=== PATIENT | female | born 1965 | race Caucasian/White ===

== ENCOUNTER 2020-08-13 11:12 | Outpatient (REF) | payer MEDICARE, MEDICAID, SELFPAY ==
--- NOTE | 2020-08-13 11:36 | XR_ITS ---
EXAMINATION: AP PELVIS AND LEFT KNEE. CLINICAL INFORMATION: Pain left knee. COMPARISON: None TECHNIQUE: AP knee pelvis stranding. Left knee 2 views. FINDINGS: AP knee: There is a loss of medial compartment joint space both knees without bony erosive changes or loose bodies. Left knee: 2 views left knee reveal screw track along the left proximal tibia suspicious from previous ACL repair and removal of screws.. There is mild loss of patellofemoral compartment joint space with mild suprapatellar joint effusion. No acute fracture or loose body seen. XR/XR knee LT 2V IMPRESSION: Mild degenerative changes medial and patellofemoral compartment left knee with suprapatellar joint effusion. Suspect post ACL repair changes along the left proximal tibia. Correlate with clinical history.
--- NOTE | 2020-08-13 11:36 | XR_ITS ---
EXAMINATION: AP PELVIS AND LEFT KNEE. CLINICAL INFORMATION: Pain left knee. COMPARISON: None TECHNIQUE: AP knee pelvis stranding. Left knee 2 views. FINDINGS: AP knee: There is a loss of medial compartment joint space both knees without bony erosive changes or loose bodies. Left knee: 2 views left knee reveal screw track along the left proximal tibia suspicious from previous ACL repair and removal of screws.. There is mild loss of patellofemoral compartment joint space with mild suprapatellar joint effusion. No acute fracture or loose body seen. XR/XR knee standing BI IMPRESSION: Mild degenerative changes medial and patellofemoral compartment left knee with suprapatellar joint effusion. Suspect post ACL repair changes along the left proximal tibia. Correlate with clinical history.
== END 2020-08-13 11:13 | disposition home or self-care (01) ==
LOC: HO.HOSX 11:12
PROVIDERS: PCP Nurse Practitioner Family; Referring Provider Nurse Practitioner Family; Visit Provider Orthopaedic Surgery
DX: M25.562 Pain in left knee (principal); M25.462 Effusion, left knee; Z98.890 Other specified postprocedural states
CPT/HCPCS: 20610; 73560; 73565; 99212; J1100

== ENCOUNTER 2020-09-24 16:10 | Outpatient (REF) | payer MEDICARE, SELFPAY ==
[2020-09-25 12:11] LABS: Influenza A PCR NEGATIVE (Negative); Influenza B PCR NEGATIVE (Negative); Resp Syncy Virus RNA Qual PCR NEGATIVE (Negative); SARS COV2 PCR INHOUSE NEGATIVE (Negative)
== END 2020-09-24 16:11 | disposition home or self-care (01) ==
LOC: HO.LAB 16:10
PROVIDERS: Visit Provider Nurse Practitioner Family
DX: Z20.828 Contact with and (suspected) exposure to other viral communicable diseases (principal)
CPT/HCPCS: 0241U

== ENCOUNTER 2020-09-25 13:09 | Outpatient (REF) | payer MEDICARE, SELFPAY ==
--- NOTE | 2020-09-25 13:16 | XR_ITS ---
EXAMINATION: XR CHEST CLINICAL INFORMATION: Short of breath. COMPARISON: Chest 01/22/2020 TECHNIQUE: 2 views of the chest were obtained. FINDINGS: No significant abnormality is noted involving the heart, lungs, mediastinum, bony thorax or soft tissues. XR/XR chest 2V IMPRESSION: Unremarkable chest examination.
== END 2020-09-25 13:10 | disposition home or self-care (01) ==
LOC: HO.HMGCX 13:09
PROVIDERS: PCP Nurse Practitioner Family; Visit Provider Nurse Practitioner Family
DX: R06.89 Other abnormalities of breathing (principal)
CPT/HCPCS: 71046

== ENCOUNTER 2021-05-09 17:00 | Emergency (ER) | payer MEDICARE, MEDICAID, SELFPAY ==
--- NOTE | ~2021-05-09 | CT_ITS ---
EXAMINATION: CT ABDOMEN AND PELVIS WITHOUT CONTRAST CLINICAL INFORMATION: Left-sided abdominal pain with question of colitis COMPARISON: CT abdomen pelvis 05/28/2016 TECHNIQUE: Multidetector volumetric imaging was performed from the superior aspect of the liver through the pubic symphysis. Sagittal and coronal reformatted images were obtained on the technologist's workstation. This CT examination was performed using dose optimization techniques as appropriate, variously including the following: *Automated exposure control *Adjustment of mA and/or kV according to patient size (this includes techniques or standardized protocols for targeted exams where dose is matched to indication/reason for exam; i.e. extremities or head) *Use of iterative reconstruction technique DLP: 603 mGy-cm FINDINGS: LUNG BASES: The visualized lung bases are unremarkable. LIVER, GALLBLADDER, AND BILIARY TREE: The liver is normal in size, shape, and attenuation. No focal hepatic lesion or biliary ductal dilatation is present. Status post cholecystectomy PANCREAS: Unremarkable. SPLEEN: Unremarkable. ADRENAL GLANDS: Unremarkable. KIDNEYS AND URETERS: The kidneys are normal in size, shape, and attenuation. No hydronephrosis, hydroureter, or calculi seen. No perinephric stranding. BLADDER: Unremarkable. GASTROINTESTINAL TRACT: Status post right hemicolectomy. Colonic diverticula present without diverticulitis. The small and large bowel are otherwise unremarkable. The appendix is noncompressible. ABDOMINAL WALL: No significant hernia is appreciated. There has been prior anterior abdominal wall surgery. There is a small left inguinal hernia seen containing only fat. LYMPH NODES: No retroperitoneal lymphadenopathy. VASCULAR: Unremarkable. PELVIC VISCERA: Surgically absent. OSSEOUS STRUCTURES: Mild degenerative changes. Prior lumbar spine fixation with pedicular screws from L4 through S1. CT/CT abdomen pelvis wo con IMPRESSION: 1. An etiology for the patient's acute left-sided abdominal pain has not been found. 2. Incidental note made of cholecystectomy, hysterectomy, right hemicolectomy, colonic diverticula without diverticulitis and prior lumbosacral spine surgery.
[2021-05-09 18:09] VITALS: BP 111/77; PULSE 71; RESP 18; TEMP 36.6; O2SAT 100; BMI 26.5
[2021-05-09 19:00] LABS: Basophils Absolute Auto 0.1 X10*3/uL (0.0-0.2); Basophils Percent Auto 0.6 % (0-2); Eosinophils Absolute Auto 0.4 X10*3/uL (0.0-0.4); Eosinophils Percent Auto 3.8 % (0-4); Hematocrit 39.1 % (37-47); Imm Gran Abs Auto 0.03 X10*3/uL (0.00-0.03); Imm Gran Pct Auto 0.3 % (0.0-0.4); Lymphocytes Absolute Auto 3.8 X10*3/uL (1.2-4.9); Lymphocytes Percent Auto 40.8 % (20-40); MANUAL DIFF FLAG NO; Mean Corpuscular HGB Conc 33.2 g/dl (31.0-35.0); Mean Corpuscular Hemoglobin 28.5 pg (27.0-33.0); Mean Corpuscular Volume 85.7 fL (80-98); Mean Platelet Volume 9.1 fL (9.4-12.3); Monocytes Absolute Auto 0.6 X10*3/uL (0.1-1.2); Monocytes Percent Auto 6.1 % (2-11); Neutrophils Absolute Auto 4.5 X10*3/uL (2.0-8.3); Neutrophils Percent Auto 48.4 % (45-73); Platelet Count 381 X10*3/uL (160-400); Red Blood Count 4.56 X10*6/uL (4.20-5.50); Red Cell Distribution Width 14.1 % (11.0-16.0); White Blood Count 9.4 X10*3/uL (4.8-10.8)
[2021-05-09 19:29] LABS: Alanine Aminotransferase 6 U/L (0-31); Albumin Level 4.2 g/dL (3.5-5.0); Alkaline Phosphatase 55 U/L (39-117); Anion Gap 11 (12-20); Aspartate Amino Transferase 14 U/L (5-31); Blood Urea Nitrogen 9 mg/dL (9-16); Calcium 9.4 mg/dL (8.4-10.2); Carbon Dioxide 26 mmol/L (22-29); Chloride 107 mmol/L (96-108); Creatinine Clr Calc Pharmacy 78.5; Estimated Glomerular Filt Rate > 60; Glucose Random 93 mg/dL (60-115); Lipase 18 U/L (8-78); Potassium 3.5 mmol/L (3.3-5.1); Sodium 140 mmol/L (135-145); Total Protein 6.7 g/dL (6.5-8.0)
[2021-05-09 19:35] VITALS: BP 133/63; PULSE 66; RESP 14; TEMP 36.8
[2021-05-09 19:44] LABS: Bilirubin Direct < 0.2 mg/dL (0.0-0.5); Bilirubin Total < 0.2 mg/dL (0.0-1.0)
[2021-05-09] MEDS: 0.9 % Sodium Chloride 1,000 ML 999 ML IV (20:05)
--- NOTE | 2021-05-09 20:05 | PC.NURSE ---
IV established, pt medicated with Zofran and IVF. VSS. Pt awaiting primary MD gabriel.
--- NOTE | 2021-05-09 20:44 | ED.ABDPAIN ---
HPI - Abdominal Pain General Chief Complaint: Abdominal Pain Stated Complaint: back and abd pain Time Seen by Provider: 05/09/21 20:41 Source: patient Mode of arrival: ambulatory Limitations: no limitations History of Present Illness HPI narrative: 56-year-old female came in for evaluation of abdominal pain. Three days of left-sided abdominal pain that radiated to the back, pain is constant but waxes and weans, patient described pain as severe 10/10, no aggravating factor no relieving factor, pain radiate to the back, associated with nausea but no vomiting, no fever or chills. No diarrhea. Patient live with chronic back pain due to muscle spasm patient tried muscle relaxant with no relief. Patient had history of colectomy after perforated colon after colonoscopy, cholecystectomy. Related Data Home Medications Medication Instructions Recorded Confirmed hydrochlorothiazide 12.5 mg tablet 12.5 mg PO DAILY 08/13/20 03/22/21 lurasidone 80 mg tablet 80 mg PO DAILY 08/13/20 03/22/21 sertraline 100 mg tablet 100 mg PO DAILY 08/13/20 03/22/21 topiramate 100 mg tablet 100 mg PO BID 08/13/20 03/22/21 trazodone 100 mg tablet 100 mg PO DAILY 08/13/20 03/22/21 Previous Rx's Medication Instructions Recorded fluticasone propionate 50 1 spray INTRANASAL DAILY #16 ml 08/20/20 mcg/actuation nasal spray,suspension diclofenac sodium 75 mg 75 mg PO BID PRN 30 Days #60 tab 08/22/20 tablet,delayed release tramadol 50 mg tablet 50 mg PO BID PRN 7 Days #14 tab 08/30/20 metoprolol tartrate 25 mg tablet 12.5 mg PO BID #90 tab 09/29/20 fenofibrate 54 mg tablet 54 mg PO DAILY 90 Days #90 tab 10/02/20 pregabalin 75 mg capsule 75 mg PO BID 30 Days #60 cap 11/24/20 omeprazole 20 mg capsule,delayed 20 mg PO BID #180 cap 04/06/21 release tizanidine 2 mg tablet 2 mg PO BID PRN #60 tab 04/20/21 diazepam [Valium] 2 mg PO BEDTIME PRN #4 tab 05/09/21 oxycodone 5 mg PO BID PRN #5 tab 05/09/21 Allergies Allergy/AdvReac Type Severity Reaction Status Date / Time milnacipran [From SAVELLA] Allergy Intermediate ITCHING Verified 03/22/21 12:25 aspirin [Aspirin] Allergy Mild DYSPNEA Verified 03/22/21 12:25 levofloxacin [From Levaquin] Allergy Mild RASH Verified 03/22/21 12:25 lithium [Weed] Allergy Mild TREMORS Verified 03/22/21 12:25 morphine [MORPHINE] Allergy Mild NAUSEA/VOMI Verified 03/22/21 12:25 TING fluoxetine [Prozac] Allergy Unknown Unknown Verified 03/22/21 12:25 ibuprofen [From MOTRIN] Allergy Unknown SHORTNESS Verified 03/22/21 12:25 OF BREATH lamotrigine [From LAMICTAL] Allergy Unknown RASH Verified 03/22/21 12:25 Motrin Allergy Unknown Unknown Verified 03/22/21 12:25 pregabalin [From LYRICA] Allergy Unknown ITCHINESS Unverified 03/22/21 12:25 zolpidem [From AMBIEN] AdvReac Intermediate ITCHY Unverified 03/22/21 12:25 carbamazepine [From TEGRETOL] AdvReac Unknown FATIGUE Unverified 03/22/21 12:25 ketorolac [From TORADOL] AdvReac Unknown CHEST Unverified 03/22/21 12:25 TIGHTNESS SEAFOOD Allergy Mild UNKNOWN Uncoded 03/22/21 12:25 Sevelamer HCl Allergy Unknown Unknown Uncoded 03/22/21 12:25 Review of Systems Review of Systems All other systems are reviewed and are negative Constitutional: Reports as per HPI and Reports no additional constitutional complaints Eyes: Reports as per HPI and Reports no additional eye complaints Reports system reviewed and no additional complaints, except as documented Cardiovascular: Reports as per HPI and Reports no additional cardiovascular complaints Respiratory: Reports as per HPI and Reports no additional respiratory complaints Gastrointestinal: Reports as per HPI and Reports no additional gastrointestinal complaints Genitourinary: Reports no additional female genitourinary complaints Musculoskeletal: Reports no additional musculoskeletal complaints Skin/Breast: Reports system reviewed and no additional complaints, except as docu Psychiatric: Reports no additional psychiatric complaints Endocrine: Reports no additional endocrine complaints Hematologic/Lymphatic: Reports no additional hematologic/lymphatic complaints Allergic/Immunologic: Reports no additional allergic/immunologic complaints Reports system reviewed and no additional complaints, except as documented and Reports Abnormal speech present Physical Exam Vital Signs: Vital Signs: Last Vital Signs Temp 98.2 F 05/09/21 19:35 Pulse 63 05/09/21 21:52 Resp 16 05/09/21 21:52 BP 126/70 05/09/21 21:52 Pulse Ox 100 05/09/21 18:09 Body Mass Index 26.5 Vital signs have been reviewed as appeared to be correct. Blood pressure normal. Heart rate normal. Respiration rate normal. Temperature normal. Oxygen saturation normal. Appearance: Alert. Oriented X3. No acute distress. Head: Normal external exam. Normocephalic. Atraumatic. No Paez signs noted. No raccoon eyes noted Eyes: PERRLA. EOMI. Conjunctiva and sclera normal. Eyelids normal. ENT: TM's Normal. Pharynx normal. Uvula midline. Moist mucous membranes. No trismus noted. No drooling noted. No muffled voice noted. Neck: Normal inspection. Neck supple. FROM. No adenopathy. Thyroid Normal. No meningeal signs. No neck mass noted. CVS: Normal heart rate and rhythm. Heart sound normal. No murmurs noted. Pulses normal throughout. Respiratory: No respiratory distress. Painless inspiration. Breath sounds normal. No wheezes/rales/rhonchi noted. Chest nontender. No accessory muscle usage noted or decreased air movement noted. Abdomen: Soft, mild left upper abdominal tenderness, no rebound, no guarding.. Bowel sounds normal in all 4 quadrants. No distention noted. No organomegaly noted. No visible injury noted. Back: No CVA tenderness. Full range of motion noted. Skin: Skin warm and dry. Normal skin color. Normal skin turgor. No rashes/lesions/lacerations noted. Extremities: No lower extremity edema. Extremities exhibit normal range of motion. Extremities nontender. Neuro: Oriented X 3. No motor deficit. No sensory deficit. Reflexes normal. Course Course Course Narrative: Assessment and plan. 56-year-old female came in with abdominal pain radiating to the back pain, patient is known to have chronic back pain problem, in light of normal CT of the abdomen and pelvis and labs probably the back pain is the main problem, as discussed with the patient will prescribe a few pills of oxycodone/Valium to help the patient to sleep tonight. And follow-up with her PCP. MDM - Abdominal Pain Medical Records Attestation: I reviewed the patient's medical records. Lab Data Attestation: I reviewed the patient's lab results. Result diagrams: 05/09/21 18:54 05/09/21 18:53 Labs: Lab Results 05/09/21 05/09/21 05/09/21 Range/Units 18:53 18:54 20:55 WBC 9.4 (4.8-10.8) X10*3/uL RBC 4.56 (4.20-5.50) X10*6/uL Hgb 13.0 (12.0-16.0) g/dl Hct 39.1 (37-47) % MCV 85.7 (80-98) fL MCH 28.5 (27.0-33.0) pg MCHC 33.2 (31.0-35.0) g/dl RDW 14.1 (11.0-16.0) % Plt Count 381 (160-400) X10*3/uL MPV 9.1 L (9.4-12.3) fL Immature Gran % (Auto) 0.3 (0.0-0.4) % Neut % (Auto) 48.4 (45-73) % Lymph % (Auto) 40.8 H (20-40) % Sunflower % (Auto) 6.1 (2-11) % Eos % (Auto) 3.8 (0-4) % Baso % (Auto) 0.6 (0-2) % Lymph # (Auto) 3.8 (1.2-4.9) X10*3/uL Sunflower # (Auto) 0.6 (0.1-1.2) X10*3/uL Eos # (Auto) 0.4 (0.0-0.4) X10*3/uL Baso # (Auto) 0.1 (0.0-0.2) X10*3/uL Abs Immat Gran (auto) 0.03 (0.00-0.03) X10*3/uL Absolute Neuts (auto) 4.5 (2.0-8.3) X10*3/uL Absolute Nucleated RBC 0.000 (0.0-0.012) X10*3/uL Nucleated RBC % (auto) 0.0 (0.0-0.2) /100WBC Sodium 140 (135-145) mmol/L Potassium 3.5 (3.3-5.1) mmol/L Chloride 107 (96-108) mmol/L Carbon Dioxide 26 (22-29) mmol/L Anion Gap 11 L (12-20) BUN 9 (9-16) mg/dL Creatinine 0.72 (0.5-1.4) mg/dL Estim Creat Clear Calc 78.5 Estimated GFR > 60 Random Glucose 93 (60-115) mg/dL Calcium 9.4 (8.4-10.2) mg/dL Total Bilirubin < 0.2 (0.0-1.0) mg/dL Direct Bilirubin < 0.2 (0.0-0.5) mg/dL AST 14 (5-31) U/L ALT 6 (0-31) U/L Alkaline Phosphatase 55 (39-117) U/L Total Protein 6.7 (6.5-8.0) g/dL Albumin 4.2 (3.5-5.0) g/dL Lipase 18 (8-78) U/L Urine Color YELLOW Urine Appearance CLEAR Urine pH 7.0 (5.0-8.0) Ur Specific [place] 1.010 (1.005-1.025) Urine Protein NEG (NEG-TRACE) MG/DL Urine Glucose (UA) NEG (NEG) MG/DL Urine Ketones NEG (NEG) MG/DL Urine Blood NEG (NEG) Urine Nitrite NEG (NEG) Ur Leukocyte Esterase NEG (NEG) Urine RBC 1-4 (0) /HPF Urine WBC 1-4 (0-4) /HPF Ur Squamous Epith Cells 1+ /LPF Urine Bacteria 1+ /LPF Imaging Data CT scan - abdomen: Radiologist's impression: 1. An etiology for the patient's acute left-sided abdominal pain has not been found. 2. Incidental note made of cholecystectomy, hysterectomy, right hemicolectomy, colonic diverticula without diverticulitis and prior lumbosacral spine surgery. Discharge Plan Discharge Clinical Impression: Acute myofascial pain Patient Disposition: Home, Self-Care Instructions: Musculoskeletal Pain (ED) Prescriptions: New oxycodone 5 mg tablet 5 mg PO BID PRN (Reason: pain) Qty: 5 RF: 0 diazepam [Valium] 2 mg tablet 2 mg PO BEDTIME PRN (Reason: muscle spasm) Qty: 4 RF: 0 No Action fluticasone propionate 50 mcg/actuation spray,suspension 1 spray intranasal DAILY Qty: 16 RF: 1 diclofenac sodium 75 mg tablet,delayed release (DR/EC) 75 mg PO BID PRN (Reason: pain) 30 Days Qty: 60 RF: 1 tramadol 50 mg tablet 50 mg PO BID PRN (Reason: pain) 7 Days Qty: 14 RF: 0 metoprolol tartrate 25 mg tablet 12.5 mg PO BID Qty: 90 RF: 1 fenofibrate 54 mg tablet 54 mg PO DAILY 90 Days Qty: 90 RF: 0 pregabalin 75 mg capsule 75 mg PO BID 30 Days Qty: 60 RF: 2 omeprazole 20 mg capsule,delayed release(DR/EC) 20 mg PO BID Qty: 180 RF: 1 tizanidine 2 mg tablet 2 mg PO BID PRN (Reason: for muscle spasm) Qty: 60 RF: 0 Latuda 80 mg tablet 80 mg PO DAILY RF: 0 topiramate [Topamax] 100 mg tablet 100 mg PO BID RF: 0 hydrochlorothiazide 12.5 mg tablet 12.5 mg PO DAILY RF: 0 sertraline 100 mg tablet 100 mg PO DAILY RF: 0 trazodone 100 mg tablet 100 mg PO DAILY RF: 0 Referrals: [facility], [facility]- [Primary Care Provider] - 2 days PMF Past Medical History Medical History Depression Effusion, left knee GERD (gastroesophageal reflux disease) Hyperlipidemia Hypertension Left knee pain Surgical History History of colectomy (~06/01/11) History of hysterectomy (~1999) History of spinal surgery (~12/2013) S/P ACL repair Family History Family History Father No problems noted. Mother No problems noted. Social History Social History Advance Directives: No Advance Directives Information Provided: Yes Current occupation: [employer]
[2021-05-09] MEDS: Morphine Sulfate 2 MG/ML CARTRIDGE 1 MG IVPUSH ×2 (20:56→21:51)
--- NOTE | 2021-05-09 20:57 | PC.NURSE ---
UA obtained and sent. Pt medicated with Morphine for 10/10 abdominal pain. Pt aware of plan for CT. Continue to monitor.
[2021-05-09 21:29] LABS: Appearance Urine CLEAR; Color Urine YELLOW; Glucose Urine UA NEG (NEG); Leukocyte Esterase Urine NEG (NEG); Nitrite Urine NEG (NEG); Urine Blood NEG (NEG); Urine Ketones NEG (NEG); Urine Protein NEG (NEG-TRACE)
[2021-05-09 21:33] LABS: Bacteria Urine 1+ /LPF; Squamous Epithelial Cell Urine 1+ /LPF
[2021-05-09 21:52] VITALS: BP 126/70; PULSE 63; RESP 16
== END 2021-05-09 23:11 | disposition home or self-care (01) ==
PROVIDERS: Emergency Provider Emergency Medicine; PCP Nurse Practitioner Family
DX: M79.10 Myalgia, unspecified site (principal); R10.12 Left upper quadrant pain; I10 Essential (primary) hypertension; E78.5 Hyperlipidemia, unspecified; Z90.49 Acquired absence of other specified parts of digestive tract; Z90.710 Acquired absence of both cervix and uterus
CPT/HCPCS: 36415; 74176; 80048; 80076; 81001; 83690; 85025; 96361; 96374; 96375; 96376; 99284; J2270; J2405

== ENCOUNTER 2021-07-06 15:24 | Outpatient (REF) | payer MEDICARE, MEDICAID, SELFPAY ==
--- NOTE | ~2021-07-06 | XR_ITS ---
EXAMINATION: XR CHEST CLINICAL INFORMATION: Cough COMPARISON: Previous chest x-rays most recent September 2020 TECHNIQUE: 2 views of the chest were obtained. FINDINGS: The cardiac and mediastinal contours are normal. The lungs are clear. There is no pleural effusion or pneumothorax. There are mild degenerative changes of the thoracic spine. There are postsurgical changes to the lower cervical spine. XR/XR chest 2V IMPRESSION: No evidence for acute disease in the chest.
== END 2021-07-06 15:25 | disposition home or self-care (01) ==
LOC: HO.HMGCX 15:24
PROVIDERS: PCP Nurse Practitioner Family; Visit Provider Nurse Practitioner Family
DX: Z13.89 Encounter for screening for other disorder (principal)
CPT/HCPCS: 71046

== ENCOUNTER 2021-07-08 15:31 | Emergency (ER) | payer OTHER, MEDICARE, MEDICAID, SELFPAY ==
--- NOTE | ~2021-07-08 | XR_ITS ---
EXAMINATION: XR CHEST CLINICAL INFORMATION: Chest pain COMPARISON: 07/06/2021 TECHNIQUE: 2 views of the chest were obtained. FINDINGS: Cervical fusion hardware. The lungs are well expanded. There is no focal consolidation, edema, or effusion. No pneumothorax. The cardiomediastinal silhouette is within normal limits. No acute osseous abnormality. XR/XR chest 2V IMPRESSION: Unremarkable examination.
[2021-07-08 17:00] VITALS: BP 119/69; PULSE 70; RESP 18; TEMP 36.7; O2SAT 99; BMI 29.2
[2021-07-08 17:40] LABS: MANUAL DIFF FLAG NO
[2021-07-08 17:46] LABS: Basophils Absolute Auto 0.1 X10*3/uL (0.0-0.2); Basophils Percent Auto 0.4 % (0-2); Eosinophils Absolute Auto 0.2 X10*3/uL (0.0-0.4); Eosinophils Percent Auto 1.7 % (0-4); Hematocrit 40.8 % (37-47); Hemoglobin 13.4 g/dl (12.0-16.0); Imm Gran Abs Auto 0.03 X10*3/uL (0.00-0.03); Imm Gran Pct Auto 0.3 % (0.0-0.4); Lymphocytes Absolute Auto 3.1 X10*3/uL (1.2-4.9); Lymphocytes Percent Auto 26.1 % (20-40); Mean Corpuscular HGB Conc 32.8 g/dl (31.0-35.0); Mean Corpuscular Hemoglobin 28.5 pg (27.0-33.0); Mean Corpuscular Volume 86.6 fL (80-98); Mean Platelet Volume 9.4 fL (9.4-12.3); Monocytes Absolute Auto 0.6 X10*3/uL (0.1-1.2); Monocytes Percent Auto 5.3 % (2-11); Neutrophils Absolute Auto 7.8 X10*3/uL (2.0-8.3); Neutrophils Percent Auto 66.2 % (45-73); Platelet Count 346 X10*3/uL (160-400); Red Blood Count 4.71 X10*6/uL (4.20-5.50); Red Cell Distribution Width 13.1 % (11.0-16.0); White Blood Count 11.8 X10*3/uL (4.8-10.8)
[2021-07-08 18:03] LABS: Alanine Aminotransferase 8 U/L (0-31); Albumin Level 4.5 g/dL (3.5-5.0); Alkaline Phosphatase 49 U/L (39-117); Anion Gap 13 (12-20); Aspartate Amino Transferase 11 U/L (5-31); Bilirubin Total 0.3 mg/dL (0.0-1.0); Blood Urea Nitrogen 7 mg/dL (9-16); Calcium 9.9 mg/dL (8.4-10.2); Carbon Dioxide 24 mmol/L (22-29); Chloride 107 mmol/L (96-108); Creatinine Clr Calc Pharmacy 75.1; Estimated Glomerular Filt Rate > 60; Glucose Random 87 mg/dL (60-115); Potassium 3.5 mmol/L (3.3-5.1); Sodium 140 mmol/L (135-145); Total Protein 7.2 g/dL (6.5-8.0)
[2021-07-08 18:37] LABS: Influenza A PCR NEGATIVE (Negative); Influenza B PCR NEGATIVE (Negative); Resp Syncy Virus RNA Qual PCR NEGATIVE (Negative); SARS COV2 PCR INHOUSE NEGATIVE (Negative)
--- NOTE | 2021-07-08 19:39 | ECG_ITS ---
Test Reason : CHEST PAIN Blood Pressure : / mmHG Vent. Rate : 056 BPM Atrial Rate : 056 BPM P-R Int : 164 ms QRS Dur : 096 ms QT Int : 470 ms P-R-T Axes : 052 049 043 degrees QTc Int : 453 ms Sinus bradycardia RSR' or QR pattern in V1 suggests right ventricular conduction delay Borderline ECG When compared with ECG of 02-SEP-2019 16:54, Vent. rate has decreased BY 33 BPM Referred By: Josie Cannon Electronically Signed By:JAMSHID NORIEGA
--- NOTE | 2021-07-08 20:14 | ED.BACK ---
HPI - Back Pain/Injury General Chief Complaint: Upper Respiratory Symptoms Stated Complaint: Lung pain Time Seen by Provider: 07/08/21 19:33 Source: patient Mode of arrival: ambulatory Limitations: no limitations History of Present Illness HPI Narrative: 56-year-old female with a past medical history of hypertension, hyperlipidemia, GERD and depression denies being on any blood thinners presenting to the ED with complaints of atraumatic upper mid back pain that started approximately 2 days ago in his sharp in sensation and now radiating to her left side of her chest down her left arm. Reports that she has had increased fatigue/appetite and the pain is worse with deep inspiration or movement. She reports that she is vaccinated for COVID. She denies any dizziness, headaches, change in vision, nausea/vomiting, shortness of breath, dyspnea on exertion, orthopnea, palpitations, extremity edema, nausea/vomiting/diarrhea, abdominal pain, any focal weakness, recent travel or sick contacts, any estrogen usage, history of hypercoagulation disorder, history of cancer, recent immobilization or any other symptoms complaints or concerns at this time. She reports her mother had coronary artery disease and had an [place] and from the [place] at age 79. MD elicited complaint: back pain Onset (ago): day(s) (Two days worse today) Timing: constant and progressively worsening Severity: moderate Similar Symptoms Previously: No Quality: sharp Location: right upper back and left upper back Radiation: chest and other (And left arm) Exacerbating factors: movement and deep breaths Relieving factors: none Context: unknown Associated symptoms: fatigue and myalgias Work related injury: No Related Data Home Medications Medication Instructions Recorded Confirmed lurasidone 80 mg tablet (Latuda) 80 mg PO DAILY 08/13/20 07/06/21 sertraline 100 mg tablet 100 mg PO DAILY 08/13/20 07/06/21 topiramate 100 mg tablet (Topamax) 100 mg PO BID 08/13/20 07/06/21 trazodone 100 mg tablet 100 mg PO DAILY 08/13/20 07/06/21 Previous Rx's Medication Instructions Recorded fluticasone propionate 50 1 spray INTRANASAL DAILY #16 ml 08/20/20 mcg/actuation nasal spray,suspension diclofenac sodium 75 mg 75 mg PO BID PRN 30 Days #60 tab 08/22/20 tablet,delayed release metoprolol tartrate 25 mg tablet 12.5 mg PO BID #90 tab 09/29/20 fenofibrate 54 mg tablet 54 mg PO DAILY 90 Days #90 tab 10/02/20 omeprazole 20 mg capsule,delayed 20 mg PO BID #180 cap 04/06/21 release hydrochlorothiazide 12.5 mg tablet 12.5 mg PO DAILY 90 Days #90 tab 06/08/21 pregabalin 75 mg capsule 75 mg PO BID 30 Days #60 cap 06/23/21 tizanidine 2 mg tablet 2 mg PO BID PRN #60 tab 07/06/21 cyclobenzaprine 10 mg tablet 10 mg PO Q8H #10 tab 07/08/21 lidocaine HCl 4 % topical cream 1 appl TOPICAL BID PRN #120 g 07/08/21 (Aspercreme (lidocaine HCl)) oxycodone 5 mg tablet 5 mg PO Q6H PRN #10 tab 07/08/21 Allergies Allergy/AdvReac Type Severity Reaction Status Date / Time milnacipran [From SAVELLA] Allergy Intermediate ITCHING Verified 07/08/21 17:00 aspirin [Aspirin] Allergy Mild DYSPNEA Verified 07/08/21 17:00 levofloxacin [From Levaquin] Allergy Mild RASH Verified 07/08/21 17:00 lithium [Handley] Allergy Mild TREMORS Verified 07/08/21 17:00 morphine [MORPHINE] Allergy Mild NAUSEA/VOMI Verified 07/08/21 17:00 TING fluoxetine [Prozac] Allergy Unknown Unknown Verified 07/08/21 17:00 ibuprofen [From MOTRIN] Allergy Unknown SHORTNESS Verified 07/08/21 17:00 OF BREATH lamotrigine [From LAMICTAL] Allergy Unknown RASH Verified 07/08/21 17:00 Motrin Allergy Unknown Unknown Verified 07/08/21 17:00 pregabalin [From LYRICA] Allergy Unknown ITCHINESS Verified 07/08/21 17:00 zolpidem [From AMBIEN] AdvReac Intermediate ITCHY Verified 07/08/21 17:00 carbamazepine [From TEGRETOL] AdvReac Unknown FATIGUE Verified 07/08/21 17:00 ketorolac [From TORADOL] AdvReac Unknown CHEST Verified 07/08/21 17:00 TIGHTNESS SEAFOOD Allergy Mild UNKNOWN Uncoded 07/06/21 15:37 Sevelamer HCl Allergy Unknown Unknown Uncoded 07/06/21 15:37 Review of Systems Review of Systems: Constitutional : positive Fatigue, positive Malaise, No Weight loss, No Fever, No Chills, No Night Sweats, No TRauma ENT/Mouth : No Hearing loss, No Ear Pain, No Nasal Congestion, No Sinus Pain, No Hoarseness, No sore throat, No Rhinorrhea, No Swallowing Difficulty Eyes: No Eye Pain, No Swelling, No Redness, No Foreign Body, No Discharge, No Vision Changes Cardiovascular : + Chest Pain, No SOB, No Dyspnea on Exertion, No Orthopnea, No Edema, No Palpitations Respiratory : No Cough, No Sputum, No Wheezing, No Smoke Exposure, No Dyspnea Gastrointestinal : No Nausea, No Vomiting, No Diarrhea, No Constipation, No abdominal Pain, No Hematochezia, No Melena Genitourinary : no irregular bleeding, No Dysuria, No Urinary Frequency, No Hematuria, No Urinary Incontinence, No Urgency, No Flank Pain, No Urinary Flow Changes, No Hesitancy, No Urinary or Bowel Incontinence/retention Musculoskeletal : Positive Back pain, No joint pain, No Myalgias, No Joint Swelling Skin : No Skin Lesions, No rash Neuro : No Weakness, No radiation, No Numbness, No Paresthesias, No headache, no loss of bowel or bladder incontinence, no saddle anesthesia, Focal weakness, No radiation Denies history of IV drug usage. Psych : No Anxiety/Panic, No Depression, No SI/HI/AH/VH, No Social Issues, Heme/Lymph: No Bruising, No Bleeding,No Lymphadenopathy Endocrine : No Polyuria, No Polydipsia, No Temperature Intolerance Yes all other systems are reviewed and are negative [facility] Past Medical History Attestation statement: The following information was validated with the patient. Medical History Depression Effusion, left knee GERD (gastroesophageal reflux disease) Hyperlipidemia Hypertension Left knee pain Surgical History History of colectomy (~06/01/11) History of hysterectomy (~1999) History of spinal surgery (~12/2013) S/P ACL repair Family History Family History Father No problems noted. Mother No problems noted. Social History Social History Patient Tobacco Use Status: Current everyday Tobacco user Cigarettes Per Day: 12 Years Smoked: since 10 years old but quit few times in between e-Cigarette/Vaping Use: Never Used Advance Directives: No Advance Directives Information Provided: No Current occupational status: employed Current occupation: [employer] Physical Exam Vital Signs: Vital Signs: Last Vital Signs Temp 98.3 F 07/08/21 20:17 Pulse 59 07/08/21 20:17 Resp 18 07/08/21 20:17 BP 126/63 07/08/21 20:17 Pulse Ox 97 07/08/21 20:17 Body Mass Index 29.2 vital signs have been reviewed as normal and appeared to be correct. Blood pressure normal. Heart rate normal. Respiration rate normal. Temperature normal. Oxygen saturation normal. Appearance: Alert. Oriented X3. No acute distress. Head: Normal external exam. Normocephalic. Atraumatic. Eyes: PERRLA. EOMI. Conjunctiva and sclera normal. Eyelids normal. ENT: Pharynx normal. Uvula midline. Moist mucous membranes. Neck: Normal inspection. Neck supple. FROM. No adenopathy. Thyroid Normal. No meningeal signs. No neck mass noted. CVS: Normal heart rate and rhythm. Heart sound normal. No murmurs noted. Pulses normal throughout. Respiratory: No respiratory distress. Painless inspiration. Breath sounds normal. No wheezes/rales/rhonchi noted. Chest mild reproducible left upper anterior chest wall tenderness. Not consistent with flail chest. No rashes are noted. No crepitus is noted. No accessory muscle usage noted or decreased air movement noted. Abdomen: Soft and nontender. Bowel sounds normal in all 4 quadrants. No distention noted. No organomegaly noted. No visible injury noted. Back: No CVA tenderness. Full range of motion noted. No obvious deformities, or edema. Mild para-spinal muscular tenderness from midthoracic/bilateral thoracic region. Full ROM in back and lower extremities. 5/5 strength hip extension/flexion, abduction, adduction. Mild Lumbar pain with hip flexion against resistance. Straight leg raise test negative on right; Straight leg raise test negative on left; Reflexes normal ankle and knee bilaterally; EHL motor strength normal bilaterally. No rashes/lesion/induration/fluctuance or signs infection noted. Skin: Skin warm and dry. Normal skin color. Normal skin turgor. No rashes/lesions/lacerations noted. Extremities: No lower extremity edema. No calf tenderness is noted. Extremities exhibit normal range of motion. Extremities nontender. Neuro: Oriented X 3. No motor deficit. No sensory deficit. Reflexes normal. Patient has a normal steady gait. Course Course Course Narrative: 19:40pm - 56-year-old female with a past medical history of hypertension, hyperlipidemia, GERD and depression denies being on any blood thinners presenting to the ED with complaints of atraumatic upper mid back pain that started approximately 2 days ago in his sharp in sensation and now radiating to her left side of her chest down her left arm. Reports that she has had increased fatigue/appetite and the pain is worse with deep inspiration or movement. Plan: Labs were obtained in triage in all within normal limits. Will obtain a troponin. Patient's story not consistent with a PE therefore no indication for D-dimer or CT of chest for PE and patient does not have any shortness of breath or lower extremity edema. Will also obtain an EKG. Provide symptomatic relief with 10 mg of Flexeril, 5 mg of oxycodone and 1 Lidoderm patch in re-evaluate. Reevaluation(s) Reevaluation #1: - EKG within normal limits. Troponin negative. Patient most likely musculoskeletal pain. Will DC home with symptomatic treatment instructions return if any new or worsening symptoms and follow with primary care provider. Patient understands agrees with this plan. Time: 21:00 MDM - Back Pain/Injury Medical Records Attestation: I reviewed the patient's medical records. Lab Data Attestation: I reviewed the patient's lab results. Result diagrams: 07/08/21 17:23 07/08/21 17:22 Labs: Lab Results 07/08/21 07/08/21 07/08/21 Range/Units 17:22 17: 17:23 WBC 11.8 H (4.8-10.8) X10*3/uL RBC 4.71 (4.20-5.50) X10*6/uL Hgb 13.4 (12.0-16.0) g/dl Hct 40.8 (37-47) % MCV 86.6 (80-98) fL MCH 28.5 (27.0-33.0) pg MCHC 32.8 (31.0-35.0) g/dl RDW 13.1 (11.0-16.0) % Plt Count 346 (160-400) X10*3/uL MPV 9.4 (9.4-12.3) fL Immature Gran % (Auto) 0.3 (0.0-0.4) % Neut % (Auto) 66.2 (45-73) % Lymph % (Auto) 26.1 (20-40) % [place] % (Auto) 5.3 (2-11) % Eos % (Auto) 1.7 (0-4) % Baso % (Auto) 0.4 (0-2) % Lymph # (Auto) 3.1 (1.2-4.9) X10*3/uL [place] # (Auto) 0.6 (0.1-1.2) X10*3/uL Eos # (Auto) 0.2 (0.0-0.4) X10*3/uL Baso # (Auto) 0.1 (0.0-0.2) X10*3/uL Abs Immat Gran (auto) 0.03 (0.00-0.03) X10*3/uL Absolute Neuts (auto) 7.8 (2.0-8.3) X10*3/uL Absolute Nucleated RBC 0.000 (0.0-0.012) X10*3/uL Nucleated RBC % (auto) 0.0 (0.0-0.2) /100WBC Sodium 140 (135-145) mmol/L Potassium 3.5 (3.3-5.1) mmol/L Chloride 107 (96-108) mmol/L Carbon Dioxide 24 (22-29) mmol/L Anion Gap 13 (12-20) BUN 7 L (9-16) mg/dL Creatinine 0.79 (0.5-1.4) mg/dL Estim Creat Clear Calc 75.1 Estimated GFR > 60 Random Glucose 87 (60-115) mg/dL Calcium 9.9 (8.4-10.2) mg/dL Total Bilirubin 0.3 (0.0-1.0) mg/dL AST 11 (5-31) U/L ALT 8 (0-31) U/L Alkaline Phosphatase 49 (39-117) U/L Troponin I High Sens (<3.5-17.0) ng/L Total Protein 7.2 (6.5-8.0) g/dL Albumin 4.5 (3.5-5.0) g/dL Coronavirus (PCR) NEGATIVE (Negative) Influenza Type A (PCR) NEGATIVE (Negative) Influenza Type B (PCR) NEGATIVE (Negative) RSV RNA Qual (PCR) NEGATIVE (Negative) 07/08/21 Range/Units 20:15 WBC (4.8-10.8) X10*3/uL RBC (4.20-5.50) X10*6/uL Hgb (12.0-16.0) g/dl Hct (37-47) % MCV (80-98) fL MCH (27.0-33.0) pg MCHC (31.0-35.0) g/dl RDW (11.0-16.0) % Plt Count (160-400) X10*3/uL MPV (9.4-12.3) fL Immature Gran % (Auto) (0.0-0.4) % Neut % (Auto) (45-73) % Lymph % (Auto) (20-40) % [place] % (Auto) (2-11) % Eos % (Auto) (0-4) % Baso % (Auto) (0-2) % Lymph # (Auto) (1.2-4.9) X10*3/uL [place] # (Auto) (0.1-1.2) X10*3/uL Eos # (Auto) (0.0-0.4) X10*3/uL Baso # (Auto) (0.0-0.2) X10*3/uL Abs Immat Gran (auto) (0.00-0.03) X10*3/uL Absolute Neuts (auto) (2.0-8.3) X10*3/uL Absolute Nucleated RBC (0.0-0.012) X10*3/uL Nucleated RBC % (auto) (0.0-0.2) /100WBC Sodium (135-145) mmol/L Potassium (3.3-5.1) mmol/L Chloride (96-108) mmol/L Carbon Dioxide (22-29) mmol/L Anion Gap (12-20) BUN (9-16) mg/dL Creatinine (0.5-1.4) mg/dL Estim Creat Clear Calc Estimated GFR Random Glucose (60-115) mg/dL Calcium (8.4-10.2) mg/dL Total Bilirubin (0.0-1.0) mg/dL AST (5-31) U/L ALT (0-31) U/L Alkaline Phosphatase (39-117) U/L Troponin I High Sens < 3.5 (<3.5-17.0) ng/L Total Protein (6.5-8.0) g/dL Albumin (3.5-5.0) g/dL Coronavirus (PCR) (Negative) Influenza Type A (PCR) (Negative) Influenza Type B (PCR) (Negative) RSV RNA Qual (PCR) (Negative) Imaging Data Chest x-ray: Attestation: I personally reviewed and interpreted this imaging study as follows: Radiologist's impression: FINDINGS: Cervical fusion hardware. The lungs are well expanded. There is no focal consolidation, edema, or effusion. No pneumothorax. The cardiomediastinal silhouette is within normal limits. No acute osseous abnormality. XR/XR chest 2V IMPRESSION: Unremarkable examination. ECG Data Attestation: I personally reviewed and interpreted this ECG as follows: ECG interpretation date: 07/08/21 ECG interpretation time: 20:10 Interpretation: Sinus bradycardia with ventricular rate of 56 with RSR or QR pattern in V1 suggests right ventricular conduction delay no acute ischemic changes are noted and similar when compared to prior EKG on 09/02/2019. Critical Care Time Critical Care Time Critical Care Time: Yes Total Critical Care Time: 60 Attestation: I personally attest to this time spent taking care of the patient Discharge Plan Discharge Clinical Impression: Musculoskeletal pain Patient Disposition: Home, Self-Care Instructions: Musculoskeletal Pain (ED) Prescriptions: New lidocaine HCl [Aspercreme (lidocaine HCl)] 4 % cream 1 appl topical BID PRN (Reason: pain) Qty: 120 RF: 0 cyclobenzaprine 10 mg tablet 10 mg PO Q8H Qty: 10 RF: 0 oxycodone 5 mg tablet 5 mg PO Q6H PRN (Reason: pain) Qty: 10 RF: 0 No Action fluticasone propionate 50 mcg/actuation spray,suspension 1 spray intranasal DAILY Qty: 16 RF: 1 diclofenac sodium 75 mg tablet,delayed release (DR/EC) 75 mg PO BID PRN (Reason: pain) 30 Days Qty: 60 RF: 1 metoprolol tartrate 25 mg tablet 12.5 mg PO BID Qty: 90 RF: 1 fenofibrate 54 mg tablet 54 mg PO DAILY 90 Days Qty: 90 RF: 0 omeprazole 20 mg capsule,delayed release(DR/EC) 20 mg PO BID Qty: 180 RF: 1 hydrochlorothiazide 12.5 mg tablet 12.5 mg PO DAILY 90 Days Qty: 90 RF: 0 pregabalin 75 mg capsule 75 mg PO BID 30 Days Qty: 60 RF: 2 tizanidine 2 mg tablet 2 mg PO BID PRN (Reason: for muscle spasm) Qty: 60 RF: 0 Latuda 80 mg tablet 80 mg PO DAILY RF: 0 topiramate [Topamax] 100 mg tablet 100 mg PO BID RF: 0 sertraline 100 mg tablet 100 mg PO DAILY RF: 0 trazodone 100 mg tablet 100 mg PO DAILY RF: 0 Referrals: Dylon St, [employer] [Primary Care Provider] - 2 days Print Language: [place] Citizen
[2021-07-08 20:17] VITALS: BP 126/63; PULSE 59; RESP 18; TEMP 36.8; O2SAT 97
[2021-07-08] MEDS: oxyCODONE HCl Immed Release 5 MG TABLET PO (20:22)
[2021-07-08] MEDS: Cyclobenzaprine HCl 10 MG TABLET PO (20:23)
[2021-07-08] MEDS: Lidocaine 4 % Patch ADH..PATCH 1 PATCH TRANSDERMA (20:23)
[2021-07-08 20:55] LABS: Troponin-I High Sensitivity < 3.5 ng/L (<3.5-17.0)
--- NOTE | 2021-07-08 21:24 | PC.NURSE ---
1ST ENCOUNTER WITH PATIENT FOR DC PURPOSES. PT AWAKE, ALERT AND ORIENTED X 3. SKIN WARM AND DRY. RESP UNLABORED. DENIES N/V. NEUROS INTACT. TOLERATING PO. PT EVALUATED BY PROVIDER. AWARE AND AGREEABLE TO PLAN OF CARE/DISPOSITION
[2021-07-08 21:26] VITALS: BP 126/63; PULSE 64; RESP 18
== END 2021-07-08 21:28 | disposition home or self-care (01) ==
PROVIDERS: Physician Assistant Medical; Emergency Provider Emergency Medicine; PCP Nurse Practitioner Family
DX: R07.1 Chest pain on breathing (principal); M79.10 Myalgia, unspecified site; I10 Essential (primary) hypertension; E78.5 Hyperlipidemia, unspecified; F33.1 Major depressive disorder, recurrent, moderate; Z20.822 Contact with and (suspected) exposure to COVID-19; Z79.899 Other long term (current) drug therapy; F17.210 Nicotine dependence, cigarettes, uncomplicated; Z71.6 Tobacco abuse counseling
CPT/HCPCS: 0241U; 36415; 71046; 80053; 84484; 85025; 93005; 99283

== ENCOUNTER 2021-08-06 21:27 | Emergency (ER) | payer MEDICARE, MEDICAID, SELFPAY | END 2021-08-06 22:51 | disposition left against medical advice (07) | PROVIDERS: Emergency Provider Emergency Medicine; PCP Nurse Practitioner Family | DX: R09.81 Nasal congestion (principal); R11.2 Nausea with vomiting, unspecified ==

== ENCOUNTER 2021-08-30 13:51 | Emergency (ER) | payer MEDICARE, MEDICAID, SELFPAY ==
[2021-08-30 14:48] VITALS: BP 106/82; PULSE 91; RESP 18; TEMP 36.8; O2SAT 96; BMI 30.2
--- NOTE | 2021-08-30 14:49 | PC.NURSE ---
pt refusing to answer medical history questions as well as allergy questions and stated its in your computer just look
== END 2021-08-30 16:50 | disposition left against medical advice (07) ==
PROVIDERS: Emergency Provider Emergency Medicine; PCP Nurse Practitioner Family
DX: R05.9 Cough, unspecified (principal)
CPT/HCPCS: 99281; 99282

== ENCOUNTER 2021-10-21 13:21 | Emergency (ER) | payer MEDICARE, MEDICAID, SELFPAY ==
--- NOTE | ~2021-10-21 | XR_ITS ---
EXAMINATION: XR chest 1V CLINICAL INFORMATION: Reason for Exam Pain cough COMPARISON: 07/08/2021 TECHNIQUE: XR chest 1V Tubes and lines: None Lungs and pleura: Mild crowding of interstitial lung markings at the bases probably chronic unchanged, no dense focal consolidation pneumonia. Heart and mediastinum: The mediastinum is within normal limits.. Bones/soft tissue: Skeletal structures included are normal for patient's age. XR/XR chest 1V IMPRESSION: No radiographic evidence of dense consolidation pneumonia. Mild interstitial lung markings at the bases probably chronic.
[2021-10-21 13:38] VITALS: BP 110/72; PULSE 82; RESP 19; TEMP 36.6; O2SAT 100; BMI 27.4
--- NOTE | 2021-10-21 14:33 | ED_ITS ---
HPI - General Adult General Chief complaint: Upper Respiratory Symptoms Stated complaint: fever chills vomiting exposed to COVID Time Seen by Provider: 10/21/21 14:25 Source: patient Limitations: no limitations History of Present Illness HPI narrative: The patient presents to the ER with worsening fever chills and diffuse body aches. Patient states she has had nausea vomiting post coughing x2. Patient was supposed COVID-19 on Monday. Patient had COVID early on in the pandemic. Patient also has been vaccinated since. 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 Patient's states symptoms are moderate pain is 8/10. Patient has experience fever and chills. No recent travel history. Patient has a history of tobacco use but has decreased since the onset of these symptoms. Related Data Home Medications Medication Instructions Recorded Confirmed lurasidone 80 mg tablet (Latuda) 80 mg PO DAILY 08/13/20 07/06/21 sertraline 100 mg tablet 100 mg PO DAILY 08/13/20 07/06/21 topiramate 100 mg tablet (Topamax) 100 mg PO BID 08/13/20 07/06/21 trazodone 100 mg tablet 100 mg PO DAILY 08/13/20 07/06/21 Previous Rx's Medication Instructions Recorded fluticasone propionate 50 1 spray INTRANASAL DAILY #16 ml 08/20/20 mcg/actuation nasal spray,suspension diclofenac sodium 75 mg 75 mg PO BID PRN 30 Days #60 tab 08/22/20 tablet,delayed release hydrochlorothiazide 12.5 mg tablet 12.5 mg PO DAILY 90 Days #90 tab 06/08/21 pregabalin 75 mg capsule 75 mg PO BID 30 Days #60 cap 06/23/21 cyclobenzaprine 10 mg tablet 10 mg PO Q8H #10 tab 07/08/21 lidocaine HCl 4 % topical cream 1 appl TOPICAL BID PRN #120 g 07/08/21 (Aspercreme (lidocaine HCl)) oxycodone 5 mg tablet 5 mg PO Q6H PRN #10 tab 07/08/21 metoprolol tartrate 25 mg tablet 12.5 mg PO BID #90 tab 08/10/21 fenofibrate 54 mg tablet 54 mg PO DAILY 90 Days #90 tab 08/22/21 omeprazole 20 mg capsule,delayed 20 mg PO BID #180 cap 08/22/21 release tizanidine 2 mg tablet 2 mg PO BID PRN #60 tab 09/22/21 albuterol sulfate 90 mcg/actuation 2 puff INHALATION Q6H PRN #6.7 g 10/21/21 aerosol inhaler oxycodone 5 mg tablet 5 mg PO BID PRN #7 tab 10/21/21 prednisone 20 mg tablet 40 mg PO DAILY 5 Days #10 tab 10/21/21 Allergies Allergy/AdvReac Type Severity Reaction Status Date / Time milnacipran [From SAVELLA] Allergy Intermediate ITCHING Verified 07/08/21 17:00 aspirin [Aspirin] Allergy Mild DYSPNEA Verified 07/08/21 17:00 levofloxacin [From Levaquin] Allergy Mild RASH Verified 07/08/21 17:00 lithium [[place]] Allergy Mild TREMORS Verified 07/08/21 17:00 morphine [MORPHINE] Allergy Mild NAUSEA/VOMI Verified 07/08/21 17:00 TING fluoxetine [Prozac] Allergy Unknown Unknown Verified 07/08/21 17:00 ibuprofen [From MOTRIN] Allergy Unknown SHORTNESS Verified 07/08/21 17:00 OF BREATH lamotrigine [From LAMICTAL] Allergy Unknown RASH Verified 07/08/21 17:00 Motrin Allergy Unknown Unknown Verified 07/08/21 17:00 pregabalin [From LYRICA] Allergy Unknown ITCHINESS Verified 07/08/21 17:00 zolpidem [From AMBIEN] AdvReac Intermediate ITCHY Verified 07/08/21 17:00 carbamazepine [From TEGRETOL] AdvReac Unknown FATIGUE Verified 07/08/21 17:00 ketorolac [From TORADOL] AdvReac Unknown CHEST Verified 07/08/21 17:00 TIGHTNESS SEAFOOD Allergy Mild UNKNOWN Uncoded 07/06/21 15:37 Sevelamer HCl Allergy Unknown Unknown Uncoded 07/06/21 15:37 Review of Systems Constitutional: Constitutional: Reports body ache(s), Reports chills, Reports fever(s) and Reports headache(s) ENT: Reports headache(s), Reports nasal congestion, Denies nasal discharge and Reports sore throat Cardiovascular: Cardiovascular: Reports chest pain and Reports dyspnea Respiratory: Respiratory: Reports chest congestion, Reports cough, Reports pain with cough and Reports dyspnea Gastrointestinal: Gastrointestinal: Reports nausea and Reports vomiting Musculoskeletal: Musculoskeletal: Reports back pain Neurologic: Reports headache(s) PMFSH Past Medical History Medical History Depression Effusion, left knee GERD (gastroesophageal reflux disease) Hyperlipidemia Hypertension Left knee pain Surgical History History of colectomy (~06/01/11) History of hysterectomy (~1999) History of spinal surgery (~12/2013) S/P ACL repair Family History Family History Father No problems noted. Mother No problems noted. Social History Social History Patient Tobacco Use Status: Current everyday Tobacco user Cigarettes Per Day: 12 Years Smoked: since 10 years old but quit few times in between e-Cigarette/Vaping Use: Never Used Advance Directives: No Advance Directives Information Provided: No Patient : Yes Current occupational status: employed Current occupation: [employer] Physical Exam Vital Signs: Vital Signs: Last Vital Signs Temp 98 F 10/21/21 13:38 Pulse 82 10/21/21 14:52 Resp 18 10/21/21 14:52 BP 110/72 10/21/21 13:38 Pulse Ox 100 10/21/21 13:38 BMI result Body Mass Index 27.4 vital signs have been reviewed as normal and appeared to be correct. Blood pressure normal. Heart rate normal. Respiration rate normal. Temperature normal. Oxygen saturation normal. Appearance: Alert. Oriented X3. No acute distress. Head: Normal external exam. Normocephalic. Atraumatic. Eyes: PERRLA. EOMI. Conjunctiva and sclera normal. Eyelids normal. ENT: Pharynx normal. Uvula midline. Moist mucous membranes. Neck: Soft full range of motion, no JVD CVS: Heart regular rate and rhythm no murmurs and rubs Respiratory: Breath sounds diminished slightly coarse Abdomen: Soft nontender no rebound or guarding positive bowel sounds Back: Full range of motion noted. Skin: Skin warm and dry. Normal skin color. Normal skin turgor. No rashes/lesions/lacerations noted. Extremities: Patient moving upper and lower extremities purposely no calf tenderness bilaterally. Neuro: Oriented X 3. No motor deficit. No sensory deficit. Reflexes normal. Course Course Course Narrative: COVID-19 Pneumonia Viral URI Influenza Chest x-ray COVID-19 swab pending 2 puffs of albuterol MDI given O2 sat is 100% on room air at this time. No obvious tachypnea or accessory muscle use noted 2:53 p.m. 5 mg oxycodone p.o. Mass pat reviewed patient is on Lyrica current benzos and has had prescriptions for opiates in the past Chest x-ray is negative Medical Decision Making Lab Data Labs: Lab Results 10/21/21 Range/Units 14:25 COVID-19 (SHAUN) Negative (Negative) COVID-19 Clin Com See Note Imaging Data Chest x-ray: Radiologist's impression: [id number] [place] [address] XRay Report Signed Patient: Lori Mendieta MR#: [id number] : 1965 Acct:[id number] Age/Sex: 56 / F ADM Date: 10/21/21 Loc: HO.ED Attending Dr: Ordering Physician: Marek Atwood Date of Service: 10/21/21 Procedure(s): XR chest 1V Accession Number(s): [id number] cc: Marek Atwood ~ EXAMINATION: XR chest 1V CLINICAL INFORMATION: Reason for Exam Pain cough COMPARISON: 07/08/2021? TECHNIQUE: XR chest 1V Tubes and lines: None Lungs and pleura: Mild crowding of interstitial lung markings at the bases probably chronic unchanged, no dense focal consolidation pneumonia. Heart and mediastinum: The mediastinum is within normal limits.. Bones/soft tissue: Skeletal structures included are normal for patient's age. XR/XR chest 1V IMPRESSION: No radiographic evidence of dense consolidation pneumonia. ? Mild interstitial lung markings at the bases probably chronic. Dictated By: RANDAL ROJAS MD Signed By: <Electronically signed by RANDAL ROJAS MD in OV> 10/21/21 1457 DD/ 1438 TD/TT:? Devops Consultant: Discharge Plan Discharge Clinical Impression: Bronchitis Patient Disposition: Still a Patient Instructions: Acute Bronchitis (ED) Additional Instructions: Medication as directed COVID-19 test is negative at this time Return if symptoms worsen Prescriptions: New albuterol sulfate 90 mcg/actuation HFA aerosol inhaler 2 puff inhalation Q6H PRN (Reason: shortness of breath or wheezing) Qty: 6.7 RF: 0 prednisone 20 mg tablet 40 mg PO DAILY 5 Days Qty: 10 RF: 0 oxycodone 5 mg tablet 5 mg PO BID PRN (Reason: pain) Qty: 7 RF: 0 No Action fluticasone propionate 50 mcg/actuation spray,suspension 1 spray intranasal DAILY Qty: 16 RF: 1 diclofenac sodium 75 mg tablet,delayed release (DR/EC) 75 mg PO BID PRN (Reason: pain) 30 Days Qty: 60 RF: 1 hydrochlorothiazide 12.5 mg tablet 12.5 mg PO DAILY 90 Days Qty: 90 RF: 0 pregabalin 75 mg capsule 75 mg PO BID 30 Days Qty: 60 RF: 2 metoprolol tartrate 25 mg tablet 12.5 mg PO BID Qty: 90 RF: 1 omeprazole 20 mg capsule,delayed release(DR/EC) 20 mg PO BID Qty: 180 RF: 1 fenofibrate 54 mg tablet 54 mg PO DAILY 90 Days Qty: 90 RF: 0 tizanidine 2 mg tablet 2 mg PO BID PRN (Reason: for muscle spasm) Qty: 60 RF: 0 lidocaine HCl [Aspercreme (lidocaine HCl)] 4 % cream 1 appl topical BID PRN (Reason: pain) Qty: 120 RF: 0 cyclobenzaprine 10 mg tablet 10 mg PO Q8H Qty: 10 RF: 0 oxycodone 5 mg tablet 5 mg PO Q6H PRN (Reason: pain) Qty: 10 RF: 0 Latuda 80 mg tablet 80 mg PO DAILY RF: 0 topiramate [Topamax] 100 mg tablet 100 mg PO BID RF: 0 sertraline 100 mg tablet 100 mg PO DAILY RF: 0 trazodone 100 mg tablet 100 mg PO DAILY RF: 0 Stand Alone Forms: Work/School Release
[2021-10-21 14:46] LABS: COVID-19 Test Negative (Negative)
[2021-10-21] MEDS: Albuterol Sulfate 90 MCG 8 GM INHALER 2 PUFF INHALE (14:51)
[2021-10-21 14:52] VITALS: PULSE 82; RESP 18; O2SAT 99
[2021-10-21] MEDS: oxyCODONE HCl Immed Release 5 MG TABLET PO (14:59)
== END 2021-10-21 15:33 | disposition home or self-care (01) ==
PROVIDERS: Emergency Provider Emergency Medicine; PCP Nurse Practitioner Family
DX: J40 Bronchitis, not specified as acute or chronic (principal); Z20.822 Contact with and (suspected) exposure to COVID-19; I10 Essential (primary) hypertension; E78.5 Hyperlipidemia, unspecified
CPT/HCPCS: 71045; 87635; 94640; 99284

== ENCOUNTER 2021-11-03 13:28 | Emergency (ER) | payer MEDICARE, MEDICAID, SELFPAY ==
--- NOTE | ~2021-11-03 | XR_ITS ---
EXAMINATION: XR CHEST CLINICAL INFORMATION: Cough. COMPARISON: None TECHNIQUE: 2 views of the chest were obtained. FINDINGS: No significant abnormality is noted involving the heart, lungs, mediastinum, bony thorax or soft tissues. XR/XR chest 2V IMPRESSION: Unremarkable chest examination.
[2021-11-03 14:50] VITALS: BP 116/81; PULSE 80; RESP 18; TEMP 37; O2SAT 98; BMI 28.3
[2021-11-03 15:09] LABS: MANUAL DIFF FLAG NO
[2021-11-03 15:10] LABS: Basophils Absolute Auto 0.1 X10*3/uL (0.0-0.2); Basophils Percent Auto 0.7 % (0-2); Eosinophils Absolute Auto 0.2 X10*3/uL (0.0-0.4); Hematocrit 42.7 % (37.0-47.0); Imm Gran Abs Auto 0.03 X10*3/uL (0.00-0.03); Imm Gran Pct Auto 0.3 % (0.0-0.4); Lymphocytes Absolute Auto 2.7 X10*3/uL (1.2-4.9); Lymphocytes Percent Auto 25.4 % (20-40); Mean Corpuscular HGB Conc 32.8 g/dl (31.0-35.0); Mean Corpuscular Hemoglobin 28.5 pg (27.0-33.0); Mean Corpuscular Volume 86.8 fL (80.0-98.0); Mean Platelet Volume 8.7 fL (9.4-12.3); Monocytes Absolute Auto 0.5 X10*3/uL (0.1-1.2); Neutrophils Absolute Auto 7.1 x10*3/uL (2.0-8.3); Neutrophils Percent Auto 66.6 % (45-73); Platelet Count 375 X10*3/uL (160-400); Red Blood Count 4.92 X10*6/uL (4.20-5.50); Red Cell Distribution Width 13.2 % (11.0-16.0); White Blood Count 10.7 X10*3/uL (4.8-10.8)
[2021-11-03 15:25] LABS: COVID-19 Test Negative (Negative)
[2021-11-03 15:30] LABS: Alanine Aminotransferase 7 U/L (0-31); Albumin Level 4.4 g/dL (3.5-5.0); Alkaline Phosphatase 51 U/L (39-117); Anion Gap 11 (12-20); Aspartate Amino Transferase 12 U/L (5-31); Bilirubin Direct < 0.2 mg/dL (0.0-0.5); Bilirubin Total 0.4 mg/dL (0.0-1.0); Blood Urea Nitrogen 8 mg/dL (9-16); Calcium 9.9 mg/dL (8.4-10.2); Carbon Dioxide 27 mmol/L (22-29); Chloride 104 mmol/L (96-108); Creatinine Clr Calc Pharmacy 77.8; Estimated Glomerular Filt Rate > 60; Glucose Random 113 mg/dL (60-115); Lipase 13 U/L (8-78); Potassium 3.1 mmol/L (3.3-5.1); Sodium 139 mmol/L (135-145); Total Protein 7.4 g/dL (6.5-8.0)
== END 2021-11-03 20:29 | disposition left against medical advice (07) ==
PROVIDERS: Emergency Provider Emergency Medicine; PCP Nurse Practitioner Family
DX: R42 Dizziness and giddiness (principal); R10.9 Unspecified abdominal pain; R05.9 Cough, unspecified; Z20.822 Contact with and (suspected) exposure to COVID-19
CPT/HCPCS: 36415; 71046; 80048; 80076; 83690; 85025; 87635; 99282; 99283

== ENCOUNTER 2021-12-23 11:58 | Outpatient (REF) | payer MEDICARE, MEDICAID, SELFPAY ==
--- NOTE | ~2021-12-23 | XR_ITS ---
EXAMINATION: X-RAY BILATERAL KNEES X-RAY RIGHT KNEE CLINICAL INFORMATION: Pain COMPARISON: X-ray 08/13/2020 TECHNIQUE: Bilateral knees AP one view. Right knee 2 views. FINDINGS: Left knee: Stable lucent tract in the proximal tibia suggestive of sequela prior ACL surgery. Minimal spurring and mild medial compartment joint space narrowing. Small spurring in the lateral compartment and patellofemoral compartments . No acute fracture or dislocation. Small effusion. Right knee: Mild medial compartment joint space narrowing. No acute findings. XR/XR knee standing BI IMPRESSION: Left knee: Chronic postsurgical changes of proximal tibia. Mild tricompartment arthritis. Small effusion. Right knee: Mild medial compartment arthritis.
--- NOTE | ~2021-12-23 | XR_ITS ---
EXAMINATION: X-RAY BILATERAL KNEES X-RAY RIGHT KNEE CLINICAL INFORMATION: Pain COMPARISON: X-ray 08/13/2020 TECHNIQUE: Bilateral knees AP one view. Right knee 2 views. FINDINGS: Left knee: Stable lucent tract in the proximal tibia suggestive of sequela prior ACL surgery. Minimal spurring and mild medial compartment joint space narrowing. Small spurring in the lateral compartment and patellofemoral compartments . No acute fracture or dislocation. Small effusion. Right knee: Mild medial compartment joint space narrowing. No acute findings. XR/XR knee LT 2V IMPRESSION: Left knee: Chronic postsurgical changes of proximal tibia. Mild tricompartment arthritis. Small effusion. Right knee: Mild medial compartment arthritis.
== END 2021-12-23 11:59 | disposition home or self-care (01) ==
LOC: HO.HOSX 11:58
PROVIDERS: Visit Provider Orthopaedic Surgery
DX: M25.562 Pain in left knee (principal); M25.462 Effusion, left knee; F17.210 Nicotine dependence, cigarettes, uncomplicated; Z79.899 Other long term (current) drug therapy; Z79.891 Long term (current) use of opiate analgesic; Z98.890 Other specified postprocedural states
CPT/HCPCS: 73560; 73565; 99212

== ENCOUNTER 2022-01-13 12:36 | Outpatient (REF) | payer MEDICARE, MEDICAID, SELFPAY ==
--- NOTE | ~2022-01-13 | MR_ITS ---
EXAMINATION: MR KNEE WITHOUT CONTRAST, LEFT CLINICAL INFORMATION: Left knee pain. Buckling x6 months. History of ACL reconstruction 6-7 years ago. COMPARISON: Radiograph dated 12/23/2021 and MRI dated 02/10/2017. TECHNIQUE: MRI of the knee without contrast was performed using routine sequences on a high-field scanner. FINDINGS: MENISCI: Medial Meniscus: Intact Lateral Meniscus: Intact LIGAMENTS: Cruciate: As compared to the prior study, the ACL graft demonstrates slightly increased irregularity along its lateral margin, potentially due to mass effect from roof of the intercondylar notch. No tears or laxity are identified. There has been resorption of the previously seen interference screw in the femur and partial resorption of the interference screw in the tibia. Minimal fluid signal is evident in the tibial and femoral tunnels without significant expansion. PCL is intact. Collateral: Intact. EXTENSOR MECHANISM: Enthesopathic spurring is present at the quadriceps tendon insertion and patellar tendon origin . No tears or tendinosis. Micrometallic susceptibility artifact from prior surgery is present in the anteromedial soft tissues extending through the medial aspect of the Hoffa's fat pad. ARTICULAR CARTILAGE/BONE: Patellofemoral Compartment: Full-thickness chondral delamination and partial thickness cartilage loss at the median ridge of the patella superiorly over an area measuring 0.9 x 0.6 cm with more moderate partial thickness cartilage loss and full-thickness chondral fissuring at the remainder of the patella. Moderate size marginal osteophytes. Moderate nonuniform articular cartilage loss is also present in the central trochlea with foci of full-thickness chondral fissuring. There is mild associated subchondral edema signal in the central trochlea. These findings have progressed as compared to 2017. Medial Compartment: Mild chondral surface irregularity and fissuring are again seen at the lateral third of the medial femoral condyle weightbearing surface, slightly more pronounced as compared to prior. Additional chondral fissuring at the adjacent medial tibial plateau posterolaterally is slightly more pronounced. Tiny marginal osteophytes. Lateral Compartment: Partial-thickness cartilage loss is present at the medial quarter of the lateral tibial plateau over an area measuring 1.1 x 1.5 cm with full-thickness fissuring. Small marginal osteophytes. JOINT FLUID AND BURSAE: Small joint effusion. Trace Yuan's cyst. MR/MR knee LT wo con IMPRESSION: 1. Intact ACL graft. Subtle mass effect on the lateral margin of the ACL graft is increased as compared to prior, produced by the roof of the intercondylar notch. 2. Intact menisci. 3. 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 4. Minimal medial and patellofemoral compartment osteoarthritis has also progressed as compared to prior. 5. Small joint effusion and trace Yuan's cyst.
== END 2022-01-13 12:37 | disposition home or self-care (01) ==
LOC: HO.MRI 12:36
PROVIDERS: Visit Provider Orthopaedic Surgery
DX: Z98.890 Other specified postprocedural states (principal)
CPT/HCPCS: 73721

== ENCOUNTER → 2022-01-21 11:10 | Outpatient (BNVA) | payer MEDICARE, MEDICAID, SELFPAY | PROVIDERS: PCP Nurse Practitioner Family; Visit Provider Orthopaedic Surgery | DX: M17.12 Unilateral primary osteoarthritis, left knee (principal) | CPT/HCPCS: 99212 ==

== ENCOUNTER → 2022-02-18 10:19 | Outpatient (BNVA) | payer MEDICARE, MEDICAID, SELFPAY | PROVIDERS: PCP Nurse Practitioner Family; Visit Provider Internal Medicine | DX: M25.562 Pain in left knee (principal) | CPT/HCPCS: 99202 ==

== ENCOUNTER 2022-03-16 07:29 | Outpatient (REF) | payer MEDICARE, MEDICAID, SELFPAY ==
--- NOTE | ~2022-03-16 | FL_ITS ---
EXAMINATION: XR FLUOROSCOPY WITH IMAGES CLINICAL INFORMATION: M17.12 - Unilateral primary osteoarthritis, left knee COMPARISON: Radiographs knee 12/23/2021. TECHNIQUE: Fluoroscopy performed by Dr. Kenny Dwyer. Fluoroscopy time: 0.1 minutes DAP: 0.261 Gycm2 Images: 2 FINDINGS: There are spinal needles adjacent to the distal femoral shaft, medial and lateral sides, mid depth. There is a spinal needle adjacent to the proximal tibia on medial side mid depth. There is minor post operative change proximal tibia similar to prior exam. FL/FL guidance in treatment room IMPRESSION: Fluoroscopy for pain management procedures.
== END 2022-03-16 07:30 | disposition home or self-care (01) ==
LOC: HO.RADIR 07:29
PROVIDERS: Visit Provider Internal Medicine
DX: M17.12 Unilateral primary osteoarthritis, left knee (principal); M25.562 Pain in left knee
CPT/HCPCS: 64450; 64454; J2795; Q9967

== ENCOUNTER → 2022-03-18 13:51 | Outpatient (BNVA) | payer MEDICARE, MEDICAID, SELFPAY | PROVIDERS: PCP Nurse Practitioner Family; Visit Provider Nurse Practitioner Family | DX: M17.12 Unilateral primary osteoarthritis, left knee (principal); M25.562 Pain in left knee | CPT/HCPCS: 99212 ==

== ENCOUNTER 2022-04-20 11:18 | Day surgery (SDC) | payer MEDICARE, MEDICAID, SELFPAY ==
[2022-04-13 14:16] VITALS: BMI 29.6
--- NOTE | ~2022-04-20 | FL_ITS ---
EXAMINATION: XR FLUOROSCOPY WITH IMAGES CLINICAL INFORMATION: Cooled RFA COMPARISON: None. TECHNIQUE: Fluoroscopy performed by Dr. Kenny Dwyer. Fluoroscopy time: 0.6 minutes. DAP: 2.57 Gycm2. Images: 4. FINDINGS: There are needles/electrodes adjacent to the distal femoral shaft, medial and lateral sides, mid depth. There is a needle/electrode adjacent to the proximal tibia on medial side mid depth. FL/FL guidance in OR IMPRESSION: Fluoroscopy for pain management procedures.
--- NOTE | 2022-04-20 11:57 | HO.ANESPROP2 ---
HPI - Anesthesia Eval Consult details Narrative: Left knee pain PMFSH Active Problems Active Problems: All Active Problems (Updated 01/21/22 @ 11:59 by Shaun Miller) Osteoarthritis of left knee (Acute) Hypertension (Acute) Hyperlipidemia (Acute) GERD (gastroesophageal reflux disease) (Acute) Depression (Acute) Cough (Acute) Thoracic back pain (Acute) Return to work evaluation (Acute) Left knee pain (Acute) Difficulty breathing (Acute) Effusion, left knee (Acute) S/P ACL repair (Acute) Left knee pain (Acute) Past Medical History Medical History Depression Effusion, left knee GERD (gastroesophageal reflux disease) Hyperlipidemia Hypertension Left knee pain Family History Family History Father No problems noted. Mother No problems noted. Family history of problems with anesthesia: No Surgical History Surgical History History of colectomy (~06/01/11) History of hysterectomy (~1999) History of spinal surgery (~12/2013) S/P ACL repair History of Problems with Anesthesia: No Social History Social History Patient Tobacco Use Status: Current everyday Tobacco user Tobacco use type: Cigarette Cigarettes Per Day: 10 Years Smoked: since 10 years old but quit few times in between e-Cigarette/Vaping Use: Never Used Use of substances other than those prescribed or required for medical reasons: No Are you DNR?: No Advance Directives: No Advance Directives Information Provided: Yes Current occupational status: employed Current occupation: [employer] Meds Allergies Allergy/AdvReac Type Severity Reaction Status Date / Time ibuprofen [From MOTRIN] Allergy Intermediate SHORTNESS Verified 04/13/22 13:41 OF BREATH lamotrigine [From LAMICTAL] Allergy Intermediate RASH Verified 04/13/22 13:41 milnacipran [From SAVELLA] Allergy Intermediate ITCHING Verified 03/16/22 09:18 pregabalin [From LYRICA] Allergy Intermediate ITCHINESS Verified 04/13/22 13:41 aspirin [Aspirin] Allergy Mild DYSPNEA Verified 03/16/22 09:18 levofloxacin [From Levaquin] Allergy Mild RASH Verified 03/16/22 09:18 lithium [[place]] Allergy Mild TREMORS Verified 03/16/22 09:18 morphine [MORPHINE] Allergy Mild NAUSEA/VOMI Verified 03/16/22 09:18 TING fluoxetine [Prozac] Allergy Unknown Unknown Verified 03/16/22 09:18 seafood Allergy Unknown Unknown Verified 04/13/22 13:40 carbamazepine [From TEGRETOL] AdvReac Intermediate FATIGUE Verified 04/13/22 13:41 ketorolac [From TORADOL] AdvReac Intermediate CHEST Verified 04/13/22 13:41 TIGHTNESS zolpidem [From AMBIEN] AdvReac Intermediate ITCHY Verified 03/16/22 09:18 Active Medications: Current Medications Cefazolin Sodium/Dextrose (Ancef) 2 gm in 50 mls @ 100 mls/hr IV PREOP ONE Stop: 04/20/22 12:14 Lactated Ringer's (Lr) 1,000 mls @ 50 mls/hr IVCONT .Q20H ILDA Home Medications Medication Instructions Recorded Confirmed Last Taken Type lurasidone 80 mg tablet (Latuda) 80 mg PO DAILY 08/13/20 12/23/21 Unknown History sertraline 100 mg tablet 100 mg PO DAILY 08/13/20 12/23/21 04/20/22 History topiramate 100 mg tablet (Topamax) 100 mg PO BID 08/13/20 12/23/21 04/20/22 History trazodone 100 mg tablet 100 mg PO DAILY 08/13/20 12/23/21 Unknown History Exam Exam Date and Time: April 20, 2022 1157 Height,Weight and Vital Signs: Height 5 ft 2 in Weight 73.482 kg Airway Mallampati Class: II TM Dist: >3cm Neck ROM: Full Loose/Missing/Broken Teeth: No (poor dentition, no loose) Heart: rrr+[id number] Lungs: cta b/l Assessment and Plan Assessment Anesthesia Assessment: Anesthesia Plan Discussed and Chart Reviewed Final Anesthetic Review Family History of Problems with Anesthesia: No History of Problems with Anesthesia: No NPO: Yes ASA Class: III Final Preanesthetic Review: No Changes in Pt Med Stat, Meds/Allgs Chart Reviewed, Consent Obtained/Reviewed and Anes Risks/Benef Reviewed Patient Risk: Intermediate Procedure Risk: Low Assessment/Block/Sedation in SS: Assess/Block/Sedation-SS Anesthetic Plan Anesthetic Plan: MAC: and Agree w/ Assess. and Plan Disposition: Standard PACU
[2022-04-20 12:08] VITALS: BP 124/66; PULSE 69; RESP 20; TEMP 36.2; O2SAT 98
[2022-04-20] MEDS: Lactated Ringers 1,000 ML 50 ML IVCONT (12:16)
--- NOTE | 2022-04-20 12:42 | MHC.SHP ---
Pre-Procedural Eval Section A Date of Service: 04/20/22 The patient is an INPATIENT: No Changes since office visit: Yes Patient answered all questions The History & Physical has been completed within 30 days and I have reviewed it.: Yes Section B Chief Complaint: left knee pain Details of Present Illness: knee osteoarthritis Relevant Family History (Specify if Yes): No Relevant Social History: None Present Medications: see Short Stay Collaborative assessment Medical History: Significant History Allergies: Allergies Allergy/AdvReac Type Severity Reaction Status Date / Time ibuprofen [From MOTRIN] Allergy Intermediate SHORTNESS Verified 04/13/22 13:41 OF BREATH lamotrigine [From LAMICTAL] Allergy Intermediate RASH Verified 04/13/22 13:41 milnacipran [From SAVELLA] Allergy Intermediate ITCHING Verified 03/16/22 09:18 aspirin [Aspirin] Allergy Mild DYSPNEA Verified 03/16/22 09:18 levofloxacin [From Levaquin] Allergy Mild RASH Verified 03/16/22 09:18 lithium [[place]] Allergy Mild TREMORS Verified 03/16/22 09:18 morphine [MORPHINE] Allergy Mild NAUSEA/VOMI Verified 03/16/22 09:18 TING fluoxetine [Prozac] Allergy Unknown Unknown Verified 03/16/22 09:18 seafood Allergy Unknown Unknown Verified 04/13/22 13:40 carbamazepine [From TEGRETOL] AdvReac Intermediate FATIGUE Verified 04/13/22 13:41 ketorolac [From TORADOL] AdvReac Intermediate CHEST Verified 04/13/22 13:41 TIGHTNESS zolpidem [From AMBIEN] AdvReac Intermediate ITCHY Verified 03/16/22 09:18 Review of Systems Sugical H&P ROS: Negative: Constitution, Cardiovascular, Respiratory and Neurological Exam Surgical H&P Exam: Normal: HEENT, Normal: Heart, Normal: Lungs and Normal: Extremities Plan Diagnosis/Plan: Unchanged I have reviewed the history and physical and performed a pertinent physical examination on my patient. No changes have occurred unless specified.
--- NOTE | 2022-04-20 12:44 | P.BOP_ITS ---
Brief Operative Note Date of Service: 04/20/22 Pre-op diagnosis: Left knee pain Post-op diagnosis: same Procedure: Left knee genicular nerves cooled radiofrequency ablation Implants: None Surgeon: Kenny Dwyer MD Anesthesia: MAC Was an Boiler Or Engine Operator used for this Procedure?: No Estimated blood loss (mL): 3 Pathology: none sent Condition: stable Disposition: PACU
--- NOTE | 2022-04-20 12:44 | W.PM.OPN ---
Operative Note Operative Note Date of Service: 04/20/22 Narrative: Genicular Nerve RFL - fluoroscopic guided - Superior medial, superior lateral, and inferior medial genicular nerve cooled radiofrequency lesioning After obtaining written consent, pre-procedure blood pressure and heart rate were stable and recorded in the nursing record. Standard monitors were applied. The patient was placed supine on the fluoroscopy table and sedated by the hot dip plating supervisor. The area overlying the peripheral nerves was widely prepped with chloraprep, allowed to dry and sterilely draped. Using fluoroscopy, the appropriate landmarks were identified. The skin overlying the target was anesthetized with 0.5% lidocaine. A 18 gauge 50mm radiofrequency needle was advanced under fluoroscopic guidance to the appropriate landmark of each peripheral nerve. Verification using lateral and AP views. Aspiration was negative for heme and synovial fluid. Impedences were verified under 600 ohms. Sensory testing (50 Hz) and then motor testing (2 Hz) confirmed needle placement at each site within the appropriate voltage thresholds. Each site was injected with 0.5 ml 2% preservative-free lidocaine. Radiofrequency lesioning was performed for 165 seconds at 90 deg Celcius tissue temperature. Each site was then injected with 1 ml 0.5% preservative-free ropivacaine. The needles were removed, skin cleansed and a sterile bandage was applied. The patient tolerated the procedure well and no complications were encountered. Following the procedure the patient was brought to the PACU where the patient's vital signs were stable. The patient was discharged home in good condition with post-procedural instructions. Time Out: Immediately prior to the procedure, the following was verbally confirmed that there is a signed consent form and that the correct patient, planned procedure, site and side are consistent with documentation and that necessary equipment and/or blood products are available prior to the start of the case. Complications: none EBL: <5 cc
[2022-04-20 13:42] VITALS: BP 123/60; PULSE 67; RESP 20; TEMP 36.2; O2SAT 96
[2022-04-20 13:57] VITALS: BP 131/67; PULSE 61; RESP 20; O2SAT 100
[2022-04-20] MEDS: oxyCODONE HCl Immed Release 5 MG TABLET 10 MG PO (14:09)
[2022-04-20] MEDS: Acetaminophen 325 MG TABLET 650 MG PO (14:09)
[2022-04-20 14:12] VITALS: BP 139/54; PULSE 68; RESP 20; TEMP 36.2; O2SAT 98
== END 2022-04-20 15:13 | disposition home or self-care (01) ==
PROVIDERS: PCP Nurse Practitioner Family; Visit Provider Internal Medicine
PROC: (CPT 64624; principal; 2022-04-20 12:30)
DX: M25.562 Pain in left knee (principal); M17.12 Unilateral primary osteoarthritis, left knee; M25.462 Effusion, left knee; I10 Essential (primary) hypertension; E78.5 Hyperlipidemia, unspecified; K21.9 Gastro-esophageal reflux disease without esophagitis; F32.A Depression, unspecified; Z79.899 Other long term (current) drug therapy; Z88.8 Allergy status to other drugs, medicaments and biological substances; Z98.890 Other specified postprocedural states; Z90.49 Acquired absence of other specified parts of digestive tract; F17.210 Nicotine dependence, cigarettes, uncomplicated
CPT/HCPCS: 64624; J0690; J2250; J3010

== ENCOUNTER 2022-08-28 13:05 | Emergency (ER) | payer OTHER, MEDICAID, SELFPAY ==
[2022-08-28 13:52] VITALS: BP 115/75; PULSE 73; RESP 18; TEMP 36.9; O2SAT 97; BMI 29.2
[2022-08-28] MEDS: Acetaminophen 325 MG TABLET 975 MG PO (13:58)
== END 2022-08-28 16:17 | disposition left against medical advice (07) ==
PROVIDERS: Emergency Provider Emergency Medicine; PCP Nurse Practitioner Family
DX: M54.50 Low back pain, unspecified (principal)
CPT/HCPCS: 99282

== ENCOUNTER 2023-06-16 20:59 | Emergency (ER) | payer MEDICARE, MEDICAID, SELFPAY ==
--- NOTE | ~2023-06-16 | XR_ITS ---
EXAMINATION: XR LUMBOSACRAL SPINE CLINICAL INFORMATION: Pain status post fall. COMPARISON: CT dated 05/09/2021 TECHNIQUE: Three views of lumbosacral spine. FINDINGS: Vertebral body heights are normal. No fracture or malalignment. The right L4 pedicle screw projects through the superior endplate into the interbody space, unchanged from prior. Pedicle screws appear intact. Vertical rods are also intact. Solid osseous bridging is present in the region of the posterolateral gutters from L4 through S1. There is facet arthropathy at L3-L4. Mild osteoarthritis in both hips. Cholecystectomy clips are present in the right upper quadrant. Hernia mesh coils overlie the abdomen. Calcific atherosclerosis in the abdominal aorta. No acute soft tissue findings. XR/XR lumbar spine 2-3V IMPRESSION: 1. No acute fracture or malalignment. 2. The right L4 pedicle screw projects through the superior endplate of L4 into the interbody space, unchanged from prior.
[2023-06-16 21:08] VITALS: BP 140/82; PULSE 74; O2SAT 97
[2023-06-16 21:09] VITALS: BP 138/65; PULSE 67; RESP 16; TEMP 35.9; O2SAT 97; BMI 28.7
[2023-06-16 21:34] LABS: MANUAL DIFF FLAG NO
[2023-06-16 21:35] LABS: Basophils Absolute Auto 0.1 X10*3/uL (0.0-0.2); Basophils Percent Auto 0.5 % (0-2); Eosinophils Absolute Auto 0.3 X10*3/uL (0.0-0.4); Eosinophils Percent Auto 2.6 % (0-4); Imm Gran Abs Auto 0.04 X10*3/uL (0.00-0.03); Imm Gran Pct Auto 0.4 % (0.0-0.4); Lymphocytes Absolute Auto 4.6 X10*3/uL (1.2-4.9); Lymphocytes Percent Auto 41.3 % (20-40); Mean Corpuscular HGB Conc 33.3 g/dl (31.0-35.0); Mean Corpuscular Hemoglobin 28.4 pg (27.0-33.0); Mean Corpuscular Volume 85.2 fL (80.0-98.0); Mean Platelet Volume 9.4 fL (9.4-12.3); Monocytes Absolute Auto 0.8 X10*3/uL (0.1-1.2); Neutrophils Absolute Auto 5.4 x10*3/uL (2.0-8.3); Neutrophils Percent Auto 48.2 % (45-73); Platelet Count 366 X10*3/uL (160-400); Red Blood Count 4.58 X10*6/uL (4.20-5.50); Red Cell Distribution Width 13.2 % (11.0-16.0); White Blood Count 11.2 X10*3/uL (4.8-10.8)
--- NOTE | 2023-06-16 22:09 | ED.PSYCH ---
HPI - Psych General Chief Complaint: Psychiatric Symptoms Stated Complaint: SEVERE ANXIETY DEPRESSION Time Seen by Provider: 06/16/23 22:03 Source: patient Mode of arrival: EMS Limitations: no limitations History of Present Illness HPI Narrative: Patient comes to the emergency room from [place], complaining of being homeless and worsening her depression. Patient denies SI or HI. Patient requesting to be seen by the care team in looking for respite in [facility] in [place] Related Data Home Medications Medication Instructions Recorded Confirmed fenofibrate 54 mg tablet 54 mg PO DAILY 06/16/23 06/16/23 hydrochlorothiazide 12.5 mg tablet 12.5 mg PO DAILY 06/16/23 06/16/23 lurasidone 80 mg tablet 80 mg PO DAILY 06/16/23 06/16/23 metoprolol tartrate 25 mg tablet 12.5 mg PO BID 06/16/23 06/16/23 omeprazole 20 mg capsule,delayed 20 mg PO BID 06/16/23 06/16/23 release pregabalin 75 mg capsule 75 mg PO BID 06/16/23 06/16/23 sertraline 100 mg tablet 100 mg PO DAILY 06/16/23 06/16/23 tizanidine 2 mg tablet 2 mg PO BID PRN muscle spasm 06/16/23 06/16/23 topiramate 100 mg tablet 100 mg PO BID 06/16/23 06/16/23 trazodone 100 mg tablet 100 mg PO BEDTIME 06/16/23 06/16/23 Previous Rx's Medication Instructions Recorded albuterol sulfate 90 mcg/actuation 2 puff inhalation Q6H PRN 10/21/21 aerosol inhaler shortness of breath or wheezing #6.7 grams Allergies Allergy/AdvReac Type Severity Reaction Status Date / Time ibuprofen [From Motrin] Allergy Intermediate Shortness Verified 06/16/23 21:18 of Breath lamotrigine [From Lamictal] Allergy Intermediate Rash Verified 06/16/23 21:18 milnacipran [From [place]] Allergy Intermediate Itching Verified 06/16/23 21:18 aspirin [Aspirin] Allergy Mild DYSPNEA Verified 06/16/23 21:18 levofloxacin [From Levaquin] Allergy Mild Rash Verified 06/16/23 21:18 lithium [[place]] Allergy Mild TREMORS Verified 06/16/23 21:18 morphine [MORPHINE] Allergy Mild NAUSEA/VOMI Verified 06/16/23 21:18 TING fluoxetine [From Prozac] Allergy Unknown Unknown Verified 06/16/23 21:18 seafood Allergy Unknown Unknown Verified 06/16/23 21:18 carbamazepine [From Tegretol] AdvReac Intermediate Fatigued Verified 06/16/23 21:18 ketorolac [From Toradol] AdvReac Intermediate Chest Verified 06/16/23 21:18 Tightness zolpidem [From Ambien] AdvReac Intermediate Itching Verified 06/16/23 21:18 Review of Systems Review of Systems: Constitutional : No Weight loss, No Fever, No Chills, No Night Sweats, No Fatigue, No Malaise ENT/Mouth : No Hearing loss, No Ear Pain, No Nasal Congestion, No Sinus Pain, No Hoarseness, No sore throat, No Rhinorrhea, No Swallowing Difficulty Eyes: No Eye Pain, No Swelling, No Redness, No Foreign Body, No Discharge, No Vision Changes Cardiovascular : No Chest Pain, No SOB, No Dyspnea on Exertion, No Orthopnea, No Edema, No Palpitations Respiratory : No Cough, No Sputum, No Wheezing, No Smoke Exposure, No Dyspnea Gastrointestinal : No Nausea, No Vomiting, No Diarrhea, No Constipation, No abdominal Pain, No Hematochezia, No Melena Genitourinary : no irregular bleeding, No Dysuria, No Urinary Frequency, No Hematuria, No Urinary Incontinence, No Urgency, No Flank Pain, No Urinary Flow Changes, No Hesitancy Musculoskeletal : No joint pain, No Myalgias, No Joint Swelling Skin : No Skin Lesions, No rash Neuro : No Weakness, No Numbness, No Paresthesias, No Loss of Consciousness, No Dizziness, No Headache Psych : Denies SI or HI, complaining of worsening depression due to being homeless Heme/Lymph: No Bruising, No Bleeding,No Lymphadenopathy Endocrine : No Polyuria, No Polydipsia, No Temperature Intolerance [facility] Past Medical History Medical History Depression Effusion, left knee GERD (gastroesophageal reflux disease) Hyperlipidemia Hypertension Left knee pain Surgical History History of colectomy (~06/01/11) History of hysterectomy (~1999) History of spinal surgery (~12/2013) S/P ACL repair Family History Family History Father No problems noted. Mother No problems noted. Social History Social History Patient Tobacco Use Status: Current everyday Tobacco user Tobacco use type: Cigarette Cigarettes Per Day: 10 Years Smoked: since 10 years old but quit few times in between e-Cigarette/Vaping Use: Never Used Advance Directives: No Advance Directives Information Provided: Yes Current occupational status: employed Current occupation: [employer] Physical Exam Vital Signs: Vital Signs: Last Vital Signs Temp 96.7 F L 06/16/23 21:09 Pulse 67 06/16/23 21:09 Resp 16 06/16/23 21:09 BP 138/65 06/16/23 21:09 Pulse Ox 97 06/16/23 21:09 O2 Del Method Room Air 06/16/23 21:09 BMI result Body Mass Index 28.7 Const: Other: Appearance: Alert. Oriented X3. No acute distress. Eyes: Pupils equal, round and reactive to light. ENT: Pharynx normal. Neck: Normal inspection. Neck supple. No lymph nodes noted. No crepitus CVS: Normal heart rate and rhythm. Pulses normal. Normal S1 and S2 Respiratory: No respiratory distress. Breath sounds normal. No Wheezing. No rales Abdomen: Soft and nontender. No rigidity. No distention. Skin: Skin warm and dry. Normal skin color. Normal skin turgor. Extremities: No lower extremity edema. No Lacerations. No Rash Neuro: Oriented X 3. No motor deficit. No sensory deficit. Moving all extremities. No slurred speech. CN 2 through 12 grossly intact Psych: calm, cooperative, normal affect, coherent Course Course Course Narrative: -care team consult pending -Physician observation started at 22:10 Medical Decision Making Medical Decision Making MDM Narrative: My interpretation of labs: Hematology within normal limits, white blood cell count slightly elevated 11.2, no source of infection. Urinalysis negative for UTI Differential Diagnosis Differential Diagnoses: The differential diagnosis associated with the presentation includes (Anxiety, depression, homelessness) Admission/Observation Consideration of admission/observation: Escalation of care including admission/observation considered (Patient will be under observation in the emergency room until evaluated by the care team) Lab Data 06/16/23 21:29 06/16/23 21:29 Labs: Lab Results 06/16/23 Range/Units 21:29 WBC 11.2 H (4.8-10.8) X10*3/uL RBC 4.58 (4.20-5.50) X10*6/uL Hgb 13.0 (12.0-16.0) g/dl Hct 39.0 (37.0-47.0) % MCV 85.2 (80.0-98.0) fL MCH 28.4 (27.0-33.0) pg MCHC 33.3 (31.0-35.0) g/dl RDW 13.2 (11.0-16.0) % Plt Count 366 (160-400) X10*3/uL MPV 9.4 (9.4-12.3) fL Immature Gran % (Auto) 0.4 (0.0-0.4) % Neut % (Auto) 48.2 (45-73) % Lymph % (Auto) 41.3 H (20-40) % [place] % (Auto) 7.0 (2-11) % Eos % (Auto) 2.6 (0-4) % Baso % (Auto) 0.5 (0-2) % Lymph # (Auto) 4.6 (1.2-4.9) X10*3/uL [place] # (Auto) 0.8 (0.1-1.2) X10*3/uL Eos # (Auto) 0.3 (0.0-0.4) X10*3/uL Baso # (Auto) 0.1 (0.0-0.2) X10*3/uL Abs Immat Gran (auto) 0.04 H (0.00-0.03) X10*3/uL Absolute Neuts (auto) 5.4 (2.0-8.3) x10*3/uL Absolute Nucleated RBC 0.000 (0.0-0.012) X10*3/uL Nucleated RBC % (auto) 0.0 (0.0-0.2) /100WBC Critical Care Time Critical Care Time Critical Care Time: Yes Total Critical Care Time: 45 Attestation: I have personally provided critical care time. Time includes review of lab data, radiology results, discussion with consultants, and monitoring for potential decompensation. Intervention performed as documented. Discharge Plan Discharge Clinical Impression: Depression, Homeless Patient Disposition: Still a Patient Prescriptions: No Action albuterol sulfate 90 mcg/actuation HFA aerosol inhaler 2 puff inhalation Q6H PRN (Reason: shortness of breath or wheezing) Qty: 6.7 0RF tizanidine 2 mg tablet 2 mg PO BID PRN (Reason: muscle spasm) sertraline 100 mg tablet 100 mg PO DAILY trazodone 100 mg tablet 100 mg PO BEDTIME omeprazole 20 mg capsule,delayed release(DR/EC) 20 mg PO BID topiramate 100 mg tablet 100 mg PO BID metoprolol tartrate 25 mg tablet 12.5 mg PO BID pregabalin 75 mg capsule 75 mg PO BID hydrochlorothiazide 12.5 mg tablet 12.5 mg PO DAILY fenofibrate 54 mg tablet 54 mg PO DAILY lurasidone 80 mg tablet 80 mg PO DAILY Interventions: [place]-Suicide Risk Severity Scale Last Done: 06/16/23 22:09
[2023-06-16 22:10] LABS: Appearance Urine Clear; Color Urine Yellow; Glucose Urine UA Negative (Negative); Leukocyte Esterase Urine Negative (Negative); Nitrite Urine Negative (Negative); Specific Gravity - Urine <= 1.005 (1.005-1.025); Urine Blood Negative (Negative); Urine Ketones Negative (Negative); Urine Protein Negative (Neg-Trace)
[2023-06-16 22:29] LABS: Amphetamine Screen Urine Not Detected (Not Detect); Barbiturates, Urine Not Detected (Not Detect); Benzodiazepines Screen Urine Not Detected (Not Detect); Cannabinoid Screen Urine Not Detected (Not Detect); Cocaine Screen Urine Not Detected (Not Detect); Opiate Screen Urine Not Detected (Not Detect); Phencyclidine Screen Urine Not Detected (Not Detect)
[2023-06-16 22:35] LABS: Fentanyl, urine Not Detected (Not Detect)
[2023-06-16 23:32] LABS: Alanine Aminotransferase 7 U/L (0-31); Albumin Level 4.3 g/dL (3.5-5.0); Alkaline Phosphatase 61 U/L (39-117); Anion Gap 16 (12-20); Aspartate Amino Transferase 14 U/L (5-31); Bilirubin Total 0.3 mg/dL (0.0-1.0); Blood Urea Nitrogen 7 mg/dL (9-16); Calcium 9.7 mg/dL (8.4-10.2); Carbon Dioxide 24 mmol/L (22-29); Chloride 102 mmol/L (96-108); Estimated Glomerular Filt Rate > 60; Ethanol < 10 mg/dL; Glucose Random 87 mg/dL (60-115); Sodium 139 mmol/L (135-145); Total Protein 7.2 g/dL (6.5-8.0)
[2023-06-17] MEDS: traZODone HCL 100 MG TABLET PO (01:40)
--- NOTE | 2023-06-17 06:11 | PC.NURSE ---
Patient slept through the night, no distress observed/reported, Trazodone 100 mg administered at 0140 per patient's request with + effect, med rec completed/pending provider's approval, care consulted/pending evaluation, labs completed/resulted, VSS, will continue to monitor
== END 2023-06-17 08:23 | disposition home or self-care (01) ==
PROVIDERS: Emergency Provider Emergency Medicine
DX: F33.1 Major depressive disorder, recurrent, moderate (principal); F41.1 Generalized anxiety disorder; F43.0 Acute stress reaction; M54.50 Low back pain, unspecified; F17.210 Nicotine dependence, cigarettes, uncomplicated; Z71.6 Tobacco abuse counseling; Z59.00 Homelessness unspecified; Z79.899 Other long term (current) drug therapy
CPT/HCPCS: 36415; 72100; 80053; 80307; 81003; 85025; 99284

== ENCOUNTER 2023-06-20 21:23 | Emergency (ER) | payer MEDICARE, MEDICAID, SELFPAY ==
--- NOTE | ~2023-06-20 | CT_ITS ---
EXAMINATION: CT ABDOMEN AND PELVIS WITH CONTRAST CLINICAL INFORMATION: Left lower quadrant abdominal pain history of resection COMPARISON: CT abdomen from 05/09/2021 TECHNIQUE: Multidetector volumetric images were obtained from the superior aspect of the liver through the pubic symphysis following administration 85 mL of Omnipaque 350 intravenous contrast. Sagittal and coronal reformatted images were obtained on the technologist's workstation. Oral contrast: No This CT examination was performed using dose optimization techniques as appropriate, variously including the following: *Automated exposure control *Adjustment of mA and/or kV according to patient size (this includes techniques or standardized protocols for targeted exams where dose is matched to indication/reason for exam; i.e. extremities or head) *Use of iterative reconstruction technique DLP: 559 mGy-cm FINDINGS: LUNG BASES: Bibasilar atelectasis. No pneumothorax. No large pleural effusion. Elevation the right hemidiaphragm. LIVER, GALLBLADDER, AND BILIARY TREE: The liver is normal in size, shape, and attenuation. No focal hepatic lesion or biliary ductal dilatation is present. The gallbladder is surgically absent with resultant dilatation of the common bile duct. PANCREAS: Unremarkable. SPLEEN: Unremarkable. ADRENAL GLANDS: Unremarkable. KIDNEYS AND URETERS: Subcentimeter hypodense focus along the right renal upper pole too small to characterize though statistically representing a cyst. The kidneys are normal in size, shape, and attenuation. No hydronephrosis, hydroureter, or calculi seen. No perinephric stranding. BLADDER: Unremarkable. GASTROINTESTINAL TRACT: Status post right hemicolectomy. Short segment of small bowel wall thickening noted in the left mid abdomen nonspecific without secondary inflammatory changes and may reflect a resolving enteritis. Colonic diverticulosis without acute diverticulitis The small and large bowel are otherwise unremarkable. ABDOMINAL WALL: Anterior abdominal wall hernia mesh. LYMPH NODES: No enlarged lymph nodes per size criteria. VASCULAR: Unremarkable. PELVIC VISCERA: Uterus appears surgically absent. OSSEOUS STRUCTURES: Status post posterior spinal fusion L4-S1 with bilateral transpedicular screws. Spinal hardware is grossly intact. Multilevel degenerative changes of the thoracolumbar lumbosacral spine. Sclerotic focus in the left femoral head statistically representing a bone island CT/CT abdomen pelvis w IV con IMPRESSION: 1. Short segment of small bowel wall thickening noted in the left mid abdomen nonspecific without secondary inflammatory changes and may reflect a resolving enteritis. Correlation with symptomatology. 2. Status post right hemicolectomy. 3. Colonic diverticulosis without acute diverticulitis. 4. Status post cholecystectomy.
[2023-06-20 21:44] VITALS: BP 91/53; PULSE 60; RESP 16; TEMP 37.1; O2SAT 98; BMI 29.2
[2023-06-21] VITALS: BP 93/51; PULSE 54; RESP 16; TEMP 36.4
[2023-06-21 00:08] LABS: Hematocrit 35.5 % (37.0-47.0); Hemoglobin 11.7 g/dl (12.0-16.0); Mean Corpuscular Hemoglobin 29.1 pg (27.0-33.0); Mean Corpuscular Volume 88.3 fL (80.0-98.0); Mean Platelet Volume 9.7 fL (9.4-12.3); Platelet Count 305 X10*3/uL (160-400); Red Blood Count 4.02 X10*6/uL (4.20-5.50); Red Cell Distribution Width 13.6 % (11.0-16.0); White Blood Count 10.4 X10*3/uL (4.8-10.8)
[2023-06-21 00:31] LABS: Alanine Aminotransferase 8 U/L (0-31); Albumin Level 3.9 g/dL (3.5-5.0); Alkaline Phosphatase 53 U/L (39-117); Anion Gap 9 (12-20); Aspartate Amino Transferase 13 U/L (5-31); Bilirubin Total 0.2 mg/dL (0.0-1.0); Blood Urea Nitrogen 12 mg/dL (9-16); Calcium 8.9 mg/dL (8.4-10.2); Carbon Dioxide 27 mmol/L (22-29); Chloride 106 mmol/L (96-108); Creatinine Clr Calc Pharmacy 68.8; Estimated Glomerular Filt Rate > 60; Glucose Random 88 mg/dL (60-115); Lipase 32 U/L (8-78); Potassium 3.2 mmol/L (3.3-5.1); Sodium 139 mmol/L (135-145); Total Protein 6.5 g/dL (6.5-8.0)
[2023-06-21 03:06] VITALS: BP 132/61; PULSE 59; RESP 18; TEMP 36.4; O2SAT 99
--- NOTE | 2023-06-21 03:51 | PC.NURSE ---
pt agitated by wait time. this rn and extension service specialist in charge have made multiple attempts to explain wait times to pt. this rn made dr metcalf aware. no new orders at this time
[2023-06-21 06:02] LABS: Appearance Urine Clear; Color Urine Yellow; Glucose Urine UA Negative (Negative); Leukocyte Esterase Urine Negative (Negative); Nitrite Urine Negative (Negative); PH 7.5 (5.0-9.0); Specific Gravity - Urine <= 1.005 (1.005-1.025); Urine Blood Negative (Negative); Urine Ketones Negative (Negative); Urine Protein Negative (Neg-Trace)
--- NOTE | 2023-06-21 06:02 | PC.NURSE ---
pt stated to critical care unit manager and supercharge repair supervisor took home medications. this rn discussed with pt, pt states took home zofran and Tylenol. pt denies SI/HI. per supercharge repair supervisor pt belongings to remain with pt. pt remains waiting to be seen
[2023-06-21 06:11] LABS: Amphetamine Screen Urine Not Detected (Not Detect); Barbiturates, Urine Not Detected (Not Detect); Benzodiazepines Screen Urine Not Detected (Not Detect); Cannabinoid Screen Urine Not Detected (Not Detect); Cocaine Screen Urine Not Detected (Not Detect); Fentanyl, urine Not Detected (Not Detect); Opiate Screen Urine Not Detected (Not Detect); Phencyclidine Screen Urine Not Detected (Not Detect)
--- NOTE | 2023-06-21 06:36 | ED_ITS ---
HPI - General Adult General Chief complaint: Abdominal Pain Stated complaint: ANXIETY DEPRESSION Time Seen by Provider: 06/21/23 06:34 Source: patient, EMS, RN notes reviewed and old records reviewed Mode of arrival: EMS History of Present Illness HPI narrative: 58-year-old female with a past medical history of osteoarthritis, HTN, HLD, G ERD, depression, colon resection, s/p hernia repair, presenting to the ED complaining of left lower quadrant abdominal pain, nausea, vomiting, nonbloody diarrhea since last night. Admits presented to [facility] ED however LWT'd secondary to wait time. Denies known fever, chills, dysuria/hematuria, s uspicious food intake, sick contacts Onset (ago): hour(s) Related Data Home Medications Medication Instructions Recorded Confirmed fenofibrate 54 mg tablet 54 mg PO DAILY 06/16/23 06/16/23 hydrochlorothiazide 12.5 mg tablet 12.5 mg PO DAILY 06/16/23 06/16/23 lurasidone 80 mg tablet 80 mg PO DAILY 06/16/23 06/16/23 metoprolol tartrate 25 mg tablet 12.5 mg PO BID 06/16/23 06/16/23 omeprazole 20 mg capsule,delayed 20 mg PO BID 06/16/23 06/16/23 release pregabalin 75 mg capsule 75 mg PO BID 06/16/23 06/16/23 sertraline 100 mg tablet 100 mg PO DAILY 06/16/23 06/16/23 tizanidine 2 mg tablet 2 mg PO BID PRN muscle spasm 06/16/23 06/16/23 topiramate 100 mg tablet 100 mg PO BID 06/16/23 06/16/23 trazodone 100 mg tablet 100 mg PO BEDTIME 06/16/23 06/16/23 Previous Rx's Medication Instructions Recorded albuterol sulfate 90 mcg/actuation 2 puff inhalation Q6H PRN 10/21/21 aerosol inhaler shortness of breath or wheezing #6.7 grams ondansetron 4 mg disintegrating 4 mg PO Q8H PRN nausea and 06/21/23 tablet vomiting #10 tabs Allergies Allergy/AdvReac Type Severity Reaction Status Date / Time ibuprofen [From Motrin] Allergy Intermediate Shortness Verified 06/16/23 21:18 of Breath lamotrigine [From Lamictal] Allergy Intermediate Rash Verified 06/16/23 21:18 milnacipran [From Savella] Allergy Intermediate Itching Verified 06/16/23 21:18 aspirin [Aspirin] Allergy Mild DYSPNEA Verified 06/16/23 21:18 levofloxacin [From Levaquin] Allergy Mild Rash Verified 06/16/23 21:18 lithium [[place]] Allergy Mild TREMORS Verified 06/16/23 21:18 morphine [MORPHINE] Allergy Mild NAUSEA/VOMI Verified 06/16/23 21:18 TING fluoxetine [From Prozac] Allergy Unknown Unknown Verified 06/16/23 21:18 seafood Allergy Unknown Unknown Verified 06/16/23 21:18 carbamazepine [From Tegretol] AdvReac Intermediate Fatigued Verified 06/16/23 21:18 ketorolac [From Toradol] AdvReac Intermediate Chest Verified 06/16/23 21:18 Tightness zolpidem [From Ambien] AdvReac Intermediate Itching Verified 06/16/23 21:18 Review of Systems Review of Systems: Constitutional: No Fever, No Chills,No Fatigue, No Malaise ENT/Mouth: No Ear Pain, No Nasal Congestion, No sore throat, No Rhinorrhea, No Swallowing Difficulty Eyes: No Eye Pain, No Swelling, No Redness, No Vision Changes Cardiovascular: No Chest Pain, No SOB, No Edema, No Palpitations Respiratory: No Cough, No Sputum, No Dyspnea Gastrointestinal: + Nausea, + Vomiting, + Diarrhea, No Constipation, + Abdominal pain, No Hematochezia, No Melena Genitourinary: No irregular bleeding, No Dysuria, No Urinary Frequency, No Hematuria, No Flank Pain Musculoskeletal: No joint pain, No Myalgias, No Joint Swelling Skin: No Skin Lesions, No rash Neuro: No Weakness, No Numbness,No Dizziness, No Headache Yes all other systems are reviewed and are negative Constitutional: Constitutional: Reports as per [facility] Past Medical History Attestation statement: The following information was validated with the patient. Source: old records reviewed Medical History Depression Effusion, left knee GERD (gastroesophageal reflux disease) Hyperlipidemia Hypertension Left knee pain Surgical History History of colectomy (~06/01/11) History of hysterectomy (~1999) History of spinal surgery (~12/2013) S/P ACL repair Family History Family History Father No problems noted. Mother No problems noted. Social History Social History Patient Tobacco Use Status: Current everyday Tobacco user Tobacco use type: Cigarette Cigarettes Per Day: 10 Years Smoked: since 10 years old but quit few times in between Smoked in Last 30 Days: Yes e-Cigarette/Vaping Use: Never Used Use of substances other than those prescribed or required for medical reasons: No Advance Directives: No Advance Directives Information Provided: No Patient : No Current occupational status: employed Current occupation: [employer] Physical Exam ED Vital Signs: Vital Signs - 24 hr 06/20/23 21:44 06/21/23 00:00 06/21/23 03:06 Temperature 98.7 F 97.5 F 97.5 F Pulse Rate 60 54 59 Respiratory Rate 16 16 18 Blood Pressure 91/53 L 93/51 L 132/61 Pulse Oximetry 98 99 Oxygen Delivery Method Room Air BMI result Body Mass Index 29.2 Const General: cooperative, healthy appearing and no acute distress Orientation/consciousness: patient oriented x3 Limitations: no limitations HENMT Head: Yes normal to inspection and Yes atraumatic Ears: hearing grossly normal bilaterally General nose exam: Normal external nose present Face and sinus: Yes normal facial exam Eyes General: appearance normal, both eyes and all related structures EOM: EOMs intact bilaterally Neck Neck: Yes normal visual inspection and Yes no meningeal signs Resp Effort & Inspection: normal respiratory effort and no respiratory distress Auscultation: clear to auscultation bilaterally Cardio Rate: regular rate Heart sounds: S1 normal heart sound present and S2 normal heart sound present GI Inspection: Yes normal to inspection Palpation (GI): Soft to palpation, Tenderness to palpation present (GI) in the LLQ and suprapubicly; with no rebound tenderness, no guarding and not rigid General: Yes no CVA tenderness Back/Spine/Pelvis Back: no CVA tenderness Skin Rashes: no rashes Wounds: no wounds Neuro General: patient oriented x3, tone normal and no meningeal signs Cranial nerves: Yes CN's II-XII intact bilaterally Gait exam (Neuro): Normal gait present Extrem General: Yes normal to inspection Course Course Course Narrative: -[id number]--no leukocytosis. H&H stable. Potassium low at 3.2 > 60 mEq p.o. repletion ordered -UA negative CT abdomen pelvis w IV con IMPRESSION: 1.? Short segment of small bowel wall thickening noted in the left mid abdomen nonspecific without secondary inflammatory changes and may reflect a resolving enteritis. Correlation with symptomatology. 2.? Status post right hemicolectomy. 3.? Colonic diverticulosis without acute diverticulitis. 4.? Status post cholecystectomy. > patient tolerating p.o. in the ED. Results discussed with patient including worrisome signs and symptoms and strict return precautions, discussed no need for antibiotics at this time. -patient has been sleeping comfortably on my re-evaluations, no appreciable episodes of diarrhea/frequent laboratory visit Discussed when to return to the emergency department. They verbalized understanding and feel safe for discharge at this time. Medications Administered Discontinued Medications Generic Name Dose Route Start Last Admin Trade Name Bobbyq PRN Reason Stop Dose Admin Acetaminophen 975 mg 06/21/23 06:51 06/21/23 08:40 Acetaminophen 325 Mg Tablet PO 06/21/23 06:52 Not Given ONCE ONE Fentanyl 25 mcg 06/21/23 08:20 06/21/23 08:25 Fentanyl Citrate/Pf 100 Mcg/2 Ml Vial IVPUSH 06/21/23 08:21 25 mcg ONCE ONE Administration Protocol Sodium Chloride 1,000 mls @ 999 mls/hr 06/21/23 07:00 06/21/23 08:40 Ns IV 06/21/23 08:00 Infused .Q1H1M ILDA Infusion Iohexol 85 ml 06/21/23 07:53 06/21/23 07:54 Iohexol 350 Mg/Ml 100 Ml Infus..Btl IV 06/21/23 07:54 85 ml ONCE ONE Administration Ondansetron HCl 4 mg 06/21/23 06:51 06/21/23 07:36 Ondansetron Hcl 4 Mg/2 Ml Vial IVPUSH 06/21/23 06:52 4 mg ONCE ONE Administration Potassium Chloride 60 meq 06/21/23 06:52 06/21/23 07:36 Potassium Chloride Er 20 Meq Tab.Er.Prt PO 06/21/23 06:53 60 meq ONCE ONE Administration Medical Decision Making Medical Decision Making [facility] Narrative: 58-year-old female with a past medical history of osteoarthritis, HTN, HLD, GERD, depression, colon resection, s/p hernia repair, presenting to the ED complaining of left lower quadrant abdominal pain, nausea, vomiting, nonbloody diarrhea since last night. On exam initially hypotensive sleeping in no apparent distress, abdomen soft with LLQ tenderness, no rebound or guarding no CVAT. Concern for gastroenteritis vs diverticulitis/colitis vs UTI vs metabolic abnormalities including dehydration. Lower suspicion for appendicitis, cholecystitis/lithiasis or pancreatitis at this time. Unlikely SBO Plan: Labs, UA, tox screen, CT AP, IVF, pain management Please refer to course for remaining clinical decision making, interpretation of labs/imaging results, and discussions with consultants and/or family members. Differential Diagnosis Differential Diagnoses: The differential diagnosis associated with the presentation includes As above Admission/Observation Consideration of admission/observation: Escalation of care including admission/observation considered Lab Data [facility] Lab Attestation statement: I reviewed the patient's lab results. 06/20/23 23:59 06/20/23 23:59 Labs: Lab Results 06/20/23 06/20/23 06/21/23 Range/Units 23:59 23:59 05:54 WBC 10.4 (4.8-10.8) X10*3/uL RBC 4.02 L (4.20-5.50) X10*6/uL Hgb 11.7 L (12.0-16.0) g/dl Hct 35.5 L (37.0-47.0) % MCV 88.3 (80.0-98.0) fL MCH 29.1 (27.0-33.0) pg MCHC 33.0 (31.0-35.0) g/dl RDW 13.6 (11.0-16.0) % Plt Count 305 (160-400) X10*3/uL MPV 9.7 (9.4-12.3) fL Absolute Nucleated RBC 0.000 (0.0-0.012) X10*3/uL Nucleated RBC % (auto) 0.0 (0.0-0.2) /100WBC Neutrophils % (Manual) 40 L (45-73) % Band Neutrophils % 0 L (3-5) % Lymphocytes % (Manual) 43 H (20-40) % Monocytes % (Manual) 11 (2-11) % Eosinophils % (Manual) 6 H (0-4) % Abs Neuts (Manual) 4.2 (2.0-8.3) X10*3/uL Lymphocytes # (Manual) 4.5 (1.2-4.9) X10*3/uL Monocytes # (Manual) 1.1 (0.1-1.2) X10*3/uL Eosinophils # (Manual) 0.6 H (0.0-0.4) X10*3/uL Platelet Estimate NORMAL (NORMAL) Plt Morphology Comment NORMAL RBC Morphology NOTED [place] Cells 2+ (3-5) /OIF Sodium 139 (135-145) mmol/L Potassium 3.2 L (3.3-5.1) mmol/L Chloride 106 (96-108) mmol/L Carbon Dioxide 27 (22-29) mmol/L Anion Gap 9 L (12-20) BUN 12 (9-16) mg/dL Creatinine 0.84 (0.5-1.4) mg/dL Estim Creat Clear Calc 68.8 Estimated GFR > 60 Random Glucose 88 (60-115) mg/dL Calcium 8.9 D (8.4-10.2) mg/dL Magnesium 1.8 (1.6-2.6) mg/dL Total Bilirubin 0.2 (0.0-1.0) mg/dL AST 13 (5-31) U/L ALT 8 (0-31) U/L Alkaline Phosphatase 53 (39-117) U/L Total Protein 6.5 (6.5-8.0) g/dL Albumin 3.9 (3.5-5.0) g/dL Lipase 32 (8-78) U/L Urine Color Yellow Urine Appearance Clear Urine pH 7.5 (5.0-9.0) Ur Specific [place] <= 1.005 (1.005-1.025) Urine Protein Negative (Neg-Trace) mg/dL Urine Glucose (UA) Negative (Negative) mg/dL Urine Ketones Negative (Negative) mg/dL Urine Blood Negative (Negative) Urine Nitrite Negative (Negative) Ur Leukocyte Esterase Negative (Negative) Urine Opiates Screen (Not Detect) Urine Fentanyl Screen (Not Detect) Ur Barbiturates Screen (Not Detect) Ur Phencyclidine Scrn (Not Detect) Ur Amphetamines Screen (Not Detect) U Benzodiazepines Scrn (Not Detect) Urine Cocaine Screen (Not Detect) U Marijuana (THC) Screen (Not Detect) 06/21/23 Range/Units 05:54 WBC (4.8-10.8) X10*3/uL RBC (4.20-5.50) X10*6/uL Hgb (12.0-16.0) g/dl Hct (37.0-47.0) % MCV (80.0-98.0) fL MCH (27.0-33.0) pg MCHC (31.0-35.0) g/dl RDW (11.0-16.0) % Plt Count (160-400) X10*3/uL MPV (9.4-12.3) fL Absolute Nucleated RBC (0.0-0.012) X10*3/uL Nucleated RBC % (auto) (0.0-0.2) /100WBC Neutrophils % (Manual) (45-73) % Band Neutrophils % (3-5) % Lymphocytes % (Manual) (20-40) % Monocytes % (Manual) (2-11) % Eosinophils % (Manual) (0-4) % Abs Neuts (Manual) (2.0-8.3) X10*3/uL Lymphocytes # (Manual) (1.2-4.9) X10*3/uL Monocytes # (Manual) (0.1-1.2) X10*3/uL Eosinophils # (Manual) (0.0-0.4) X10*3/uL Platelet Estimate (NORMAL) Plt Morphology Comment RBC Morphology [place] Cells /OIF Sodium (135-145) mmol/L Potassium (3.3-5.1) mmol/L Chloride (96-108) mmol/L Carbon Dioxide (22-29) mmol/L Anion Gap (12-20) BUN (9-16) mg/dL Creatinine (0.5-1.4) mg/dL Estim Creat Clear Calc Estimated GFR Random Glucose (60-115) mg/dL Calcium (8.4-10.2) mg/dL Magnesium (1.6-2.6) mg/dL Total Bilirubin (0.0-1.0) mg/dL AST (5-31) U/L ALT (0-31) U/L Alkaline Phosphatase (39-117) U/L Total Protein (6.5-8.0) g/dL Albumin (3.5-5.0) g/dL Lipase (8-78) U/L Urine Color Urine Appearance Urine pH (5.0-9.0) Ur Specific [place] (1.005-1.025) Urine Protein (Neg-Trace) mg/dL Urine Glucose (UA) (Negative) mg/dL Urine Ketones (Negative) mg/dL Urine Blood (Negative) Urine Nitrite (Negative) Ur Leukocyte Esterase (Negative) Urine Opiates Screen Not Detected (Not Detect) Urine Fentanyl Screen Not Detected (Not Detect) Ur Barbiturates Screen Not Detected (Not Detect) Ur Phencyclidine Scrn Not Detected (Not Detect) Ur Amphetamines Screen Not Detected (Not Detect) U Benzodiazepines Scrn Not Detected (Not Detect) Urine Cocaine Screen Not Detected (Not Detect) U Marijuana (THC) Screen Not Detected (Not Detect) Radiology Impression Discussion of test interpretation with radiology: I have reviewed the radiologist's reading. External Record Review External record reviewed: Inpatient record, Office record, Outpatient record, Prior outpatient labs, Prior outpatient radiology, Primary care record and Outside ED record Tests considered The following testing was considered but not selected: As above Prescription Management I considered prescription management with: Pain Medication Social Determinants Patient?s care significantly limited by Social Determinants of Health including: Low income Discharge Plan Discharge Clinical Impression: Enteritis Patient Disposition: Home, Self-Care Instructions: Enteritis (ED) Additional Instructions: Your blood work is reassuring, your CT scan shows resolving enteritis which is inflammation of her colon usually a viral etiology This needs to run its course Make sure you are staying hydrated and replenishing her losses Zofran as an antinausea medication take as needed for nausea/vomiting Your unable to eat or drink, persistent worsening diarrhea, bloody or black stool return to the ED Prescriptions: New ondansetron 4 mg tablet,disintegrating 4 mg PO Q8H PRN (Reason: nausea and vomiting) Qty: 10 0RF No Action albuterol sulfate 90 mcg/actuation HFA aerosol inhaler 2 puff inhalation Q6H PRN (Reason: shortness of breath or wheezing) Qty: 6.7 0RF tizanidine 2 mg tablet 2 mg PO BID PRN (Reason: muscle spasm) sertraline 100 mg tablet 100 mg PO DAILY trazodone 100 mg tablet 100 mg PO BEDTIME omeprazole 20 mg capsule,delayed release(DR/EC) 20 mg PO BID topiramate 100 mg tablet 100 mg PO BID metoprolol tartrate 25 mg tablet 12.5 mg PO BID pregabalin 75 mg capsule 75 mg PO BID hydrochlorothiazide 12.5 mg tablet 12.5 mg PO DAILY fenofibrate 54 mg tablet 54 mg PO DAILY lurasidone 80 mg tablet 80 mg PO DAILY Referrals: Physician,Unknown J [Primary Care Provider] -
[2023-06-21 07:27] LABS: Magnesium 1.8 mg/dL (1.6-2.6)
[2023-06-21] MEDS: ondansetron HCL 4 MG/2 ML VIAL IVPUSH (07:36)
[2023-06-21] MEDS: 0.9 % Sodium Chloride 1,000 ML 999 ML IV (07:36)
[2023-06-21] MEDS: Potassium Chloride ER 20 MEQ TAB.ER.PRT 60 MEQ PO (07:36)
[2023-06-21] MEDS: iohexoL 350 MG/ML 100 ML INFUS..BTL 85 ML IV (07:54)
[2023-06-21] MEDS: fentaNYL citrate/PF 100 MCG/2 ML VIAL 25 MCG IVPUSH (08:25)
[2023-06-21 08:27] LABS: Band Neutrophils Percent 0 % (3-5); Eosinophils Absolute Manual 0.6 X10*3/uL (0.0-0.4); Eosinophils Percent Manual 6 % (0-4); Lymphocytes Absolute Manual 4.5 X10*3/uL (1.2-4.9); Lymphocytes Percent Manual 43 % (20-40); Monocytes Absolute Manual 1.1 X10*3/uL (0.1-1.2); Monocytes Percent Manual 11 % (2-11); Neutrophils Absolute Manual 4.2 X10*3/uL (2.0-8.3); Neutrophils Percent Manual 40 % (45-73)
[2023-06-21 08:29] LABS: Burr Cells 2+ (3-5) /OIF; Platelet Estimate NORMAL (NORMAL); Platelet Morphology Comment NORMAL; RBC Morphology NOTED
== END 2023-06-21 09:21 | disposition home or self-care (01) ==
PROVIDERS: Physician Assistant; Emergency Provider Emergency Medicine
DX: K52.9 Noninfective gastroenteritis and colitis, unspecified (principal); R11.2 Nausea with vomiting, unspecified; I10 Essential (primary) hypertension; E78.5 Hyperlipidemia, unspecified; F17.210 Nicotine dependence, cigarettes, uncomplicated; Z79.899 Other long term (current) drug therapy
CPT/HCPCS: 36415; 74177; 80053; 80307; 81003; 83690; 83735; 85007; 85027; 96361; 96374; 96375; 99284; J2405; J3010; Q9967

== ENCOUNTER 2023-07-11 13:11 | Outpatient (AMB) | payer MEDICARE, MEDICAID, SELFPAY ==
--- NOTE | 2023-07-11 13:38 | MHC.OFFWIV ---
Intake Vital Signs 07/11/23 13:39 Height 5 ft 2 in Weight 160 lb BMI 29.3 BP 110/50 L Blood Pressure Location Rt brachial Position Sitting Pulse 60 Pulse Source Pulse Oximeter Temp 97.7 F Temp Source Temporal Artery Scan Pulse Oximetry (%) 99 Intake Visit Reasons: EP Back/sciatica Intake Note: pt is here for c/o back pain, states she pulled something Patient Tobacco Use Status: Current everyday Tobacco user Allergies ibuprofen [From Motrin] Allergy (Intermediate, Verified 07/11/23 14:16) Shortness of Breath lamotrigine [From Lamictal] Allergy (Intermediate, Verified 07/11/23 14:16) Rash milnacipran [From Savella] Allergy (Intermediate, Verified 07/11/23 14:16) Itching aspirin [Aspirin] Allergy (Mild, Verified 07/11/23 14:16) DYSPNEA levofloxacin [From Levaquin] Allergy (Mild, Verified 07/11/23 14:16) Rash lithium [[place]] Allergy (Mild, Verified 07/11/23 14:16) TREMORS morphine [MORPHINE] Allergy (Mild, Verified 07/11/23 14:16) NAUSEA/VOMITING fluoxetine [From Prozac] Allergy (Unknown, Verified 07/11/23 14:16) Unknown seafood Allergy (Unknown, Verified 07/11/23 14:16) Unknown carbamazepine [From Tegretol] Adverse Reaction (Intermediate, Verified 07/11/23 14:16) Fatigued zolpidem [From Ambien] Adverse Reaction (Intermediate, Verified 07/11/23 14:16) Itching Do you need a note to return to daycare/school/sports/work: Yes HPI EP Back/sciatica HPI Details Patient presents to the office for a sick visit. Complaining of lower back pain for the past week. No history of fall or trauma prior to the onset of symptoms. No urinary incontinence. No fevers or chills. Pain is worse on bending forwards or sideways. Relieve done sitting down. Pain is radiating into the gluteal area. [facility] Medical History Depression Effusion, left knee GERD (gastroesophageal reflux disease) Hyperlipidemia Hypertension Left knee pain Surgical History History of colectomy (~06/01/11) History of hysterectomy (~1999) History of spinal surgery (~12/2013) S/P ACL repair Family History Father No problems noted. Mother No problems noted. Social History Patient Tobacco Use Status: Current everyday Tobacco user Tobacco use type: Cigarette Cigarettes Per Day: 10 Years Smoked: since 10 years old but quit few times in between e-Cigarette/Vaping Use: Never Used Current occupational status: employed Current occupation: [employer] Physical Exam Vital Signs: Last Vital Signs Temp 97.7 F 07/11/23 13:39 Pulse 60 07/11/23 13:39 BP 110/50 L 07/11/23 13:39 Pulse Ox 99 07/11/23 13:39 BMI result Body Mass Index 29.3 Const General: cooperative and healthy appearing Nutritional Appearance: well nourished Orientation/consciousness: patient oriented x3 Limitations: no limitations HEENT Head: Yes normal to inspection Eyes General: appearance normal, both eyes and all related structures Neck Neck: Yes normal visual inspection Chest Chest palpation & inspection: normal palpation of entire chest wall Resp Effort & Inspection: normal respiratory effort Neuro General: patient oriented x3 Assessment & Plan Assessment & Plan (1) Low back pain: Code(s): M54.50 - Low back pain, unspecified Plan: Meloxicam and cyclobenzaprine called in. Toradol injection provided. Patient was advised rest. Note for work if necessary provided. Once pain symptoms subside, patient should start physical therapy. If symptoms worsen to follow-up here. Orders: Orders AMB Ketorolac Injection Today M54.50 - Low back pain, unspecified Medications: New ketorolac 60 mg (2 mL) IM ONCE 2 mL 0RF M54.50 - Low back pain, unspecified Coding Level of Care Code Est Pt Level 4 (55511) Diagnoses Low back pain M54.50
[2023-07-11 13:39] VITALS: BP 110/50; PULSE 60; TEMP 36.5; O2SAT 99; BMI 29.3
== END 2023-07-11 14:38 | disposition home or self-care (01) ==
PROVIDERS: Visit Provider Internal Medicine
DX: M54.50 Low back pain, unspecified (principal)
CPT/HCPCS: 96372; 99214; J1885

== ENCOUNTER 2023-08-18 10:07 | Outpatient (AMB) | payer OTHER, SELFPAY ==
--- NOTE | 2023-08-18 10:12 | A.OFFVIS_ITS ---
Intake Intake Visit Reasons: Ov- Left knee OA Intake Note: Lori is a 58 year old female who presents today for a follow up of her left knee, hx of Lt Knee ACL repair. At her last visit she was referred to pain mgmt for geniuclate trial, this was done on 04/20/2023. Patient reports that this was not helpful, she explains that the solitario has gotten worse anf the knee has given out on her multiple times resulting in falls. Allergies ibuprofen [From Motrin] Allergy (Intermediate, Verified 07/11/23 14:16) Shortness of Breath lamotrigine [From Lamictal] Allergy (Intermediate, Verified 07/11/23 14:16) Rash milnacipran [From Savella] Allergy (Intermediate, Verified 07/11/23 14:16) Itching aspirin [Aspirin] Allergy (Mild, Verified 07/11/23 14:16) DYSPNEA levofloxacin [From Levaquin] Allergy (Mild, Verified 07/11/23 14:16) Rash lithium [[place]] Allergy (Mild, Verified 07/11/23 14:16) TREMORS morphine [MORPHINE] Allergy (Mild, Verified 07/11/23 14:16) NAUSEA/VOMITING fluoxetine [From Prozac] Allergy (Unknown, Verified 07/11/23 14:16) Unknown seafood Allergy (Unknown, Verified 07/11/23 14:16) Unknown carbamazepine [From Tegretol] Adverse Reaction (Intermediate, Verified 07/11/23 14:16) Fatigued zolpidem [From Ambien] Adverse Reaction (Intermediate, Verified 07/11/23 14:16) Itching HPI Ov- Left knee OA HPI Details Lori is a 58 year old woman with left knee OA. She complains of pain with daily activity, worse with using stairs. She says her knee has given out multiple times on her, the last time was when she was walking up stairs. She feels her knee is weaker now. She says she is constantly on her feet and is unsure why her leg may be weak. She says she does not have a good knee brace that she can wear. She is limited in playing with her grandchildren, and says she is in more pain and more limited in her activities in the cold. At her last appointment she was referred to Pain Management for a genicular trial. She says the nerve ablation on 04/20/22 gave her only a few weeks of relief. She has a hx of a left ACL reconstruction in ~2014. [facility] Medical History Depression Effusion, left knee GERD (gastroesophageal reflux disease) Hyperlipidemia Hypertension Left knee pain Surgical History History of colectomy (~06/01/11) History of hysterectomy (~1999) History of spinal surgery (~12/2013) S/P ACL repair Family History Father No problems noted. Mother No problems noted. Social History Patient Tobacco Use Status: Current everyday Tobacco user Tobacco use type: Cigarette Cigarettes Per Day: 10 Years Smoked: since 10 years old but quit few times in between e-Cigarette/Vaping Use: Never Used Current occupational status: employed Current occupation: [employer] Review of Systems Const All systems reviewed & are unremarkable except as noted in HPI and below Physical Exam Const General: no acute distress, alert and awake Orientation/consciousness: patient oriented x3 HEENT Head: Yes normocephalic and Yes atraumatic Eyes EOM: EOMs intact bilaterally Resp Effort & Inspection: normal respiratory effort and able to speak in complete sentences Cardio Jugular venous distension: no JVD Skin General skin exam: turgor normal Rashes: no rashes Neuro General: patient oriented x3 Extrem Other: Atrophic left quad lateral retropatellar TTP medial joint line pain no effusion full rom Psych Appearance: grossly normal Affect: normal affect Attitude: cooperative Results Reviewed Results Reviewed: I personally reviewed relevant radiographs Moderate left knee osteoarthritis Assessment & Plan Assessment & Plan (1) Osteoarthritis of left knee: Code(s): M17.12 - Unilateral primary osteoarthritis, left knee Plan: This is a 58 year old woman with moderate left knee OA. She has pain with daily activity, worse with using stairs and in cold weather, along with a hx of falling. She found only several weeks of relief from a GNB, and limited relief from steroid injections or PT in the past. She feels limited in her ADLs and feels her QOL is diminished. I discussed her diagnosis and treatment options. I recommend viscosupplementation at this time to delay surgery as long as possible, given her age. She will follow up when approved for a gel injection. She was given a knee brace to wear with daily activity. (2) Depression: Code(s): F32.9 - Major depressive disorder, single episode, unspecified Plan Scribed for Mono Gaspar MD by Shaun Miller, medical coding manager, on 08/18/23 at 10:25 AM, EST. Coding Level of Care Code Est Pt Level 4 (30738) Diagnoses Osteoarthritis of left knee M17.12 Depression F32.9
== END 2023-08-18 10:55 | disposition home or self-care (01) ==
PROVIDERS: Visit Provider Orthopaedic Surgery
DX: M17.12 Unilateral primary osteoarthritis, left knee (principal)
CPT/HCPCS: 99213

== ENCOUNTER → 2023-08-18 10:07 | Outpatient (BNVA) | payer OTHER, MEDICAID, SELFPAY | PROVIDERS: Visit Provider Orthopaedic Surgery ==

== ENCOUNTER 2023-08-30 16:17 | Emergency (ER) | payer OTHER, SELFPAY ==
[2023-08-30 16:27] VITALS: BP 154/91; PULSE 74; RESP 16; TEMP 35.9; O2SAT 98; BMI 22.3
--- NOTE | 2023-08-30 16:44 | ED.FEMALEGU ---
HPI - Female Genitourinary General Chief complaint: Abdominal Pain Stated complaint: stomach pain, weak bladder ? Time Seen by Provider: 08/30/23 16:25 Source: patient Mode of arrival: ambulatory Limitations: no limitations History of Present Illness HPI Narrative: Patient comes here with urgency urinary incontinence for last few weeks got worse in last 1 week and unable to make to the bathroom, urinates while going to the bathroom has to wear depends, no new medications no dysuria no back pain does have history of constipation patient has been here multiple times for abdominal pain , had a CT scan on 07/08 Related Data Home Medications Medication Instructions Recorded Confirmed fenofibrate 54 mg tablet 54 mg PO DAILY 06/16/23 06/16/23 hydrochlorothiazide 12.5 mg tablet 12.5 mg PO DAILY 06/16/23 06/16/23 lurasidone 80 mg tablet 80 mg PO DAILY 06/16/23 06/16/23 omeprazole 20 mg capsule,delayed 20 mg PO BID 06/16/23 06/16/23 release sertraline 100 mg tablet 100 mg PO DAILY 06/16/23 06/16/23 topiramate 100 mg tablet 100 mg PO BID 06/16/23 06/16/23 trazodone 100 mg tablet 100 mg PO BEDTIME 06/16/23 06/16/23 hydroxyzine HCl 25 mg tablet 25 mg PO QID 07/11/23 Previous Rx's Medication Instructions Recorded albuterol sulfate 90 mcg/actuation 2 puff inhalation Q6H PRN 10/21/21 aerosol inhaler shortness of breath or wheezing #6.7 grams ondansetron 4 mg disintegrating 4 mg PO Q8H PRN nausea and 06/21/23 tablet vomiting #10 tabs metoprolol tartrate 25 mg tablet 12.5 mg (1/2 x 25 mg) PO BID 90 06/27/23 days #90 tabs cyclobenzaprine 10 mg tablet 10 mg PO BEDTIME #14 tabs 07/11/23 meloxicam 15 mg tablet 15 mg PO DAILY #14 tabs 07/11/23 pregabalin 75 mg capsule 75 mg PO BID 30 days #60 caps 07/11/23 oxybutynin chloride 10 mg 10 mg PO DAILY #30 tabs 08/30/23 tablet,extended release 24 hr Allergies Allergy/AdvReac Type Severity Reaction Status Date / Time ibuprofen [From Motrin] Allergy Intermediate Shortness Verified 07/11/23 14:16 of Breath lamotrigine [From Lamictal] Allergy Intermediate Rash Verified 07/11/23 14:16 milnacipran [From Savella] Allergy Intermediate Itching Verified 07/11/23 14:16 aspirin [Aspirin] Allergy Mild DYSPNEA Verified 07/11/23 14:16 levofloxacin [From Levaquin] Allergy Mild Rash Verified 07/11/23 14:16 lithium [[place]] Allergy Mild TREMORS Verified 07/11/23 14:16 morphine [MORPHINE] Allergy Mild NAUSEA/VOMI Verified 07/11/23 14:16 TING fluoxetine [From Prozac] Allergy Unknown Unknown Verified 07/11/23 14:16 seafood Allergy Unknown Unknown Verified 07/11/23 14:16 dicyclomine [From Bentyl] Allergy Unknown Verified 08/30/23 17:40 carbamazepine [From Tegretol] AdvReac Intermediate Fatigued Verified 07/11/23 14:16 zolpidem [From Ambien] AdvReac Intermediate Itching Verified 07/11/23 14:16 Review of Systems Review of Systems: Yes all other systems are reviewed and are negative PMFSH Past Medical History Medical History Effusion, left knee Left knee pain GERD (gastroesophageal reflux disease) Hypertension Hyperlipidemia Depression Surgical History S/P ACL repair History of hysterectomy (~1999) History of spinal surgery (~12/2013) History of colectomy (~06/01/11) Family History Family History Father No problems noted. Mother No problems noted. Social History Social History Patient Tobacco Use Status: Current everyday Tobacco user Tobacco use type: Cigarette Cigarettes Per Day: 10 Years Smoked: since 10 years old but quit few times in between Smoked in Last 30 Days: Yes e-Cigarette/Vaping Use: Never Used Use of substances other than those prescribed or required for medical reasons: No Advance Directives: No Advance Directives Information Provided: No Patient : No Current occupational status: employed Current occupation: [email or web address] Physical Exam Vital Signs: Vital Signs: Last Vital Signs Temp 98.7 F 08/30/23 17:57 Pulse 72 08/30/23 17:57 Resp 16 08/30/23 17:57 BP 128/70 08/30/23 17:57 Pulse Ox 97 08/30/23 17:57 O2 Del Method Room Air 08/30/23 17:57 BMI result Body Mass Index 22.3 Appearance: Alert. Oriented X3. No acute distress. ENT: Pharynx normal. Oral Mucosa moist Neck: Normal inspection. Neck supple. CVS: Normal heart rate and rhythm. Pulses normal. Respiratory: No respiratory distress. Equal air entry bilateral, Abdomen: Soft and nontender. Bowel sounds are present, no mass palpable, no CVA tenderness Skin: Skin warm and dry. Normal skin color. Normal skin turgor. Extremities: No lower extremity edema. No calf tenderness Neuro: Oriented X 3. No motor deficit. Medications Administered Discontinued Medications Generic Name Dose Route Start Last Admin Trade Name Freq PRN Reason Stop Dose Admin Dicyclomine HCl 20 mg 08/30/23 16:45 08/30/23 18:07 Dicyclomine Hcl 10 Mg Capsule PO 08/30/23 16:46 Not Given ONCE ONE Oxybutynin Chloride 10 mg 08/30/23 17:38 08/30/23 18:10 Oxybutynin Chloride Er 5 Mg Tab.Er.24 PO 08/30/23 17:39 10 mg ONCE ONE Administration Medical Decision Making Medical Decision Making [facility] Narrative: Patient with urgent urinary incontinence asking for pain educated about her urgency advised to follow with urology will give her oxybutynin. Will check the UA, postvoid bladder scan showed only 75 cc of urine UA is negative will discharge patient home advised to follow with urologist Differential Diagnosis Differential Diagnoses: The differential diagnosis associated with the presentation includes Urgency urinary incontinence/stress incontinence/UTI Lab Data [facility] Lab Attestation statement: I reviewed the patient's lab results. Labs: Lab Results 08/30/23 Range/Units 17:00 Urine Color Yellow Urine Appearance Cloudy Urine pH 7.5 (5.0-9.0) Ur Specific [place] 1.010 (1.005-1.025) Urine Protein Negative (Neg-Trace) mg/dL Urine Glucose (UA) Negative (Negative) mg/dL Urine Ketones Negative (Negative) mg/dL Urine Blood Negative (Negative) Urine Nitrite Negative (Negative) Ur Leukocyte Esterase Negative (Negative) Discharge Plan Discharge Clinical Impression: Urinary incontinence Patient Disposition: Home, Self-Care Instructions: Urinary Incontinence (ED), Kegel Exercises for Women (DC) Additional Instructions: Kegel exercises as advised for urinary incontinence Go to bathroom frequently Ditropan XL 10 mg daily Follow-up with urologist for further management Prescriptions: New oxybutynin chloride 10 mg tablet extended release 24hr 10 mg PO DAILY Qty: 30 0RF No Action metoprolol tartrate 25 mg tablet 12.5 mg PO BID 90 Days Qty: 90 0RF pregabalin 75 mg capsule 75 mg PO BID 30 Days Qty: 60 0RF albuterol sulfate 90 mcg/actuation HFA aerosol inhaler 2 puff inhalation Q6H PRN (Reason: shortness of breath or wheezing) Qty: 6.7 0RF sertraline 100 mg tablet 100 mg PO DAILY trazodone 100 mg tablet 100 mg PO BEDTIME omeprazole 20 mg capsule,delayed release(DR/EC) 20 mg PO BID topiramate 100 mg tablet 100 mg PO BID hydrochlorothiazide 12.5 mg tablet 12.5 mg PO DAILY fenofibrate 54 mg tablet 54 mg PO DAILY lurasidone 80 mg tablet 80 mg PO DAILY ondansetron 4 mg tablet,disintegrating 4 mg PO Q8H PRN (Reason: nausea and vomiting) Qty: 10 0RF hydroxyzine HCl 25 mg tablet 25 mg PO QID cyclobenzaprine 10 mg tablet 10 mg PO BEDTIME Qty: 14 0RF meloxicam 15 mg tablet 15 mg PO DAILY Qty: 14 0RF Referrals: Yuniel Johnson MD [Physician] - 1 week Interventions: ED Discharge Assessment Last Done: 08/30/23 18:06 Discharge Date/Time: 08/30/23 18:16
--- NOTE | 2023-08-30 16:57 | PC.NURSE ---
tech obtaining urine/performing bladder scan.
[2023-08-30 17:12] LABS: Appearance Urine Cloudy; Color Urine Yellow; Glucose Urine UA Negative (Negative); Leukocyte Esterase Urine Negative (Negative); Nitrite Urine Negative (Negative); PH 7.5 (5.0-9.0); Urine Blood Negative (Negative); Urine Ketones Negative (Negative); Urine Protein Negative (Neg-Trace)
[2023-08-30 17:57] VITALS: BP 128/70; PULSE 72; RESP 16; TEMP 37.1; O2SAT 97
[2023-08-30] MEDS: oxyBUTYnin chloride ER 5 MG TAB.ER.24 10 MG PO (18:10)
--- NOTE | 2023-08-30 18:13 | PC.NURSE ---
medication administered per provider order. pt provided w/ dc paperwork.
== END 2023-08-30 18:16 | disposition home or self-care (01) ==
PROVIDERS: Emergency Provider Internal Medicine
DX: R32 Unspecified urinary incontinence (principal); R30.0 Dysuria; F17.210 Nicotine dependence, cigarettes, uncomplicated; Z71.6 Tobacco abuse counseling; Z79.899 Other long term (current) drug therapy
CPT/HCPCS: 51798; 81003; 99283; 99285

== ENCOUNTER 2023-09-21 12:22 | Outpatient (AMB) | payer OTHER, SELFPAY ==
--- NOTE | 2023-09-21 12:43 | A.OFFVIS_ITS ---
Intake Intake Visit Reasons: Left Knee Durolane Injection Intake Note: Lori is a 58 year old female who presents today for her Left knee Durolane Injection Allergies ibuprofen [From Motrin] Allergy (Intermediate, Verified 07/11/23 14:16) Shortness of Breath lamotrigine [From Lamictal] Allergy (Intermediate, Verified 07/11/23 14:16) Rash milnacipran [From Savella] Allergy (Intermediate, Verified 07/11/23 14:16) Itching aspirin [Aspirin] Allergy (Mild, Verified 07/11/23 14:16) DYSPNEA levofloxacin [From Levaquin] Allergy (Mild, Verified 07/11/23 14:16) Rash lithium [[place]] Allergy (Mild, Verified 07/11/23 14:16) TREMORS morphine [MORPHINE] Allergy (Mild, Verified 07/11/23 14:16) NAUSEA/VOMITING fluoxetine [From Prozac] Allergy (Unknown, Verified 07/11/23 14:16) Unknown seafood Allergy (Unknown, Verified 07/11/23 14:16) Unknown dicyclomine [From Bentyl] Allergy (Verified 08/30/23 17:40) Unknown carbamazepine [From Tegretol] Adverse Reaction (Intermediate, Verified 07/11/23 14:16) Fatigued zolpidem [From Ambien] Adverse Reaction (Intermediate, Verified 07/11/23 14:16) Itching HPI Left Knee Durolane Injection HPI Details Lori is a 58 year old woman with left knee OA who presents for a Durolane injection. She denies any changes in her symptoms or medical history. She says she has been trying to lose weight with dietary modification. She is doing her best to eliminate sweets and other junk food. [facility] Medical History Effusion, left knee Left knee pain GERD (gastroesophageal reflux disease) Hypertension Hyperlipidemia Depression Surgical History S/P ACL repair History of hysterectomy (~1999) History of spinal surgery (~12/2013) History of colectomy (~06/01/11) Family History Father No problems noted. Mother No problems noted. Social History Patient Tobacco Use Status: Current everyday Tobacco user Tobacco use type: Cigarette Cigarettes Per Day: 10 Years Smoked: since 10 years old but quit few times in between e-Cigarette/Vaping Use: Never Used Current occupational status: employed Current occupation: [employer] Physical Exam Extrem Other: skin c/d/i no effusion Office Procedures Joint Injection/Drain Joint Injection/Drain Details: Injected Durolane. Site was prepped using aseptic technique. Patient tolerated the procedure well. Primary Site: left knee Approach Used: anterolateral Coding - Large joint Procedure code (CPT) selection complete Assessment & Plan Assessment & Plan (1) Osteoarthritis of left knee: Code(s): M17.12 - Unilateral primary osteoarthritis, left knee Plan: Durolane left knee injection F/u ~ 3 mo Coding Level of Care Code Est Pt Level 2 (14684) Diagnoses Osteoarthritis of left knee M17.12 CPT Codes Coding - Large joint: 22863 - Large joint ([id number])
== END 2023-09-21 13:16 | disposition home or self-care (01) ==
PROVIDERS: Visit Provider Orthopaedic Surgery
DX: M17.12 Unilateral primary osteoarthritis, left knee (principal)
CPT/HCPCS: 20610

== ENCOUNTER → 2023-09-21 12:22 | Outpatient (BNVA) | payer OTHER, SELFPAY | PROVIDERS: Visit Provider Orthopaedic Surgery | DX: M17.12 Unilateral primary osteoarthritis, left knee (principal) | CPT/HCPCS: 20610; J7318 ==

== ENCOUNTER 2023-10-20 11:47 | Outpatient (AMB) | payer OTHER, SELFPAY ==
--- NOTE | 2023-10-20 12:21 | MHC.OFFVIS ---
Intake Vital Signs 10/20/23 12:26 Height 5 ft 4 in Weight 160 lb BMI 27.5 Intake Visit Reasons: OV-Left knee pain-discuss other options Intake Note: Lori is a 58 year old female who presents today for a follow up of her left knee. Left Knee Durolane injection done 09/21/2023, this injection was not helpful. Patient reports that she is having pain all the time, with no alleviating factors. Allergies ibuprofen [From Motrin] Allergy (Intermediate, Verified 07/11/23 14:16) Shortness of Breath lamotrigine [From Lamictal] Allergy (Intermediate, Verified 07/11/23 14:16) Rash milnacipran [From Savella] Allergy (Intermediate, Verified 07/11/23 14:16) Itching aspirin [Aspirin] Allergy (Mild, Verified 07/11/23 14:16) DYSPNEA levofloxacin [From Levaquin] Allergy (Mild, Verified 07/11/23 14:16) Rash lithium [[employer]] Allergy (Mild, Verified 07/11/23 14:16) TREMORS morphine [MORPHINE] Allergy (Mild, Verified 07/11/23 14:16) NAUSEA/VOMITING fluoxetine [From Prozac] Allergy (Unknown, Verified 07/11/23 14:16) Unknown seafood Allergy (Unknown, Verified 07/11/23 14:16) Unknown dicyclomine [From Bentyl] Allergy (Verified 08/30/23 17:40) Unknown carbamazepine [From Tegretol] Adverse Reaction (Intermediate, Verified 07/11/23 14:16) Fatigued zolpidem [From Ambien] Adverse Reaction (Intermediate, Verified 07/11/23 14:16) Itching HPI OV-Left knee pain-discuss other options HPI Details Lori has left knee pain. She had steroid and BARILLAS injections but is complaining of pain and giving way. Her MRI and radiographs show mild-moderate disease. She is frustrated buy her inability to engage in recreation al activities and playing with her grandchildren [facility] Medical History Effusion, left knee Left knee pain GERD (gastroesophageal reflux disease) Hypertension Hyperlipidemia Depression Surgical History S/P ACL repair History of hysterectomy (~1999) History of spinal surgery (~12/2013) History of colectomy (~06/01/11) Family History Father No problems noted. Mother No problems noted. Social History Patient Tobacco Use Status: Current everyday Tobacco user Tobacco use type: Cigarette Cigarettes Per Day: 10 Years Smoked: since 10 years old but quit few times in between e-Cigarette/Vaping Use: Never Used Current occupational status: employed Current occupation: [employer] Physical Exam Vital Signs: BMI result Body Mass Index 27.5 Extrem Other: mostly retropatellar ttp but some medial pain as well. 1+ lachmans. Neg Steinmen's Assessment & Plan Assessment & Plan (1) Osteoarthritis of left knee: Code(s): M17.12 - Unilateral primary osteoarthritis, left knee Plan: Mild OA with moderate to severe symptoms. Still smoking Not a surgical candidate at this time given lack of severity of radiographic findings PRP would be helpful but cost prohibitive I recommend a Genicular n. trial Will coordinate with Pain Coding Level of Care Code Est Pt Level 4 (78422) Diagnoses Osteoarthritis of left knee M17.12
[2023-10-20 12:26] VITALS: BMI 27.5
== END 2023-10-20 13:21 | disposition home or self-care (01) ==
PROVIDERS: Visit Provider Orthopaedic Surgery
DX: M17.12 Unilateral primary osteoarthritis, left knee (principal)
CPT/HCPCS: 99214

== ENCOUNTER → 2023-10-20 11:47 | Outpatient (BNVA) | payer OTHER, SELFPAY | PROVIDERS: Visit Provider Orthopaedic Surgery ==

== ENCOUNTER 2023-12-20 12:21 | Emergency (ER) | payer OTHER, MEDICAID, SELFPAY ==
--- NOTE | 2023-12-20 | ECG_ITS ---
Test Reason : chest pain Blood Pressure : / mmHG Vent. Rate : 061 BPM Atrial Rate : 061 BPM P-R Int : 158 ms QRS Dur : 092 ms QT Int : 434 ms P-R-T Axes : 051 065 051 degrees QTc Int : 436 ms Normal sinus rhythm Possible Left atrial enlargement Borderline ECG When compared with ECG of 08-JUL-2021 20:10, No significant change was found Referred By: Generic ED Physician Electronically Signed By:Miguel Olmedo
--- NOTE | ~2023-12-20 | XR_ITS ---
EXAMINATION: XR CHEST CLINICAL INFORMATION: Pain. COMPARISON: Chest radiograph 11/03/2021. TECHNIQUE: 2 views of the chest were obtained. FINDINGS: Normal appearance of the cardiomediastinal silhouette. No focal consolidation, pleural effusion or pneumothorax. No evidence of pulmonary edema. No acute osseous findings. Again noted cervical fusion hardware and right upper quadrant surgical clips. XR/XR chest 2V IMPRESSION: No acute cardiopulmonary findings.
[2023-12-20 12:24] VITALS: BP 95/66; PULSE 66; RESP 20; TEMP 37.1; O2SAT 98; BMI 29.3
--- NOTE | 2023-12-20 12:24 | ED.CHESTPAIN ---
HPI - Chest Pain General Chief Complaint: Chest Pain Stated Complaint: Chest pain Time Seen by Provider: 12/20/23 16:22 Source: patient, RN notes reviewed and old records reviewed Mode of arrival: ambulatory Limitations: no limitations History of Present Illness HPI narrative: 58-year-old female with past medical history significant for depression, chronic pain syndrome, GERD, mild coronary artery disease, fibromyalgia, cervicalgia presents for evaluation of chest pain and left arm tingling. Patient reports that she is admitted to [facility] last week for similar symptoms. She states that her pain returned yesterday. She reports that she was told ?I have 40% stenosis of my carotid artery and coronary artery disease. I was able to review a discharge summary from [facility] dated 12/14/2023 She had a full cardiac workup that included CTA coronary on 12/13/2023 showing right coronary artery junction there is a short segment of about 40% stenosis, no other significant stenosis. She had a mildly abnormal stress test which was felt to be related to breast attenuation. It is reported that she had severe hypokalemia that was treated but I am unable to find the exact number that her potassium was. However due to the hypokalemia her hydrochlorothiazide was discontinued. It also recommended the patient have an outpatient cervical MRI due to radiculopathy and follow-up for tonsillar fullness. Related Data Home Medications Medication Instructions Recorded Confirmed lurasidone 80 mg tablet 80 mg PO DAILY 06/16/23 06/16/23 sertraline 100 mg tablet 100 mg PO DAILY 06/16/23 06/16/23 topiramate 100 mg tablet 100 mg PO BID 06/16/23 06/16/23 trazodone 100 mg tablet 100 mg PO BEDTIME 06/16/23 06/16/23 hydroxyzine HCl 25 mg tablet 25 mg PO QID 07/11/23 Previous Rx's Medication Instructions Recorded albuterol sulfate 90 mcg/actuation 2 puff inhalation Q6H PRN 10/21/21 aerosol inhaler shortness of breath or wheezing #6.7 grams ondansetron 4 mg disintegrating 4 mg PO Q8H PRN nausea and 06/21/23 tablet vomiting #10 tabs meloxicam 15 mg tablet 15 mg PO DAILY #14 tabs 07/11/23 oxybutynin chloride 10 mg 10 mg PO DAILY #30 tabs 08/30/23 tablet,extended release 24 hr fenofibrate 54 mg tablet 54 mg PO DAILY #90 tabs 10/20/23 hydrochlorothiazide 12.5 mg tablet 12.5 mg PO DAILY #90 tabs 10/20/23 metoprolol tartrate 25 mg tablet 12.5 mg (1/2 x 25 mg) PO BID 90 10/20/23 days #90 tabs methocarbamol 500 mg tablet 500 mg PO BEDTIME 30 days #30 tabs 11/14/23 omeprazole 20 mg capsule,delayed 20 mg PO BID 90 days #180 caps 11/14/23 release pregabalin 75 mg capsule 75 mg PO BID 30 days #60 caps 11/14/23 Allergies Allergy/AdvReac Type Severity Reaction Status Date / Time ibuprofen [From Motrin] Allergy Intermediate Shortness Verified 12/20/23 12:27 of Breath lamotrigine [From Lamictal] Allergy Intermediate Rash Verified 12/20/23 12:27 milnacipran [From Savella] Allergy Intermediate Itching Verified 12/20/23 12:27 aspirin [Aspirin] Allergy Mild DYSPNEA Verified 12/20/23 12:27 levofloxacin [From Levaquin] Allergy Mild Rash Verified 12/20/23 12:27 lithium [[place]] Allergy Mild TREMORS Verified 12/20/23 12:27 morphine [MORPHINE] Allergy Mild NAUSEA/VOMI Verified 12/20/23 12:27 TING fluoxetine [From Prozac] Allergy Unknown Unknown Verified 12/20/23 12:27 seafood Allergy Unknown Unknown Verified 12/20/23 12:27 dicyclomine [From Bentyl] Allergy Unknown Verified 12/20/23 12:27 carbamazepine [From Tegretol] AdvReac Intermediate Fatigued Verified 12/20/23 12:27 zolpidem [From Ambien] AdvReac Intermediate Itching Verified 12/20/23 12:27 Review of Systems Constitutional: Constitutional: Denies chills, Denies fever(s) and Denies frequent falls Cardiovascular: Cardiovascular: Reports chest pain and Denies dyspnea Respiratory: Respiratory: Denies cough and Denies dyspnea Gastrointestinal: Gastrointestinal: Denies abdominal pain, Reports nausea and Denies vomiting Musculoskeletal: Musculoskeletal: Denies back pain Integumentary/Breasts: Skin/Breast: Denies rash Neurologic: Denies frequent falls [facility] Past Medical History Medical History Effusion, left knee Left knee pain GERD (gastroesophageal reflux disease) Hypertension Hyperlipidemia Depression Surgical History S/P ACL repair History of hysterectomy (~1999) History of spinal surgery (~12/2013) History of colectomy (~06/01/11) Family History Family History Father No problems noted. Mother No problems noted. Social History Social History Patient Tobacco Use Status: Current everyday Tobacco user Tobacco use type: Cigarette Cigarettes Per Day: 10 Years Smoked: since 10 years old but quit few times in between e-Cigarette/Vaping Use: Never Used Current occupational status: employed Current occupation: [employer] Physical Exam Vital Signs: Vital Signs: Last Vital Signs Temp 98.8 F 12/20/23 12:24 Pulse 66 12/20/23 12:24 Resp 20 12/20/23 12:24 BP 95/66 12/20/23 12:24 Pulse Ox 98 12/20/23 12:24 O2 Del Method Room Air 12/20/23 12:24 BMI result Body Mass Index 29.3 Const: General: healthy appearing, comfortable, no acute distress, alert and awake Nutritional Appearance: well nourished Orientation/consciousness: patient oriented x3 HEENT: Head: Yes normocephalic and Yes atraumatic Eyes: Eyelids: Yes eyelids normal Conjunctivae: conjunctivae normal Sclerae: sclerae normal Corneas: corneas normal Pupils: Equal, round and reactive pupils present EOM: EOMs intact bilaterally Neck: Neck: Yes full ROM Resp: Effort & Inspection: normal respiratory effort, able to speak in complete sentences and not labored Auscultation: clear to auscultation bilaterally Cardio: Rate: regular rate Rhythm: regular rhythm GI: Inspection: No distended Palpation (GI): Soft to palpation, not firm, nontender, no guarding and not rigid Skin: General skin exam: elasticity normal Neuro: General: patient oriented x3 Cranial nerves: Yes Equal, round and reactive pupils present and Yes Bilaterally intact EOM present Cognition (Neuro): normal cognition Course Course Course Narrative: This is a rapid medical exam: Additional HPI, ROS, PE not included below will be deferred to primary provider. C/o chest pain radiating into left arm. Recently seen at [facility] and told that she had coronary artery blockage. Contacted her doctor who recommended that she go to the closest hospital. Had to take a bus here. DC from [facility]: Treated for chest pain, workup showed coronary artery disease, with no cardiac catheterization needed at this point. Stress test was mildly abnormal, however could be secondary to breast attenuation shadow. CTA coronary artery showed mild calcification of 40% narrowing and whenever vessels. Medical management recommended at this time with aggressive risk factor modification with goal-directed LDL therapy with an LDL less than 70, daily exercise regime. Patient started on atorvastatin 40 mg daily at bedtime. Hydrochlorothiazide discontinued due to low normal blood pressures. On metoprolol 12.5 BID. Took dose today Medical Decision Making Medical Decision Making [facility] Narrative: [age] old female presents for evaluation of chest pain and numbness in her left fingers. On exam she has no concerning findings. Her EKG shows normal sinus rhythm with a rate of 61, no ST segment changes. I reviewed her recent extensive workup at [facility]. The patient's initial labs here show no evidence of hypokalemia, her troponin was undetectable. Plan to repeat troponin to rule out for ACS and the patient can likely be discharged. [facility] records also indicate that she had a negative D-dimer. The patient is not tachycardic, tachypneic or hypoxic to suggest PE at this time either. Her pain may be related to cervicalgia Differential Diagnosis Differential Diagnoses: The differential diagnosis associated with the presentation includes ACS less likely Chest pain Chronic pain Fibromyalgia Cervicalgia Lab Data [facility] Lab Attestation statement: I reviewed the patient's lab results. No leukocytosis or anemia. Normal platelet count. Patient's chloride is slightly above normal at 109. No other significant electrolyte abnormalities. Normal renal function. Troponin undetectable 12/20/23 12:45 12/20/23 12:45 Labs: Lab Results 12/20/23 12/20/23 Range/Units 12:44 12:45 WBC 7.5 (4.8-10.8) X10*3/uL RBC 4.53 (4.20-5.50) X10*6/uL Hgb 12.9 (12.0-16.0) g/dl Hct 39.0 (37.0-47.0) % MCV 86.1 (80.0-98.0) fL MCH 28.5 (27.0-33.0) pg MCHC 33.1 (31.0-35.0) g/dl RDW 13.6 (11.0-16.0) % Plt Count 346 (160-400) X10*3/uL MPV 9.0 L (9.4-12.3) fL Immature Gran % (Auto) 0.1 (0.0-0.4) % Neut % (Auto) 54.8 (45-73) % Lymph % (Auto) 33.3 (20-40) % Burnett % (Auto) 6.9 (2-11) % Eos % (Auto) 4.0 (0-4) % Baso % (Auto) 0.9 (0-2) % Lymph # (Auto) 2.5 (1.2-4.9) X10*3/uL Burnett # (Auto) 0.5 (0.1-1.2) X10*3/uL Eos # (Auto) 0.3 (0.0-0.4) X10*3/uL Baso # (Auto) 0.1 (0.0-0.2) X10*3/uL Abs Immat Gran (auto) 0.01 (0.00-0.03) X10*3/uL Absolute Neuts (auto) 4.1 (2.0-8.3) x10*3/uL Absolute Nucleated RBC 0.000 (0.0-0.012) X10*3/uL Nucleated RBC % (auto) 0.0 (0.0-0.2) /100WBC Sodium 140 (135-145) mmol/L Potassium 3.5 (3.3-5.1) mmol/L Chloride 109 H (96-108) mmol/L Carbon Dioxide 25 (22-29) mmol/L Anion Gap 10 L (12-20) BUN 8 L (9-16) mg/dL Creatinine 0.74 (0.5-1.4) mg/dL Estim Creat Clear Calc 78.2 Estimated GFR > 60 Random Glucose 97 (60-115) mg/dL Calcium 9.9 D (8.4-10.2) mg/dL Magnesium 1.8 (1.6-2.6) mg/dL Total Bilirubin 0.3 (0.0-1.0) mg/dL AST 10 (5-31) U/L ALT 10 (0-31) U/L Alkaline Phosphatase 43 (39-117) U/L Troponin I High Sens < 2.7 (<3.5-17.0) ng/L Total Protein 7.2 (6.5-8.0) g/dL Albumin 4.4 (3.5-5.0) g/dL Independent Interpretation I performed an independent interpretation of an: EKG (As above, normal sinus rhythm with a rate of [address] segment changes) and Plain X-Ray (No focal consolidation) Radiology Impression Discussion of test interpretation with radiology: I have reviewed the radiologist's reading. (No acute cardiopulmonary process) Discharge Plan Discharge Clinical Impression: Chest pain Patient Disposition: Home, Self-Care Instructions: Chest Pain (ED) Additional Instructions: I was able to review your recent workup at [facility] as well as our workup in the ER today. Your chest pain is not related to your heart. [facility] recommended that he get an outpatient cervical spine MRI to evaluate for radiculopathy/pinched nerves Follow-up with your medical assistant float and take all of your medications as prescribed Prescriptions: No Action metoprolol tartrate 25 mg tablet 12.5 mg PO BID 90 Days Qty: 90 1RF fenofibrate 54 mg tablet 54 mg PO DAILY Qty: 90 1RF hydrochlorothiazide 12.5 mg tablet 12.5 mg PO DAILY Qty: 90 1RF methocarbamol 500 mg tablet 500 mg PO BEDTIME 30 Days Qty: 30 0RF omeprazole 20 mg capsule,delayed release(DR/EC) 20 mg PO BID 90 Days Qty: 180 0RF pregabalin 75 mg capsule 75 mg PO BID 30 Days Qty: 60 0RF albuterol sulfate 90 mcg/actuation HFA aerosol inhaler 2 puff inhalation Q6H PRN (Reason: shortness of breath or wheezing) Qty: 6.7 0RF sertraline 100 mg tablet 100 mg PO DAILY trazodone 100 mg tablet 100 mg PO BEDTIME topiramate 100 mg tablet 100 mg PO BID lurasidone 80 mg tablet 80 mg PO DAILY oxybutynin chloride 10 mg tablet extended release 24hr 10 mg PO DAILY Qty: 30 0RF ondansetron 4 mg tablet,disintegrating 4 mg PO Q8H PRN (Reason: nausea and vomiting) Qty: 10 0RF hydroxyzine HCl 25 mg tablet 25 mg PO QID meloxicam 15 mg tablet 15 mg PO DAILY Qty: 14 0RF
[2023-12-20 12:49] LABS: MANUAL DIFF FLAG NO
[2023-12-20 12:50] LABS: Basophils Absolute Auto 0.1 X10*3/uL (0.0-0.2); Basophils Percent Auto 0.9 % (0-2); Eosinophils Absolute Auto 0.3 X10*3/uL (0.0-0.4); Hemoglobin 12.9 g/dl (12.0-16.0); Imm Gran Abs Auto 0.01 X10*3/uL (0.00-0.03); Imm Gran Pct Auto 0.1 % (0.0-0.4); Lymphocytes Absolute Auto 2.5 X10*3/uL (1.2-4.9); Lymphocytes Percent Auto 33.3 % (20-40); Mean Corpuscular HGB Conc 33.1 g/dl (31.0-35.0); Mean Corpuscular Hemoglobin 28.5 pg (27.0-33.0); Mean Corpuscular Volume 86.1 fL (80.0-98.0); Monocytes Absolute Auto 0.5 X10*3/uL (0.1-1.2); Monocytes Percent Auto 6.9 % (2-11); Neutrophils Absolute Auto 4.1 x10*3/uL (2.0-8.3); Neutrophils Percent Auto 54.8 % (45-73); Platelet Count 346 X10*3/uL (160-400); Red Blood Count 4.53 X10*6/uL (4.20-5.50); Red Cell Distribution Width 13.6 % (11.0-16.0); White Blood Count 7.5 X10*3/uL (4.8-10.8)
[2023-12-20 13:06] LABS: Alanine Aminotransferase 10 U/L (0-31); Albumin Level 4.4 g/dL (3.5-5.0); Alkaline Phosphatase 43 U/L (39-117); Anion Gap 10 (12-20); Aspartate Amino Transferase 10 U/L (5-31); Bilirubin Total 0.3 mg/dL (0.0-1.0); Blood Urea Nitrogen 8 mg/dL (9-16); Calcium 9.9 mg/dL (8.4-10.2); Carbon Dioxide 25 mmol/L (22-29); Chloride 109 mmol/L (96-108); Creatinine Clr Calc Pharmacy 78.2; Estimated Glomerular Filt Rate > 60; Glucose Random 97 mg/dL (60-115); Magnesium 1.8 mg/dL (1.6-2.6); Potassium 3.5 mmol/L (3.3-5.1); Sodium 140 mmol/L (135-145); Total Protein 7.2 g/dL (6.5-8.0)
[2023-12-20 13:13] LABS: Troponin-I High Sensitivity < 2.7 ng/L (<3.5-17.0)
[2023-12-20] MEDS: ondansetron HCL 4 MG/2 ML VIAL IVPUSH (17:07)
[2023-12-20] MEDS: HYDROmorphone HCl 0.5 MG/0.5 ML SYRINGE IVPUSH (17:07)
[2023-12-20] MEDS: 0.9 % Sodium Chloride 1,000 ML 999 ML IV (17:08)
[2023-12-20 17:13] VITALS: BP 129/71; PULSE 59; RESP 16; TEMP 36.7; O2SAT 95
--- NOTE | 2023-12-20 17:19 | PC.NURSE ---
Patient continues to c/o L chest pain down arm, intermittent. IV line placed, patient medicated for pain and nausea per order, IV fluids running, resting comfortably on the stretcher at this time.
[2023-12-20 17:42] LABS: Troponin-I High Sensitivity < 2.7 ng/L (<3.5-17.0)
[2023-12-20 18:15] VITALS: BP 114/60; PULSE 51; RESP 12; O2SAT 98
--- NOTE | 2023-12-20 18:34 | PC.NURSE ---
ANAYA paperwork reviewed with patient, all questions answered, patient verbalized undertanding, IV from R arm removed, patient given privacy to change out of hali, escorted out to waiting room
== END 2023-12-20 18:34 | disposition home or self-care (01) ==
PROVIDERS: Nurse Practitioner Family; Physician Assistant; Emergency Provider Internal Medicine; PCP Nurse Practitioner Family
DX: R07.9 Chest pain, unspecified (principal); I65.21 Occlusion and stenosis of right carotid artery; I10 Essential (primary) hypertension; Z79.899 Other long term (current) drug therapy
CPT/HCPCS: 36415; 71046; 80053; 83735; 84484; 85025; 93005; 96361; 96374; 96375; 99284; 99285; J1170; J2405

== ENCOUNTER → 2023-12-20 12:39 | Outpatient (BNV) | payer OTHER, SELFPAY | PROVIDERS: Emergency Provider Internal Medicine; PCP Nurse Practitioner Family; Visit Provider Internal Medicine Cardiovascular Disease | DX: R07.9 Chest pain, unspecified (principal) | CPT/HCPCS: 93010 ==

== ENCOUNTER 2023-12-25 19:08 | Emergency (ER) | payer OTHER, SELFPAY ==
--- NOTE | 2023-12-25 | ECG_ITS ---
Test Reason : CHEST PAIN Blood Pressure : / mmHG Vent. Rate : 071 BPM Atrial Rate : 071 BPM P-R Int : 150 ms QRS Dur : 094 ms QT Int : 426 ms P-R-T Axes : 060 047 037 degrees QTc Int : 462 ms Normal sinus rhythm Possible Left atrial enlargement RSR' or QR pattern in V1 suggests right ventricular conduction delay Borderline ECG When compared with ECG of 20-DEC-2023 12:39, No significant change was found Referred By: Generic ED Physician Electronically Signed By:PARUL MOSS MD
--- NOTE | ~2023-12-25 | XR_ITS ---
EXAMINATION: XR CHEST CLINICAL INFORMATION: Chest pain. COMPARISON: Chest radiograph dated 12/20/2023. TECHNIQUE: 2 views of the chest were obtained. FINDINGS: The trachea is in normal anatomic position. Heart size is normal. There is no consolidation within either lung. Pleural spaces are clear. No pneumothorax. No acute osseous abnormality. There are surgical changes status post ACDF. XR/XR chest 2V IMPRESSION: Stable appearance of the heart and lungs. No acute disease.
[2023-12-25 19:29] VITALS: BP 136/90; BP 147/86; PULSE 78; PULSE 86; RESP 14; TEMP 36.7; O2SAT 99; BMI 29.8
[2023-12-25 19:31] VITALS: BP 147/86; PULSE 77; RESP 13; TEMP 36.7; O2SAT 98
--- NOTE | 2023-12-25 19:42 | ED_ITS ---
HPI - Chest Pain General Chief Complaint: Chest Pain Stated Complaint: CHEST PAIN RADIAITING TO L SHOULDER Time Seen by Provider: 12/25/23 19:25 Source: patient Mode of arrival: EMS Limitations: no limitations History of Present Illness HPI narrative: Patient is a 58-year-old female who presents emergency department via EMS for evaluation of chest pain radiating to the left shoulder, associated nausea, lightheadedness and headache. Symptom onset was 1 hour prior to arrival. She reports that she was recently admitted at [facility] and was advised that she has ?40% stenosis of my carotid artery and coronary artery disease . She reports that she has an outpatient appointment with cardiology here at [facility] scheduled for tomorrow. However, the pain today was much more severe than experienced in the past, she describes it as ?like my grandchild is sitting on my chest?. Related Data Home Medications Medication Instructions Recorded Confirmed lurasidone 80 mg tablet 80 mg PO DAILY 06/16/23 06/16/23 sertraline 100 mg tablet 100 mg PO DAILY 06/16/23 06/16/23 topiramate 100 mg tablet 100 mg PO BID 06/16/23 06/16/23 trazodone 100 mg tablet 100 mg PO BEDTIME 06/16/23 06/16/23 hydroxyzine HCl 25 mg tablet 25 mg PO QID 07/11/23 Previous Rx's Medication Instructions Recorded albuterol sulfate 90 mcg/actuation 2 puff inhalation Q6H PRN 10/21/21 aerosol inhaler shortness of breath or wheezing #6.7 grams ondansetron 4 mg disintegrating 4 mg PO Q8H PRN nausea and 06/21/23 tablet vomiting #10 tabs meloxicam 15 mg tablet 15 mg PO DAILY #14 tabs 07/11/23 oxybutynin chloride 10 mg 10 mg PO DAILY #30 tabs 08/30/23 tablet,extended release 24 hr fenofibrate 54 mg tablet 54 mg PO DAILY #90 tabs 10/20/23 hydrochlorothiazide 12.5 mg tablet 12.5 mg PO DAILY #90 tabs 10/20/23 metoprolol tartrate 25 mg tablet 12.5 mg (1/2 x 25 mg) PO BID 90 10/20/23 days #90 tabs methocarbamol 500 mg tablet 500 mg PO BEDTIME 30 days #30 tabs 11/14/23 omeprazole 20 mg capsule,delayed 20 mg PO BID 90 days #180 caps 11/14/23 release pregabalin 75 mg capsule 75 mg PO BID 30 days #60 caps 11/14/23 Allergies Allergy/AdvReac Type Severity Reaction Status Date / Time ibuprofen [From Motrin] Allergy Intermediate Shortness Verified 12/25/23 19:32 of Breath lamotrigine [From Lamictal] Allergy Intermediate Rash Verified 12/25/23 19:32 milnacipran [From Savella] Allergy Intermediate Itching Verified 12/25/23 19:32 aspirin [Aspirin] Allergy Mild DYSPNEA Verified 12/25/23 19:32 levofloxacin [From Levaquin] Allergy Mild Rash Verified 12/25/23 19:32 lithium [[place]] Allergy Mild TREMORS Verified 12/25/23 19:32 morphine [MORPHINE] Allergy Mild NAUSEA/VOMI Verified 12/25/23 19:32 TING fluoxetine [From Prozac] Allergy Unknown Unknown Verified 12/25/23 19:32 seafood Allergy Unknown Unknown Verified 12/25/23 19:32 dicyclomine [From Bentyl] Allergy Unknown Verified 12/25/23 19:32 carbamazepine [From Tegretol] AdvReac Intermediate Fatigued Verified 12/25/23 19:32 zolpidem [From Ambien] AdvReac Intermediate Itching Verified 12/25/23 19:32 Review of Systems 2 Review of Systems: Yes all other systems are reviewed and are negative PMFSH Past Medical History Attestation statement: The following information was validated with the patient. Source: old records reviewed Medical History Effusion, left knee Left knee pain GERD (gastroesophageal reflux disease) Hypertension Hyperlipidemia Depression Surgical History S/P ACL repair History of hysterectomy (~1999) History of spinal surgery (~12/2013) History of colectomy (~06/01/11) Family History Family History Father No problems noted. Mother No problems noted. Social History Social History Patient Tobacco Use Status: Current everyday Tobacco user Tobacco use type: Cigarette Cigarettes Per Day: 10 Years Smoked: since 10 years old but quit few times in between Smoked in Last 30 Days: Yes e-Cigarette/Vaping Use: Never Used Use of substances other than those prescribed or required for medical reasons: No Substance Use Type: Crack/Cocaine Advance Directives: Yes Advance Directives Information Provided: No Advance Directives on File: No Patient : No Current occupational status: employed Current occupation: [employer] Physical Exam 2 Vital Signs: Vital Signs: Last Vital Signs Temp 98.2 F 12/25/23 22:08 Pulse 70 12/26/23 00:46 Resp 11 L 12/26/23 00:46 BP 120/53 L 12/26/23 00:46 Pulse Ox 95 12/26/23 00:46 O2 Del Method Room Air 12/26/23 00:46 BMI result Body Mass Index 29.8 Appearance: Alert.?Oriented to person, place and time. No acute distress.?Normal affect. Eyes: Pupils equal, round and reactive to light.? ENT: Pharynx normal.?? Neck: Normal inspection.? Neck supple.?? CVS: Heart sounds normal. Normal heart rate and rhythm.? Pulses normal.?? Respiratory: No respiratory distress.? Lung sounds clear to auscultation bilaterally?? Abdomen: Soft and non-tender. Normoactive bowel sounds. No pulsatile mass.?? Skin: Skin warm and dry.? Normal skin color.? Extremities: No lower extremity edema.? No calf ttp? Neuro: Moves all extremities spontaneously. Sensation intact bilaterally. CN II- XII intact. No focal neuro deficits. Ambulates with normal steady gait. Course Reevaluation(s) Reevaluation #1: CBC is without leukocytosis or notable anemia. CMP reveals Mild hypokalemia of 3.2, for which potassium 40 mEq p.o. was ordered. no other electrolyte derangement KATHY. LFTs within normal range. High sensitive troponin below detectable levels, not consistent with ACS at this time, EKG revealing normal sinus rhythm ventricular rate of 71, QTC 462, no ST elevation, no ST depression. Viral panel was negative. Chest x-ray is without acute pathology. Resting quietly at the time of re-evaluation. Advised close outpatient follow-up with cardiology as scheduled for tomorrow. Discussed strict return precautions. All questions answered. Stable for discharge. Medications Administered Discontinued Medications Generic Name Dose Route Start Last Admin Trade Name Emily PRN Reason Stop Dose Admin Hydromorphone HCl 1 mg 12/25/23 23:50 12/26/23 00:09 Hydromorphone Hcl 1 Mg/Ml Syringe IVPUSH 12/25/23 23:51 1 mg ONCE ONE Administration Protocol Ondansetron HCl 4 mg 12/25/23 20:24 12/25/23 21:04 Ondansetron Hcl 4 Mg/2 Ml Vial IVPUSH 12/25/23 20:25 4 mg ONCE ONE Administration Oxycodone HCl 5 mg 12/25/23 20:24 12/25/23 21:04 Oxycodone Hcl Immed Release 5 Mg Tablet PO 12/25/23 20:25 5 mg ONCE ONE Administration Potassium Chloride 40 meq 12/26/23 00:44 12/26/23 01:08 Potassium Chloride Packet 20 Meq Packet PO 12/26/23 00:45 40 meq ONCE ONE Administration Medical Decision Making Medical Decision Making MDM Narrative: Patient is a 58-year-old female with past medical history of depression, chronic pain syndrome, GERD, mild coronary artery disease, fibromyalgia, cervicalgia presents emergency department for evaluation of chest pain as per HPI. Of note she was seen in this emergency department recently on 12/20/2023 with similar symptoms, she also recently had an admission to [facility] within the past 2 weeks for the same. Upon review of her ED record from 12/20/[address] a coronary on 11/23/2023 showing right coronary artery junction with a short segment about 40% stenosis and mildly abnormal stress test. Will obtain CBC to evaluate for leukocytosis/ anemia, CMP and lipase to evaluate for abnormal electrolytes /abnormal renal function/ abnormal hepatic/biliary function, EKG and troponin to evaluate for ischemia/ACS. Chest x-ray to evaluate for consolidation/ infiltrate/ mass/ pulmonary congestion and Urinalysis. Differential Diagnosis Differential Diagnoses: The differential diagnosis associated with the presentation includes (ACS, muscular strain, GERD, Well negative unlikely PE) Admission/Observation Consideration of admission/observation: Escalation of care including admission/observation considered (See narrative above in course narrative for further detail) Lab Data MDM Lab Attestation statement: I reviewed the patient's lab results. (See course narrative) 12/25/23 19:45 12/25/23 19:45 Labs: Lab Results 12/25/23 12/25/23 Range/Units 19:45 20:47 WBC 9.2 (4.8-10.8) X10*3/uL RBC 4.18 L (4.20-5.50) X10*6/uL Hgb 12.2 (12.0-16.0) g/dl Hct 35.2 L (37.0-47.0) % MCV 84.2 (80.0-98.0) fL MCH 29.2 (27.0-33.0) pg MCHC 34.7 (31.0-35.0) g/dl RDW 13.5 (11.0-16.0) % Plt Count 341 (160-400) X10*3/uL MPV 9.2 L (9.4-12.3) fL Immature Gran % (Auto) 0.2 (0.0-0.4) % Neut % (Auto) 44.2 L (45-73) % Lymph % (Auto) 46.1 H (20-40) % [place] % (Auto) 5.5 (2-11) % Eos % (Auto) 3.2 (0-4) % Baso % (Auto) 0.8 (0-2) % Lymph # (Auto) 4.2 (1.2-4.9) X10*3/uL [place] # (Auto) 0.5 (0.1-1.2) X10*3/uL Eos # (Auto) 0.3 (0.0-0.4) X10*3/uL Baso # (Auto) 0.1 (0.0-0.2) X10*3/uL Abs Immat Gran (auto) 0.02 (0.00-0.03) X10*3/uL Absolute Neuts (auto) 4.1 (2.0-8.3) x10*3/uL Absolute Nucleated RBC 0.000 (0.0-0.012) X10*3/uL Nucleated RBC % (auto) 0.0 (0.0-0.2) /100WBC Sodium 138 (135-145) mmol/L Potassium 3.2 L (3.3-5.1) mmol/L Chloride 105 (96-108) mmol/L Carbon Dioxide 24 (22-29) mmol/L Anion Gap 12 (12-20) BUN 15 (9-16) mg/dL Creatinine 0.77 (0.5-1.4) mg/dL Estim Creat Clear Calc 75.8 Estimated GFR > 60 Random Glucose 88 (60-115) mg/dL Calcium 9.7 (8.4-10.2) mg/dL Total Bilirubin 0.2 (0.0-1.0) mg/dL AST 11 (5-31) U/L ALT 9 (0-31) U/L Alkaline Phosphatase 44 (39-117) U/L Troponin I High Sens < 2.7 (<3.5-17.0) ng/L Total Protein 7.2 (6.5-8.0) g/dL Albumin 4.4 (3.5-5.0) g/dL Influenza Type A (PCR) NEGATIVE (Negative) Influenza Type B (PCR) NEGATIVE (Negative) RSV RNA Qual (PCR) NEGATIVE (Negative) SARS-CoV-2 RNA (RT-PCR) NEGATIVE (Negative) Independent Interpretation I performed an independent interpretation of an: EKG (See course narrative) and Plain X-Ray (No pneumonia) Radiology Impression Discussion of test interpretation with radiology: I have reviewed the radiologist's reading. Radiologist Impression: XR/XR chest 2V IMPRESSION: Stable appearance of the heart and lungs. No acute disease. Independent Historian Clinical information obtained from an independent historian. History obtained from or confirmed by: EMS External Record Review External record reviewed: Outpatient record Prescription Management I considered prescription management with: Pain Medication (Acetaminophen) Critical Care Time Critical Care Time Critical Care Time: Yes Total Critical Care Time: 40 Attestation: I personally attest to this critical care time spent taking care of the patient exclusive of all other billable procedures was approximately 40 minutes including initial evaluation of patient, ordering tests, x-ray interpretation, EKG interpretation, medical consultation, documentation, re-evaluation. Discharge Plan Discharge Clinical Impression: Chest pain Patient Disposition: Home, Self-Care Instructions: Chest Pain (ED) Prescriptions: No Action metoprolol tartrate 25 mg tablet 12.5 mg PO BID 90 Days Qty: 90 1RF fenofibrate 54 mg tablet 54 mg PO DAILY Qty: 90 1RF hydrochlorothiazide 12.5 mg tablet 12.5 mg PO DAILY Qty: 90 1RF methocarbamol 500 mg tablet 500 mg PO BEDTIME 30 Days Qty: 30 0RF omeprazole 20 mg capsule,delayed release(DR/EC) 20 mg PO BID 90 Days Qty: 180 0RF pregabalin 75 mg capsule 75 mg PO BID 30 Days Qty: 60 0RF albuterol sulfate 90 mcg/actuation HFA aerosol inhaler 2 puff inhalation Q6H PRN (Reason: shortness of breath or wheezing) Qty: 6.7 0RF sertraline 100 mg tablet 100 mg PO DAILY trazodone 100 mg tablet 100 mg PO BEDTIME topiramate 100 mg tablet 100 mg PO BID lurasidone 80 mg tablet 80 mg PO DAILY oxybutynin chloride 10 mg tablet extended release 24hr 10 mg PO DAILY Qty: 30 0RF ondansetron 4 mg tablet,disintegrating 4 mg PO Q8H PRN (Reason: nausea and vomiting) Qty: 10 0RF hydroxyzine HCl 25 mg tablet 25 mg PO QID meloxicam 15 mg tablet 15 mg PO DAILY Qty: 14 0RF Referrals: [facility], [facility] [Primary Care Provider] - Interventions: ED Discharge Assessment Last Done: 12/26/23 01:19 Discharge Date/Time: 12/26/23 01:19
--- NOTE | 2023-12-25 19:47 | PC.NURSE ---
pt biba from home a&ox4, respirations even and unlabored. pt reporting onset of chest pain 2 hours ago that is radiating into the left shoulder, pt reports nausea and lightheadedness. pt denies vomiting and shortness of breath at this time. pt normal sinus on tele 70-73bpm. 22G placed in left wrist, labs obtained and sent. ekg preformed.
[2023-12-25 19:48] LABS: MANUAL DIFF FLAG NO
[2023-12-25 19:49] LABS: Basophils Absolute Auto 0.1 X10*3/uL (0.0-0.2); Basophils Percent Auto 0.8 % (0-2); Eosinophils Absolute Auto 0.3 X10*3/uL (0.0-0.4); Eosinophils Percent Auto 3.2 % (0-4); Hematocrit 35.2 % (37.0-47.0); Hemoglobin 12.2 g/dl (12.0-16.0); Imm Gran Abs Auto 0.02 X10*3/uL (0.00-0.03); Imm Gran Pct Auto 0.2 % (0.0-0.4); Lymphocytes Absolute Auto 4.2 X10*3/uL (1.2-4.9); Lymphocytes Percent Auto 46.1 % (20-40); Mean Corpuscular HGB Conc 34.7 g/dl (31.0-35.0); Mean Corpuscular Hemoglobin 29.2 pg (27.0-33.0); Mean Corpuscular Volume 84.2 fL (80.0-98.0); Mean Platelet Volume 9.2 fL (9.4-12.3); Monocytes Absolute Auto 0.5 X10*3/uL (0.1-1.2); Monocytes Percent Auto 5.5 % (2-11); Neutrophils Absolute Auto 4.1 x10*3/uL (2.0-8.3); Neutrophils Percent Auto 44.2 % (45-73); Platelet Count 341 X10*3/uL (160-400); Red Blood Count 4.18 X10*6/uL (4.20-5.50); Red Cell Distribution Width 13.5 % (11.0-16.0); White Blood Count 9.2 X10*3/uL (4.8-10.8)
[2023-12-25 20:03] LABS: Alanine Aminotransferase 9 U/L (0-31); Albumin Level 4.4 g/dL (3.5-5.0); Alkaline Phosphatase 44 U/L (39-117); Anion Gap 12 (12-20); Aspartate Amino Transferase 11 U/L (5-31); Bilirubin Total 0.2 mg/dL (0.0-1.0); Blood Urea Nitrogen 15 mg/dL (9-16); Calcium 9.7 mg/dL (8.4-10.2); Carbon Dioxide 24 mmol/L (22-29); Chloride 105 mmol/L (96-108); Creatinine Clr Calc Pharmacy 75.8; Estimated Glomerular Filt Rate > 60; Glucose Random 88 mg/dL (60-115); Potassium 3.2 mmol/L (3.3-5.1); Sodium 138 mmol/L (135-145); Total Protein 7.2 g/dL (6.5-8.0)
[2023-12-25 20:12] LABS: Troponin-I High Sensitivity < 2.7 ng/L (<3.5-17.0)
[2023-12-25] MEDS: ondansetron HCL 4 MG/2 ML VIAL IVPUSH (21:04)
[2023-12-25] MEDS: oxyCODONE HCl Immed Release 5 MG TABLET PO (21:04)
--- NOTE | 2023-12-25 21:06 | PC.NURSE ---
pt medicated per mar, tolerated well with water.
[2023-12-25 21:34] LABS: Influenza A PCR NEGATIVE (Negative); Influenza B PCR NEGATIVE (Negative); Resp Syncy Virus RNA Qual PCR NEGATIVE (Negative); SARS COV2 PCR INHOUSE NEGATIVE (Negative)
[2023-12-25 22:08] VITALS: BP 124/74; PULSE 68; RESP 12; TEMP 36.8; O2SAT 95
[2023-12-26 00:08] VITALS: PULSE 66; RESP 14; O2SAT 97
[2023-12-26] MEDS: HYDROmorphone HCl 1 MG/ML SYRINGE IVPUSH (00:09)
[2023-12-26 00:46] VITALS: BP 120/53; PULSE 70; RESP 11; O2SAT 95
[2023-12-26] MEDS: Potassium Chloride Packet 20 MEQ PACKET 40 MEQ PO (01:08)
== END 2023-12-26 01:19 | disposition home or self-care (01) ==
PROVIDERS: Nurse Practitioner Family; Emergency Provider Internal Medicine; PCP Nurse Practitioner Family
DX: R07.9 Chest pain, unspecified (principal); E87.6 Hypokalemia; I25.10 Atherosclerotic heart disease of native coronary artery without angina pectoris; I10 Essential (primary) hypertension; Z11.52 Encounter for screening for COVID-19; Z20.828 Contact with and (suspected) exposure to other viral communicable diseases
CPT/HCPCS: 0241U; 36415; 71046; 80053; 84484; 85025; 93005; 96374; 96375; 99284; 99285; J1170; J2405

== ENCOUNTER → 2023-12-25 19:33 | Outpatient (BNV) | payer OTHER, SELFPAY | PROVIDERS: Emergency Provider Internal Medicine; PCP Nurse Practitioner Family; Visit Provider Internal Medicine Cardiovascular Disease | DX: R07.9 Chest pain, unspecified (principal) | CPT/HCPCS: 93010 ==

== ENCOUNTER 2023-12-26 13:43 | Outpatient (REF) | payer OTHER, SELFPAY ==
[2023-12-26 15:21] LABS: MANUAL DIFF FLAG NO
[2023-12-26 16:41] LABS: Basophils Absolute Auto 0.1 X10*3/uL (0.0-0.2); Basophils Percent Auto 0.6 % (0-2); Eosinophils Absolute Auto 0.3 X10*3/uL (0.0-0.4); Eosinophils Percent Auto 3.1 % (0-4); Hematocrit 39.6 % (37.0-47.0); Hemoglobin 13.2 g/dl (12.0-16.0); Imm Gran Abs Auto 0.07 X10*3/uL (0.00-0.03); Imm Gran Pct Auto 0.8 % (0.0-0.4); Lymphocytes Absolute Auto 2.9 X10*3/uL (1.2-4.9); Lymphocytes Percent Auto 34.1 % (20-40); Mean Corpuscular HGB Conc 33.3 g/dl (31.0-35.0); Mean Corpuscular Hemoglobin 28.9 pg (27.0-33.0); Mean Corpuscular Volume 86.8 fL (80.0-98.0); Mean Platelet Volume 9.7 fL (9.4-12.3); Monocytes Absolute Auto 0.6 X10*3/uL (0.1-1.2); Neutrophils Absolute Auto 4.6 x10*3/uL (2.0-8.3); Neutrophils Percent Auto 54.4 % (45-73); Platelet Count 439 X10*3/uL (160-400); Red Blood Count 4.56 X10*6/uL (4.20-5.50); Red Cell Distribution Width 13.7 % (11.0-16.0); White Blood Count 8.4 X10*3/uL (4.8-10.8)
[2023-12-26 17:13] LABS: INTERNATIONAL NORM RATIO 0.9 (0.9-1.1); Prothrombin Time 11.3 SEC (11.1-13.3)
[2023-12-26 17:33] LABS: Anion Gap 12 (12-20); Blood Urea Nitrogen 10 mg/dL (9-16); Calcium 10.2 mg/dL (8.4-10.2); Carbon Dioxide 27 mmol/L (22-29); Chloride 105 mmol/L (96-108); Estimated Glomerular Filt Rate > 60; Glucose Random 83 mg/dL (60-115); Potassium 3.6 mmol/L (3.3-5.1); Sodium 140 mmol/L (135-145)
== END 2023-12-26 13:44 | disposition home or self-care (01) ==
LOC: HO.LAB 13:43
PROVIDERS: PCP Nurse Practitioner Family; Visit Provider Nurse Practitioner
DX: Z01.812 Encounter for preprocedural laboratory examination (principal); R07.9 Chest pain, unspecified; R06.02 Shortness of breath
CPT/HCPCS: 36415; 80048; 85025; 85610; 93005

== ENCOUNTER 2023-12-26 13:43 | Outpatient (AMB) | payer OTHER, SELFPAY ==
--- NOTE | 2023-12-26 13:46 | MHC.OFFVIS ---
Intake Vital Signs 12/26/23 13:48 Height 5 ft 2 in Weight 154 lb 5.177 oz BMI 28.2 BP 115/68 Blood Pressure Location Lt brachial Position Sitting Pulse 94 Pulse Source Monitor Intake Visit Reasons: [employer] [facility]/ [facility]/ Chest pain/ Fam hx of Coronary artery Intake Note: PT is here for chest pain with EKG Allergies ibuprofen [From Motrin] Allergy (Intermediate, Verified 12/25/23 19:32) Shortness of Breath lamotrigine [From Lamictal] Allergy (Intermediate, Verified 12/25/23 19:32) Rash milnacipran [From Savella] Allergy (Intermediate, Verified 12/25/23 19:32) Itching aspirin [Aspirin] Allergy (Mild, Verified 12/25/23 19:32) DYSPNEA levofloxacin [From Levaquin] Allergy (Mild, Verified 12/25/23 19:32) Rash lithium [[place]] Allergy (Mild, Verified 12/25/23 19:32) TREMORS morphine [MORPHINE] Allergy (Mild, Verified 12/25/23 19:32) NAUSEA/VOMITING fluoxetine [From Prozac] Allergy (Unknown, Verified 12/25/23 19:32) Unknown seafood Allergy (Unknown, Verified 12/25/23 19:32) Unknown dicyclomine [From Bentyl] Allergy (Verified 12/25/23 19:32) Unknown carbamazepine [From Tegretol] Adverse Reaction (Intermediate, Verified 12/25/23 19:32) Fatigued zolpidem [From Ambien] Adverse Reaction (Intermediate, Verified 12/25/23 19:32) Itching Medication List - Last Reconciled 12/26/23 by Heidy Domingo NP albuterol sulfate 90 mcg/actuation 2 puffs inhalation Q6H PRN atorvastatin 40 mg PO BEDTIME fenofibrate 54 mg PO DAILY hydrochlorothiazide 12.5 mg PO DAILY hydroxyzine HCl 25 mg PO QID lurasidone 80 mg PO DAILY methocarbamol 500 mg PO BEDTIME 30 days metoprolol tartrate 12.5 mg (1/2 x 25 mg) PO BID 90 days omeprazole 20 mg PO BID 90 days ondansetron 4 mg PO Q8H PRN pregabalin 75 mg PO BID 30 days sertraline 100 mg PO DAILY topiramate 100 mg PO BID trazodone 200 mg PO BEDTIME HPI HPI Comments History of Present Illness Details 58-year-old female presents today for a new patient visit after emergency room visits related to chest pains. She has been to the emergency room multiple times related to this. For the last month she has been getting chest pains at rest, shortness of breath with exertion, nausea, and extreme fatigue. She has reduced smoking greatly. She has fears related to this due to her mom passing early from CAD. She did a stress test at [facility] got to 4 min and 54 sec and 58% MPHR.. Test was terminated due to chest pain. [facility] then ordered a CTA which sowed proximal mid RCA short segment with 40% stenosis. She denies recent illnesses or changes in life. [facility] Medical History Shortness of breath on exertion Effusion, left knee Left knee pain GERD (gastroesophageal reflux disease) Hypertension Hyperlipidemia Depression Surgical History S/P ACL repair History of hysterectomy (~1999) History of spinal surgery (~12/2013) History of colectomy (~06/01/11) Family History Father No problems noted. Mother No problems noted. Social History Patient Tobacco Use Status: Current everyday Tobacco user Tobacco use type: Cigarette Cigarettes Per Day: 10 Years Smoked: since 10 years old but quit few times in between e-Cigarette/Vaping Use: Never Used Substance Use Type: Crack/Cocaine Current occupational status: employed Current occupation: [employer] Review of Systems Const Denies weakness ENT Denies dizziness Card Denies chest pain, Denies chest pain with activity, Denies syncope, Denies rapid heart rate, Denies pedal edema, Denies edema, Denies leg edema, Denies lightheadedness, Denies palpitations, Denies dyspnea, Denies dyspnea on exertion and Denies orthopnea Resp Denies cough, Denies dyspnea and Denies dyspnea on exertion GI Denies hematochezia and Denies change in stool character Musc Denies abnormal gait, Denies muscle cramps, Denies muscle weakness, Denies numbness, Denies radiating pain into limb and Denies tingling Neuro Denies abnormal gait, Denies dizziness, Denies syncope, Denies numbness, Denies tingling and Denies weakness Endo Denies palpitations Physical Exam Vital Signs: Last Vital Signs Pulse 94 12/26/23 13:48 BP 115/68 12/26/23 13:48 BMI result Body Mass Index 28.2 Const General: healthy appearing and no acute distress Orientation/consciousness: patient oriented x3 HEENT Head: Yes normal to inspection Eyes General: appearance normal, both eyes and all related structures Neck Neck: Yes normal visual inspection Chest Chest palpation & inspection: normal inspection of the chest Resp Effort & Inspection: normal respiratory effort Auscultation: clear to auscultation bilaterally Cardio Jugular venous distension: no JVD Palpation: normal PMI Rate: regular rate Rhythm: regular rhythm Heart sounds: S1 normal heart sound present, S2 normal heart sound present, no click, no gallops, no murmurs and no rubs GI Inspection: Yes normal to inspection Palpation (GI): Soft to palpation Skin General skin exam: no rashes or lesions noted Neuro General: patient oriented x3 Extrem General: Yes normal to inspection Psych Appearance: grossly normal Office Procedures EKG Details: EKG today. Normal Sinus Rhythm Rate 94 bpm. Rightward axis. PSP' QR pattern in V1 suggest right ventricular conduction. No changes from prior. [id number], Complete Assessment & Plan Assessment & Plan (1) Shortness of breath on exertion: Code(s): R06.02 - Shortness of breath (2) Chest pain: Code(s): R07.9 - Chest pain, unspecified Plan Patient with family history of early cardiac and significant dyspnea on exertion, fatigue and chest pain. Occuring at rest and with activities. Prior workups have shown no significant CAD. Due to ongoing symptoms, family history of early cardiac in age 50s, and increasing in episodes will get diagnostic cath to assess anatomy. Will follow-up after. ED care for symptoms if needed. Orders: Orders Basic Metabolic Panel 12/26/23 R06.02 - Shortness of breath, R07.9 - Chest pain, unspecified Prothrombin Time INR 12/26/23 R06.02 - Shortness of breath, Z01.812 - Encounter for preprocedural laboratory examination Complete Blood Count Auto Diff 12/26/23 R06.02 - Shortness of breath, R07.9 - Chest pain, unspecified, Z01.812 - Encounter for preprocedural laboratory examination Cardiac Cath LT w PCI 12/26/23 R06.02 - Shortness of breath, R07.9 - Chest pain, unspecified Coding Level of Care Code Est Pt Level 4 (10090) Diagnoses Shortness of breath on exertion R06.02 Chest pain R07.9 CPT Codes EKG - CPT: 82187-[id number], Complete ([id number])
[2023-12-26 13:48] VITALS: BP 115/68; PULSE 94; BMI 28.2
== END 2023-12-26 15:15 | disposition home or self-care (01) ==
PROVIDERS: PCP Nurse Practitioner Family; Visit Provider Nurse Practitioner
DX: R06.02 Shortness of breath (principal); R07.9 Chest pain, unspecified
CPT/HCPCS: 93010; 99214

== ENCOUNTER → 2024-01-04 23:59 | Outpatient (BNV) | payer OTHER, SELFPAY | PROVIDERS: PCP Nurse Practitioner Family; Visit Provider Internal Medicine Cardiovascular Disease | DX: R07.9 Chest pain, unspecified (principal) | CPT/HCPCS: 93458; 99152 ==

== ENCOUNTER 2024-01-18 13:46 | Outpatient (AMB) | payer OTHER, SELFPAY ==
[2024-01-18 13:58] VITALS: BP 94/55; PULSE 63; O2SAT 96; BMI 28.2
--- NOTE | 2024-01-18 13:58 | A.OFFVIS_ITS ---
Intake Vital Signs 01/18/24 13:58 01/18/24 14:08 01/18/24 14:10 Height 5 ft 2 in Weight 154 lb 5.177 oz BMI 28.2 BP 94/55 L 91/51 L 96/55 L Blood Pressure Location Lt brachial Lt brachial Lt brachial Position Supine Sitting Standing Pulse 63 66 72 Pulse Source Pulse Oximeter Pulse Oximeter Pulse Oximeter Pulse Oximetry (%) 96 Oxygen Delivery Method Room Air Intake Visit Reasons: 2 wk s/p cath Intake Note: PT still has SOB and states been having low BP Allergies ibuprofen [From Motrin] Allergy (Intermediate, Verified 01/18/24 14:27) Shortness of Breath lamotrigine [From Lamictal] Allergy (Intermediate, Verified 01/18/24 14:27) Rash milnacipran [From Savella] Allergy (Intermediate, Verified 01/18/24 14:27) Itching aspirin [Aspirin] Allergy (Mild, Verified 01/18/24 14:27) DYSPNEA levofloxacin [From Levaquin] Allergy (Mild, Verified 01/18/24 14:27) Rash lithium [[place]] Allergy (Mild, Verified 01/18/24 14:27) TREMORS morphine [MORPHINE] Allergy (Mild, Verified 01/18/24 14:27) NAUSEA/VOMITING fluoxetine [From Prozac] Allergy (Unknown, Verified 01/18/24 14:27) Unknown seafood Allergy (Unknown, Verified 01/18/24 14:27) Unknown dicyclomine [From Bentyl] Allergy (Verified 01/18/24 14:27) Unknown carbamazepine [From Tegretol] Adverse Reaction (Intermediate, Verified 01/18/24 14:27) Fatigued zolpidem [From Ambien] Adverse Reaction (Intermediate, Verified 01/18/24 14:27) Itching Medication List - Last Reconciled 01/18/24 by Heidy Domingo NP albuterol sulfate 90 mcg/actuation 2 puffs inhalation Q6H PRN atorvastatin 40 mg PO BEDTIME fenofibrate 54 mg PO DAILY hydroxyzine HCl 25 mg PO QID lurasidone 80 mg PO DAILY methocarbamol 500 mg PO BEDTIME 30 days metoprolol tartrate 12.5 mg (1/2 x 25 mg) PO BID 90 days omeprazole 20 mg PO BID 90 days ondansetron 4 mg PO Q8H PRN pregabalin 75 mg PO BID 30 days sertraline 100 mg PO DAILY topiramate 100 mg PO BID trazodone 200 mg PO BEDTIME HPI HPI Comments History of Present Illness Details 58-year-old female presents today for a post cardiac catheterization follow-up. She reports her symptoms have gotten slightly better. She is still having chest pains on and off with exertion. She is still short of breath and dizzy. She reports her blood pressures are still running low and she has been getting positional dizziness - HCTZ has been stopped. She denies any fever, chills, tenderness or swelling at the right radial site. [facility] Medical History Shortness of breath on exertion Effusion, left knee Left knee pain GERD (gastroesophageal reflux disease) Hypertension Hyperlipidemia Depression Surgical History (Updated 01/22/24 @ 10:22 by Heidy Domingo NP) Status post cardiac catheterization S/P ACL repair History of hysterectomy (~1999) History of spinal surgery (~12/2013) History of colectomy (~06/01/11) Family History Father No problems noted. Mother No problems noted. Social History Patient Tobacco Use Status: Current everyday Tobacco user Tobacco use type: Cigarette Cigarettes Per Day: 10 Years Smoked: since 10 years old but quit few times in between e-Cigarette/Vaping Use: Never Used Substance Use Type: Crack/Cocaine Current occupational status: employed Current occupation: [employer] Review of Systems Const Denies weakness ENT Denies dizziness Card Denies chest pain, Denies chest pain with activity, Denies syncope, Denies rapid heart rate, Denies pedal edema, Denies edema, Denies leg edema, Denies lightheadedness, Denies palpitations, Denies dyspnea, Denies dyspnea on exertion and Denies orthopnea Resp Denies cough, Denies dyspnea and Denies dyspnea on exertion GI Denies hematochezia and Denies change in stool character Musc Denies abnormal gait, Denies muscle cramps, Denies muscle weakness, Denies numbness, Denies radiating pain into limb and Denies tingling Neuro Denies abnormal gait, Denies dizziness, Denies syncope, Denies numbness, Denies tingling and Denies weakness Endo Denies palpitations Physical Exam Vital Signs: Last Vital Signs Pulse 72 01/18/24 14:10 BP 96/55 L 01/18/24 14:10 Pulse Ox 96 01/18/24 13:58 Oxygen Delivery Method Room Air 01/18/24 13:58 BMI result Body Mass Index 28.2 Const General: healthy appearing and no acute distress Orientation/consciousness: patient oriented x3 HEENT Head: Yes normal to inspection Eyes General: appearance normal, both eyes and all related structures Neck Neck: Yes normal visual inspection Chest Chest palpation & inspection: normal inspection of the chest Resp Effort & Inspection: normal respiratory effort Auscultation: clear to auscultation bilaterally Cardio Jugular venous distension: no JVD Palpation: normal PMI Rate: regular rate Rhythm: regular rhythm Heart sounds: S1 normal heart sound present, S2 normal heart sound present, no click, no gallops, no murmurs and no rubs GI Inspection: Yes normal to inspection Palpation (GI): Soft to palpation Skin General skin exam: no rashes or lesions noted Neuro General: patient oriented x3 Extrem Other: Right radial no tenderness, swelling, redness, or drainage noted. General: Yes normal to inspection Psych Appearance: grossly normal Assessment & Plan Assessment & Plan (1) Status post cardiac catheterization: Comment: 01/12/[address] Olmedo LMCA Normal LAD and LCx - minimal irregularities RCA - Mild irregularities (<30%) Code(s): Z98.890 - Other specified postprocedural states Plan: No significant CAD. Patient symptoms have improved but still linger. Smoking cessation advised. Heart healthy diet. She is on statins and is getting followed through PCP. On low dose beta maribell. (2) Hypertension: Code(s): I10 - Essential (primary) hypertension Plan: Blood pressures on the low side with mild dizziness. She has been holding HCTZ. She is getting a blood pressure monitor to monitor at home. Will touch base in a few weeks regarding BPs reading. Advised hydration and eating well rounded diet. Orders: Referrals Pulmonary Medicine Referral R06.02 - Shortness of breath Coding Level of Care Code Est Pt Level 3 (44017) Diagnoses Status post cardiac catheterization Z98.890 Hypertension I10
[2024-01-18 14:08] VITALS: BP 91/51; PULSE 66
[2024-01-18 14:10] VITALS: BP 96/55; PULSE 72
== END 2024-01-18 14:37 | disposition home or self-care (01) ==
PROVIDERS: PCP Nurse Practitioner Family; Visit Provider Nurse Practitioner
DX: Z98.890 Other specified postprocedural states (principal); I10 Essential (primary) hypertension
CPT/HCPCS: 99213

== ENCOUNTER → 2024-01-18 13:46 | Outpatient (BNVA) | payer OTHER, SELFPAY | PROVIDERS: PCP Nurse Practitioner Family; Visit Provider Nurse Practitioner | DX: Z13.89 Encounter for screening for other disorder (principal) ==

== ENCOUNTER 2024-05-05 06:55 | Emergency (ER) | payer OTHER, SELFPAY ==
--- NOTE | ~2024-05-05 | CT_ITS ---
EXAMINATION: CT HEAD W/O IV CONTRAST CT CERVICAL SPINE W/O IV CONTRAST CLINICAL INFORMATION: Trauma, pain. COMPARISON: Head CT from 10/01/2019. Cervical spine radiographs from 01/30/2019. TECHNIQUE: Head - Contiguous axial imaging of the head was performed from the skull base to the vertex without the administration of intravenous contrast, and axial images are reconstructed at 2 mm and 5 mm slice thickness. Cervical spine - A volumetric, helical CT acquisition of the cervical spine was obtained without contrast; in addition to the standard set of axial images, multiplanar reformatted images were provided in the coronal and sagittal imaging planes. This CT examination was performed using dose optimization techniques as appropriate, variously including the following: *Automated exposure control *Adjustment of mA and/or kV according to patient size (this includes techniques or standardized protocols for targeted exams where dose is matched to indication/reason for exam; i.e. extremities or head) *Use of iterative reconstruction technique DLP: 938 mGy-cm (total) FINDINGS: HEAD: No acute intracranial findings. [place] to white matter differentiation is preserved. No evidence of intracranial hemorrhage, major vascular territory infarction, focal mass effect or midline shift. The ventricles have normal size and configuration. No hydrocephalus or extra-axial fluid collections. The calvarium is intact. Moderate mucosal thickening of the left sphenoid sinus. Otherwise, the visualized paranasal sinuses are well aerated and mastoid air cells are clear. The orbits, globes and temporomandibular joints are normal. CERVICAL SPINE: The craniocervical junction is normal. The cervical vertebra have normal height and alignment. No fracture, prevertebral edema or soft tissue hematoma. Postoperative changes from discectomy and anterior spinal fusion at C5-C6 and C6-C7. The anterior fusion plate and fixation screws are well-positioned. Bone graft is incorporated into the vertebral endplates at C5-C6. At the C6-C7 level, there is no bone graft fusion to the C6 inferior endplate. There are old small posterior osteophytes at C5-C6 that produce mild indentation on the ventral surface of the cecal sac. No significant spinal canal stenosis. There is moderate left-sided facet arthropathy at C7-T1 and mild facet arthropathy is noted at a few other levels. Thyroid gland is not optimally evaluated due to streak artifact from the cervical spine fusion hardware. No overt thyroid nodule. Mild centrilobular and paraseptal emphysema at the lung apices. CT/CT cervical spine wo IV con IMPRESSION: * No calvarial fracture, intracranial hemorrhage or other acute intracranial pathology. * No fracture or malalignment in the cervical spine. * No evidence of loosening of anterior fusion hardware at C5-C7.
[2024-05-05 06:59] VITALS: BP 142/76; PULSE 90; RESP 18; TEMP 36; O2SAT 97; BMI 27.4
--- NOTE | 2024-05-05 07:20 | ED_ITS ---
HPI - Fall General Chief Complaint: Fall Stated Complaint: fell and hit head Time Seen by Provider: 05/05/24 07:04 Source: patient Mode of arrival: ambulatory Limitations: no limitations History of Present Illness HPI Narrative: This is a 59 years old female presented to the emergency department stating that she tripped and fell while walking the dog. She is complaining of left-sided headache. She denies any LOC any vomiting. She is not anticoagulated. She has history of bipolar disorder depression anxiety. MD complaint: fall Onset (ago): hour(s) (1) Fall from: standing Place fall occurred: other (Outside her house) Loss of consciousness: none Prolonged down time: no Symptoms prior to fall: none Context: tripped/slipped Related Data Home Medications ?Medication ?Instructions ?Recorded ?Confirmed lurasidone 80 mg tablet 80 mg PO DAILY 06/16/23 12/26/23 sertraline 100 mg tablet 100 mg PO DAILY 06/16/23 12/26/23 topiramate 100 mg tablet 100 mg PO BID 06/16/23 12/26/23 hydroxyzine HCl 25 mg tablet 25 mg PO QID 07/11/23 12/26/23 trazodone 100 mg tablet 200 mg PO BEDTIME 12/26/23 12/26/23 Previous Rx's ?Medication ?Instructions ?Recorded albuterol sulfate 90 mcg/actuation 2 puff inhalation Q6H PRN 10/21/21 aerosol inhaler shortness of breath or wheezing #6.7 grams ondansetron 4 mg disintegrating 4 mg PO Q8H PRN nausea and 06/21/23 tablet vomiting #10 tabs fenofibrate 54 mg tablet 54 mg PO DAILY #90 tabs 10/20/23 metoprolol tartrate 25 mg tablet 12.5 mg (1/2 x 25 mg) PO BID 90 10/20/23 days #90 tabs methocarbamol 500 mg tablet 500 mg PO BEDTIME 30 days #30 tabs 11/14/23 atorvastatin 40 mg tablet 40 mg PO BEDTIME #90 tabs 03/11/24 omeprazole 20 mg capsule,delayed 20 mg PO BID 90 days #180 caps 04/12/24 release pregabalin 75 mg capsule 75 mg PO BID 30 days #60 caps 04/30/24 Allergies Allergy/AdvReac Type Severity Reaction Status Date / Time ibuprofen [From Motrin] Allergy Intermediate Shortness Verified 05/05/24 07:00 of Breath lamotrigine [From Lamictal] Allergy Intermediate Rash Verified 05/05/24 07:00 milnacipran [From Savella] Allergy Intermediate Itching Verified 05/05/24 07:00 aspirin [Aspirin] Allergy Mild DYSPNEA Verified 05/05/24 07:00 levofloxacin [From Levaquin] Allergy Mild Rash Verified 05/05/24 07:00 lithium [[place]] Allergy Mild TREMORS Verified 05/05/24 07:00 morphine [MORPHINE] Allergy Mild NAUSEA/VOMI Verified 05/05/24 07:00 TING fluoxetine [From Prozac] Allergy Unknown Unknown Verified 05/05/24 07:00 seafood Allergy Unknown Unknown Verified 05/05/24 07:00 dicyclomine [From Bentyl] Allergy Unknown Verified 05/05/24 07:00 carbamazepine [From Tegretol] AdvReac Intermediate Fatigued Verified 05/05/24 07:00 zolpidem [From Ambien] AdvReac Intermediate Itching Verified 05/05/24 07:00 Review of Systems ENT: Reports system reviewed and no additional complaints, except as documented Cardiovascular: Cardiovascular: Reports no additional cardiovascular complaints Neurologic: Reports other ([place]) [facility] Past Medical History Medical History Shortness of breath on exertion Effusion, left knee Left knee pain GERD (gastroesophageal reflux disease) Hypertension Hyperlipidemia Depression Surgical History Status post cardiac catheterization S/P ACL repair History of hysterectomy (~1999) History of spinal surgery (~12/2013) History of colectomy (~06/01/11) Family History Family History Father No problems noted. Mother No problems noted. Social History Social History Patient Tobacco Use Status: Current everyday Tobacco user Tobacco use type: Cigarette Cigarettes Per Day: 10 Years Smoked: since 10 years old but quit few times in between e-Cigarette/Vaping Use: Never Used Substance Use Type: Crack/Cocaine Advance Directives: No Advance Directives Information Provided: No Do you have a plan to hurt others: No Plan Current occupational status: employed Current occupation: [employer] Physical Exam Vital Signs: Vital Signs: Last Vital Signs Temp 96.8 F 05/05/24 06:59 Pulse 90 05/05/24 06:59 Resp 18 05/05/24 06:59 BP 142/76 H 05/05/24 06:59 Pulse Ox 97 05/05/24 06:59 O2 Del Method Room Air 05/05/24 06:59 BMI result Body Mass Index 27.4 Const: General: cooperative Nutritional Appearance: average body habitus Orientation/consciousness: patient oriented x3 Limitations: no limitations HEENT: Head: Yes normal to inspection Ears: hearing grossly normal bilaterally General nose exam: Normal external nose present Face and sinus: Yes normal facial exam Mouth: Normal oral and palatal mucosa present Throat: Yes posterior oropharynx normal Neck: Neck: Yes normal visual inspection and Yes full ROM Chest: Chest palpation & inspection: normal inspection of the chest Resp: Effort & Inspection: normal respiratory effort Auscultation: clear to auscultation bilaterally Cardio: Jugular venous distension: no JVD Palpation: normal PMI Rate: regular rate Rhythm: regular rhythm GI: Inspection: Yes normal to inspection Palpation (GI): Soft to palpation, not firm, nontender and no guarding Auscultation: normal bowel sounds Skin: General skin exam: no rashes or lesions noted and elasticity normal Lesions: no lesions Rashes: no rashes Trauma: no lacerations or abrasions Neuro: General: patient oriented x3 Cranial nerves: Yes CN's II-XII intact bilaterally Cognition (Neuro): normal cognition Course Reevaluation(s) Reevaluation #1: CT resulted negative CT negative C-spine for acute fracture or dislocation Time: 08:32 Medications Administered Discontinued Medications Generic Name Dose Route Start Last Admin Trade Name Freq PRN Reason Stop Dose Admin Acetaminophen 975 mg 05/05/24 07:59 05/05/24 08:21 Acetaminophen 325 Mg Tablet PO 05/05/24 08:00 Not Given ONCE ONE Acetaminophen/Butalbital/Caffeine 1 tab 05/05/24 08:06 05/05/24 08:21 Butalb/Acetamin/Caff 50/325/40 Tablet PO 05/05/24 08:07 1 tab ONCE ONE Administration Medical Decision Making Medical Decision Making MDM Narrative: Patient presented with complaint of head injury will obtain imaging. Differential Diagnosis Differential Diagnoses: The differential diagnosis associated with the presentation includes Subdural hematoma/epidural hematoma/cervical spine fracture Admission/Observation Consideration of admission/observation: Escalation of care including admission/observation considered Independent Interpretation I performed an independent interpretation of an: CT Scan Radiology Impression Discussion of test interpretation with radiology: I have reviewed the radiologist's reading. Radiologist Impression: CERVICAL SPINE: The craniocervical junction is normal. The cervical vertebra have normal height and alignment. No fracture, prevertebral edema or soft tissue hematoma. Postoperative changes from discectomy and anterior spinal fusion at C5-C6 and C6-C7. The anterior fusion plate and fixation screws are well-positioned. Bone graft is incorporated into the vertebral endplates at C5-C6. At the C6-C7 level, there is no bone graft fusion to the C6 inferior endplate. There are old small posterior osteophytes at C5-C6 that produce mild indentation on the ventral surface of the cecal sac. No significant spinal canal stenosis. There is moderate left-sided facet arthropathy at C7-T1 and mild facet arthropathy is noted at a few other levels. Thyroid gland is not optimally evaluated due to streak artifact from the cervical spine fusion hardware. No overt thyroid nodule. Mild centrilobular and paraseptal emphysema at the lung apices. CT/CT head/brain wo IV con IMPRESSION: * No calvarial fracture, intracranial hemorrhage or other acute intracranial pathology. * No fracture or malalignment in the cervical spine. * No evidence of loosening of anterior fusion hardware at C5-C7. Dictated By: Zack Frank MD Signed By: <Electronically signed by Zack rFank MD in OV> 05/05/24 0816 DD/ 0735 TD/TT: Certified Medical Records Coder: External Record Review External record reviewed: Inpatient record Chronic Conditions chronic pain Discharge Plan Discharge Clinical Impression: Head injury Patient Disposition: Home, Self-Care Instructions: Head Injury (ED) Additional Instructions: Follow-up with your primary care physician return to the emergency room if you worse vomiting any concern Prescriptions: No Action metoprolol tartrate 25 mg tablet 12.5 mg PO BID 90 Days Qty: 90 1RF fenofibrate 54 mg tablet 54 mg PO DAILY Qty: 90 1RF methocarbamol 500 mg tablet 500 mg PO BEDTIME 30 Days Qty: 30 0RF atorvastatin 40 mg tablet 40 mg PO BEDTIME Qty: 90 1RF omeprazole 20 mg capsule,delayed release(DR/EC) 20 mg PO BID 90 Days Qty: 180 0RF pregabalin 75 mg capsule 75 mg PO BID 30 Days Qty: 60 0RF albuterol sulfate 90 mcg/actuation HFA aerosol inhaler 2 puff inhalation Q6H PRN (Reason: shortness of breath or wheezing) Qty: 6.7 0RF sertraline 100 mg tablet 100 mg PO DAILY topiramate 100 mg tablet 100 mg PO BID lurasidone 80 mg tablet 80 mg PO DAILY trazodone 100 mg tablet 200 mg PO BEDTIME ondansetron 4 mg tablet,disintegrating 4 mg PO Q8H PRN (Reason: nausea and vomiting) Qty: 10 0RF hydroxyzine HCl 25 mg tablet 25 mg PO QID Print Language: Romansh
[2024-05-05] MEDS: Butalb/Acetamin/Caff 50/325/40 TABLET 1 TAB PO (08:21)
[2024-05-05 08:52] VITALS: BP 118/60; PULSE 66; RESP 16; TEMP 36.6; O2SAT 92
== END 2024-05-05 09:08 | disposition home or self-care (01) ==
PROVIDERS: Emergency Provider Emergency Medicine; PCP Nurse Practitioner Family
DX: S09.90XA Unspecified injury of head, initial encounter (principal); R51.9 Headache, unspecified; M54.2 Cervicalgia; X58.XXXA Exposure to other specified factors, initial encounter; W01.0XXA Fall on same level from slipping, tripping and stumbling without subsequent striking against object, initial encounter; Y93.01 Activity, walking, marching and hiking; Y92.89 Other specified places as the place of occurrence of the external cause; Y99.8 Other external cause status
CPT/HCPCS: 70450; 72125; 99283

== ENCOUNTER 2024-05-07 12:04 | Emergency (ER) | payer OTHER, SELFPAY ==
--- NOTE | ~2024-05-07 | CT_ITS ---
EXAMINATION: CT HEAD WITHOUT CONTRAST CLINICAL INFORMATION: Nausea after head trauma COMPARISON: 05/05/2024 TECHNIQUE: Contiguous axial imaging was performed from the skull base to vertex without intravenous administration of contrast. This CT examination was performed using dose optimization techniques as appropriate, variously including the following: *Automated exposure control *Adjustment of mA and/or kV according to patient size (this includes techniques or standardized protocols for targeted exams where dose is matched to indication/reason for exam; i.e. extremities or head) *Use of iterative reconstruction technique DLP: 586 mGy-cm FINDINGS: No change. No intra or extra-axial fluid collection or hemorrhage, mass or mass effect. Sulci and ventricles normal. Calvarium intact. CT/CT head/brain wo IV con IMPRESSION: No acute intracranial pathology.
[2024-05-07 12:18] VITALS: BP 110/60; BP 94/57; PULSE 63; PULSE 72; RESP 14; TEMP 37; O2SAT 97; O2SAT 99; BMI 31.3
--- NOTE | 2024-05-07 12:34 | ED_ITS ---
HPI - General Adult General Chief complaint: Nausea/Vomiting/Diarrhea Stated complaint: fall x2 days ago left side pain seen for same Time Seen by Provider: 05/07/24 12:33 Source: patient Limitations: no limitations History of Present Illness HPI narrative: This is a 59-year-old woman with a past medical history hypertension, hyperlipidemia, GERD, depression, bipolar disorder, colectomy in 2010, hysterectomy 1999, spinal surgery 2013, ACL repair, seen here on May 05, 2024 status post trip and fall with unremarkable trauma workup who presents for evaluation of headache, nausea and lightheadedness. Patient states she tripped and fell while walking her dog a couple days ago causing her to hit her head on the cement. She states she believes she may have lost consciousness. She states being evaluated her and was reassuring with normal CAT scans. She states taking Tylenol without relief and states she has a bad headache with nausea. She states no emesis. She states feeling lightheaded . She states she also noted bruised on the left side of her face, shoulder and hip. She states no interval trauma. She states taking no blood thinning medications. She states no neck or back pain. She states no chest pain, dyspnea or abdominal pain. She states having few episodes of non-bloody loose stools. She states no urinary symptoms. She states no vision changes, hearing changes, paresthesias, speech changes or extremity weakness. Related Data Home Medications ?Medication ?Instructions ?Recorded ?Confirmed lurasidone 80 mg tablet 80 mg PO DAILY 06/16/23 12/26/23 sertraline 100 mg tablet 100 mg PO DAILY 06/16/23 12/26/23 topiramate 100 mg tablet 100 mg PO BID 06/16/23 12/26/23 hydroxyzine HCl 25 mg tablet 25 mg PO QID 07/11/23 12/26/23 trazodone 100 mg tablet 200 mg PO BEDTIME 12/26/23 12/26/23 Previous Rx's ?Medication ?Instructions ?Recorded albuterol sulfate 90 mcg/actuation 2 puff inhalation Q6H PRN 10/21/21 aerosol inhaler shortness of breath or wheezing #6.7 grams ondansetron 4 mg disintegrating 4 mg PO Q8H PRN nausea and 06/21/23 tablet vomiting #10 tabs fenofibrate 54 mg tablet 54 mg PO DAILY #90 tabs 10/20/23 metoprolol tartrate 25 mg tablet 12.5 mg (1/2 x 25 mg) PO BID 90 10/20/23 days #90 tabs methocarbamol 500 mg tablet 500 mg PO BEDTIME 30 days #30 tabs 11/14/23 atorvastatin 40 mg tablet 40 mg PO BEDTIME #90 tabs 03/11/24 omeprazole 20 mg capsule,delayed 20 mg PO BID 90 days #180 caps 04/12/24 release pregabalin 75 mg capsule 75 mg PO BID 30 days #60 caps 04/30/24 Allergies Allergy/AdvReac Type Severity Reaction Status Date / Time ibuprofen [From Motrin] Allergy Intermediate Shortness Verified 05/07/24 12:21 of Breath lamotrigine [From Lamictal] Allergy Intermediate Rash Verified 05/07/24 12:21 milnacipran [From Savella] Allergy Intermediate Itching Verified 05/07/24 12:21 aspirin [Aspirin] Allergy Mild DYSPNEA Verified 05/07/24 12:21 levofloxacin [From Levaquin] Allergy Mild Rash Verified 05/07/24 12:21 lithium [[place]] Allergy Mild TREMORS Verified 05/07/24 12:21 morphine [MORPHINE] Allergy Mild NAUSEA/VOMI Verified 05/07/24 12:21 TING fluoxetine [From Prozac] Allergy Unknown Unknown Verified 05/07/24 12:21 seafood Allergy Unknown Unknown Verified 05/07/24 12:21 dicyclomine [From Bentyl] Allergy Unknown Verified 05/07/24 12:21 carbamazepine [From Tegretol] AdvReac Intermediate Fatigued Verified 05/07/24 12:21 zolpidem [From Ambien] AdvReac Intermediate Itching Verified 05/07/24 12:21 Review of Systems Review of Systems: ROS as per HPI [facility] Past Medical History Medical History Shortness of breath on exertion Effusion, left knee Left knee pain GERD (gastroesophageal reflux disease) Hypertension Hyperlipidemia Depression Surgical History Status post cardiac catheterization S/P ACL repair History of hysterectomy (~1999) History of spinal surgery (~12/2013) History of colectomy (~06/01/11) Family History Family History Father No problems noted. Mother No problems noted. Social History Social History Alcohol intake: current Alcohol intake frequency: holidays/special occasions only Patient Tobacco Use Status: Current everyday Tobacco user Tobacco use type: Cigarette Cigarettes Per Day: 10 Years Smoked: since 10 years old but quit few times in between Smoked in Last 30 Days: Yes e-Cigarette/Vaping Use: Never Used Use of substances other than those prescribed or required for medical reasons: No Substance Use Type: Crack/Cocaine Advance Directives: No Advance Directives Information Provided: Yes Do you have a plan to hurt others: No Plan Current occupational status: employed Current occupation: [employer] Physical Exam ED Vital Signs: Vital Signs - 24 hr 05/07/24 12:18 Temperature 98.6 F Pulse Rate 63 Respiratory Rate 14 Blood Pressure 94/57 L Pulse Oximetry 97 Oxygen Delivery Method Room Air BMI result Body Mass Index 31.3 Const General: cooperative, comfortable, no acute distress, alert and awake Orientation/consciousness: patient oriented x3 HENMT Other: superficial hemostatic abrasion to left forehead, no facial ecchymosis, no periorbital or postauricular ecchymosis Head: Yes normocephalic and Yes atraumatic Eyes Other: EOMI without pain, PERRL Neck Other: No midline vertebral tenderness to palpation or palpable step-offs, full range of motion with neck flexion/extension and lateral 45 degree rotation Chest Other: no chest wall TTP, hemostatic superficial abrasion to left shoulder without focal tenderness or ecchymosis Resp Other: CTAB, no respiratory distress Cardio Other: RRR Neuro General: patient oriented x3 Cranial nerves: Yes CN's II-XII intact bilaterally, Yes Nystagmus not present, Yes Midline tongue present and Yes Ability to bilaterally elevate shoulders present Cognition (Neuro): normal cognition Speech: Other speech findings present (Neuro) (Normal speech) Gait exam (Neuro): Normal gait present Motor exam (neuro): 5/5 motor strength present throughout Sensory Exam: other (Sensation intact to light touch in bilateral upper and lower extremities) Extrem Other: Superficial hemostatic abrasion to the left hip without ecchymosis or focal tenderness, full active range of motion to bilateral shoulders and hips Medications Administered Discontinued Medications Generic Name Dose Route Start Last Admin Trade Name Emily PRN Reason Stop Dose Admin Acetaminophen/Butalbital/Caffeine 1 tab 05/07/24 14:37 05/07/24 15:04 Butalb/Acetamin/Caff 50/325/40 Tablet PO 05/07/24 14:38 1 tab ONCE ONE Administration Diphenhydramine HCl 25 mg 05/07/24 12:44 05/07/24 13:05 Diphenhydramine Hcl 50 Mg/Ml Vial IVPUSH 05/07/24 12:45 25 mg ONCE ONE Administration Sodium Chloride 1,000 mls @ 999 mls/hr 05/07/24 12:45 05/07/24 14:16 Ns IV 05/07/24 13:45 999 mls/hr .Q1H1M ILDA Administration Ondansetron HCl 4 mg 05/07/24 12:44 05/07/24 13:06 Ondansetron Hcl 4 Mg/2 Ml Vial IVPUSH 05/07/24 12:45 4 mg ONCE ONE Administration Medical Decision Making Medical Decision Making MDM Narrative: Differential diagnosis includes, but is not limited to concussion, traumatic brain injury, traumatic intracranial hemorrhage, migraine headache, tension headache. Patient is afebrile and hemodynamically stable on room air. Exam is benign and reassuring. There are no focal neurological deficits. Given recent history of traumatic head injury and reassuring physical exam as above, I do not suspect cerebrovascular accident. The patient is provided supportive measures with 1 L IV NS, 4 mg IV Zofran 25 mg IV Benadryl. On re-examination, patient requests Fioricet for headache. She was provided 1 tab of Fioricet here in the ED. CT imaging as below is unremarkable. On re-examination, patient is well-appearing and in no acute distress. ?Patient states symptoms have resolved. ?There is no indication for further emergent evaluation in this otherwise well-appearing patient as above. ?Patient is provided written and verbal instructions, educational materials, recommendations for outpatient follow-up, strict return precautions and teach back is performed. ?Patient states understanding and agreement with plan of care. ?Patient is discharged home in stable and improved condition. Admission/Observation Consideration of admission/observation: Escalation of care including admission/observation considered Independent Interpretation I performed an independent interpretation of an: CT Scan Interpretation: I independently reviewed and interpreted CT scan which demonstrates no intracranial hemorrhage Radiology Impression Discussion of test interpretation with radiology: I have reviewed the radiologist's reading. Radiologist Impression: IMPRESSION: No acute intracranial pathology. Dictated By: Dmitry Teague MD Signed By: <Electronically signed by Dmitry Teague MD in OV> 05/07/24 1424 Discharge Plan Discharge Clinical Impression: Concussion, Headache Patient Disposition: Home, Self-Care Instructions: Post Concussion Syndrome (ED) Additional Instructions: You were seen and evaluated in the emergency room. You were treated for headache and symptoms of concussion. Your repeat CAT scan was reassuring with no acute abnormalities. Please be sure to stay hydrated at home by drinking a cups of water per day. Please take 1000 mg Tylenol every 8 hours as needed for headache. Please follow-up with your primary care doctor in next 5-7 days if her symptoms are not improving. Please return to the emergency room if you develop any new or concerning symptoms including, but not limited to new head injury, vision changes, speech changes, seizure, numbness/tingling, facial droop or arm/leg weakness. Prescriptions: No Action metoprolol tartrate 25 mg tablet 12.5 mg PO BID 90 Days Qty: 90 1RF fenofibrate 54 mg tablet 54 mg PO DAILY Qty: 90 1RF methocarbamol 500 mg tablet 500 mg PO BEDTIME 30 Days Qty: 30 0RF atorvastatin 40 mg tablet 40 mg PO BEDTIME Qty: 90 1RF omeprazole 20 mg capsule,delayed release(DR/EC) 20 mg PO BID 90 Days Qty: 180 0RF pregabalin 75 mg capsule 75 mg PO BID 30 Days Qty: 60 0RF albuterol sulfate 90 mcg/actuation HFA aerosol inhaler 2 puff inhalation Q6H PRN (Reason: shortness of breath or wheezing) Qty: 6.7 0RF sertraline 100 mg tablet 100 mg PO DAILY topiramate 100 mg tablet 100 mg PO BID lurasidone 80 mg tablet 80 mg PO DAILY trazodone 100 mg tablet 200 mg PO BEDTIME ondansetron 4 mg tablet,disintegrating 4 mg PO Q8H PRN (Reason: nausea and vomiting) Qty: 10 0RF hydroxyzine HCl 25 mg tablet 25 mg PO QID Print Language: [place] Citizen
[2024-05-07] MEDS: diphenhydrAMINE HCL 50 MG/ML VIAL 25 MG IVPUSH (13:05)
[2024-05-07] MEDS: ondansetron HCL 4 MG/2 ML VIAL IVPUSH (13:06)
[2024-05-07] MEDS: 0.9 % Sodium Chloride 1,000 ML 999 ML IV (14:16)
[2024-05-07] MEDS: Butalb/Acetamin/Caff 50/325/40 TABLET 1 TAB PO (15:04)
[2024-05-07 16:34] VITALS: BP 120/56; PULSE 65; RESP 16; TEMP 36.7; O2SAT 100
[2024-05-07 16:38] VITALS: BP 120/56; PULSE 65; RESP 16; TEMP 36.6; O2SAT 100
== END 2024-05-07 16:39 | disposition home or self-care (01) ==
PROVIDERS: Emergency Provider Emergency Medicine; PCP Nurse Practitioner Family
DX: S06.0X0A Concussion without loss of consciousness, initial encounter (principal); W18.30XA Fall on same level, unspecified, initial encounter; R51.9 Headache, unspecified; Y93.K1 Activity, walking an animal; Y92.480 Sidewalk as the place of occurrence of the external cause; Y99.9 Unspecified external cause status
CPT/HCPCS: 70450; 96374; 96375; 99284; J1200; J2405

== ENCOUNTER 2024-05-27 23:19 | Emergency (ER) | payer OTHER, SELFPAY ==
--- NOTE | ~2024-05-27 | XR_ITS ---
EXAMINATION: XR THORACIC SPINE CLINICAL INFORMATION: History of fall and midline tenderness. COMPARISON: CXR from 12/25/2023 TECHNIQUE: AP and lateral views of the thoracic spine. FINDINGS: Prior discectomy and anterior spinal fusion at C5-C6 and C6-C7. No acute radiographic abnormalities in the thoracic spine. The thoracic vertebra have well preserved height and alignment. There are varying degrees of degenerative narrowing of disc spaces and vertebral osteophyte formation of the thoracic spine. The anterior and posterior elements have an intact appearance. There is no overt paraspinal soft tissue swelling. XR/XR thoracic spine 2V IMPRESSION: No acute fracture or malalignment in the degenerated thoracic spine.
--- NOTE | ~2024-05-27 | CT_ITS ---
EXAMINATION: HEAD CT WITHOUT CONTRAST CERVICAL SPINE CT WITHOUT CONTRAST CLINICAL INFORMATION: Head strike, fall. COMPARISON: 05/07/2024 and 05/05/2024 TECHNIQUE: Contiguous axial imaging of the head was performed without the administration of IV contrast. Axial multidetector volumetric images were also performed through the cervical spine without intravenous contrast. Multiplanar reconstructed images in coronal and sagittal orientations were submitted. This CT examination was performed using dose optimization techniques as appropriate, variously including the following: *Automated exposure control *Adjustment of mA and/or kV according to patient size (this includes techniques or standardized protocols for targeted exams where dose is matched to indication/reason for exam; i.e. extremities or head) *Use of iterative reconstruction technique DOSE: 969 mGy-cm FINDINGS: HEAD: There is no evidence of acute intracranial hemorrhage or territorial infarction. No abnormal mass-effect or midline shift. No extra-axial fluid collections. [place] to white matter differentiation is well preserved. The ventricles are normal in size and configuration. There is no abnormal attenuation within the brain parenchyma. The right eyebrow piercing. The soft tissues and osseous structures are normal. The sinuses and mastoid air cells are clear. CERVICAL SPINE: Vertebral body heights are normal. No fractures of the vertebral bodies or posterior elements. Chronic grade 1 anterolisthesis of C7 on T1 by 2 mm. Associated facet arthropathy is noted. Status post C5 C7 ACDF with anterior plate and screw fixation hardware as well as solid osseous bridging across the interbody space at C5-C6. Bridging bone is suspected at the anterior margin of the C6-C7 interbody space. Degenerative osteophytes and sclerosis are present at the atlantodental articulation, though normal alignment is maintained. Craniocervical junction is normal. Mild to moderate degenerative disc disease is noted at C4-C5 and C7-T1, characterized by loss of intervertebral disc height, endplate osteophytes, and uncovertebral osteophytes. Mild facet arthropathy at C7-T1, left side greater than right. No appreciable central canal stenoses. Uncovertebral osteophytes produce mild left neural foraminal encroachment at C6-C7. No significant paravertebral soft tissue swelling. Cervical soft tissues are unremarkable. Imaged portions of the lung apices are clear. CT/CT cervical spine wo IV con IMPRESSION: 1. No acute intracranial pathology. 2. No acute fracture or malalignment in the cervical spine. 3. 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 Mild to moderate degenerative disc disease at C4-C5 and C7-T1.
[2024-05-27 23:26] VITALS: BP 110/62; PULSE 63; O2SAT 97
[2024-05-27 23:28] VITALS: BP 105/64; PULSE 58; RESP 16; TEMP 36.4; O2SAT 95; BMI 27.4
[2024-05-28 02:00] VITALS: BP 111/72; PULSE 82; RESP 16; TEMP 36.4; O2SAT 98
[2024-05-28 03:57] VITALS: BP 107/68; PULSE 78; RESP 16; TEMP 36.6; O2SAT 97
--- NOTE | 2024-05-28 04:18 | PC.NURSE ---
pt is sleeping comfortably on stretcher in no apparent distress, still waiting to be seen by ED provider.
[2024-05-28 06:00] VITALS: RESP 12
--- NOTE | 2024-05-28 06:28 | ECG_ITS ---
Test Reason : dizziness Blood Pressure : / mmHG Vent. Rate : 063 BPM Atrial Rate : 063 BPM P-R Int : 166 ms QRS Dur : 096 ms QT Int : 468 ms P-R-T Axes : 073 072 059 degrees QTc Int : 478 ms Normal sinus rhythm RSR' or QR pattern in V1 suggests right ventricular conduction delay Borderline ECG When compared with ECG of 25-DEC-2023 19:33, No significant change was found Referred By: Coral Vaca Electronically Signed By:CAYDEN SOLIMAN
--- NOTE | 2024-05-28 06:35 | ED.GENADULT ---
HPI - General Adult General Chief complaint: Fall Stated complaint: fall dizziness Time Seen by Provider: 05/28/24 06:24 Source: patient Mode of arrival: ambulatory Limitations: no limitations History of Present Illness ED Provider: linda VASQUEZ narrative: Patient is a 59-year-old female with history of recent fall with headstrike, HTN, HLD, depression presenting to the emergency department with complaint of dizziness and falls at home overnight. Patient states that she got up to go to the bathroom and after taking a few steps began to feel dizzy and everything began to get dark. She rested against the sink in the kitchen and felt a little bit better so attempted to take a few more steps but again felt dizzy and fell to the floor. Her daughter's dog began barking which alerted her daughter who came in and assisted the patient back to standing. Her daughter helped her ambulate back to bed where she again felt dizzy and fell backwards. At that time the daughter advised her to remain sitting on the floor and called 911. Patient complains headache as well as thoracic back pain. Denies chest pain, palpitations or dyspnea. Complains of some nausea but denies vomiting. She is not anticoagulated. She was recently evaluated in this emergency department after a fall. She was subsequently seen for ongoing headache at diagnosed with postconcussive syndrome. She denies blurred vision, double vision or other visual changes. She denies current dizziness or lightheadedness. complaint: Dizziness, fall Onset (ago): hour(s) Location: head and back Treatments prior to arrival: other (Placed in C-collar by EMS prior to arrival) Related Data Home Medications ?Medication ?Instructions ?Recorded ?Confirmed lurasidone 80 mg tablet 80 mg PO DAILY 06/16/23 12/26/23 sertraline 100 mg tablet 100 mg PO DAILY 06/16/23 12/26/23 topiramate 100 mg tablet 100 mg PO BID 06/16/23 12/26/23 hydroxyzine HCl 25 mg tablet 25 mg PO QID 07/11/23 12/26/23 trazodone 100 mg tablet 200 mg PO BEDTIME 12/26/23 12/26/23 Previous Rx's ?Medication ?Instructions ?Recorded albuterol sulfate 90 mcg/actuation 2 puff inhalation Q6H PRN 10/21/21 aerosol inhaler shortness of breath or wheezing #6.7 grams fenofibrate 54 mg tablet 54 mg PO DAILY #90 tabs 10/20/23 metoprolol tartrate 25 mg tablet 12.5 mg (1/2 x 25 mg) PO BID 90 10/20/23 days #90 tabs methocarbamol 500 mg tablet 500 mg PO BEDTIME 30 days #30 tabs 11/14/23 atorvastatin 40 mg tablet 40 mg PO BEDTIME #90 tabs 03/11/24 pregabalin 75 mg capsule 75 mg PO BID 30 days #60 caps 04/30/24 omeprazole 20 mg capsule,delayed 20 mg PO BID 90 days #180 caps 05/21/24 release ondansetron 4 mg disintegrating 4 mg PO Q8H PRN nausea and 05/26/24 tablet vomiting #10 tabs tizanidine 2 mg tablet 2 mg PO BID PRN muscle spasticity 05/26/24 10 days #20 tabs lidocaine 4 % topical cream 1 appl topical BID PRN pain #15 05/28/24 grams Allergies Allergy/AdvReac Type Severity Reaction Status Date / Time ibuprofen [From Motrin] Allergy Intermediate Shortness Verified 05/27/24 23:32 of Breath lamotrigine [From Lamictal] Allergy Intermediate Rash Verified 05/27/24 23:32 milnacipran [From Savella] Allergy Intermediate Itching Verified 05/27/24 23:32 aspirin [Aspirin] Allergy Mild DYSPNEA Verified 05/27/24 23:32 levofloxacin [From Levaquin] Allergy Mild Rash Verified 05/27/24 23:32 lithium [[place]] Allergy Mild TREMORS Verified 05/27/24 23:32 morphine [MORPHINE] Allergy Mild NAUSEA/VOMI Verified 05/27/24 23:32 TING fluoxetine [From Prozac] Allergy Unknown Unknown Verified 05/27/24 23:32 seafood Allergy Unknown Unknown Verified 05/27/24 23:32 dicyclomine [From Bentyl] Allergy Unknown Verified 05/27/24 23:32 carbamazepine [From Tegretol] AdvReac Intermediate Fatigued Verified 05/27/24 23:32 zolpidem [From Ambien] AdvReac Intermediate Itching Verified 05/27/24 23:32 Review of Systems Review of Systems: As per HPI. Yes all other systems are reviewed and are negative Constitutional: Constitutional: Reports as per HPI PMFSH Past Medical History Medical History Shortness of breath on exertion Effusion, left knee Left knee pain GERD (gastroesophageal reflux disease) Hypertension Hyperlipidemia Depression Surgical History Status post cardiac catheterization S/P ACL repair History of hysterectomy (~1999) History of spinal surgery (~12/2013) History of colectomy (~06/01/11) Family History Family History Father No problems noted. Mother No problems noted. Social History Social History Unable to assess alcohol history related to: Unknown Alcohol intake: current Alcohol intake frequency: holidays/special occasions only Patient Tobacco Use Status: Current everyday Tobacco user Tobacco use type: Cigarette Cigarettes Per Day: 10 Years Smoked: since 10 years old but quit few times in between Smoked in Last 30 Days: Yes e-Cigarette/Vaping Use: Never Used Use of substances other than those prescribed or required for medical reasons: No Substance Use Type: Crack/Cocaine Advance Directives: No Advance Directives Information Provided: Yes Do you have a plan to hurt others: No Plan Patient : No Current occupational status: employed Current occupation: [employer] Physical Exam ED Vital Signs: Vital Signs - 24 hr 05/27/24 23:28 05/28/24 02:00 05/28/24 03:57 Temperature 97.6 F 97.6 F 97.9 F Pulse Rate 58 82 78 Respiratory Rate 16 16 16 Blood Pressure 105/64 111/72 107/68 Pulse Oximetry 95 98 97 Oxygen Delivery Method Room Air Room Air Room Air 05/28/24 06:00 05/28/24 10:17 05/28/24 10:17 Temperature Pulse Rate 63 66 Respiratory Rate 12 Blood Pressure 105/56 L 106/65 Pulse Oximetry Oxygen Delivery Method 05/28/24 10:17 05/28/24 10:18 Temperature Pulse Rate 74 74 Respiratory Rate 16 Blood Pressure 106/68 106/68 Pulse Oximetry 97 Oxygen Delivery Method Room Air BMI result Body Mass Index 27.4 Vital signs have been reviewed and appear to be correct. Blood pressure normal. Heart rate normal. Respiratory rate normal. Temperature normal. Oxygen saturation normal. Const General: cooperative, healthy appearing and no acute distress Orientation/consciousness: oriented to person, oriented to place, oriented to time and patient oriented x3 Limitations: no limitations HENNY Head: Yes normocephalic and Yes atraumatic Ears: external ears normal General nose exam: Normal external nose present Face and sinus: Yes face symmetric Mouth: oropharynx normal and moist mucous membranes Throat: Yes uvula midline Eyes Pupils: Equal, round and reactive pupils present Neck Neck: Yes normal visual inspection, Yes no meningeal signs and Yes supple Resp Effort & Inspection: normal respiratory effort and able to speak in complete sentences Auscultation: clear to auscultation bilaterally Cardio Rate: regular rate Rhythm: regular rhythm Heart sounds: S1 normal heart sound present and S2 normal heart sound present GI Palpation (GI): Soft to palpation and nontender Auscultation: normoactive bowel sounds General: Yes no CVA tenderness Back/Spine/Pelvis Back: no CVA tenderness Cervical Spine: normal cervical lordosis, cervical ROM normal, cervical muscular tenderness, No pain with cervical ROM, No Cervical spine tenderness and No step off deformity Thoracic/Lumbar Spine: thoracic and lumbar spine normal to inspection, thoraco-lumbar ROM normal, pain with thoraco-lumbar ROM, thoracic spinal tenderness at T6 and at T7 and No lumbar spinal tenderness Pelvis: no pain with anterior-posterior compression and no pain with lateral compression Skin General skin exam: elasticity normal and turgor normal Neuro General: oriented to person, oriented to place, oriented to time, patient oriented x3, gait normal, tone normal, moves all extremities, Normal light touch and pain sensation, no meningeal signs, no focal motor deficits, CN's II-XI intact bilaterally and deep tendon reflexes 2+ bilaterally Cranial nerves: Yes Equal, round and reactive pupils present Cognition (Neuro): normal cognition Motor exam (neuro): 5/5 motor strength present throughout, Pronator motor function not present, Normal motor muscle tone present throughout and Motor abnormalities not present Extrem General: Yes full ROM, Yes no pedal edema and Yes no calf tenderness Psych Mental Status: mental status grossly normal Affect: normal affect Thought process: Normal thought process present Medications Administered Discontinued Medications Generic Name Dose Route Start Last Admin Trade Name Freq PRN Reason Stop Dose Admin Diphenhydramine HCl 25 mg 05/28/24 06:36 05/28/24 06:56 Diphenhydramine Hcl 50 Mg/Ml Vial IVPUSH 05/28/24 06:37 25 mg ONCE ONE Administration Sodium Chloride 1,000 mls @ 999 mls/hr 05/28/24 06:45 05/28/24 08:04 Ns IV 05/28/24 07:45 Infused .Q1H1M ILDA Infusion Metoclopramide HCl 10 mg 05/28/24 06:35 05/28/24 06:56 Metoclopramide Hcl 10 Mg/2 Ml Vial IVPUSH 05/28/24 06:36 10 mg ONCE ONE Administration Medical Decision Making Medical Decision Making [facility] Narrative: Patient is a 59-year-old female with history of recent fall with headstrike, HTN, HLD, depression presenting to the emergency department with complaint of dizziness and falls at home overnight. On exam patient is awake, A+Ox3, VS WNL, afebrile, normal neurological exam without focal deficits, physical exam findings as above. Given reported symptoms and physical exam findings, initial differential includes ICH, skull or cervical vertebral fracture or subluxation, orthostatic intolerance, cardiac arrhythmia, post-concussion syndrome, migraine. Labs unremarkable, troponin negative. Urinalysis is without evidence of infection. EKG shows normal sinus rhythm, no change from prior. CT head and cervical spine notable for no evidence of ICH, skull or cervical vertebral fracture or subluxation. Thoracic x-ray shows degenerative disease but no acute fracture. My interpretation is in agreement with the radiologist's interpretation. No orthostatic intolerance noted on orthostatic vital signs. Patient noted to be ambulating to the bathroom multiple times throughout ED stay with steady gait and no difficulty with ambulation. Results discussed with patient and all questions answered. Advised patient to change positions slowly at home for safety. Patient specifically requesting a muscle relaxer for neck pain. Discussed with patient that due to her multiple recent falls, feel any medications that would increase her risk for falls would be inappropriate at this time. Patient then specifically requesting prescription for tramadol. Discussed with patient that this would also increase her risk for falls. Will send prescription for lidocaine cream as patient has allergy to ibuprofen, will avoid diclofenac. Patient is agreeable to this. Discussed cognitive rest with patient and will provide precautions with discharge paperwork. Instructed patient to follow-up with PCP. Return precautions discussed at bedside. Patient verbalized understanding of and agreement with plan. Differential Diagnosis Differential Diagnoses: The differential diagnosis associated with the presentation includes As per [facility]. Admission/Observation Consideration of admission/observation: Escalation of care including admission/observation considered Patient would have been admitted to the hospital had their work up had any findings where hospital admission was appropriate and their clinical presentation warranted hospital admission. Lab Data [facility] Lab Attestation statement: I reviewed the patient's lab results. As per [facility] 05/28/24 07:55 05/28/24 07:55 Labs: Lab Results 05/28/24 05/28/24 Range/Units 07:55 10:05 WBC 8.7 (4.8-10.8) X10*3/uL RBC 4.18 L (4.20-5.50) X10*6/uL Hgb 12.2 (12.0-16.0) g/dl Hct 36.4 L (37.0-47.0) % MCV 87.1 (80.0-98.0) fL MCH 29.2 (27.0-33.0) pg MCHC 33.5 (31.0-35.0) g/dl RDW 13.9 (11.0-16.0) % Plt Count 282 D (160-400) X10*3/uL MPV 9.2 L (9.4-12.3) fL Immature Gran % (Auto) 0.2 (0.0-0.4) % Neut % (Auto) 57.4 (45-73) % Lymph % (Auto) 28.8 (20-40) % Moore % (Auto) 8.6 (2-11) % Eos % (Auto) 4.3 H (0-4) % Baso % (Auto) 0.7 (0-2) % Lymph # (Auto) 2.5 (1.2-4.9) X10*3/uL Moore # (Auto) 0.7 (0.1-1.2) X10*3/uL Eos # (Auto) 0.4 (0.0-0.4) X10*3/uL Baso # (Auto) 0.1 (0.0-0.2) X10*3/uL Abs Immat Gran (auto) 0.02 (0.00-0.03) X10*3/uL Absolute Neuts (auto) 5.0 (2.0-8.3) x10*3/uL Absolute Nucleated RBC 0.000 (0.0-0.012) X10*3/uL Nucleated RBC % (auto) 0.0 (0.0-0.2) /100WBC Sodium 140 (135-145) mmol/L Potassium 3.9 (3.3-5.1) mmol/L Chloride 108 (96-108) mmol/L Carbon Dioxide 25 (22-29) mmol/L Anion Gap 11 L (12-20) BUN 9 (9-16) mg/dL Creatinine 0.78 (0.5-1.4) mg/dL Estim Creat Clear Calc 71.1 Estimated GFR > 60 Random Glucose 102 (60-115) mg/dL Calcium 8.8 D (8.4-10.2) mg/dL Total Bilirubin 0.2 (0.0-1.0) mg/dL AST 15 (5-31) U/L ALT 16 (0-31) U/L Alkaline Phosphatase 55 (39-117) U/L Troponin I High Sens < 2.7 (<3.5-17.0) ng/L Total Protein 6.7 (6.5-8.0) g/dL Albumin 4.0 (3.5-5.0) g/dL Urine Color Yellow Urine Appearance Clear Urine pH 7.0 (5.0-9.0) Ur Specific [place] <= 1.005 (1.005-1.025) Urine Protein Negative (Neg-Trace) mg/dL Urine Glucose (UA) Negative (Negative) mg/dL Urine Ketones Negative (Negative) mg/dL Urine Blood Negative (Negative) Urine Nitrite Negative (Negative) Ur Leukocyte Esterase Negative (Negative) Independent Interpretation I performed an independent interpretation of an: EKG (Normal sinus rhythm, 63 beats per minute, normal MD interval and unchanged from prior), Plain X-Ray and CT Scan Interpretation: CT head and cervical spine notable for no evidence of ICH, skull or cervical vertebral fracture or subluxation. Thoracic x-ray shows degenerative disease but no acute fracture. Radiology Impression Discussion of test interpretation with radiology: I have reviewed the radiologist's reading. Radiologist Impression: CT/CT head/brain wo IV con IMPRESSION: 1. No acute intracranial pathology. 2. No acute fracture or malalignment in the cervical spine. 3. 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 Mild to moderate degenerative disc disease at C4-C5 and C7-T1. XR/XR thoracic spine 2V IMPRESSION: No acute fracture or malalignment in the degenerated thoracic spine. External Record Review External record reviewed: Inpatient record, Office record and Outpatient record Prescription Management I considered prescription management with: Pain Medication Discharge Plan Discharge Clinical Impression: Post concussion syndrome, Fall Patient Disposition: Home, Self-Care Instructions: Post Concussion Syndrome (ED), Fall Prevention (ED) Additional Instructions: You have been evaluated in the emergency department today for injuries after a fall. Your CT scans did not show signs of bleed or fractures in your head cervical, or thoracic spine. You are being prescribed a cream which you can apply to your neck for pain twice daily. We recommend you take 600 mg ibuprofen every 6 hours or Tylenol 650 mg every 6 hours as needed for pain. If needed, you can alternate these medications so that you take 1 medication every 3 hours. For instance, at noon take ibuprofen, then at 3:00 p.m. take Tylenol, then at 6:00 p.m. take ibuprofen. As discussed, your symptoms are possibly due to post-concussion syndrome. Follow the attached precautions to lessen symptoms. Please schedule an appointment with for follow-up with your primary care provider as soon as possible. Return to the emergency department if you experience worsening or uncontrolled pain, vision changes, recurrent vomiting, difficulty with normal activities, abnormal behavior, difficulty walking, numbness, weakness, or any other concerning symptoms. Prescriptions: New lidocaine 4 % cream 1 appl topical BID PRN (Reason: pain) Qty: 15 0RF No Action metoprolol tartrate 25 mg tablet 12.5 mg PO BID 90 Days Qty: 90 1RF fenofibrate 54 mg tablet 54 mg PO DAILY Qty: 90 1RF methocarbamol 500 mg tablet 500 mg PO BEDTIME 30 Days Qty: 30 0RF atorvastatin 40 mg tablet 40 mg PO BEDTIME Qty: 90 1RF pregabalin 75 mg capsule 75 mg PO BID 30 Days Qty: 60 0RF omeprazole 20 mg capsule,delayed release(DR/EC) 20 mg PO BID 90 Days Qty: 180 0RF tizanidine 2 mg tablet 2 mg PO BID PRN (Reason: muscle spasticity) 10 Days Qty: 20 0RF Rx Instructions: Not to be taken with methocarbamol ondansetron 4 mg tablet,disintegrating 4 mg PO Q8H PRN (Reason: nausea and vomiting) Qty: 10 0RF albuterol sulfate 90 mcg/actuation HFA aerosol inhaler 2 puff inhalation Q6H PRN (Reason: shortness of breath or wheezing) Qty: 6.7 0RF sertraline 100 mg tablet 100 mg PO DAILY topiramate 100 mg tablet 100 mg PO BID lurasidone 80 mg tablet 80 mg PO DAILY trazodone 100 mg tablet 200 mg PO BEDTIME hydroxyzine HCl 25 mg tablet 25 mg PO QID Print Language: Kenyan
[2024-05-28] MEDS: diphenhydrAMINE HCL 50 MG/ML VIAL 25 MG IVPUSH (06:56)
[2024-05-28] MEDS: 0.9 % Sodium Chloride 1,000 ML 999 ML IV (06:56)
[2024-05-28] MEDS: Metoclopramide HCl 10 MG/2 ML VIAL IVPUSH (06:56)
[2024-05-28 07:59] LABS: MANUAL DIFF FLAG NO
[2024-05-28 08:09] LABS: Basophils Absolute Auto 0.1 X10*3/uL (0.0-0.2); Basophils Percent Auto 0.7 % (0-2); Eosinophils Absolute Auto 0.4 X10*3/uL (0.0-0.4); Eosinophils Percent Auto 4.3 % (0-4); Hematocrit 36.4 % (37.0-47.0); Hemoglobin 12.2 g/dl (12.0-16.0); Imm Gran Abs Auto 0.02 X10*3/uL (0.00-0.03); Imm Gran Pct Auto 0.2 % (0.0-0.4); Lymphocytes Absolute Auto 2.5 X10*3/uL (1.2-4.9); Lymphocytes Percent Auto 28.8 % (20-40); Mean Corpuscular HGB Conc 33.5 g/dl (31.0-35.0); Mean Corpuscular Hemoglobin 29.2 pg (27.0-33.0); Mean Corpuscular Volume 87.1 fL (80.0-98.0); Mean Platelet Volume 9.2 fL (9.4-12.3); Monocytes Absolute Auto 0.7 X10*3/uL (0.1-1.2); Monocytes Percent Auto 8.6 % (2-11); Neutrophils Percent Auto 57.4 % (45-73); Platelet Count 282 X10*3/uL (160-400); Red Blood Count 4.18 X10*6/uL (4.20-5.50); Red Cell Distribution Width 13.9 % (11.0-16.0); White Blood Count 8.7 X10*3/uL (4.8-10.8)
[2024-05-28 08:15] LABS: Alanine Aminotransferase 16 U/L (0-31); Alkaline Phosphatase 55 U/L (39-117); Anion Gap 11 (12-20); Aspartate Amino Transferase 15 U/L (5-31); Bilirubin Total 0.2 mg/dL (0.0-1.0); Blood Urea Nitrogen 9 mg/dL (9-16); Calcium 8.8 mg/dL (8.4-10.2); Carbon Dioxide 25 mmol/L (22-29); Chloride 108 mmol/L (96-108); Creatinine Clr Calc Pharmacy 71.1; Estimated Glomerular Filt Rate > 60; Glucose Random 102 mg/dL (60-115); Potassium 3.9 mmol/L (3.3-5.1); Sodium 140 mmol/L (135-145); Total Protein 6.7 g/dL (6.5-8.0)
[2024-05-28 08:27] LABS: Troponin-I High Sensitivity < 2.7 ng/L (<3.5-17.0)
--- NOTE | 2024-05-28 08:59 | MHC.EDTECH ---
This pct noticed on patients worklist that orthostatic vitals weren't done and was due at 6:40am. RN Aware
--- NOTE | 2024-05-28 09:04 | MHC.EDTECH ---
This pct documented the wrong time about when orthostatic vitals were due i initially stated it was due at 6:40 but was actually due at 6:28. RN Aware
[2024-05-28 10:17] VITALS: BP 105/56; BP 106/65; BP 106/68; PULSE 63; PULSE 66; PULSE 74
[2024-05-28 10:18] VITALS: BP 106/68; PULSE 74; RESP 16; O2SAT 97
[2024-05-28 10:33] LABS: Appearance Urine Clear; Color Urine Yellow; Glucose Urine UA Negative (Negative); Leukocyte Esterase Urine Negative (Negative); Nitrite Urine Negative (Negative); Specific Gravity - Urine <= 1.005 (1.005-1.025); Urine Blood Negative (Negative); Urine Ketones Negative (Negative); Urine Protein Negative (Neg-Trace)
[2024-05-28 12:25] VITALS: BP 106/68; PULSE 74; RESP 16; TEMP 36.6; O2SAT 97
== END 2024-05-28 12:26 | disposition home or self-care (01) ==
PROVIDERS: Registered Nurse Emergency; Emergency Provider Emergency Medicine
DX: S39.92XA Unspecified injury of lower back, initial encounter (principal); F07.81 Postconcussional syndrome; R51.9 Headache, unspecified; R10.10 Upper abdominal pain, unspecified; F17.210 Nicotine dependence, cigarettes, uncomplicated; M54.2 Cervicalgia; M54.6 Pain in thoracic spine; R42 Dizziness and giddiness; R94.31 Abnormal electrocardiogram [ECG] [EKG]; W01.0XXA Fall on same level from slipping, tripping and stumbling without subsequent striking against object, initial encounter; Y93.89 Activity, other specified; Y92.89 Other specified places as the place of occurrence of the external cause; Y99.8 Other external cause status; Z79.899 Other long term (current) drug therapy
CPT/HCPCS: 36415; 70450; 72070; 72125; 80053; 81003; 84484; 85025; 93005; 96361; 96374; 96375; 99284; 99285; J1200; J2765

== ENCOUNTER → 2024-05-28 06:28 | Outpatient (BNV) | payer OTHER, SELFPAY | PROVIDERS: Emergency Provider Emergency Medicine; Visit Provider Internal Medicine | DX: R42 Dizziness and giddiness (principal) | CPT/HCPCS: 93010 ==

== ENCOUNTER 2024-06-02 20:47 | Emergency (ER) | payer OTHER, SELFPAY ==
--- NOTE | ~2024-06-02 | CT_ITS ---
EXAMINATION: CT HEAD WITHOUT CONTRAST CLINICAL INFORMATION: Headache. COMPARISON: 05/28/2024 TECHNIQUE: Contiguous axial imaging was performed from the skull base to vertex without intravenous administration of contrast. This CT examination was performed using dose optimization techniques as appropriate, variously including the following: *Automated exposure control *Adjustment of mA and/or kV according to patient size (this includes techniques or standardized protocols for targeted exams where dose is matched to indication/reason for exam; i.e. extremities or head) *Use of iterative reconstruction technique DLP: 587 mGy-cm FINDINGS: The lateral, third and fourth ventricles are normally outlined. The cortical sulci and basal cisterns are normally outlined as well. There is no acute territorial defect, hemorrhage or midline shift. The extra-axial spaces are unremarkable. Calvarium/scalp: Intact. Maxillofacial sinuses and mastoids: Clear as visualized. CT/CT head/brain wo IV con IMPRESSION: No acute intracranial pathology.
[2024-06-02 21:05] VITALS: BP 101/58; BP 124/84; PULSE 62; RESP 17; TEMP 36.9; O2SAT 98; O2SAT 99; BMI 24.8
[2024-06-03 00:24] VITALS: BP 123/63; PULSE 55; RESP 20; TEMP 36.6; O2SAT 95
--- NOTE | 2024-06-03 00:35 | ED_ITS ---
HPI - Headache General Chief Complaint: Headache Stated Complaint: headache for a week Time Seen by Provider: 06/02/24 21:18 History of Present Illness ED Provider: Ilya VASQUEZ Narrative: The patient is a 59-year-old female who came to the hospital several weeks ago after a fall in which she hit her head. She had a negative workup. She was discharged. She returned a couple of days later after a syncopal episode in her home. She was told this was part of a concussion syndrome. She has been having a worsening headache since then. The headache has been coming on for couple of days. She says she is also had nausea and she has also had loose stools. Related Data Home Medications ?Medication ?Instructions ?Recorded ?Confirmed lurasidone 80 mg tablet 80 mg PO DAILY 06/16/23 12/26/23 sertraline 100 mg tablet 100 mg PO DAILY 06/16/23 12/26/23 topiramate 100 mg tablet 100 mg PO BID 06/16/23 12/26/23 hydroxyzine HCl 25 mg tablet 25 mg PO QID 07/11/23 12/26/23 trazodone 100 mg tablet 200 mg PO BEDTIME 12/26/23 12/26/23 Previous Rx's ?Medication ?Instructions ?Recorded albuterol sulfate 90 mcg/actuation 2 puff inhalation Q6H PRN 10/21/21 aerosol inhaler shortness of breath or wheezing #6.7 grams fenofibrate 54 mg tablet 54 mg PO DAILY #90 tabs 10/20/23 metoprolol tartrate 25 mg tablet 12.5 mg (1/2 x 25 mg) PO BID 90 10/20/23 days #90 tabs methocarbamol 500 mg tablet 500 mg PO BEDTIME 30 days #30 tabs 11/14/23 atorvastatin 40 mg tablet 40 mg PO BEDTIME #90 tabs 03/11/24 pregabalin 75 mg capsule 75 mg PO BID 30 days #60 caps 04/30/24 omeprazole 20 mg capsule,delayed 20 mg PO BID 90 days #180 caps 05/21/24 release ondansetron 4 mg disintegrating 4 mg PO Q8H PRN nausea and 05/26/24 tablet vomiting #10 tabs tizanidine 2 mg tablet 2 mg PO BID PRN muscle spasticity 05/26/24 10 days #20 tabs lidocaine 4 % topical cream 1 appl topical BID PRN pain #15 05/28/24 grams oxycodone 5 mg tablet 5 mg PO Q6H PRN pain #10 tabs 06/03/24 potassium chloride 20 mEq 20 meq PO BID #10 tabs 06/03/24 tablet,extended release Allergies Allergy/AdvReac Type Severity Reaction Status Date / Time ibuprofen [From Motrin] Allergy Intermediate Shortness Verified 06/02/24 21:08 of Breath lamotrigine [From Lamictal] Allergy Intermediate Rash Verified 06/02/24 21:08 milnacipran [From Savella] Allergy Intermediate Itching Verified 06/02/24 21:08 aspirin [Aspirin] Allergy Mild DYSPNEA Verified 06/02/24 21:08 levofloxacin [From Levaquin] Allergy Mild Rash Verified 06/02/24 21:08 lithium [[place]] Allergy Mild TREMORS Verified 06/02/24 21:08 morphine [MORPHINE] Allergy Mild NAUSEA/VOMI Verified 06/02/24 21:08 TING fluoxetine [From Prozac] Allergy Unknown Unknown Verified 06/02/24 21:08 seafood Allergy Unknown Unknown Verified 06/02/24 21:08 dicyclomine [From Bentyl] Allergy Unknown Verified 06/02/24 21:08 carbamazepine [From Tegretol] AdvReac Intermediate Fatigued Verified 06/02/24 21:08 zolpidem [From Ambien] AdvReac Intermediate Itching Verified 06/02/24 21:08 Review of Systems 2 Review of Systems: Yes all other systems are reviewed and are negative PMFSH Past Medical History Medical History Shortness of breath on exertion Effusion, left knee Left knee pain GERD (gastroesophageal reflux disease) Hypertension Hyperlipidemia Depression Surgical History Status post cardiac catheterization S/P ACL repair History of hysterectomy (~1999) History of spinal surgery (~12/2013) History of colectomy (~06/01/11) Family History Family History Father No problems noted. Mother No problems noted. Social History Social History Unable to assess alcohol history related to: Unknown Alcohol intake: current Alcohol intake frequency: holidays/special occasions only Patient Tobacco Use Status: Current everyday Tobacco user Tobacco use type: Cigarette Cigarettes Per Day: 10 Years Smoked: since 10 years old but quit few times in between Smoked in Last 30 Days: Yes e-Cigarette/Vaping Use: Never Used Substance Use Type: Crack/Cocaine Advance Directives: No Advance Directives Information Provided: No Do you have a plan to hurt others: No Plan Current occupational status: employed Current occupation: [employer] Physical Exam 2 Vital Signs: Vital Signs: Last Vital Signs Temp 97.8 F 06/03/24 02:46 Pulse 55 06/03/24 02:46 Resp 20 06/03/24 02:46 BP 123/63 06/03/24 02:46 Pulse Ox 95 06/03/24 02:46 O2 Del Method Room Air 06/03/24 02:46 BMI result Body Mass Index 24.8 Const: Other: The patient is a somewhat chronically ill-appearing 59-year-old. She was sleeping when I first entered the room. She woke to normal mental status with gentle verbal stimuli. She complained of having a very bad headache and neck pain but she did not seem acutely toxic or in distress. HEENT: Head: Yes normal to inspection Face and sinus: Yes normal facial exam and Yes face symmetric Mouth: Normal oral and palatal mucosa present and moist mucous membranes Eyes: Other: Pupils are small and equal, conjunctivae are clear, extraocular movements intact. General: appearance normal, both eyes and all related structures Neck: Other: Patient has a lot of tenderness throughout the musculature of the neck. She has pain with moving the neck. No masses. No fluctuance. No focal swelling. Resp: Effort & Inspection: normal respiratory effort Auscultation: clear to auscultation bilaterally Cardio: Rate: regular rate Rhythm: regular rhythm Heart sounds: S1 normal heart sound present and S2 normal heart sound present GI: Other: Abdomen is soft and nontender Skin: Other: skin is dry and unremarkable General skin exam: no rashes or lesions noted Neuro: Other: the patient is awake, alert, oriented, appropriate. Mental status is normal. Demeanor is nontoxic. Cranial nerves are intact. She moves her extremities symmetrically and has a nonfocal exam. Extrem: Other: No calf swelling or tenderness, no asymmetry Medications Administered Discontinued Medications Generic Name Dose Route Start Last Admin Trade Name Emily PRN Reason Stop Dose Admin Diphenhydramine HCl 25 mg 06/03/24 00:43 06/03/24 01:02 Diphenhydramine Hcl 50 Mg/Ml Vial IVPUSH 06/03/24 00:44 25 mg ONCE ONE Administration Droperidol 1.25 mg 06/03/24 00:43 06/03/24 01:02 Droperidol 5 Mg/2 Ml Vial IVPUSH 06/03/24 00:44 1.25 mg ONCE ONE Administration Hydromorphone HCl 0.5 mg 06/03/24 00:43 06/03/24 01:02 Hydromorphone Hcl 0.5 Mg/0.5 Ml Syringe IVPUSH 06/03/24 00:44 0.5 mg ONCE ONE Administration Protocol Potassium Chloride 10 meq in 100 mls @ 100 mls/hr 06/03/24 01:45 06/03/24 02:23 Potassium Chloride/H20 IV 06/03/24 02:44 Not Given ONCE ONE Oxycodone HCl 5 mg 06/03/24 02:26 06/03/24 02:42 Oxycodone Hcl Immed Release 5 Mg Tablet PO 06/03/24 02:27 5 mg ONCE ONE Administration Potassium Chloride 20 meq 06/03/24 01:54 06/03/24 02:19 Potassium Chloride Er 20 Meq Tab.Er.Prt PO 06/03/24 01:55 20 meq ONCE ONE Administration Medical Decision Making Medical Decision Making [facility] Narrative: patient is a 59-year-old woman who seems to be experiencing headache problems after a fall with a head injury last Month. On her initial presentation she had a negative head CT and cervical spine CT. Repeat head CT today is still negative. Labs today are unremarkable aside from a potassium of 2.9. The patient was treated symptomatically for her headache with 0.5 mg of hydromorphone, 1.25 mg of droperidol, a 25 mg of IV diphenhydramine. She seemed to feel somewhat better. She was given oral potassium replacement. She will be given a small prescription for oxycodone tablets. She was also given a prescription for oral potassium and a list of potassium rich foods.She should follow up with her PCP. I suspect that this is essentially some kind of a posttraumatic headache syndrome. I do not think there is a more ominous process at work. Lab Data 06/03/24 00:57 06/03/24 00:57 Labs: Lab Results 06/03/24 Range/Units 00:57 WBC 8.9 (4.8-10.8) X10*3/uL RBC 4.40 (4.20-5.50) X10*6/uL Hgb 12.7 (12.0-16.0) g/dl Hct 37.8 (37.0-47.0) % MCV 85.9 (80.0-98.0) fL MCH 28.9 (27.0-33.0) pg MCHC 33.6 (31.0-35.0) g/dl RDW 13.4 (11.0-16.0) % Plt Count 328 (160-400) X10*3/uL MPV 9.2 L (9.4-12.3) fL Immature Gran % (Auto) 0.2 (0.0-0.4) % Neut % (Auto) 49.3 (45-73) % Lymph % (Auto) 37.4 (20-40) % [place] % (Auto) 7.5 (2-11) % Eos % (Auto) 4.9 H (0-4) % Baso % (Auto) 0.7 (0-2) % Lymph # (Auto) 3.3 (1.2-4.9) X10*3/uL [place] # (Auto) 0.7 (0.1-1.2) X10*3/uL Eos # (Auto) 0.4 (0.0-0.4) X10*3/uL Baso # (Auto) 0.1 (0.0-0.2) X10*3/uL Abs Immat Gran (auto) 0.02 (0.00-0.03) X10*3/uL Absolute Neuts (auto) 4.4 (2.0-8.3) x10*3/uL Absolute Nucleated RBC 0.000 (0.0-0.012) X10*3/uL Nucleated RBC % (auto) 0.0 (0.0-0.2) /100WBC Sodium 140 (135-145) mmol/L Potassium 2.9 L* D (3.3-5.1) mmol/L Chloride 104 (96-108) mmol/L Carbon Dioxide 25 (22-29) mmol/L Anion Gap 14 (12-20) BUN 7 L (9-16) mg/dL Creatinine 0.82 (0.5-1.4) mg/dL Estim Creat Clear Calc 70.0 Estimated GFR > 60 Random Glucose 94 (60-115) mg/dL Calcium 9.9 D (8.4-10.2) mg/dL Magnesium 1.9 (1.6-2.6) mg/dL Total Bilirubin 0.3 (0.0-1.0) mg/dL Direct Bilirubin 0.1 (0.0-0.5) mg/dL AST 15 (5-31) U/L ALT 15 (0-31) U/L Alkaline Phosphatase 48 (39-117) U/L C-Reactive Protein 0.54 H (< or = 0.50) mg/dL Total Protein 7.3 (6.5-8.0) g/dL Albumin 4.4 (3.5-5.0) g/dL Urine Color Yellow Urine Appearance Clear Urine pH 5.5 (5.0-9.0) Ur Specific [place] <= 1.005 (1.005-1.025) Urine Protein Negative (Neg-Trace) mg/dL Urine Glucose (UA) Negative (Negative) mg/dL Urine Ketones Negative (Negative) mg/dL Urine Blood Negative (Negative) Urine Nitrite Negative (Negative) Ur Leukocyte Esterase Negative (Negative) Discharge Plan Discharge Clinical Impression: Headache, Nausea, Hypokalemia Patient Disposition: Home, Self-Care Instructions: Potassium Content of Foods List (ED), Hypokalemia (ED) Additional Instructions: Your potassium was somewhat low today but your other testing is all very reassuring. I have sent a prescription for potassium to your pharmacy. Please take this 2 times a day. Also try to eat foods rich in potassium. Please see the additional information. I have sent a prescription for oxycodone tablets that you may use for any residual symptoms discomfort. Please contact your regular doctor in the morning to arrange a prompt follow up appointment. Prescriptions: New oxycodone 5 mg tablet 5 mg PO Q6H PRN (Reason: pain) Qty: 10 0RF Rx Instructions: Partial Fill upon patient request. potassium chloride 20 mEq tablet extended release 20 meq PO BID Qty: 10 0RF No Action metoprolol tartrate 25 mg tablet 12.5 mg PO BID 90 Days Qty: 90 1RF fenofibrate 54 mg tablet 54 mg PO DAILY Qty: 90 1RF methocarbamol 500 mg tablet 500 mg PO BEDTIME 30 Days Qty: 30 0RF atorvastatin 40 mg tablet 40 mg PO BEDTIME Qty: 90 1RF pregabalin 75 mg capsule 75 mg PO BID 30 Days Qty: 60 0RF omeprazole 20 mg capsule,delayed release(DR/EC) 20 mg PO BID 90 Days Qty: 180 0RF tizanidine 2 mg tablet 2 mg PO BID PRN (Reason: muscle spasticity) 10 Days Qty: 20 0RF Rx Instructions: Not to be taken with methocarbamol ondansetron 4 mg tablet,disintegrating 4 mg PO Q8H PRN (Reason: nausea and vomiting) Qty: 10 0RF albuterol sulfate 90 mcg/actuation HFA aerosol inhaler 2 puff inhalation Q6H PRN (Reason: shortness of breath or wheezing) Qty: 6.7 0RF sertraline 100 mg tablet 100 mg PO DAILY topiramate 100 mg tablet 100 mg PO BID lurasidone 80 mg tablet 80 mg PO DAILY trazodone 100 mg tablet 200 mg PO BEDTIME lidocaine 4 % cream 1 appl topical BID PRN (Reason: pain) Qty: 15 0RF hydroxyzine HCl 25 mg tablet 25 mg PO QID Interventions: ED Discharge Assessment Last Done: 06/03/24 02:46 Discharge Date/Time: 06/03/24 02:53 Print Language: Turkish
[2024-06-03 01:02] LABS: MANUAL DIFF FLAG NO
[2024-06-03] MEDS: diphenhydrAMINE HCL 50 MG/ML VIAL 25 MG IVPUSH (01:02)
[2024-06-03] MEDS: droPERidol 5 MG/2 ML VIAL 1.25 MG IVPUSH (01:02)
[2024-06-03] MEDS: HYDROmorphone HCl 0.5 MG/0.5 ML SYRINGE IVPUSH (01:02)
[2024-06-03 01:06] LABS: Basophils Absolute Auto 0.1 X10*3/uL (0.0-0.2); Basophils Percent Auto 0.7 % (0-2); Eosinophils Absolute Auto 0.4 X10*3/uL (0.0-0.4); Eosinophils Percent Auto 4.9 % (0-4); Hematocrit 37.8 % (37.0-47.0); Hemoglobin 12.7 g/dl (12.0-16.0); Imm Gran Abs Auto 0.02 X10*3/uL (0.00-0.03); Imm Gran Pct Auto 0.2 % (0.0-0.4); Lymphocytes Absolute Auto 3.3 X10*3/uL (1.2-4.9); Lymphocytes Percent Auto 37.4 % (20-40); Mean Corpuscular HGB Conc 33.6 g/dl (31.0-35.0); Mean Corpuscular Hemoglobin 28.9 pg (27.0-33.0); Mean Corpuscular Volume 85.9 fL (80.0-98.0); Mean Platelet Volume 9.2 fL (9.4-12.3); Monocytes Absolute Auto 0.7 X10*3/uL (0.1-1.2); Monocytes Percent Auto 7.5 % (2-11); Neutrophils Absolute Auto 4.4 x10*3/uL (2.0-8.3); Neutrophils Percent Auto 49.3 % (45-73); Platelet Count 328 X10*3/uL (160-400); Red Cell Distribution Width 13.4 % (11.0-16.0); White Blood Count 8.9 X10*3/uL (4.8-10.8)
[2024-06-03 01:07] LABS: Appearance Urine Clear; Color Urine Yellow; Glucose Urine UA Negative (Negative); Leukocyte Esterase Urine Negative (Negative); Nitrite Urine Negative (Negative); PH 5.5 (5.0-9.0); Specific Gravity - Urine <= 1.005 (1.005-1.025); Urine Blood Negative (Negative); Urine Ketones Negative (Negative); Urine Protein Negative (Neg-Trace)
[2024-06-03 01:39] LABS: Alanine Aminotransferase 15 U/L (0-31); Albumin Level 4.4 g/dL (3.5-5.0); Alkaline Phosphatase 48 U/L (39-117); Anion Gap 14 (12-20); Aspartate Amino Transferase 15 U/L (5-31); Bilirubin Direct 0.1 mg/dL (0.0-0.5); Bilirubin Total 0.3 mg/dL (0.0-1.0); Blood Urea Nitrogen 7 mg/dL (9-16); C Reactive Protein 0.54 mg/dL (< or = 0.50); Calcium 9.9 mg/dL (8.4-10.2); Carbon Dioxide 25 mmol/L (22-29); Chloride 104 mmol/L (96-108); Estimated Glomerular Filt Rate > 60; Glucose Random 94 mg/dL (60-115); Magnesium 1.9 mg/dL (1.6-2.6); Potassium 2.9 mmol/L (3.3-5.1); Sodium 140 mmol/L (135-145); Total Protein 7.3 g/dL (6.5-8.0)
[2024-06-03] MEDS: Potassium Chloride ER 20 MEQ TAB.ER.PRT PO (02:19)
[2024-06-03] MEDS: oxyCODONE HCl Immed Release 5 MG TABLET PO (02:42)
[2024-06-03 02:46] VITALS: BP 123/63; PULSE 55; RESP 20; TEMP 36.6; O2SAT 95
== END 2024-06-03 02:53 | disposition home or self-care (01) ==
PROVIDERS: Emergency Provider Emergency Medicine
DX: R51.9 Headache, unspecified (principal); R11.0 Nausea; E87.6 Hypokalemia; R19.7 Diarrhea, unspecified; Z79.899 Other long term (current) drug therapy
CPT/HCPCS: 36415; 70450; 80048; 80076; 81003; 83735; 85025; 86140; 96374; 96375; 99284; J1170; J1200; J1790

== ENCOUNTER 2024-06-05 14:42 | Outpatient (AMB) | payer OTHER, SELFPAY ==
[2024-06-05 14:44] VITALS: BP 116/60; PULSE 60; BMI 24.9
--- NOTE | 2024-06-05 14:44 | A.OFFVIS_ITS ---
Vital Signs 06/05/24 14:44 Height 5 ft 6 in Weight 154 lb 5.177 oz BMI 24.9 BP 116/60 Blood Pressure Location Lt brachial Position Sitting Pulse 60 Pulse Source Pulse Oximeter Intake Visit Reasons: followup blocking out/falling Allergies ibuprofen [From Motrin] Allergy (Intermediate, Verified 06/02/24 21:08) Shortness of Breath lamotrigine [From Lamictal] Allergy (Intermediate, Verified 06/02/24 21:08) Rash milnacipran [From Savella] Allergy (Intermediate, Verified 06/02/24 21:08) Itching aspirin [Aspirin] Allergy (Mild, Verified 06/02/24 21:08) DYSPNEA levofloxacin [From Levaquin] Allergy (Mild, Verified 06/02/24 21:08) Rash lithium [[place]] Allergy (Mild, Verified 06/02/24 21:08) TREMORS morphine [MORPHINE] Allergy (Mild, Verified 06/02/24 21:08) NAUSEA/VOMITING fluoxetine [From Prozac] Allergy (Unknown, Verified 06/02/24 21:08) Unknown seafood Allergy (Unknown, Verified 06/02/24 21:08) Unknown dicyclomine [From Bentyl] Allergy (Verified 06/02/24 21:08) Unknown carbamazepine [From Tegretol] Adverse Reaction (Intermediate, Verified 06/02/24 21:08) Fatigued zolpidem [From Ambien] Adverse Reaction (Intermediate, Verified 06/02/24 21:08) Itching HPI Comments Details: 51-year-old female presents today for a follow-up visit. Patient reports about a week and a half ago she had a fall at home and has been to the emergency room twice related to that and postconcussion syndrome. She has had 4 ED visits related to the 1st fall. For she was walking with her dog and fell. Most recently she states she was at home getting up to go to the kitchen suddenly felt weak and her vision went dark and she passed out. Her daughter found her and called EMS. Each workup has ended up unremarkable. She states her appetite has been poor due to nausea but has been hydrating well. She sees Neurologist Dr. Borja next week. She reports her chest pains have completely resolved. She continues to smoke. No changes in her breathing. States these episodes started after she had the concussion. [facility] Medical History Syncope Shortness of breath on exertion Effusion, left knee Left knee pain GERD (gastroesophageal reflux disease) Hypertension Hyperlipidemia Depression Surgical History Status post cardiac catheterization S/P ACL repair History of hysterectomy (~1999) History of spinal surgery (~12/2013) History of colectomy (~06/01/11) Family History Father No problems noted. Mother No problems noted. Social History Unable to assess alcohol history related to: Unknown Alcohol intake: current Alcohol intake frequency: holidays/special occasions only Patient Tobacco Use Status: Current everyday Tobacco user Tobacco use type: Cigarette Cigarettes Per Day: 10 Years Smoked: since 10 years old but quit few times in between e-Cigarette/Vaping Use: Never Used Substance Use Type: Crack/Cocaine Current occupational status: employed Current occupation: [employer] Review of Systems Const Denies weakness ENT Denies dizziness Card Denies chest pain, Denies chest pain with activity, Denies syncope, Denies rapid heart rate, Denies pedal edema, Denies edema, Denies leg edema, Denies lightheadedness, Denies palpitations, Denies dyspnea, Denies dyspnea on exertion and Denies orthopnea Resp Denies cough, Denies dyspnea and Denies dyspnea on exertion GI Denies hematochezia and Denies change in stool character Musc Denies abnormal gait, Denies muscle cramps, Denies muscle weakness, Denies numbness, Denies radiating pain into limb and Denies tingling Neuro Denies abnormal gait, Denies dizziness, Denies syncope, Denies numbness, Denies tingling and Denies weakness Endo Denies palpitations Physical Exam Vital Signs: Last Vital Signs Pulse 60 06/05/24 14:44 BP 116/60 06/05/24 14:44 BMI result Body Mass Index 24.9 Assessment & Plan Assessment & Plan (1) Syncope: Code(s): R55 - Syncope and collapse Category: Medical Plan Patient with postconcussion syndrome presenting with concern may be related to her heart. We will do a Holter monitor rule out any arrhythmias. We will do exercise tolerance test to assess for chronotropic competence. Encouraged to keep that appointment with neurology. Encouraged if she is to have any syncope, difficulty walking, slurred speech, vision changes, recurrent vomiting, or changes in behavior to seek emergency care immediately. Patient has a steady gait in the office. Advised to quit smoking. Orders: Orders ECG 3 day holter monitor 06/05/24 R55 - Syncope and collapse CA stress test 06/05/24 R55 - Syncope and collapse Medications: New blood pressure monitor (Blood Pressure Kit) As directed 1 ea 0RF I10 - Essential (primary) hypertension Coding Level of Care Code Est Pt Level 3 (45908) Diagnoses Syncope R55
== END 2024-06-05 15:13 | disposition home or self-care (01) ==
PROVIDERS: Visit Provider Nurse Practitioner
DX: R55 Syncope and collapse (principal)
CPT/HCPCS: 99213

== ENCOUNTER → 2024-06-05 14:42 | Outpatient (BNVA) | payer OTHER, SELFPAY | PROVIDERS: Visit Provider Nurse Practitioner | DX: R55 Syncope and collapse (principal); F07.81 Postconcussional syndrome ==

== ENCOUNTER 2024-08-27 11:26 | Emergency (ER) | payer OTHER, SELFPAY | END 2024-08-27 12:22 | disposition left against medical advice (07) | LOC: HO.ED 12:14 | PROVIDERS: Emergency Provider Emergency Medicine | DX: Z53.21 Procedure and treatment not carried out due to patient leaving prior to being seen by health care provider (principal) ==

== ENCOUNTER 2024-09-02 14:06 | Emergency (ER) | payer MEDICARE, MEDICAID, SELFPAY ==
[2024-09-02 14:16] VITALS: BP 156/80; PULSE 108; O2SAT 94
[2024-09-02 14:31] VITALS: BP 121/84; PULSE 94; RESP 16; TEMP 36.3; O2SAT 98; BMI 26.6
--- NOTE | 2024-09-02 14:36 | ED.GENADULT ---
HPI - General Adult General Chief complaint: Abdominal Pain Stated complaint: Abdominal Pain, Dizziness/ Nausea per ems History of Present Illness HPI narrative: Patient left without completion of treatment by ED provider. Related Data Home Medications ?Medication ?Instructions ?Recorded ?Confirmed lurasidone 80 mg tablet 80 mg PO DAILY 06/16/23 12/26/23 sertraline 100 mg tablet 100 mg PO DAILY 06/16/23 12/26/23 topiramate 100 mg tablet 100 mg PO BID 06/16/23 12/26/23 hydroxyzine HCl 25 mg tablet 25 mg PO QID 07/11/23 12/26/23 trazodone 100 mg tablet 200 mg PO BEDTIME 12/26/23 12/26/23 hydrochlorothiazide 12.5 mg tablet 12.5 mg PO DAILY 06/05/24 Previous Rx's ?Medication ?Instructions ?Recorded albuterol sulfate 90 mcg/actuation 2 puff inhalation Q6H PRN 10/21/21 aerosol inhaler shortness of breath or wheezing #6.7 grams fenofibrate 54 mg tablet 54 mg PO DAILY #90 tabs 10/20/23 metoprolol tartrate 25 mg tablet 12.5 mg (1/2 x 25 mg) PO BID 90 10/20/23 days #90 tabs methocarbamol 500 mg tablet 500 mg PO BEDTIME 30 days #30 tabs 11/14/23 omeprazole 20 mg capsule,delayed 20 mg PO BID 90 days #180 caps 05/21/24 release ondansetron 4 mg disintegrating 4 mg PO Q8H PRN nausea and 05/26/24 tablet vomiting #10 tabs lidocaine 4 % topical cream 1 appl topical BID PRN pain #15 05/28/24 grams oxycodone 5 mg tablet 5 mg PO Q6H PRN pain #10 tabs 06/03/24 potassium chloride 20 mEq 20 meq PO BID #10 tabs 06/03/24 tablet,extended release blood pressure monitor (Blood #1 ea 06/05/24 Pressure Kit) atorvastatin 40 mg tablet 40 mg PO BEDTIME #90 tabs 06/06/24 pregabalin 75 mg capsule 75 mg PO BID 30 days #60 caps 06/06/24 tizanidine 2 mg tablet 2 mg PO BID PRN muscle spasticity 06/07/24 10 days #20 tabs Allergies Allergy/AdvReac Type Severity Reaction Status Date / Time ibuprofen [From Motrin] Allergy Intermediate Shortness Verified 09/02/24 14:32 of Breath lamotrigine [From Lamictal] Allergy Intermediate Rash Verified 09/02/24 14:32 milnacipran [From [place]ella] Allergy Intermediate Itching Verified 09/02/24 14:32 aspirin [Aspirin] Allergy Mild DYSPNEA Verified 09/02/24 14:32 levofloxacin [From Levaquin] Allergy Mild Rash Verified 09/02/24 14:32 lithium [[place]] Allergy Mild TREMORS Verified 09/02/24 14:32 morphine [MORPHINE] Allergy Mild NAUSEA/VOMI Verified 09/02/24 14:32 TING fluoxetine [From Prozac] Allergy Unknown Unknown Verified 09/02/24 14:32 seafood Allergy Unknown Unknown Verified 09/02/24 14:32 dicyclomine [From Bentyl] Allergy Unknown Verified 09/02/24 14:32 carbamazepine [From Tegretol] AdvReac Intermediate Fatigued Verified 09/02/24 14:32 zolpidem [From Ambien] AdvReac Intermediate Itching Verified 09/02/24 14:32 [facility] Past Medical History Medical History Syncope Shortness of breath on exertion Effusion, left knee Left knee pain GERD (gastroesophageal reflux disease) Hypertension Hyperlipidemia Depression Surgical History Status post cardiac catheterization S/P ACL repair History of hysterectomy (~1999) History of spinal surgery (~12/2013) History of colectomy (~06/01/11) Family History Family History Father No problems noted. Mother No problems noted. Social History Social History Unable to assess alcohol history related to: Unknown Alcohol intake: current Alcohol intake frequency: holidays/special occasions only Patient Tobacco Use Status: Current everyday Tobacco user Tobacco use type: Cigarette Cigarettes Per Day: 10 Years Smoked: since 10 years old but quit few times in between e-Cigarette/Vaping Use: Never Used Substance Use Type: Crack/Cocaine Advance Directives: No Advance Directives Information Provided: No Do you have a plan to hurt others: No Plan Current occupational status: employed Current occupation: [employer] Physical Exam ED Vital Signs: Vital Signs - 24 hr 09/02/24 14:31 Temperature 97.4 F Pulse Rate 94 Respiratory Rate 16 Blood Pressure 121/84 Pulse Oximetry 98 Oxygen Delivery Method Room Air BMI result Body Mass Index 26.6 Course Course Course Narrative: RME: 57-year-old woman presents to ED for mid abdominal pain with multiple bouts of diarrhea starting today. Patient denies any dysuria or hematuria. Positive for mid epigastric abdominal tenderness. Labs EKG ordered Medical Decision Making Lab Data 09/02/24 15:20 09/02/24 15:20 Labs: Lab Results 09/02/24 Range/Units 15:20 WBC 10.2 (4.8-10.8) X10*3/uL RBC 4.88 (4.20-5.50) X10*6/uL Hgb 13.9 (12.0-16.0) g/dl Hct 40.8 (37.0-47.0) % MCV 83.6 (80.0-98.0) fL MCH 28.5 (27.0-33.0) pg MCHC 34.1 (31.0-35.0) g/dl RDW 12.8 (11.0-16.0) % Plt Count 445 H D (160-400) X10*3/uL MPV 8.7 L (9.4-12.3) fL Immature Gran % (Auto) 0.3 (0.0-0.4) % Neut % (Auto) 57.9 (45-73) % Lymph % (Auto) 30.2 (20-40) % [place] % (Auto) 7.2 (2-11) % Eos % (Auto) 3.6 (0-4) % Baso % (Auto) 0.8 (0-2) % Lymph # (Auto) 3.1 (1.2-4.9) X10*3/uL [place] # (Auto) 0.7 (0.1-1.2) X10*3/uL Eos # (Auto) 0.4 (0.0-0.4) X10*3/uL Baso # (Auto) 0.1 (0.0-0.2) X10*3/uL Abs Immat Gran (auto) 0.03 (0.00-0.03) X10*3/uL Absolute Neuts (auto) 5.9 (2.0-8.3) x10*3/uL Absolute Nucleated RBC 0.000 (0.0-0.012) X10*3/uL Nucleated RBC % (auto) 0.0 (0.0-0.2) /100WBC Sodium 137 (135-145) mmol/L Potassium 3.3 (3.3-5.1) mmol/L Chloride 106 (96-108) mmol/L Carbon Dioxide 20 L (22-29) mmol/L Anion Gap 14 (12-20) BUN 11 (9-16) mg/dL Creatinine 0.73 (0.5-1.4) mg/dL Estim Creat Clear Calc 77.8 Estimated GFR > 60 Random Glucose 91 (60-115) mg/dL Calcium 10.2 (8.4-10.2) mg/dL Total Bilirubin 0.3 (0.0-1.0) mg/dL AST 19 (5-31) U/L ALT 16 (0-31) U/L Alkaline Phosphatase 49 (39-117) U/L Troponin I High Sens < 2.7 (<3.5-17.0) ng/L Total Protein 7.5 (6.5-8.0) g/dL Albumin 4.5 (3.5-5.0) g/dL Beta HCG, Quant < 2 mIU/mL Influenza Type A (PCR) NEGATIVE (Negative) Influenza Type B (PCR) NEGATIVE (Negative) RSV RNA Qual (PCR) NEGATIVE (Negative) SARS-CoV-2 RNA (RT-PCR) NEGATIVE (Negative) S. pyogenes GrpA LAURITA Positive A (Negative) Discharge Plan Discharge Clinical Impression: Abdominal pain Patient Disposition: Left W/O Completing Treatment Prescriptions: No Action metoprolol tartrate 25 mg tablet 12.5 mg PO BID 90 Days Qty: 90 1RF fenofibrate 54 mg tablet 54 mg PO DAILY Qty: 90 1RF methocarbamol 500 mg tablet 500 mg PO BEDTIME 30 Days Qty: 30 0RF omeprazole 20 mg capsule,delayed release(DR/EC) 20 mg PO BID 90 Days Qty: 180 0RF ondansetron 4 mg tablet,disintegrating 4 mg PO Q8H PRN (Reason: nausea and vomiting) Qty: 10 0RF pregabalin 75 mg capsule 75 mg PO BID 30 Days Qty: 60 0RF atorvastatin 40 mg tablet 40 mg PO BEDTIME Qty: 90 1RF tizanidine 2 mg tablet 2 mg PO BID PRN (Reason: muscle spasticity) 10 Days Qty: 20 0RF Rx Instructions: Not to be taken with methocarbamol albuterol sulfate 90 mcg/actuation HFA aerosol inhaler 2 puff inhalation Q6H PRN (Reason: shortness of breath or wheezing) Qty: 6.7 0RF sertraline 100 mg tablet 100 mg PO DAILY topiramate 100 mg tablet 100 mg PO BID lurasidone 80 mg tablet 80 mg PO DAILY trazodone 100 mg tablet 200 mg PO BEDTIME lidocaine 4 % cream 1 appl topical BID PRN (Reason: pain) Qty: 15 0RF oxycodone 5 mg tablet 5 mg PO Q6H PRN (Reason: pain) Qty: 10 0RF Rx Instructions: Partial Fill upon patient request. potassium chloride 20 mEq tablet extended release 20 meq PO BID Qty: 10 0RF hydroxyzine HCl 25 mg tablet 25 mg PO QID hydrochlorothiazide 12.5 mg tablet 12.5 mg PO DAILY (DME) blood pressure monitor [Blood Pressure Kit] Kit See Rx Instructions .ROUTE .MEDSUPPLY Qty: 1 0RF Rx Instructions: As directed Discharge Date/Time: 09/02/24 20:16
--- NOTE | 2024-09-02 14:39 | ECG_ITS ---
Test Reason : DIZINESS Blood Pressure : / mmHG Vent. Rate : 083 BPM Atrial Rate : 083 BPM P-R Int : 136 ms QRS Dur : 090 ms QT Int : 402 ms P-R-T Axes : 062 063 041 degrees QTc Int : 472 ms Normal sinus rhythm Possible Left atrial enlargement RSR' or QR pattern in V1 suggests right ventricular conduction delay Borderline ECG When compared with ECG of 28-MAY-2024 07:37, No significant change was found Referred By: Papo Steiner Electronically Signed By:PARUL MOSS MD
[2024-09-02 15:25] LABS: MANUAL DIFF FLAG NO
[2024-09-02 15:27] LABS: Basophils Absolute Auto 0.1 X10*3/uL (0.0-0.2); Basophils Percent Auto 0.8 % (0-2); Eosinophils Absolute Auto 0.4 X10*3/uL (0.0-0.4); Eosinophils Percent Auto 3.6 % (0-4); Hematocrit 40.8 % (37.0-47.0); Hemoglobin 13.9 g/dl (12.0-16.0); Imm Gran Abs Auto 0.03 X10*3/uL (0.00-0.03); Imm Gran Pct Auto 0.3 % (0.0-0.4); Lymphocytes Absolute Auto 3.1 X10*3/uL (1.2-4.9); Lymphocytes Percent Auto 30.2 % (20-40); Mean Corpuscular HGB Conc 34.1 g/dl (31.0-35.0); Mean Corpuscular Hemoglobin 28.5 pg (27.0-33.0); Mean Corpuscular Volume 83.6 fL (80.0-98.0); Mean Platelet Volume 8.7 fL (9.4-12.3); Monocytes Absolute Auto 0.7 X10*3/uL (0.1-1.2); Monocytes Percent Auto 7.2 % (2-11); Neutrophils Absolute Auto 5.9 x10*3/uL (2.0-8.3); Neutrophils Percent Auto 57.9 % (45-73); Platelet Count 445 X10*3/uL (160-400); Red Blood Count 4.88 X10*6/uL (4.20-5.50); Red Cell Distribution Width 12.8 % (11.0-16.0); White Blood Count 10.2 X10*3/uL (4.8-10.8)
[2024-09-02 15:32] LABS: IDNOW Serial# 08D9AD1C; Strep A Nucleic Acid Positive (Negative)
[2024-09-02 15:47] LABS: Troponin-I High Sensitivity < 2.7 ng/L (<3.5-17.0)
[2024-09-02 15:48] LABS: Alanine Aminotransferase 16 U/L (0-31); Albumin Level 4.5 g/dL (3.5-5.0); Anion Gap 14 (12-20); Aspartate Amino Transferase 19 U/L (5-31); Bilirubin Total 0.3 mg/dL (0.0-1.0); Blood Urea Nitrogen 11 mg/dL (9-16); Calcium 10.2 mg/dL (8.4-10.2); Carbon Dioxide 20 mmol/L (22-29); Chloride 106 mmol/L (96-108); Creatinine Clr Calc Pharmacy 77.8; Estimated Glomerular Filt Rate > 60; Glucose Random 91 mg/dL (60-115); HCG Quantitative < 2 mIU/mL; Potassium 3.3 mmol/L (3.3-5.1); Sodium 137 mmol/L (135-145); Total Protein 7.5 g/dL (6.5-8.0)
[2024-09-02 16:05] LABS: Influenza A PCR NEGATIVE (Negative); Influenza B PCR NEGATIVE (Negative); Resp Syncy Virus RNA Qual PCR NEGATIVE (Negative); SARS COV2 PCR INHOUSE NEGATIVE (Negative)
[2024-09-02 16:09] LABS: Alkaline Phosphatase 49 U/L (39-117)
== END 2024-09-02 20:16 | disposition left against medical advice (07) ==
PROVIDERS: Physician Assistant; Emergency Provider Emergency Medicine Emergency Medical Services
DX: J02.0 Streptococcal pharyngitis (principal); R10.9 Unspecified abdominal pain; Z03.818 Encounter for observation for suspected exposure to other biological agents ruled out; I10 Essential (primary) hypertension; E78.5 Hyperlipidemia, unspecified; F17.210 Nicotine dependence, cigarettes, uncomplicated; Z79.899 Other long term (current) drug therapy
CPT/HCPCS: 0241U; 80053; 84484; 84702; 85025; 87651; 93005; 99281; 99283

== ENCOUNTER 2024-12-06 01:42 | Emergency (ER) | payer OTHER, SELFPAY ==
[2024-12-06] VITALS (8 sets, daily range): BP systolic 98–142; BP diastolic 49–72; PULSE 65–79; RESP 16–20; TEMP 36.3–37.1; O2SAT 91–99; BMI 26.5
--- NOTE | ~2024-12-06 | CT_ITS ---
EXAMINATION: CT ABDOMEN AND PELVIS WITH CONTRAST CLINICAL INFORMATION: Left lower quadrant abdominal pain. COMPARISON: 06/21/2023, 05/09/2021. TECHNIQUE: Multidetector volumetric images were obtained from the superior aspect of the liver through the pubic symphysis following administration 85 mL of Omnipaque 350 intravenous contrast. Sagittal and coronal reformatted images were obtained on the technologist's workstation. Oral contrast: No This CT examination was performed using dose optimization techniques as appropriate, variously including the following: *Automated exposure control *Adjustment of mA and/or kV according to patient size (this includes techniques or standardized protocols for targeted exams where dose is matched to indication/reason for exam; i.e. extremities or head) *Use of iterative reconstruction technique FINDINGS: LUNG BASES: Mild dependent atelectatic masses. Minimal scarring or atelectasis in the right middle lobe and lingula. No effusions. Normal heart size. Normal GE junction. LIVER, GALLBLADDER, AND BILIARY TREE: The liver is normal in size, shape, and attenuation. No focal hepatic lesion . Minimal intrahepatic and extrahepatic biliary dilatation, likely reservoir effect. Common duct measures 9 mm at the superior pancreatic head. Normal tapering distally. Stable appearance from prior. Gallbladder is surgically absent. PANCREAS: Unremarkable. SPLEEN: Unremarkable. ADRENAL GLANDS: Unremarkable. KIDNEYS AND URETERS: The kidneys are normal in size, shape, and attenuation. No hydronephrosis, hydroureter, or calculi seen. No perinephric stranding. BLADDER: Normal appearance. Minimal wall thickening is likely secondary to underdistention. GASTROINTESTINAL TRACT: Prior right hemicolectomy. Coloenteric anastomosis in the right midabdomen, unremarkable appearance. Mild diverticulosis of the sigmoid colon. No inflammation or wall thickening. Small bowel is normal in caliber and course. No obstruction or wall thickening. Appendix is surgically absent. No rectal abnormality. Stomach is partially decompressed. No duodenal abnormality. ABDOMINAL WALL: Postoperative ventral hernia repair without recurrent hernia. LYMPH NODES: None enlarged by size criteria. VASCULAR: Mild atheromatous calcification. No aortic aneurysm. PELVIC VISCERA: There has been a hysterectomy. No adnexal masses. OSSEOUS STRUCTURES: Prior fusion of L4-S1 with laminectomies, transpedicular screws, posterior connecting rods, and facet bone grafting. No definite hardware loosening or complication evident. Mild degenerative spinal changes. Mild degenerative hip joint changes. Mild degenerative SI joint changes. No suspicious bone lesions. CT/CT abdomen pelvis w IV con IMPRESSION: 1. No acute findings in the abdomen or pelvis. Electronically signed by: Rory Domingo MD 12/06/2024 11:11 AM JO ANN
[2024-12-06 02:04] LABS: MANUAL DIFF FLAG NO
[2024-12-06 02:05] LABS: Basophils Absolute Auto 0.1 X10*3/uL (0.0-0.2); Basophils Percent Auto 0.7 % (0-2); Eosinophils Absolute Auto 0.3 X10*3/uL (0.0-0.4); Eosinophils Percent Auto 4.3 % (0-4); Hematocrit 34.6 % (37.0-47.0); Hemoglobin 11.4 g/dl (12.0-16.0); Imm Gran Abs Auto 0.02 X10*3/uL (0.00-0.03); Imm Gran Pct Auto 0.3 % (0.0-0.4); Lymphocytes Absolute Auto 2.4 X10*3/uL (1.2-4.9); Lymphocytes Percent Auto 33.8 % (20-40); Mean Corpuscular HGB Conc 32.9 g/dl (31.0-35.0); Mean Corpuscular Hemoglobin 28.5 pg (27.0-33.0); Mean Corpuscular Volume 86.5 fL (80.0-98.0); Mean Platelet Volume 9.3 fL (9.4-12.3); Monocytes Absolute Auto 0.8 X10*3/uL (0.1-1.2); Monocytes Percent Auto 10.8 % (2-11); Neutrophils Absolute Auto 3.5 x10*3/uL (2.0-8.3); Neutrophils Percent Auto 50.1 % (45-73); Platelet Count 304 X10*3/uL (160-400); Red Cell Distribution Width 14.2 % (11.0-16.0)
[2024-12-06 02:30] LABS: Alanine Aminotransferase 19 U/L (0-31); Anion Gap 11 (12-20); Aspartate Amino Transferase 25 U/L (5-31); Bilirubin Total 0.2 mg/dL (0.0-1.0); Blood Urea Nitrogen 10 mg/dL (9-16); Calcium 9.1 mg/dL (8.4-10.2); Carbon Dioxide 25 mmol/L (22-29); Chloride 109 mmol/L (96-108); Creatinine Clr Calc Pharmacy 81.4; Estimated Glomerular Filt Rate > 60; Glucose Fasting 85 mg/dL (60-99); Lipase 22 U/L (8-78); Sodium 142 mmol/L (135-145)
[2024-12-06 02:39] LABS: Alkaline Phosphatase 55 U/L (39-117)
[2024-12-06 02:46] LABS: Influenza A PCR NEGATIVE (Negative); Influenza B PCR NEGATIVE (Negative); Resp Syncy Virus RNA Qual PCR NEGATIVE (Negative); SARS COV2 PCR INHOUSE NEGATIVE (Negative)
--- OUTSIDE RECORDS SUMMARY | 2024-12-06 07:38 | XMS_ITS | Patient Health Record ---
Author Organization [facility] Address [address] [place], [place] [id number] Care Team Providers Care Senior Staff Specialized Employment Name Role Phone No, PCP Primary Care Provider Unavailabl e [facility] Unavailable [phone] Reason For Referral No Information Problems Problem Type SNOMED Code ICD Code Onset Dates Problem Status W/U Status Risk Notes Problem Sheltered homelessness (071719587146432 ) Sheltered homelessness (Z59.01) Active confirmed Plan Of Treatment No Information Insurance Providers Payer Name Payer Address Payer Phone Subscriber Number Group Number Insured Name Patient Relationship to Insured Coverage Start Date Coverage End Date [employer] [address] [address] [place] [address] [id number] Lori Mendieta Self - patient is the insured 2 [employer] [address] [address] [place] [address] xxx Lori Mendieta Self - patient is the insured 2 [place] Medicaid PCC [address] [place], [place] [id number] Lori Mendieta Self - patient is the insured 2
--- OUTSIDE RECORDS SUMMARY | 2024-12-06 07:38 | XMS_ITS ---
Author Organization [facility] Address [address] [place] [id number] Care Team Providers Care Language Arts Teacher Name Role Phone No, PCP Primary Care Provider Unavailabl e [facility] Unavailable [phone] [facility] Unavailable [phone] REASON FOR VISIT Phone; Est. Care Encounters Encounter Location Date Provider Diagnosis [address] [phone] 07/28/2023 Nursing [facility] Plan Of Treatment No Information Progress Notes * Teri MENDIETAOB:1965 (59 yo F)Acc No.[id number]:07/28/2023 Progress Notes Patient:?Monico MENDIETAymie Provider:?Provider [facility] :1965???Age:58 Y???Sex:Female D ate:07/28/2023 Address:[address] [place] [id number] Pcp:PCP No Subjective: * Chief Complaints: * ???1. Phone; Est. Care. * Medical History:? Objective: * Vitals:? Assessment: Plan: * Treatment: * Images: Billing Information: * Visit Code:? * Procedure Codes:? * Electronic signature of Nurs [facility] on 12/06/2024 at 07:38 AM EST Sign off status: Pending * Provider:?Provider [facility] Date:?07/28/2023 Generated for Perla jackman/Otto/Fernandoitting on:?12/06/2024 07:38 AM EST
--- OUTSIDE RECORDS SUMMARY | 2024-12-06 07:38 | XMS_ITS | Data Portability ---
Author Organization [facility], , [facility] Address [address] [place] [address] Care Team Providers Care Mid Level Provider Name Role Phone JACK PONCE Primary Care Provider Assessment Encounter Date Assessment Date Assessment LastModified by Organization Details LastModified Time 08/22/2017 08/22/2017 After a discussion of treatment options, which included consideration of best practices and patient preferences, the following treatment plan and objectives were adopted: [email or web address] Not available 08/22/2017 15:08:53 Plan of Treatment Reminders Order Date Submit Date Provider Last Modified By Organization Details Last Modified Time Details Appointments None recorde d. Lab None recorde d. Referral physica l therapi st referra l - 52yof with chronic low back pain, with acute flare of pain & sciatic a. [email or web address] [facility] (Imaging), [address], [place], [address], 7 10:37:13 orthope dic referra l - 52yof with worseni ng thoraci c back pain. CT showed degener ative changes with anterio r spurrin g. 2016 017 [facility] (Olvin Ybarra), [address] [place], [address], 7 14:15:03 physiat ry referra l - 51yof with chronic low back pain, left hip pain, and fibromy algia. Please evaluat e and treat. [address] [facility], [address] [place], [address], 8 05:00:54 physiat ry referra l - 51yof with chronic low back pain and fibromy algia. [address] [facility], [address] [facility], [place], [address], 8 05:00:57 Procedures None recorde d. Surgeries None recorde d. Imaging MAMMO, screeni ng, digital , bilater al 2016 017 [facility] ([facility]), [address], [place], [address], 8 12:35:01 CT, chest, w/o contras t - Please compare to adele lainey lung nodule seen on thoraci c spine CT on 7. 2016 017 [facility], [address] [place], [address], 0 05:01:58 Medication Orders diclofe nac sodium 75 mg tablet, delayed release 2016 017 [email or web address] [facility], [address] [place], [address], 7 15:08:58 diazepa m 5 mg tablet 2016 017 INTERFACE [facility], [address] [place], [address], 7 15:17:06 prednis one 20 mg tablet 2016 017 [email or web address] [facility], [address] [place], [address], 7 14:56:59 fenofib rate 54 mg tablet 2016 017 INTERFACE [facility], [address] [place], [address], 7 11:08:21 Chantix Startin g Month Box 0.5 mg (11)-1 mg (42) tablets in dose pack 2016 017 [email or web address] [facility], [address] [place], [address], 7 14:57:15 Chantix Continu ing Month Box 1 mg tablet 2016 017 [email or web address] [facility], [address] [place], [address], 7 14:57:12 hydroco done 5 mg-acet aminoph en 325 mg tablet 2016 017 [email or web address] [facility], [address] [place], [address], 7 10:01:00 diazepa m 5 mg tablet 2016 017 [facility], [address] [place], [address], 7 11:42:44 butalbi lainey 50 mg-acet aminoph en 325 mg-caff eine 40 mg-code ine 30 mg cap 2016 017 [facility], [address] [place], [address], 7 11:42:43 hydroco done 5 mg-acet aminoph en 325 mg tablet 2016 017 [email or web address] [facility], [address] [place], [address], 7 10:01:00 Lyrica 75 mg capsule 2016 017 [email or web address] [facility], [address] [place], [address], 7 11:00:46 ketocon azole 2 % topical cream 2016 017 [email or web address] [id number], [address], [place], [address], 7 10:24:27 cyclobe nzaprin e 10 mg tablet 2016 017 [email or web address] [id number], [address] [facility] [place], [address], 14:57:47 Patient TargetsNo targets recorded. Patient Instructions Encounter Date Encounter Id Patient Instructions Last Modified By Organization Details Last Modified Time 06/01/2017 [id number] deciding about using medicines to quit smoking [email or web address] Not available 06/01/2017 11:15:57 Quitting Tobacco : Care Instructions [email or web address] Not available 06/01/2017 11:15:58 Counseling done {{Patient not ready to quit Contemplatin g quitting Tapering Cigarettes signed up for support prescript ion for stop smoking medication given}} {{Patient not ready to quit Contemplatin g quitting Tapering Cigarettes signed up for support prescript ion for stop smoking medication given}} Goal for follow up visit {{adding exercise regular meals stress management improv ing sleep therapist identifying sponsor}} {{adding exercise regular meals stress management improv ing sleep therapist identifying sponsor}} {{adding exercise regular meals stress management improv ing sleep therapist identifying sponsor}}My Health To Do List {{go to [employer] or call si gn up for fanny text 2 quit or other stop smoking fanny contact smokeTopokine [employer]gov}} {{go to [employer] or call si gn up for fanny text 2 quit or other stop smoking fanny contact smokefrSigma [employer].gov}} {{go to [employer] or call si gn up for fanny text 2 quit or other stop smoking fanny contact smokefree.gov}} Not available 06/01/2017 10:27:15 07/18/2017 [id number] deciding about using medicines to quit smoking Not available 07/18/2017 10:34:40 Quitting Tobacco : Care Instructions Not available 07/18/2017 10:34:40 Counseling done {{Patient not ready to quit Contemplatin g quitting Tapering Cigarettes signed up for support prescript ion for stop smoking medication given}} {{Patient not ready to quit Contemplatin g quitting Tapering Cigarettes signed up for support prescript ion for stop smoking medication given}} Goal for follow up visit {{adding exercise regular meals stress management improv ing sleep therapist identifying sponsor}} {{adding exercise regular meals stress management improv ing sleep therapist identifying sponsor}} {{adding exercise regular meals stress management improv ing sleep therapist identifying sponsor}}My Health To Do List {{go to [employer] or call si gn up for fanny text 2 quit or other stop smoking fanny contact [employer]}} {{go to [employer] or call si gn up for fanny text 2 quit or other stop smoking fanny contact [employer]}} {{go to [employer] or call si gn up for fanny text 2 quit or other stop smoking fanny contact [employer]}} Not available 07/18/2017 10:09:42 08/22/2017 [id number] >50% of 25 min appt spent cc/c Counseling pertanined to options for treatment, pros/cons of treatment, and patient taking active role in making decisions about healthcare. [email or web address] Not available 08/22/2017 15:18:17 Reason for Referral Physiatry Referral for Low b ack pain 51yof with chronic low back pain and fibromyalgia. Referring Physician: Nona Butt [facility], Encounter Date: 02/09/2017 Physiatry Referral for Chron ic low back pain 51yof with chronic low back pain, left hip pain, and fibromyalgia. Please evaluate and treat. Referring Physician: Nona Butt [facility], Encounter Date: 03/30/2017 Orthopedic Referral for Thor acic back pain 52yof with worsening thoracic back pain. CT showed degenerative changes with anterior spurring. Referring Physician: Nona Butt [facility], Encounter Date: 06/01/2017 52yof with chronic low back pain, with acute flare of pain & sciatica. Referring Physician: Nona Butt, Family Medicine, Encounter Date: 07/18/2017 Problems Name Problem SNOMED Code Status Onset Date Resolution Date Notes Provider Name and Address Organization Details Recorded Time Mixed hyperlipidemia 507206191 Active 2016 Laurel Alexander RN [facility], [facility] 7 04:50:24 Migraine with aura 6798822 Active 2016 1x/mon th or every other month [place], [address], [facility] 7 10:23:21 Fibromyalgia 172255907 Active 2016 [place], [address], [facility] 7 11:28:08 Generalized anxiety disorder 13527946 Active 2016 [place], [address], [facility] 7 11:28:29 Recurrent major depression 84086323 Active 2016 [place], [address], [facility] 7 11:29:07 Bipolar disorder 64035158 Active 2016 IRA[place], [address], [facility] 7 11:29:17 Insomnia disorder related to another mental disorder 63714245 Active 2016 [place], [address], [facility] 7 11:30:09 Bursitis of hip 26665788 Active 2016 [place], [address], [facility] 7 11:30:12 Essential hypertension 33244048 Active 2016 [place], [address], [facility] 7 11:30:29 Gastroesophage al reflux disease without esophagitis 812943354 Active 2016 Nona Butt PA-C [address] [place], [place] [address], [address], [facility] 7 11:30:49 Problem Notes None recorded. Procedures Surgical History Date Name Laterality Status Provider Name and Address Organization Details Recorded Time 07/18/20 17 Smoking cessation counseling completed [place], [address], [facility] 07/18/2017 10:09:42 07/18/20 17 Carbon Monoxide Testing [place], [address], [facility] 07/18/2017 10:09:42 06/01/20 17 Smoking cessation counseling completed Kaye Dent MA [facility] 06/01/2017 10:27:16 06/01/20 17 Carbon Monoxide Testing completed Kaye Dent MA [facility] 06/01/2017 10:29:57 02/10/20 17 Corticosteroid Injection completed Nona Butt PA-C [address] [place] [address], [phone], [facility] 02/09/2017 13:13:01 Imaging Results None recorded. Procedure Notes None recorded. Medical Equipment None Reported. Allergies Allergen ID Allergen Name Allergen Category Reaction Reaction Severity Criticality Documentation Date Start Date Code Code System Note Provider Name and Address Organization Details Recorded Time 19460323 Savella medicatio n rash Not available Not available 11/03/2016 27440 6 Rx[place], [address], [facility] 7 10:38:10 340527 aspirin medicatio n respirato ry distress Not available Not available 11/03/2016 1191 RxNorm Nona Butt PA-C [address] [place], [place] [address], [address], [facility] 7 10:38:29 308115 Levaquin medicatio n rash Not available Not available 11/03/2016 93197 2 RxNorm Nona Butt PA-C [address] [place], [place] [address], [address], [facility] 7 10:38:52 320782 Motrin medicatio n respirato ry distress Not available Not available 11/03/2016 86483 8 RxNorm Nona Butt PA-C [address] [place], [place] [address], [address], [facility] 7 10:39:12 715796 morphine medicatio n vomiting Not available Not available 11/03/2016 7052 RxNorm Nona Butt PA-C [address] [place], [place] [address], [address], [facility] 7 10:39:23 223034 Prozac medicatio n Not available Not available Not available 11/03/2016 23223 RxNorm crawl ing under skin Nona Butt PA-C [address] [place], [place] [address], [address], [facility] 7 10:39:55 613580 lithium Not available Not available Not available Not available 11/03/2016 6448 RxNorm toxic react ion? low plate lets Nona Butt PA-C [address] [place], [place] [address], [address], [facility] 7 10:40:36 gabapenti n medicatio n itching Not available Not available 08/22/2017 29216 RxNorm Jack Ponce NP [address] [place], [place] [address], [address], [facility] 7 15:10:49 Medications Name Sig Start Date Stop Date Status Note LastModified by Organization Details LastModified Time carisopro dol 350 mg tablet 08/17 /2017 completed for spasms Not Available Not Available Not Available cyclobenz aprine 10 mg tablet TAKE 1 TABLET BY MOUTH AT BEDTIME 08/22 completed Not Available Not Available Not Available amoxicill in 500 mg capsule active Not Available Not Available Not Available butalbita l-acetami nophen-ca ffeine 50 mg-325 mg-40 mg capsule TAKE ONE CAPSULE BY MOUTH EVERY 4 HOURS NEEDED FOR MIGRAINE HEADACHE 11/03 completed Not Available Not Available Not Available clonidine HCl 0.1 mg tablet active PRN Not Available Not Available No t Available doxycycli ne hyclate 100 mg capsule active Not Available Not Available Not Available tizanidin e 2 mg tablet TAKE 1 TABLET BY MOUTH THREE TIMES DAILY NEEDED FOR MUSCLE SPASMS active Not Available Not Available No t Available loperamid e 2 mg capsule active Not Available Not Available Not Available azithromy hima 250 mg tablet active Not Available Not Available No t Available sumatript an 100 mg tablet active Not Available Not Available Not Available hydrocodo ne 5 mg-acetam inophen 325 mg tablet TAKE 1 TAB BY MOUTH EVERY 6 HOURS NEEDED PAIN active Not Available Not Available No t Available ondansetr on HCl 8 mg tablet active Not Available Not Available No t Available meloxicam 15 mg tablet TAKE 1 TABLET BY MOUTH EVERY DAY 11/03 completed patinet not taking this medicati on 11-03-16 KB Not Available Not Available Not Available ondansetr on HCl 4 mg tablet active Not Available Not Available No t Available prednison e 20 mg tablet TAKE 2 TABLETS BY MOUTH EVERY DAY X 5 DAYS active Not Available Not Available No t Available sertralin e 100 mg tablet TAKE 1 TABLET BY MOUTH EVERY DAY active Not Available Not Available No t Available simvastat in 10 mg tablet TAKE 1 TABLET BY MOUTH EVERY EVENING 03/30 completed Not Available Not Available Not Available clonazepa m 1 mg tablet TAKE 1/2 TABLET TO 1 TABLET BY MOUTH ONCE OR TWICE DAILY *MAX 2 TABLETS DAILY* 06/01 completed PRn 1x a month max Not Available Not Available Not Available topiramat e 25 mg tablet 11/03 completed Not Available Not Available Not Available oxcarbaze pine 300 mg tablet TAKE 1 TABLET BY MOUTH 2 TIMES A DAY 11/03 completed patinet not taking this medicati on 11-03-16 KB Not Available Not Available Not Available tramadol 50 mg tablet active Not Available Not Available Not Available meloxicam 7.5 mg tablet TAKE 1 TABLET BY MOUTH EVERY DAY 11/03 completed patinet not taking this medicati on 11-03-16 KB Not Available Not Available Not Available oxycodone -acetamin ophen 5 mg-325 mg tablet TAKE 1 TABLET BY MOUTH EVERY 6 HOURS NEEDED FOR PAIN active Not Available Not Available No t Available methocarb srinivasa 750 mg tablet active Not Available Not Available No t Available trazodone 100 mg tablet TAKE 3 TABLETS BY MOUTH AT BEDTIME NEEDS APPOINTM ENT NO FURTHER REFILLS active Not Available Not Available No t Available dicyclomi ne 20 mg tablet 07/18 completed Not Available Not Available Not Available baclofen 10 mg tablet Take 1 tablet 3 times a day by oral route. active prescrib ed by Cesar Wahl 02/01/19 Not Available Not Available Not Available trazodone 150 mg tablet 2 tabs gHS 08/22 completed Not Available Not Available Not Available butalbita l 50 mg-acetam inophen 325 mg-caffei ne 40 mg-codein e 30 mg cap TAKE ONE CAPSULE BY MOUTH EVERY 4 HOURS NEEDED 2016 active Not Available Not Available Not Avai lable promethaz ine 25 mg tablet active Not Available Not Available Not Available hydrochlo rothiazid e 12.5 mg capsule TAKE ONE CAPSULE BY MOUTH EVERY DAY NEEDS APPOINTM ENT NO FURTHER REFILLS active Not Available Not Available No t Available diclofena c potassium 50 mg tablet TAKE 1 TABLET BY MOUTH TWICE A DAY NEEDED FOR PAIN 11/03 completed patinet not taking this medicati on 11-03-16 KB Not Available Not Available Not Available omeprazol e 20 mg capsule,d elayed release TAKE ONE CAPSULE BY MOUTH TWICE A DAY active Not Available Not Available No t Available diclofena c sodium 75 mg tablet,de layed release Take 1 tablet twice a day by oral route as directed . active Not Available Not Available No t Available diclofena c sodium 50 mg tablet,de layed release active Not Available Not Available Not Available lorazepam 1 mg tablet TAKE 1 TABLET BY MOUTH 2 TIMES A DAY NEEDED FOR ANXIETY 06/01 completed PRN Not Available Not Available Not Available methylpre dnisolone 4 mg tablets in a dose pack active Not Available Not Available Not Available ketoconaz ole 2 % topical cream APPLY TO AFFECTED AREA EVERY DAY 03/30 completed Not Available Not Available Not Available ondansetr on 4 mg disintegr ating tablet active Not Available Not Available Not Available topiramat e 100 mg tablet active Not Available Not Available Not Available fluticaso ne propionat e 50 mcg/actua tion nasal spray,brandy pension active Not Available Not Available Not Available diazepam 5 mg tablet TAKE 1 TABLET BY MOUTH EVERY 8 HOURS active Not Available Not Available No t Available oxycodone 5 mg tablet TAKE 1 TABLET BY MOUTH EVERY 6 HOURS NEEDED FOR PAIN active Not Available Not Available No t Available Ascomp with Codeine 30 mg-50 mg-325 mg-40 mg capsule TAKE ONE CAPSULE BY MOUTH EVERY 4 HOURS NEEDED active Not Available Not Available No t Available cyclobenz aprine 5 mg tablet TAKE 1 TABLET BY MOUTH THREE TIMES A DAY active Not Available Not Available No t Available metoprolo l tartrate 25 mg tablet TAKE 1 TABLET BY MOUTH EVERY DAY NO FURTHER REFILLS NEEDS APPOINTM ENT active Not Available Not Available No t Available topiramat e 50 mg tablet TAKE 1 TABLET BY MOUTH IN THE MORNING AND 2 TABLETS EVERY NIGHT active Not Available Not Available No t Available eszopiclo ne 2 mg tablet TAKE 1 TABLET BY MOUTH AT BEDTIME .*DO NOT TAKE WITH KLONOPIN /CLONAZE GERALDO* 11/03 completed Not Available Not Available Not Available Lyrica 75 mg capsule TAKE 1 CAPSULE TWICE DAILY active Not Available Not Available No t Available hydrochlo rothiazid e 12.5 mg tablet 03/30 completed Not Available Not Available Not Available cholecalc iferol (vitamin D3) 1,250 mcg (50,000 unit) capsule TAKE ONE CAPSULE BY MOUTH ON MONDAY S AT 10A 03/30 completed Not Available Not Available Not Available fenofibra te 54 mg tablet TAKE 1 TABLET BY MOUTH EVERY DAY NO FURTHER REFILLS- NEEDS APPOINTM ENT active Not Available Not Available No t Available Latuda 80 mg tablet TAKE 1 TABLET BY MOUTH EVERY DAY active Not Available Not Available No t Available Chantix Continuin g Month Box 1 mg tablet Take 1 tablet twice a day by oral route. 08/22 completed Not Available Not Available Not Available Chantix Starting Month Box 0.5 mg (11)-1 mg (42) tablets in dose pack to be used as directed active Not Available Not Available No t Available butalbita l 50 mg-acetam inophen 300 mg-caffei ne 40 mg-codein e 30 mg cap TAKE ONE CAPSULE BY MOUTH EVERY 4 HOURS NEEDED 11/03 completed Not Available Not Available Not Available Latuda 60 mg tablet 11/03 completed patinet not taking this medicati on 11-03-16 KB Not Available Not Available Not Available Flucelvax Quad (PF) 60 mcg (15 mcg x 4)/0.5 mL IM syringe TO BE ADMINIST ERED BY PHARMACI ST FOR IMMUNIZA TION 07/18 completed Not Available Not Available Not Available Vitals Date Recorded Body height Heart rate Systolic blood pressure Diastolic blood pressure Provider Name and Address Organization Details Last Updated DateTime 02/09/2017 160.27 cm 78 /min 128 mm[Hg] 80 mm[Hg] Kailey Senior MA [facility] 02/09/2017 11:51:42 Date Recorded Body height Body mass index (BMI) Body weight Heart rate Systolic blood pressure Diastolic blood pressure Provider Name and Address Organization Details Last Updated DateTime 7 160.27 cm 40.1 kg/m2 400001. 47 g 80 /min 126 mm[Hg] 74 mm[Hg] Kailey Senior MA [facility] 7 10:25:50 Date Recorded Body height Body mass index (BMI) Body weight Heart rate Systolic blood pressure Diastolic blood pressure Provider Name and Address Organization Details Last Updated DateTime 7 160.27 cm 35.7 kg/m2 49842.0 6 g 72 /min 98 mm[Hg] 72 mm[Hg] Kaye Dent MA [facility] 7 10:26:32 Date Recorded Body height Body mass index (BMI) Body weight Heart rate Systolic blood pressure Diastolic blood pressure Provider Name and Address Organization Details Last Updated DateTime 7 160.27 cm 35.5 kg/m2 52399.0 7 g 70 /min 118 mm[Hg] 72 mm[Hg] Kailey Senior MA [facility] 7 10:02:19 Date Recorded Body height Body mass index (BMI) Body weight Heart rate Systolic blood pressure Diastolic blood pressure Provider Name and Address Organization Details Last Updated DateTime 7 160.27 cm 36.9 kg/m2 48940.8 1 g 80 /min 104 mm[Hg] 68 mm[Hg] Cinthya Lujan MA [facility] 7 14:59:00 Social History Question Answer Notes LastModified by Organizat ion Details LastModified Time Tobacco Smoking Status Former Smoker quit 4 months. chantix for 3 weeks and no more cravings. 1-1.5 PPD for 35yrs Nona Butt PA-C [address] [place] [address], [address], [facility] 11/03/2016 10:51:51 What Is Your Level Of Alcohol Consumption? Occasional Holidays Only Information not available 11/03/2016 Do You Wear A Helmet When Biking? Yes Information not available 11/03/2016 What Is Your Level Of Caffeine Consumption? Moderate Information not available 11/03/2016 How Much Tobacco Do You Chew? None Information not available 11/03/2016 Which Illicit Or Recreational Drugs Have You Used? None. Information not available 11/03/2016 Education 2 Year College Information not available 11/03/2016 How Many Days In The Past Year Have You Had A Heavy Drinking Consumption (4+ Female, 5+ Male)? 0 Information not available 11/03/2016 Are There Any Guns Present In Your Home? No Information not available 11/03/2016 Live Alone Or With Others? With Others Information not available 11/03/2016 CCM Consent Discussion 11/03/2016 Discussed And Signed. Information not available 11/03/2016 Marital Status Informati on not available 11/03/2016 What Was The Date Of Your Most Recent Tobacco Screening? 08/22/2017 Information not available 05/08/2019 How Many Children Do You Have? 2 Information not available 11/03/2016 Seat Belts Used Routinely No PTSD Flashbacks Information not available 11/03/2016 Are You Sexually Active? Yes Information not available 11/03/2016 Smoke Alarm In Home Yes Information not available 11/03/2016 General Stress Level Low Information not available 11/03/2016 Do You Use Sunscreen Routinely? Yes Information not available 11/03/2016 Sex: Unknown Functional Status None recorded. Mental Status None recorded. Family History Nothing Reported Notes:M GM: colon cancer Mom : 73 A&W Dad: 81 dementia, prostate cancer Sis: 1/2 sis A&W Bro: 1 A&W William: 1 Son: 1 Medical History No medical history recorded. Gynecological History Statement/Question Response Menses Monthly N History of Abnormal Pap N Age at Menarche 13 Obstetrics History GPAL:G 0 P 0 0 0 0 Immunizations Vaccine Type Date Status Note Provider Nam e and Address Organization Details Recorded Time Tdap 7 completed Not Available [employer] 11/02/2019 02:39:42 Influenza, split virus, quadrivalent, preservative 7 completed Kailey Senior MA [facility] 07/08/2017 14:20:02 Past Encounters Encounter ID Performer Location Encounter Start Date Encounter Closed Date Diagnosis/Indication Diagnosis SNOMED-CT Code Diagnosis ICD10 Code Diagnosis Note [id number] Zachary Keita MD , [facility] [place] [address] [place] [address] 11/03/2016 09:51:13 11/03/2016 11:18:44 Screening mammography 60417435 Z12.31 Screening for malignant neoplasm of colon 212709989 Z12.11 Bursitis of hip 52223997 M71.559 Pt to schedule f/u on my schedule and Armin agreed to come in and do cortisone injection at that time. Fibromyalgia 404099378 M 79.7 Full workup in ~2012 and Dx with fibro. No relief with gabapentin and allergic reaction to Savella. Would like to try Lyrica. In the past it wasn't covered by insurance, but pt has new insurance now. [id number] Nona Butt PA-C , [facility] [place] [address] [place] [address] 02/09/2017 11:47:17 02/09/2017 14:51:15 Active or passive immunization [id number] Z23 Tinea corporis [id number] B35.4 Cream as below. Spasm of back muscles 20 [id number] M62.830 Needs refill. Low back pain [id number] M54.5 Encourage pt to see PSS. Bursitis of hip 11811186 M71.559 Steroid injection done by [facility] without incident. [id number] Nona Butt PA-C , [facility] [place] [address] [place] [address] 03/30/2017 10:18:04 03/31/2017 08:19:38 Fibromyalgia [id number] M79.7 Lyrica helpful. Needs refill. Chronic low back pain 27 7072885 M54.5 Hasn't seen PSS yet, needs new referral. Will give short course of pain meds for pt to sparingly use until can be seen by PSS for retirement pain management . Bursitis of hip 02098734 M71.559 Steroid injection improved pain for 2 days, then pain returned. Now having increasing stiffness in hip after sitting for extended periods of time. [id number] Nona Butt PA-C , [facility] [place] [address] [place] [address] 06/01/2017 10:18:51 06/02/2017 08:14:06 Cigarette smoker [id number] F17.210 Tobacco user [id number] Z 72.0 Motivated to quit. Would like to start chantix again which helped in the past. Migraine with aura 20057 06 G43.109 Rare migraine. Needs refill. Mixed hyperlipidemia 267 039291 E78.2 Needs refill. Thoracic back pain 82015 8004 M54.6 PSS never responded to her calls/mess ages to schedule an appt. Would like to see a new specialist . CT revealed anterior spurring and degenerati ve changes in thoracic spine.Will give short course of pain meds for pt to sparingly use until can be seen by ortho for retirement pain management . Solitary n odule of lung [id number] R91.1 Incidental finding on thoracic spine CT. Due to smoking Hx, it is recommende d to repeat CT in 1 year. Obesity [id number] E66.9 Congratula bhupendra pt on significan t weight loss in past few months! Continue to keep up the great work! [id number] IRAIDA Wiseman, [facility] [place] [place]ICE [address] [place] [address] 07/18/2017 09:56:20 07/19/2017 07:57:31 Cigarette smoker 04354728 F17.210 16 days cigarette free. Congratula bhupendra pt and encouraged her to continue! Tobacco user [id number] Z 72.0 Low back pain 041358857 M54.5 Acute on chronic with flare of radicular sciatica Sx. Will give prednisone to help with sciatica.F /u with [facility] planned once they review her previous records. [id number] Jack Ponce NP , [facility] [place] [address]ICE [address] [place] [address] 08/22/2017 14:53:39 08/23/2017 11:53:05 Screening mammography [id number] Z12.31 advised to schedule Screening for malignant neoplasm of colon 170941081 Z12.11 did not discuss Sciatica 35114023 M54.31 ongoing lbp with acute sciatica R side.hx of fusion [id number] by [facility] last week- referred back to surgeonwil l d/c tizanidine will restart diazepamal lergic to most meds other than percocet and vicodin; explained i will not prescribe those medication s without consultati on with surgeon` Essential hypertension [id number] I10 BP well controlled todayat goal of < 140/90c/w meds Health Concerns Section Related Observation LastModified by Organization Detai ls LastModified Time None Recorded Concern Status LastModified by Organization Details LastModified Time None Recorded Advance Directives Directive None Recorded Payers Encounter Date Sequence Insurance Name Policy Number Policy Wright Covered Member ID Wright Member ID Guarantor Name 02/09/2017 1 [place] [employer] Lori Mendieta [id number] Lori Mendieta 02/09/2017 2 [place] Lori Mendieta [id number] Lori Mendieta 03/30/2017 1 [place] [employer] Lori Mendieta [id number] Lori Mendieta 03/30/2017 2 [place] Lori Mendieta [id number] Lori Mendieta 06/01/2017 1 MED[place]ARE B[place] [facility] Lori Mendieta [id number] Lori Mendieta 06/01/2017 2 [place] Lori Mendieta [id number] Lori Mendieta 07/18/2017 1 [place] [facility] Lori Mendieta [id number] Lori Mendieta 07/18/2017 2 [place] Lori Mendieta [id number] Lori Mendieta 08/22/2017 1 [place] [facility] Lori Mendieta [id number] Lori Mendieta 08/22/2017 2 [place] Lori Mendieta [id number] Lori Mendieta Notes Date Note Type Note Provider Name and Address Organization Details Recorded Time 02/09/2017 text/html R hip has become more painful since initial visit in October. Never had injection in hip. Has had injection in knee which was helpful. Nona Butt PA-C [address] [place] [address], [phone], [facility] [place] 02/09/2017 13:14:35 06/01/2017 text/html a/vmg-smoking [id number] bypatient.Notes:Mo tivated to quit. Would like to start chantix again which helped in the past. Went to ED on 05/21 for worsening thoracic back pain.CT scan done with showed anterior spurring.also showed incidental lung nodule. given percocet & valium which eased pain.still flares, but eases pain. wakes up with pain, goes to bed with itworse in evening after working all day. takes 1 percocet to sleep.lifting/repo sitioning (works in skilled nursing) Nona Butt PA-C [address] [place] [address], [phone], [facility] [place] 06/01/2017 13:16:02 07/18/2017 text/html a/vmg-smoking [id number] bypatient.Notes:No cig in 16 days. Pt c/o back pain worsening.Finally got records to [facility]. THey will review them & schedule her in 1-2 week. Worsenign lower back painR leg shooting pain, numbness & tingling x1 week.Pain wakes up in night.walking causes discomfort.muscle relaxor helps some. Out of work since last monday Nona Butt PA-C [address] [place], [phone], [facility] 07/18/2017 10:38:27 08/22/2017 text/html a/vmg-smoking [id number] bypatient.Notes:No cig in 16 days. Pt is here for ongoing back pain.See office visit from 07/18/17pinching down R leg- feels numb.tinglingworse with with sitting and laying on R side.saw [facility] last week- referred back to back surgeon- Osvaldo Eastman MDtylenol and tizanidine does not help. Lidocaine patches dont help.tried flexeril which did not help after a long time.prednisone did not help. gabapentin she is allergic. Tramadol cannot take with other medsphysical therapy has always made me worse only thing she is not allergic to is vicodin and percocet. Jack Ponce NP [address] [place], [phone], [facility] [place] 08/22/2017 15:18:34 OBGyn Episode No OBEpisode recorded.
[2024-12-06] MEDS: 0.9 % Sodium Chloride 1,000 ML 999 ML IV (10:03)
[2024-12-06] MEDS: HYDROmorphone HCl 1 MG/ML SYRINGE IVPUSH ×2 (10:03→11:53)
[2024-12-06] MEDS: Potassium Chloride Packet 20 MEQ PACKET 40 MEQ PO (10:04)
--- NOTE | 2024-12-06 10:29 | ED_ITS ---
HPI - General Adult General Chief complaint: Abdominal Pain Stated complaint: Ab pain 9/10 above belly button Time Seen by Provider: 12/06/24 09:25 Source: patient Mode of arrival: ambulatory Limitations: no limitations History of Present Illness ED Provider: Papo Steiner HPI narrative: 59-year-old female history of asthma high cholesterol, and high blood pressure presents to ED for left lower quadrant abdominal pain with nuasea and diarrhea. Patient denies any fever, chills, coughing up blood, chest pain, about upper abdominal pain, or shortness of breath. Patient denies any genitourinary symptoms. Related Data Home Medications ?Medication ?Instructions ?Recorded ?Confirmed lurasidone 80 mg tablet 80 mg PO DAILY 06/16/23 12/26/23 sertraline 100 mg tablet 100 mg PO DAILY 06/16/23 12/26/23 topiramate 100 mg tablet 100 mg PO BID 06/16/23 12/26/23 hydroxyzine HCl 25 mg tablet 25 mg PO QID 07/11/23 12/26/23 trazodone 100 mg tablet 200 mg PO BEDTIME 12/26/23 12/26/23 hydrochlorothiazide 12.5 mg tablet 12.5 mg PO DAILY 06/05/24 Previous Rx's ?Medication ?Instructions ?Recorded albuterol sulfate 90 mcg/actuation 2 puff inhalation Q6H PRN 10/21/21 aerosol inhaler shortness of breath or wheezing #6.7 grams fenofibrate 54 mg tablet 54 mg PO DAILY #90 tabs 10/20/23 metoprolol tartrate 25 mg tablet 12.5 mg (1/2 x 25 mg) PO BID 90 10/20/23 days #90 tabs methocarbamol 500 mg tablet 500 mg PO BEDTIME 30 days #30 tabs 11/14/23 ondansetron 4 mg disintegrating 4 mg PO Q8H PRN nausea and 05/26/24 tablet vomiting #10 tabs lidocaine 4 % topical cream 1 appl topical BID PRN pain #15 05/28/24 grams oxycodone 5 mg tablet 5 mg PO Q6H PRN pain #10 tabs 06/03/24 potassium chloride 20 mEq 20 meq PO BID #10 tabs 06/03/24 tablet,extended release blood pressure monitor (Blood #1 ea 06/05/24 Pressure Kit) atorvastatin 40 mg tablet 40 mg PO BEDTIME #90 tabs 06/06/24 pregabalin 75 mg capsule 75 mg PO BID 30 days #60 caps 06/06/24 tizanidine 2 mg tablet 2 mg PO BID PRN muscle spasticity 06/07/24 10 days #20 tabs omeprazole 20 mg capsule,delayed 20 mg PO BID 90 days #180 caps 10/07/24 release oxycodone-acetaminophen 5 mg-325 1 tab PO TID PRN pain 3 days #9 12/06/24 mg tablet (Percocet) tabs Allergies Allergy/AdvReac Type Severity Reaction Status Date / Time ibuprofen [From Motrin] Allergy Intermediate Shortness Verified 12/06/24 01:49 of Breath lamotrigine [From Lamictal] Allergy Intermediate Rash Verified 12/06/24 01:49 milnacipran [From Savella] Allergy Intermediate Itching Verified 12/06/24 01:49 aspirin [Aspirin] Allergy Mild DYSPNEA Verified 12/06/24 01:49 levofloxacin [From Levaquin] Allergy Mild Rash Verified 12/06/24 01:49 lithium [[place]] Allergy Mild TREMORS Verified 12/06/24 01:49 morphine [MORPHINE] Allergy Mild NAUSEA/VOMI Verified 12/06/24 01:49 TING fluoxetine [From Prozac] Allergy Unknown Unknown Verified 12/06/24 01:49 seafood Allergy Unknown Unknown Verified 12/06/24 01:49 dicyclomine [From Bentyl] Allergy Unknown Verified 12/06/24 01:49 carbamazepine [From Tegretol] AdvReac Intermediate Fatigued Verified 12/06/24 01:49 zolpidem [From Ambien] AdvReac Intermediate Itching Verified 12/06/24 01:49 Review of Systems 2 Review of Systems: Left lower quadrant abdominal pain Yes all other systems are reviewed and are negative PMFSH Past Medical History Medical History Syncope Shortness of breath on exertion Effusion, left knee Left knee pain GERD (gastroesophageal reflux disease) Hypertension Hyperlipidemia Depression Surgical History Status post cardiac catheterization S/P ACL repair History of hysterectomy (~1999) History of spinal surgery (~12/2013) History of colectomy (~06/01/11) Family History Family History Father No problems noted. Mother No problems noted. Social History Social History Unable to assess alcohol history related to: Unknown Alcohol intake: current Alcohol intake frequency: holidays/special occasions only Patient Tobacco Use Status: Current everyday Tobacco user Tobacco use type: Cigarette Cigarettes Per Day: 10 Years Smoked: since 10 years old but quit few times in between e-Cigarette/Vaping Use: Never Used Substance Use Type: Crack/Cocaine Current occupational status: employed Current occupation: [employer] Physical Exam ED Vital Signs: Vital Signs - 24 hr 12/06/24 01:47 12/06/24 05:10 12/06/24 07:28 Temperature 97.3 F 97.3 F 98.7 F Pulse Rate 68 65 66 Respiratory Rate 20 20 16 Blood Pressure 102/69 115/68 124/72 Pulse Oximetry 99 96 96 Oxygen Delivery Method Room Air Room Air Room Air 12/06/24 09:11 12/06/24 12:00 12/06/24 14:16 Temperature 98.4 F 98.8 F Pulse Rate 65 69 Respiratory Rate 16 16 Blood Pressure 109/63 98/49 L 138/69 Pulse Oximetry 96 91 L 95 Oxygen Delivery Method Room Air Room Air Room Air BMI result Body Mass Index 26.5 Const General: cooperative, healthy appearing, comfortable, no acute distress, well developed, alert, awake and Physically active Orientation/consciousness: patient oriented x3 HENMT Head: Yes normal to inspection, Yes No palpable skull fracture present, Yes normocephalic and Yes atraumatic Throat: Yes posterior oropharynx normal, Yes tonsils normal and Yes uvula midline Eyes General: appearance normal, both eyes and all related structures Neck Neck: Yes normal visual inspection, Yes full ROM, Yes no lymphadenopathy, Yes no meningeal signs, Yes trachea midline, Yes supple, No anterior neck swelling and No tender Chest Chest palpation & inspection: normal inspection of the chest and normal palpation of entire chest wall Resp Effort & Inspection: normal respiratory effort and able to speak in complete sentences Auscultation: clear to auscultation bilaterally Cardio Jugular venous distension: no JVD Heart sounds: S1 normal heart sound present and S2 normal heart sound present GI Inspection: Yes normal to inspection Palpation (GI): Tenderness to palpation present (GI) in the LLQ and periumbilically; not in the epigastrum, not in the RLQ, not in the LUQ, not in the RUQ, not at McBurney's point, not suprapubicly, Thomason's sign negative, obturator sign negative, psoas sign negative, with no rebound tenderness and Rovsing's sign negative and no guarding General: Yes no CVA tenderness Back/Spine/Pelvis Back: no CVA tenderness Skin General skin exam: no rashes or lesions noted, elasticity normal and turgor normal Neuro General: patient oriented x3, gait normal, tone normal, moves all extremities, Normal light touch and pain sensation, no meningeal signs, no focal motor deficits and CN's II-XI intact bilaterally Extrem General: Yes normal to inspection, Yes full ROM and Yes capillary refill normal Psych Appearance: grossly normal, well kempt and not disheveled Medications Administered Discontinued Medications Generic Name Dose Route Start Last Admin Trade Name Bobbyq PRN Reason Stop Dose Admin Hydromorphone HCl 1 mg 12/06/24 09:49 12/06/24 10:03 Hydromorphone Hcl 1 Mg/Ml Syringe IVPUSH 12/06/24 09:50 1 mg ONCE ONE Administration Protocol Hydromorphone HCl 1 mg 12/06/24 11:45 12/06/24 11:53 Hydromorphone Hcl 1 Mg/Ml Syringe IVPUSH 12/06/24 11:46 1 mg ONCE ONE Administration Protocol Sodium Chloride 1,000 mls @ 999 mls/hr 12/06/24 09:50 12/06/24 11:27 Ns IV 12/06/24 10:50 Infused .Q1H1M STA Infusion Iohexol 100 ml 12/06/24 10:46 12/06/24 10:46 Iohexol 350 Mg/Ml 100 Ml Infus..Btl IV 12/06/24 10:47 85 ml ONCE ONE Administration Ondansetron HCl 4 mg 12/06/24 10:36 12/06/24 11:30 Ondansetron Hcl 4 Mg/2 Ml Vial IVPUSH 12/06/24 10:37 4 mg ONCE ONE Administration Potassium Chloride 40 meq 12/06/24 09:51 02/21/25 10:04 Potassium Chloride Packet 20 Meq Packet PO 12/06/24 09:52 40 meq ONCE ONE Administration Medical Decision Making Medical Decision Making [facility] Narrative: 59-year-old female presents to ED for left lower quadrant abdominal pain and periumbilical pain. Patient does not have any upper abdominal tenderness on palpation and denies any left upper quadrant pain. Patient is sent for CT scan. Patient states she on take Dilaudid for pain. 12:17pm: Patient's abdominal CT scan came back normal. UA negative. Patient denies any chest pain or upper abdominal pain. Not suspecting PA, perforation, aortic dissection, peritonitis, intra-abdominal abscess, CHF, PE, pyelonephritis, renal artery stenosis, or any other life-threatening etiology. 1:55pm: Patient will be discharged with Percocet. Patient states no reaction with Percocet in the past. Patient is educated on potassium diet. Patient given potassium in the ED. 2:16: Discharged cancelled. EKG was ordered due to patient now stating she had epigastric abdominal pain earlier in the day but did not informed me. EKG troponin was ordered. When yasemin Her went to the room to do EKG and draw troponin patient was not found in her room. . 3:21pm: Patient was called and informed to return to the ED for EKG and troponin. Patient did not pickle maker and straight to voicemail. Voicemail was left for patient to come back to the ED for EKG and troponin. Differential Diagnosis Differential Diagnoses: The differential diagnosis associated with the presentation includes (Abdominal pain, appendicitis, diverticulitis, colitis, UTI) Admission/Observation Consideration of admission/observation: Escalation of care including admission/observation considered Lab Data [facility] Lab Attestation statement: I reviewed the patient's lab results. 12/06/24 01:59 12/06/24 01:59 Labs: Lab Results 12/06/24 12/06/24 Range/Units 01:59 11:59 WBC 7.0 (4.8-10.8) X10*3/uL RBC 4.00 L (4.20-5.50) X10*6/uL Hgb 11.4 L (12.0-16.0) g/dl Hct 34.6 L (37.0-47.0) % MCV 86.5 (80.0-98.0) fL MCH 28.5 (27.0-33.0) pg MCHC 32.9 (31.0-35.0) g/dl RDW 14.2 (11.0-16.0) % Plt Count 304 D (160-400) X10*3/uL MPV 9.3 L (9.4-12.3) fL Immature Gran % (Auto) 0.3 (0.0-0.4) % Neut % (Auto) 50.1 (45-73) % Lymph % (Auto) 33.8 (20-40) % Starke % (Auto) 10.8 (2-11) % Eos % (Auto) 4.3 H (0-4) % Baso % (Auto) 0.7 (0-2) % Lymph # (Auto) 2.4 (1.2-4.9) X10*3/uL Starke # (Auto) 0.8 (0.1-1.2) X10*3/uL Eos # (Auto) 0.3 (0.0-0.4) X10*3/uL Baso # (Auto) 0.1 (0.0-0.2) X10*3/uL Abs Immat Gran (auto) 0.02 (0.00-0.03) X10*3/uL Absolute Neuts (auto) 3.5 (2.0-8.3) x10*3/uL Absolute Nucleated RBC 0.000 (0.0-0.012) X10*3/uL Nucleated RBC % (auto) 0.0 (0.0-0.2) /100WBC Sodium 142 (135-145) mmol/L Potassium 3.0 L (3.3-5.1) mmol/L Chloride 109 H (96-108) mmol/L Carbon Dioxide 25 (22-29) mmol/L Anion Gap 11 L (12-20) BUN 10 (9-16) mg/dL Creatinine 0.67 (0.5-1.4) mg/dL Estim Creat Clear Calc 81.4 Estimated GFR > 60 Fasting Glucose 85 (60-99) mg/dL Calcium 9.1 D (8.4-10.2) mg/dL Total Bilirubin 0.2 (0.0-1.0) mg/dL AST 25 (5-31) U/L ALT 19 (0-31) U/L Alkaline Phosphatase 55 (39-117) U/L Total Protein 7.0 (6.5-8.0) g/dL Albumin 4.0 (3.5-5.0) g/dL Lipase 22 (8-78) U/L Urine Color Yellow Urine Appearance Clear Urine pH 6.5 (5.0-9.0) Ur Specific Elsa >= 1.030 H (1.005-1.025) Urine Protein Negative (Neg-Trace) mg/dL Urine Glucose (UA) Negative (Negative) mg/dL Urine Ketones Negative (Negative) mg/dL Urine Blood Negative (Negative) Urine Nitrite Negative (Negative) Ur Leukocyte Esterase Negative (Negative) Influenza Type A (PCR) NEGATIVE (Negative) Influenza Type B (PCR) NEGATIVE (Negative) RSV RNA Qual (PCR) NEGATIVE (Negative) SARS-CoV-2 RNA (RT-PCR) NEGATIVE (Negative) Independent Interpretation I performed an independent interpretation of an: CT Scan Radiology Impression Discussion of test interpretation with radiology: I have reviewed the radiologist's reading. Independent Historian Clinical information obtained from an independent historian. History obtained from or confirmed by: Other (patient) Discharge Plan Discharge Clinical Impression: Abdominal pain Patient Disposition: Left W/O Completing Treatment Additional Instructions: Your lab work and CT scan came back reassuring. Your potassium was low so you were given oral potassium. Recommend eating a banana which has good amount of potassium. Return to the ED immediately for any worsening abdominal pain, chest pain, shortness of breath, coughing up blood, fever, chills, hematuria, dysuria, or any other concerning symptoms. Prescriptions: New oxycodone-acetaminophen [Percocet] 5-325 mg tablet 1 tab PO TID PRN (Reason: pain) 3 Days Qty: 9 0RF Rx Instructions: Partial Fill upon patient request. No Action metoprolol tartrate 25 mg tablet 12.5 mg PO BID 90 Days Qty: 90 1RF fenofibrate 54 mg tablet 54 mg PO DAILY Qty: 90 1RF methocarbamol 500 mg tablet 500 mg PO BEDTIME 30 Days Qty: 30 0RF ondansetron 4 mg tablet,disintegrating 4 mg PO Q8H PRN (Reason: nausea and vomiting) Qty: 10 0RF pregabalin 75 mg capsule 75 mg PO BID 30 Days Qty: 60 0RF atorvastatin 40 mg tablet 40 mg PO BEDTIME Qty: 90 1RF tizanidine 2 mg tablet 2 mg PO BID PRN (Reason: muscle spasticity) 10 Days Qty: 20 0RF Rx Instructions: Not to be taken with methocarbamol omeprazole 20 mg capsule,delayed release(DR/EC) 20 mg PO BID 90 Days Qty: 180 0RF albuterol sulfate 90 mcg/actuation HFA aerosol inhaler 2 puff inhalation Q6H PRN (Reason: shortness of breath or wheezing) Qty: 6.7 0RF sertraline 100 mg tablet 100 mg PO DAILY topiramate 100 mg tablet 100 mg PO BID lurasidone 80 mg tablet 80 mg PO DAILY trazodone 100 mg tablet 200 mg PO BEDTIME lidocaine 4 % cream 1 appl topical BID PRN (Reason: pain) Qty: 15 0RF oxycodone 5 mg tablet 5 mg PO Q6H PRN (Reason: pain) Qty: 10 0RF Rx Instructions: Partial Fill upon patient request. potassium chloride 20 mEq tablet extended release 20 meq PO BID Qty: 10 0RF hydroxyzine HCl 25 mg tablet 25 mg PO QID hydrochlorothiazide 12.5 mg tablet 12.5 mg PO DAILY (DME) blood pressure monitor [Blood Pressure Kit] Kit See Rx Instructions .ROUTE .MEDSUPPLY Qty: 1 0RF Rx Instructions: As directed Interventions: ED Discharge Assessment Last Done: 12/06/24 15:27 Discharge Date/Time: 12/06/24 15:28
[2024-12-06] MEDS: iohexoL 350 MG/ML 100 ML INFUS..BTL IV (10:46)
[2024-12-06] MEDS: ondansetron HCL 4 MG/2 ML VIAL IVPUSH (11:30)
[2024-12-06 12:11] LABS: Appearance Urine Clear; Color Urine Yellow; Glucose Urine UA Negative (Negative); Leukocyte Esterase Urine Negative (Negative); Nitrite Urine Negative (Negative); PH 6.5 (5.0-9.0); Specific Gravity - Urine >= 1.030 (1.005-1.025); Urine Blood Negative (Negative); Urine Ketones Negative (Negative); Urine Protein Negative (Neg-Trace)
--- NOTE | 2024-12-06 15:17 | PC.NURSE ---
patient provided discharge instructions and upon removal of IV pt reported to ER physician that pt pain was LUQ to midsternal. MD requested pt stay for one more lab draw and EKG and pt opted to not wait and left ER.
== END 2024-12-06 15:28 | disposition left against medical advice (07) ==
PROVIDERS: Physician Assistant; Emergency Provider Emergency Medicine
DX: R10.32 Left lower quadrant pain (principal); R11.0 Nausea; R19.7 Diarrhea, unspecified; Z79.899 Other long term (current) drug therapy; Z03.818 Encounter for observation for suspected exposure to other biological agents ruled out
CPT/HCPCS: 0241U; 74177; 80053; 81003; 83690; 85025; 96361; 96374; 96375; 96376; 99284; J1171; J2405; Q9967

== ENCOUNTER → 2024-12-06 09:49 | Outpatient (BNV) | payer OTHER, SELFPAY | PROVIDERS: Emergency Provider Emergency Medicine; Visit Provider Radiology Diagnostic Radiology | DX: R10.32 Left lower quadrant pain (principal) | CPT/HCPCS: 74177 ==

== ENCOUNTER 2025-04-16 20:35 | Emergency (ER) | payer OTHER, SELFPAY ==
--- NOTE | ~2025-04-16 | CT_ITS ---
CLINICAL HISTORY: abdominal pain, anorexia, nausea CT abdomen and pelvis with contrast Comparison: CT/MT/SR - CT ABDOMEN PELVIS W IV CON - 12/06/24 10:19 EST Findings: No consolidation or effusion. Cholecystectomy. Mild CBD dilatation with distal tapering likely reservoir effect from cholecystectomy. There is a small accessory splenule. Liver, pancreas, and adrenal glands are within normal limits. No hydronephrosis. Symmetric contrast enhancement of the kidneys. No bowel obstruction, pneumatosis or pneumoperitoneum. Partial colonic resection.Colonic diverticulosis. Underdistention versus mild wall thickening of the descending and sigmoid colon. Ventral hernia mesh. Aortic atherosclerosis. No aneurysm. Hysterectomy. Urinary bladder is within normal limits. Posterior lumbar fusion from L4 through S1. No acute fracture. IMPRESSION: Mild colitis versus underdistention of the descending and sigmoid colon. This document has been electronically signed by: Rick Wright MD on 04/16/2025 23:22:18
[2025-04-16 20:42] VITALS: BP 136/76; PULSE 75; O2SAT 97
[2025-04-16 20:55] VITALS: BP 113/63; PULSE 65; RESP 18; TEMP 36.7; O2SAT 96; BMI 26.5
[2025-04-16 20:59] VITALS: BP 113/63; PULSE 65; RESP 20; TEMP 36.7; O2SAT 96
[2025-04-16 21:21] LABS: Hematocrit 34.1 % (37.0-47.0); Hemoglobin 11.5 g/dl (12.0-16.0); Imm Gran Abs Auto 0.02 X10*3/uL (0.00-0.03); Imm Gran Pct Auto 0.2 % (0.0-0.4); Lymphocytes Absolute Auto 3.1 X10*3/uL (1.2-4.9); MANUAL DIFF FLAG NO; Mean Corpuscular HGB Conc 33.7 g/dl (31.0-35.0); Mean Corpuscular Hemoglobin 29.2 pg (27.0-33.0); Mean Corpuscular Volume 86.5 fL (80.0-98.0); NRBC Abs Auto 0.000 X10*3/uL (0.0-0.012); NRBC Pct Auto 0.0 /100WBC (0.0-0.2); Platelet Count 313 X10*3/uL (160-400); Red Blood Count 3.94 X10*6/uL (4.20-5.50); White Blood Count 8.3 X10*3/uL (4.8-10.8)
[2025-04-16 21:23] LABS: Appearance Urine Clear; Glucose Urine UA Negative (Negative); PH 6.5 (5.0-9.0); Specific Gravity - Urine <= 1.005 (1.005-1.025)
--- NOTE | 2025-04-16 21:32 | ED_ITS ---
HPI - Abdominal Pain General Chief Complaint: Abdominal Pain Stated Complaint: ABD PAIN [id number] PER EMS Time Seen by Provider: 04/16/25 21:04 Source: patient, EMS and old records reviewed Mode of arrival: EMS Limitations: no limitations History of Present Illness ED Provider: LUCIO VASQUEZ narrative: 60 yo female with PMH of GERD, HLD, depression, HTN, on 40mg daily of omeprazole daily, hx of colonoscopy several years ago with perforation and ex lap with repair she comes in with 1 month of upper abdominal pain that has worsened over the past week with nausea. She is compliant with her medications. She notes it is making her sick every time she eats. She is not taking NSAIDs ever. She states she is under a lot of stress due to rommate issues. She has tried some pepto bismol with little relief as well as milk. She tells me she thinks it could be PUD after googling her symptoms and the stress she is under. She has also developed dark watery stools. She notes no travel, procedures, antibiotic use. MD elicited complaint: abdominal pain Pertinent past history: other Onset (ago): month(s) (1) Pain Consistency: constant Location: epigastric Severity: moderate Quality: aching Radiation: none Migration to: no migration Exacerbating factors: eating Relieving factors: nothing Context: other Associated symptoms: nausea and diarrhea Treatments prior to arrival: antacids Related Data Home Medications ?Medication ?Instructions ?Recorded ?Confirmed lurasidone 80 mg tablet 80 mg PO DAILY 06/16/2312/14 sertraline 100 mg tablet 100 mg PO DAILY 06/16/2310/08 topiramate 100 mg tablet 100 mg PO BID 06/16/2312/25 hydroxyzine HCl 25 mg tablet 25 mg PO QID 07/11/2310/08 trazodone 100 mg tablet 200 mg PO BEDTIME 12/26/23 0 12/26/23 hydrochlorothiazide 12.5 mg tablet 12.5 mg PO DAILY Previous Rx's ?Medication ?Instructions ?Recorded albuterol sulfate 90 mcg/actuation 2 puff inhalation Q 6H PRN 10/21/21 aerosol inhaler shortness of breath or wheez ing #6.7 grams fenofibrate 54 mg tablet 54 mg PO DAILY #90 tabs 03/08 metoprolol tartrate 25 mg tablet 12.5 mg (1/2 x 25 mg) PO BID 90 10/20/23 days #90 tabs methocarbamol 500 mg tablet 500 mg PO BEDTIME 30 days #30 tabs 11/14/23 ondansetron 4 mg disintegrating 4 mg PO Q8H PRN nausea and 05/26/24 tablet vomiting #10 tabs lidocaine 4 % topical cream 1 appl topical BID PRN meliton n #15 05/28/24 grams oxycodone 5 mg tablet 5 mg PO Q6H PRN pain #10 tab s 06/03/24 potassium chloride 20 mEq 20 meq PO BID #10 tabs 06/03 tablet,extended release blood pressure monitor (Blood #1 ea 06/05/24 Pressure Kit) atorvastatin 40 mg tablet 40 mg PO BEDTIME #90 tabs pregabalin 75 mg capsule 75 mg PO BID 30 days #60 cap s 06/06/24 tizanidine 2 mg tablet 2 mg PO BID PRN muscle spast icity 06/07/24 10 days #20 tabs omeprazole 20 mg capsule,delayed 20 mg PO BID 90 days #180 caps 10/07/24 release oxycodone-acetaminophen 5 mg-325 1 tab PO TID PRN pain 3 days #9 12/06/24 mg tablet (Percocet) tabs ondansetron 4 mg disintegrating 4 mg PO Q8H PRN nausea and 04/17/25 tablet vomiting #20 tabs sucralfate 100 mg/mL oral 10 ml PO BID 10 days #200 mL 04/17/25 suspension (Carafate) Allergies Allergy/AdvReac Type Severity Reaction Status Date / Time ibuprofen (From Motrin) Allergy Intermediate Shortness Verified 04/16/25 21:02 of Breath lamotrigine (From Lamictal) Allergy Intermediate Rash Verified 04/16/25 21:02 milnacipran (From Savella) Allergy Intermediate Itching Verified 04/16/25 21:02 aspirin (Aspirin) Allergy Mild DYSPNEA Verified 04/16/25 21:02 levofloxacin (From Levaquin) Allergy Mild Rash Verified 04/16/25 21:02 lithium ([place]) Allergy Mild TREMORS Verified 04/16/25 21:02 morphine (MORPHINE) Allergy Mild NAUSEA/VOMI Verified 04/16/25 21:02 TING fluoxetine (From Prozac) Allergy Unknown Unknown Verified 04/16/25 21:02 seafood Allergy Unknown Unknown Verified 04/16/25 21:02 dicyclomine (From Bentyl) Allergy Unknown Verified 04/16/25 21:02 carbamazepine (From Tegretol) AdvReac Intermediate Fatigued Verified 04/16/25 21:02 zolpidem (From Ambien) AdvReac Intermediate Itching Verified 04/16/25 21:02 Review of Systems Review of Systems Constitutional : No Weight loss, No Fever, No Chills ENT/Mouth : No sore throat, No Rhinorrhea Eyes: No Swelling, No Redness Cardiovascular : No Chest Pain, No SOB, NoEdema Respiratory : No Cough, No Sputum, No Wheezing Gastrointestinal : Positive Nausea, no Vomiting, positive Diarrhea, positive abdominal Pain, No Hematochezia, pos Melena Genitourinary : No Dysuria, No Urinary Frequency, No Hematuria, No Urgency Musculoskeletal : No joint pain, No Myalgias, No Joint Swelling Skin : No Skin Lesions, No rash Neuro : No Weakness, No Numbness, No Dizziness, No Headache All other systems reviewed and are negative. COUNT INCLUDES THE [facility] Past Medical History Attestation statement: The following information was validated with the patient. Source: old records reviewed Medical History Syncope Shortness of breath on exertion Effusion, left knee Left knee pain GERD (gastroesophageal reflux disease) Hypertension Hyperlipidemia Depression Surgical History Status post cardiac catheterization S/P ACL repair History of hysterectomy (~1999) History of spinal surgery (~12/2013) History of colectomy (~06/01/11) Family History Family History Father No problems noted. Mother No problems noted. Social History Social History Unable to assess alcohol history related to: Unknown Alcohol intake: current Alcohol intake frequency: a few times a month Alcohol type: beer Patient Tobacco Use Status: Current everyday Tobacco user Tobacco use type: Cigarette Cigarettes Per Day: 10 Years Smoked: since 10 years old but quit few times in between Smoked in Last 30 Days: Yes e-Cigarette/Vaping Use: Never Used Use of substances other than those prescribed or required for medical reasons: Yes Substance Use Type: Crack/Cocaine Substance Use Frequency: Occasionally Substance Use Frequency Other:: 3 Last Used Substance: Days (ago) Any prior treatment program specific to substance use: No Advance Directives: No Advance Directives Information Provided: No Do you have a plan to hurt others: No Plan Current occupational status: employed Current occupation: [employer] Physical Exam ED Vital Signs: Vital Signs - 24 hr 04/16/25 20:55 04/16/25 20:59 04/16/25 23:32 Temperature 98.1 F 98.1 F 98.2 F Pulse Rate 65 65 59 Respiratory Rate 18 20 20 Blood Pressure 113/63 113/63 125/66 Pulse Oximetry 96 96 97 Oxygen Delivery Method Room Air Room Air Room Air BMI result Body Mass Index 26.5 Appearance: Alert. Oriented X3. No acute distress. Eyes: Pupils equal, round and reactive to light. ENT: Pharynx normal. Neck: Normal inspection. Neck supple. CVS: Normal heart rate and rhythm. Pulses normal. Respiratory: No respiratory distress. Breath sounds normal. Abdomen: Soft and mild epigastric pain no rebound Rectal: light brown stool Skin: Skin warm and dry. Normal skin color. Normal skin turgor. Extremities: No lower extremity edema. No calf ttp Neuro: Oriented X 3. No motor deficit. No sensory deficit. CN2-12 intact Course Course Course Narrative: patient now states that her pain is worse despite medications - she told RN she used cocaine a few days ago. Her labs and guiac are normal - I am going to obtain EKG and troponin, she has no leg swelling or risk factors for DVT her wells score for PE is 0. Patient appears anxious states she has hx of this. I am going to try GI cocktail to see if this helps. Reevaluation(s) Reevaluation #1: clinically she has no lower abdominal pain so colitis seems less likely her pain is all upper abdominal area Medical Decision Making Medical Decision Making MDM Narrative: 60 yo female with PMH of GERD, HLD, depression, HTN, on 40mg daily of omeprazole daily, hx of colonoscopy several years ago with perforation and ex lap now with abdominal pain, nausea, watery black stools but did take pepto bismol. She is not on thinners ,NSAIDs, or aspirin. She will need labs, rectal exam for occult blood, CT scan for pancreatitis, SBO, mass. Differential Diagnosis Differential Diagnoses: The differential diagnosis associated with the presentation includes gastritis, PUD, h. pylori, pancreatitis, diverticular disease Admission/Observation Consideration of admission/observation: Escalation of care including admission/observation considered work up with 1 month of symptoms reassuring colitis does not make sense no diarrhea here suspect underdistention will start on carafate and refer to GI Lab Data MDM Lab Attestation statement: I reviewed the patient's lab results. H/H stable, BUN normal neg guiac doubt GIB 04/16/25 21:16 04/16/25 21:16 Labs: Lab Results 04/16/25 04/16/25 Range/Units 21:16 21:58 WBC 8.3 (4.8-10.8) X10*3/uL RBC 3.94 L (4.20-5.50) X10*6/uL Hgb 11.5 L (12.0-16.0) g/dl Hct 34.1 L (37.0-47.0) % MCV 86.5 (80.0-98.0) fL MCH 29.2 (27.0-33.0) pg MCHC 33.7 (31.0-35.0) g/dl RDW 14.3 (11.0-16.0) % Plt Count 313 (160-400) X10*3/uL MPV 9.4 (9.4-12.3) fL Immature Gran % (Auto) 0.2 (0.0-0.4) % Neut % (Auto) 48.4 (45-73) % Lymph % (Auto) 37.1 (20-40) % Boyd % (Auto) 8.8 (2-11) % Eos % (Auto) 4.8 H (0-4) % Baso % (Auto) 0.7 (0-2) % Lymph # (Auto) 3.1 (1.2-4.9) X10*3/uL Boyd # (Auto) 0.7 (0.1-1.2) X10*3/uL Eos # (Auto) 0.4 (0.0-0.4) X10*3/uL Baso # (Auto) 0.1 (0.0-0.2) X10*3/uL Abs Immat Gran (auto) 0.02 (0.00-0.03) X10*3/uL Absolute Neuts (auto) 4.0 (2.0-8.3) x10*3/uL Absolute Nucleated RBC 0.000 (0.0-0.012) X10*3/uL Nucleated RBC % (auto) 0.0 (0.0-0.2) /100WBC Sodium 138 (135-145) mmol/L Potassium 3.3 (3.3-5.1) mmol/L Chloride 110 H (96-108) mmol/L Carbon Dioxide 22 (22-29) mmol/L Anion Gap 9 L (12-20) BUN 10 (9-16) mg/dL Creatinine 0.55 (0.5-1.4) mg/dL Estim Creat Clear Calc 97.9 Estimated GFR > 60 Random Glucose 99 (60-115) mg/dL Calcium 9.0 (8.4-10.2) mg/dL Magnesium 1.9 (1.6-2.6) mg/dL Total Bilirubin 0.2 (0.0-1.0) mg/dL Direct Bilirubin < 0.2 (0.0-0.5) mg/dL AST 23 (5-31) U/L ALT 18 (0-31) U/L Alkaline Phosphatase 53 (39-117) U/L Troponin I High Sens < 2.7 (<3.5-17.0) ng/L Total Protein 6.4 L (6.5-8.0) g/dL Albumin 4.1 (3.5-5.0) g/dL Lipase 22 (8-78) U/L Urine Color Yellow Urine Appearance Clear Urine pH 6.5 (5.0-9.0) Ur Specific Speed <= 1.005 (1.005-1.025) Urine Protein Negative (Neg-Trace) mg/dL Urine Glucose (UA) Negative (Negative) mg/dL Urine Ketones Negative (Negative) mg/dL Urine Blood Negative (Negative) Urine Nitrite Negative (Negative) Ur Leukocyte Esterase Negative (Negative) Stool Occult Blood NEGATIVE (NEGATIVE) Independent Interpretation I performed an independent interpretation of an: EKG and CT Scan (no signs of abnormality to correlate with her symptoms) Interpretation: Rate: 56 Rhythm: sinus bradycardia [place]: normal Normal P waves. Normal ANJELICA. Normal QRS complex. ST T wave : inverted t wave V1 otherwise normal qTC: 430 prior studies: no acute ischemia The study has been interpreted contemporaneously by me. . Radiology Impression Discussion of test interpretation with radiology: I have reviewed the radiologist's reading. External Record Review External record reviewed: Outpatient record Prescription Management I considered prescription management with: Other Medications Administered Discontinued Medications Generic Name Dose Route Start Last Admin Trade Name Emily PRN Reason Stop Dose Admin Al Hydroxide/Mg Hydroxide 15 ml 04/16/25 23:07 04/16/25 23:33 Magnesium Hydrox/Alum Hydrox 30 Ml Oral.Susp PO 04/16/25 23:08 15 ml ONCE ONE Administration Diazepam 2.5 mg 04/16/25 22:35 04/16/25 22:41 Diazepam 10 Mg/2 Ml Cartridge IVPUSH 04/16/25 22:36 2.5 mg STAT STA Administration Hydromorphone HCl 0.5 mg 04/16/25 21:52 04/16/25 22:12 Hydromorphone Hcl 0.5 Mg/0.5 Ml Syringe IVPUSH 04/16/25 21:53 0.5 mg ONCE ONE Administration Protocol Lactated Ringer's 1,000 mls @ 999 mls/hr 04/16/25 21:30 04/16/25 23:03 Lr IV 04/16/25 22:30 Infused .Q1H1M ONE Infusion Iohexol 85 ml 04/16/25 22:14 04/16/25 22:15 Iohexol 350 Mg/Ml 100 Ml Infus..Btl IV 04/16/25 22:15 85 ml ONCE ONE Administration Lidocaine HCl 15 ml 04/16/25 23:07 04/16/25 23:33 Lidocaine Hcl Viscous 2 % 15 Ml Solution MUCOUS MEM 04/16/25 23:08 15 ml ONCE ONE Administration Ondansetron HCl 4 mg 04/16/25 21:30 04/16/25 21:50 Ondansetron Hcl 4 Mg/2 Ml Vial IVPUSH 04/16/25 21:31 4 mg ONCE ONE Administration Pantoprazole Sodium 40 mg 04/16/25 21:30 04/16/25 21:50 Pantoprazole Sodium 40 Mg/10 Ml Vial IVPUSH 04/16/25 21:31 40 mg ONCE ONE Administration Discharge Plan Discharge Clinical Impression: Abdominal pain Qualifiers: Abdominal location: epigastric Qualified Code(s): R10.13 - Epigastric pain Gastritis Qualifiers: Gastritis type: unspecified gastritis Chronicity: acute Gastritis bleeding: w ithout bleeding Qualified Code(s): K29.00 - Acute gastritis without bleeding Patient Disposition: Home, Self-Care Instructions: Gastritis (ED), Abdominal Pain (ED) Additional Instructions: your blood counts are normal you kidney function, liver and pancreas are reassuring your CT scan shows no acute findings in the upper abdomen. There was no blood in your stool - pepto bismol can cause stools to be black continue your omeprazole and start carafate x 10 days eat a bland diet follow up with your doctor and a GI doctor return for bloody stools, bloody vomit, fevers or any other concerns. Findings: No consolidation or effusion. Cholecystectomy. Mild CBD dilatation with distal tapering likely reservoir effect from cholecystectomy. There is a small accessory splenule. Liver, pancreas, and adrenal glands are within normal limits. No hydronephrosis. Symmetric contrast enhancement of the kidneys. No bowel obstruction, pneumatosis or pneumoperitoneum. Partial colonic resection.Colonic diverticulosis. Underdistention versus mild wall thickening of the descending and sigmoid colon. Ventral hernia mesh. Aortic atherosclerosis. No aneurysm. Hysterectomy. Urinary bladder is within normal limits. Posterior lumbar fusion from L4 through S1. No acute fracture. IMPRESSION: Mild colitis versus underdistention of the descending and sigmoid colon. Based off your labs and history this is underdistention and not colitis Prescriptions: New sucralfate [Carafate] 100 mg/mL suspension 10 ml PO BID 10 Days Qty: 200 0RF ondansetron 4 mg tablet,disintegrating 4 mg PO Q8H PRN (Reason: nausea and vomiting) Qty: 20 0RF No Action metoprolol tartrate 25 mg tablet 12.5 mg PO BID 90 Days Qty: 90 1RF fenofibrate 54 mg tablet 54 mg PO DAILY Qty: 90 1RF methocarbamol 500 mg tablet 500 mg PO BEDTIME 30 Days Qty: 30 0RF ondansetron 4 mg tablet,disintegrating 4 mg PO Q8H PRN (Reason: nausea and vomiting) Qty: 10 0RF pregabalin 75 mg capsule 75 mg PO BID 30 Days Qty: 60 0RF atorvastatin 40 mg tablet 40 mg PO BEDTIME Qty: 90 1RF tizanidine 2 mg tablet 2 mg PO BID PRN (Reason: muscle spasticity) 10 Days Qty: 20 0RF Rx Instructions: Not to be taken with methocarbamol omeprazole 20 mg capsule,delayed release(DR/EC) 20 mg PO BID 90 Days Qty: 180 0RF albuterol sulfate 90 mcg/actuation HFA aerosol inhaler 2 puff inhalation Q6H PRN (Reason: shortness of breath or wheezing) Qty: 6.7 0RF sertraline 100 mg tablet 100 mg PO DAILY topiramate 100 mg tablet 100 mg PO BID lurasidone 80 mg tablet 80 mg PO DAILY trazodone 100 mg tablet 200 mg PO BEDTIME oxycodone-acetaminophen [Percocet] 5-325 mg tablet 1 tab PO TID PRN (Reason: pain) 3 Days Qty: 9 0RF Rx Instructions: Partial Fill upon patient request. lidocaine 4 % cream 1 appl topical BID PRN (Reason: pain) Qty: 15 0RF oxycodone 5 mg tablet 5 mg PO Q6H PRN (Reason: pain) Qty: 10 0RF Rx Instructions: Partial Fill upon patient request. potassium chloride 20 mEq tablet extended release 20 meq PO BID Qty: 10 0RF hydroxyzine HCl 25 mg tablet 25 mg PO QID hydrochlorothiazide 12.5 mg tablet 12.5 mg PO DAILY (DME) blood pressure monitor [Blood Pressure Kit] Kit See Rx Instructions .ROUTE .MEDSUPPLY Qty: 1 0RF Rx Instructions: As directed Referrals: [facility] – [place] [facility] [Provider Group, Gastroenterology] Referral Note: call to schedule Print Language: Telugu
[2025-04-16 21:40] LABS: Alanine Aminotransferase 18 U/L (0-31); Albumin Level 4.1 g/dL (3.5-5.0); Alkaline Phosphatase 53 U/L (39-117); Anion Gap 9 (12-20); Aspartate Amino Transferase 23 U/L (5-31); Blood Urea Nitrogen 10 mg/dL (9-16); Calcium 9.0 mg/dL (8.4-10.2); Carbon Dioxide 22 mmol/L (22-29); Chloride 110 mmol/L (96-108); Creatinine Clr Calc Pharmacy 97.9; Estimated Glomerular Filt Rate > 60; Lipase 22 U/L (8-78); Magnesium 1.9 mg/dL (1.6-2.6); Potassium 3.3 mmol/L (3.3-5.1); Sodium 138 mmol/L (135-145); Total Protein 6.4 g/dL (6.5-8.0)
[2025-04-16] MEDS: Lactated Ringers 1,000 ML 999 ML IV (21:50)
[2025-04-16 22:10] LABS: OBS Int Ctl Valid YES; OBS1 NEGATIVE (NEGATIVE)
[2025-04-16] MEDS: iohexoL 350 MG/ML 100 ML INFUS..BTL 85 ML IV (22:15)
[2025-04-16] MEDS: diazePAM 10 MG/2 ML CARTRIDGE 2.5 MG IVPUSH (22:41)
--- NOTE | 2025-04-16 23:00 | ECG_ITS ---
Test Reason : ABDOMINAL PAIN Blood Pressure : */* mmHG Vent. Rate : 56 BPM Atrial Rate : 56 BPM P-R Int : 160 ms QRS Dur : 86 ms QT Int : 446 ms P-R-T Axes : 66 61 61 degrees QTcB Int : 430 ms Sinus bradycardia Otherwise normal ECG When compared with ECG of 02-Sep-2024 15:06, Vent. rate has decreased by 27 bpm Referred By: Iram Valadez Electronically Signed By: PARUL MOSS MD
[2025-04-16 23:26] LABS: Troponin-I High Sensitivity < 2.7 ng/L (<3.5-17.0)
[2025-04-16 23:32] VITALS: BP 125/66; PULSE 59; RESP 20; TEMP 36.8; O2SAT 97
[2025-04-16] MEDS: Magnesium Hydrox/Alum Hydrox 30 ML ORAL.SUSP 15 ML PO (23:33)
[2025-04-16] MEDS: Lidocaine HCl Viscous 2 % 15 ML SOLUTION MUCOUS MEM (23:33)
--- NOTE | 2025-04-16 23:36 | PC.NURSE ---
pt is requesting more valium states she needs something to get the edge off. pt states she hasnt been able to sleep for months then states she takes trazodone at home which knocks me out for the night. made aware. pt medicated per dec. appears comfortable resting watching tv. call lacey within reach.
[2025-04-17 00:35] VITALS: BP 125/66; PULSE 59; RESP 20; TEMP 36.8; O2SAT 97
== END 2025-04-17 00:38 | disposition home or self-care (01) ==
PROVIDERS: Emergency Provider Emergency Medicine
DX: K29.00 Acute gastritis without bleeding (principal); R10.13 Epigastric pain; F17.210 Nicotine dependence, cigarettes, uncomplicated
CPT/HCPCS: 36415; 74177; 80048; 80076; 81003; 82272; 83690; 83735; 84484; 85025; 93005; 96361; 96374; 96375; 99284; 99285; J1171; J2405; J2470; J3360; J7120; Q9967

== ENCOUNTER → 2025-04-16 21:30 | Outpatient (BNV) | payer OTHER, SELFPAY | PROVIDERS: Emergency Provider Emergency Medicine; Visit Provider Radiology Diagnostic Radiology | DX: R10.9 Unspecified abdominal pain (principal); R63.0 Anorexia; R11.0 Nausea | CPT/HCPCS: 74177 ==

== ENCOUNTER → 2025-04-16 23:00 | Outpatient (BNV) | payer OTHER, SELFPAY | PROVIDERS: Emergency Provider Emergency Medicine; Visit Provider Internal Medicine Cardiovascular Disease | DX: R00.1 Bradycardia, unspecified (principal) | CPT/HCPCS: 93010 ==

== ENCOUNTER 2025-04-18 17:04 | Inpatient (IN) | payer MEDICARE, SELFPAY ==
--- NOTE | ~2025-04-18 | CT_ITS ---
CLINICAL HISTORY: intractable abd pain. seafood allergy CT abdomen and pelvis with contrast Comparison: CT/SR - CT ABDOMEN PELVIS W IV CON - 04/16/25 22:02 EDT Findings: No consolidation or effusion. There is new mild intrahepatic biliary ductal dilatation, the common bile duct measures 13 mm. Previously the common bile duct measured 11 mm. There is a possible 4 mm filling defect in the inferior most portion of the common bile duct, series 3, image 30. The gallbladder is absent. The spleen, adrenal glands, kidneys and pancreas are normal. No bowel obstruction, pneumoperitoneum, or pneumatosis. No bowel wall thickening. Previously seen questionable area of underdistention of the descending colon and sigmoid colon is normal now without any evidence of bowel wall thickening. There is moderate fecal loading in the distal colon. There are a few scattered colonic diverticula without evidence of diverticulitis. There is a anterior abdominal wall hernia mesh. The abdominal aorta is normal caliber. Appendix not visualized. Previous fusion of L4 through S1. The right-sided transpedicular screw at L4 projects into the disc space. IMPRESSION: New mild intrahepatic biliary ductal dilatation and increased dilatation of the common bile duct with possible filling defect seen in the inferior common bile duct raising concern for choledocholithiasis. Consider evaluation with MRCP for further evaluation. No evidence of colitis. This document has been electronically signed by: Francisco Covarrubias MD on 04/19/2025 01:47:33
--- NOTE | ~2025-04-18 | MR_ITS ---
CLINICAL HISTORY: rule out cbd stone as seen on ct MR of the abdomen without contrast. MRCP sequences were performed. COMPARISON: CT abdomen and pelvis dated 04/19/25 at 00:58 EDT FINDINGS: Minimal atelectasis along the lung bases. No focal hepatic lesion. Uniform splenic signal. Uniform pancreatic signal. Pancreatic duct is not dilated. No pancreatic mass identified. Normal adrenal glands. Symmetric renal size. No hydronephrosis. Visualized portions of the bowel in the abdomen are unremarkable. Gallbladder is absent. Mild intrahepatic biliary ductal dilatation. Common bile duct is dilated measuring up to 1.2 cm in the pancreatic head. No choledocholithiasis identified. Visualized portions of the bones are unremarkable. IMPRESSION: 1. Dilatation of the common bile duct with mild intrahepatic biliary ductal dilatation. No choledocholithiasis or pancreatic head mass. Pancreatic duct is not dilated. This document has been electronically signed by: Oziel Astorga MD on 04/19/2025 12:59:29
[2025-04-18 17:08] VITALS: BP 110/70; PULSE 90; O2SAT 99
[2025-04-18 17:13] VITALS: BP 98/58; PULSE 76; RESP 16; TEMP 36.6; O2SAT 96; BMI 27.1
--- NOTE | 2025-04-18 17:27 | ECG_ITS ---
Test Reason : EPIGASTRIC PAIN Blood Pressure : */* mmHG Vent. Rate : 68 BPM Atrial Rate : 68 BPM P-R Int : 150 ms QRS Dur : 76 ms QT Int : 396 ms P-R-T Axes : 41 42 54 degrees QTcB Int : 421 ms Normal sinus rhythm Possible Left atrial enlargement Septal infarct , age undetermined Abnormal ECG When compared with ECG of 16-Apr-2025 23:32, No significant change was found Referred By: Kanika Lee Electronically Signed By: PARUL MOSS MD
[2025-04-18 17:55] LABS: MANUAL DIFF FLAG NO
[2025-04-18 17:56] LABS: Hematocrit 35.2 % (37.0-47.0); Hemoglobin 11.7 g/dl (12.0-16.0); Imm Gran Abs Auto 0.02 X10*3/uL (0.00-0.03); Imm Gran Pct Auto 0.2 % (0.0-0.4); Lymphocytes Absolute Auto 2.7 X10*3/uL (1.2-4.9); Mean Corpuscular HGB Conc 33.2 g/dl (31.0-35.0); Mean Corpuscular Hemoglobin 28.7 pg (27.0-33.0); Mean Corpuscular Volume 86.3 fL (80.0-98.0); NRBC Abs Auto 0.000 X10*3/uL (0.0-0.012); NRBC Pct Auto 0.0 /100WBC (0.0-0.2); Platelet Count 316 X10*3/uL (160-400); Red Blood Count 4.08 X10*6/uL (4.20-5.50); White Blood Count 9.0 X10*3/uL (4.8-10.8)
--- NOTE | 2025-04-18 18:04 | ED.ABDPAIN ---
HPI - Abdominal Pain General Chief Complaint: Abdominal Pain Stated Complaint: 07/25 pain abd pain bilaterally Time Seen by Provider: 04/18/25 18:03 Source: patient Mode of arrival: EMS Limitations: no limitations History of Present Illness ED Provider: Rory AVENDAÑO HPI narrative: The patient is a 60-year-old female with a history of GERD, hyperlipidemia, depression, hypertension, colonoscopy complicated by perforation with subsequent ex lap and resection in 2010, and cholecystectomy in 2013, on 40mg daily of omeprazole daily, presenting 2nd time this week for evaluation of 1 month of bilateral upper abdominal pain increasing over the past week with associated postprandial nausea and vomiting. The patient was seen on 04/16 at this facility, was evaluated with laboratory workup, urinalysis, guaiac, and CT of the abdomen. The patient's symptoms were treated with Dilaudid, Valium, GI cocktail, Carafate, and Zofran. The patient's CT showed evidence of colitis versus underdistention, patient had no leukocytosis concerning for bacterial colitis, patient was discharged home with Carafate in addition to her prescribed omeprazole and instructions to follow up with GI on Monday. Of note the patient admitted to staff during previous visit that she had abused crack cocaine 2 days prior to her ED visit, patient has also an active smoker, smokes 1/2 pack per day. The patient reports since returning home she has had persistent pain, did not eat anything yesterday, but did tolerate p.o. fluids. The patient reports today she attempted to eat rice Krispies with milk and subsequently vomited. The patient denies associated fever/chills, hematemesis, hematochezia, dysuria, hematuria, recent sick contacts, or recent trauma. The patient reports she did not obtain the Carafate from the pharmacy as she states she can not afford the medication. Patient states she does not know how much the co-pay is. The patient returns to the ED requesting additional pain management, nausea management, and requesting an upper endoscopy be performed as she is concern for peptic ulcer disease based on her internet research of her symptoms. Related Data Home Medications ?Medication ?Instructions ?Recorded ?Confirmed lurasidone 80 mg tablet 80 mg PO DAILY 06/16/23 12/26/23 sertraline 100 mg tablet 100 mg PO DAILY 06/16/23 12/26/23 topiramate 100 mg tablet 100 mg PO BID 06/16/23 12/26/23 hydroxyzine HCl 25 mg tablet 25 mg PO QID 07/11/23 12/26/23 trazodone 100 mg tablet 200 mg PO BEDTIME 12/26/23 12/26/23 hydrochlorothiazide 12.5 mg tablet 12.5 mg PO DAILY 06/05/24 Previous Rx's ?Medication ?Instructions ?Recorded albuterol sulfate 90 mcg/actuation 2 puff inhalation Q6H PRN 10/21/21 aerosol inhaler shortness of breath or wheezing #6.7 grams fenofibrate 54 mg tablet 54 mg PO DAILY #90 tabs 10/20/23 metoprolol tartrate 25 mg tablet 12.5 mg (1/2 x 25 mg) PO BID 90 10/20/23 days #90 tabs methocarbamol 500 mg tablet 500 mg PO BEDTIME 30 days #30 tabs 11/14/23 ondansetron 4 mg disintegrating 4 mg PO Q8H PRN nausea and 05/26/24 tablet vomiting #10 tabs lidocaine 4 % topical cream 1 appl topical BID PRN pain #15 05/28/24 grams oxycodone 5 mg tablet 5 mg PO Q6H PRN pain #10 tabs 06/03/24 potassium chloride 20 mEq 20 meq PO BID #10 tabs 06/03/24 tablet,extended release blood pressure monitor (Blood #1 ea 06/05/24 Pressure Kit) atorvastatin 40 mg tablet 40 mg PO BEDTIME #90 tabs 06/06/24 pregabalin 75 mg capsule 75 mg PO BID 30 days #60 caps 06/06/24 tizanidine 2 mg tablet 2 mg PO BID PRN muscle spasticity 06/07/24 10 days #20 tabs omeprazole 20 mg capsule,delayed 20 mg PO BID 90 days #180 caps 10/07/24 release oxycodone-acetaminophen 5 mg-325 1 tab PO TID PRN pain 3 days #9 12/06/24 mg tablet (Percocet) tabs ondansetron 4 mg disintegrating 4 mg PO Q8H PRN nausea and 04/17/25 tablet vomiting #20 tabs sucralfate 100 mg/mL oral 10 ml PO BID 10 days #200 mL 04/17/25 suspension (Carafate) Allergies Allergy/AdvReac Type Severity Reaction Status Date / Time [facility] Allergy Intermediate Shortness Verified 04/18/25 18:06 of Breath lamotrigine (From Lamictal) Allergy Intermediate Rash Verified 04/18/25 18:06 milnacipran (From [place]) Allergy Intermediate Itching Verified 04/18/25 18:06 aspirin (Aspirin) Allergy Mild DYSPNEA Verified 04/18/25 18:06 levofloxacin (From Levaquin) Allergy Mild Rash Verified 04/18/25 18:06 lithium ([place]) Allergy Mild TREMORS Verified 04/18/25 18:06 morphine (MORPHINE) Allergy Mild NAUSEA/VOMI Verified 04/18/25 18:06 TING fluoxetine (From Prozac) Allergy Unknown Unknown Verified 04/18/25 18:06 seafood Allergy Unknown Unknown Verified 04/18/25 18:06 dicyclomine (From Bentyl) Allergy Unknown Verified 04/18/25 18:06 carbamazepine (From Tegretol) AdvReac Intermediate Fatigued Verified 04/18/25 18:06 zolpidem (From Ambien) AdvReac Intermediate Itching Verified 04/18/25 18:06 Review of Systems Review of Systems Yes all other systems are reviewed and are negative PMFSH Past Medical History Medical History Syncope Shortness of breath on exertion Effusion, left knee Left knee pain GERD (gastroesophageal reflux disease) Hypertension Hyperlipidemia Depression Surgical History Status post cardiac catheterization S/P ACL repair History of hysterectomy (~1999) History of spinal surgery (~12/2013) History of colectomy (~06/01/11) Family History Family History Father No problems noted. Mother No problems noted. Social History Social History Unable to assess alcohol history related to: Unknown Alcohol intake: current Alcohol intake frequency: holidays/special occasions only Alcohol type: beer Patient Tobacco Use Status: Current everyday Tobacco user Tobacco use type: Cigarette Cigarettes Per Day: 10 Years Smoked: since 10 years old but quit few times in between Smoked in Last 30 Days: Yes e-Cigarette/Vaping Use: Never Used Use of substances other than those prescribed or required for medical reasons: Yes Substance Use Type: Crack/Cocaine Substance Use Frequency: Occasionally Advance Directives: No Advance Directives Information Provided: No Current occupational status: employed Current occupation: [employer] Physical Exam ED Vital Signs: Vital Signs - 24 hr 04/18/25 17:13 04/18/25 19:11 04/18/25 20:02 Temperature 97.8 F 98.0 F Pulse Rate 76 59 62 Respiratory Rate 16 16 Blood Pressure 98/58 L 91/50 L 97/50 L Pulse Oximetry 96 96 Oxygen Delivery Method Room Air Room Air 04/18/25 22:34 Temperature 97.5 F Pulse Rate 64 Respiratory Rate 14 Blood Pressure 128/71 Pulse Oximetry 96 Oxygen Delivery Method Room Air BMI result Body Mass Index 27.1 CONSTITUTIONAL: The patient appears non-toxic, well nourished and in no acute distress. Vital signs as documented. HEAD: Atraumatic, normocephalic. EYES: EOMs grossly intact, pupils equal, conjunctiva clear, no exudate. ENT: Nares patent, no discharge. Airway patent, no audible stridor, visible mucosa is pink and moist without noted lesions. NECK: Trachea is midline, no obvious masses or gross abnormalities. CHEST: Symmetric movement, normal appearance. LUNGS: LS present and CTAB, no w/r/r. Non-labored work of breathing. CARDIAC: Regular Rhythm, S1/S2 appreciated, no murmurs, rubs or gallops. ABDOMEN: Abdomen soft x4 quadrants, positive tenderness to palpation of the bilateral upper quadrants, negative rebound, negative Thomason's, no palpable masses or organomegaly. : Deferred. EXTREMITIES: Normal tone, moves all extremities spontaneously without reported pain. No obvious acute injury or deformity noted. NEURO: Alert and oriented x3, CN II-XII appear grossly intact. Cerebellar Functioning grossly intact. No obvious sensory or motor deficits. Speech clear and appropriate. PSYCH: normal affect, appropriate eye contact, fluid speech, with appropriate response to questioning. No reported suicidality or homicidality. SKIN: Warm, dry, color appropriate, normal turgor. No rashes noted. Medical Decision Making Medical Decision Making MDM Narrative: 6:58 PM 04/18/2025 (Jv AVENDAÑO): The patient is a 60-year-old female presenting to the ED for repeat evaluation of upper abdominal pain with associated postprandial nausea and vomiting which has been occurring over the past month but increased over the past week. Patient was seen here on 04/16 for evaluation of the same complaint, at that time CT was unremarkable, laboratory evaluation and urinalysis was reassuring, and patient was discharged with Carafate which she has not yet filled. The patient in the ED today is in no acute distress, abdominal exam reveals bilateral upper quadrant tenderness without rebound or Thomason's. The patient's laboratory evaluation thus far is reassuring, no leukocytosis, significant anemia, electrolyte abnormality, LFT abnormality, elevated lipase, or KATHY. Troponin is negative. The patient is urinalysis shows no evidence of infection. Patient reports symptoms improved during previous visit after pain meds , Valium, and GI cocktail, but returned the next day. Patient will be treated with Zofran for nausea, IV fluids, and Tylenol, GI cocktail, Carafate, and Valium for pain. We will forego IV pain medication in an attempt to identify a oral medication cocktail which will relieve the patient's symptoms at home. 11:21 PM 04/18/2025 (Jv AVENDAÑO): Patient has been sleeping comfortably since treatment with Zofran, Valium, and GI medications. Patient however has now woken and advised that she is having no relief of her symptoms, states she has not feel safe going home with her level of pain. We will treat with additional Zofran, Dilaudid, and admit for intractable abdominal pain. Differential Diagnosis Differential Diagnoses: The differential diagnosis associated with the presentation includes Peptic ulcer disease, gastritis, GERD, colitis, SBO, Admission/Observation Consideration of admission/observation: Escalation of care including admission/observation considered Lab Data MDM Lab Attestation statement: I reviewed the patient's lab results. 04/18/25 17:48 04/18/25 17:48 Labs: Lab Results 04/18/25 04/18/25 Range/Units 17:48 18:19 WBC 9.0 (4.8-10.8) X10*3/uL RBC 4.08 L (4.20-5.50) X10*6/uL Hgb 11.7 L (12.0-16.0) g/dl Hct 35.2 L (37.0-47.0) % MCV 86.3 (80.0-98.0) fL MCH 28.7 (27.0-33.0) pg MCHC 33.2 (31.0-35.0) g/dl RDW 14.2 (11.0-16.0) % Plt Count 316 (160-400) X10*3/uL MPV 9.5 (9.4-12.3) fL Immature Gran % (Auto) 0.2 (0.0-0.4) % Neut % (Auto) 54.9 (45-73) % Lymph % (Auto) 30.2 (20-40) % [place] % (Auto) 8.2 (2-11) % Eos % (Auto) 5.9 H (0-4) % Baso % (Auto) 0.6 (0-2) % Lymph # (Auto) 2.7 (1.2-4.9) X10*3/uL [place] # (Auto) 0.7 (0.1-1.2) X10*3/uL Eos # (Auto) 0.5 H (0.0-0.4) X10*3/uL Baso # (Auto) 0.1 (0.0-0.2) X10*3/uL Abs Immat Gran (auto) 0.02 (0.00-0.03) X10*3/uL Absolute Neuts (auto) 5.0 (2.0-8.3) x10*3/uL Absolute Nucleated RBC 0.000 (0.0-0.012) X10*3/uL Nucleated RBC % (auto) 0.0 (0.0-0.2) /100WBC Sodium 142 (135-145) mmol/L Potassium 3.5 (3.3-5.1) mmol/L Chloride 110 H (96-108) mmol/L Carbon Dioxide 23 (22-29) mmol/L Anion Gap 13 (12-20) BUN 8 L (9-16) mg/dL Creatinine 0.57 (0.5-1.4) mg/dL Estim Creat Clear Calc 95.5 Estimated GFR > 60 Random Glucose 115 (60-115) mg/dL Calcium 9.1 (8.4-10.2) mg/dL Magnesium 2.1 (1.6-2.6) mg/dL Total Bilirubin 0.2 (0.0-1.0) mg/dL Direct Bilirubin < 0.2 (0.0-0.5) mg/dL AST 20 (5-31) U/L ALT 22 (0-31) U/L Alkaline Phosphatase 55 (39-117) U/L Troponin I High Sens < 2.7 (<3.5-17.0) ng/L Total Protein 6.8 (6.5-8.0) g/dL Albumin 4.4 (3.5-5.0) g/dL Lipase 18 (8-78) U/L Urine Color Yellow Urine Appearance Clear Urine pH 7.5 (5.0-9.0) Ur Specific [place] <= 1.005 (1.005-1.025) Urine Protein Negative (Neg-Trace) mg/dL Urine Glucose (UA) Negative (Negative) mg/dL Urine Ketones Negative (Negative) mg/dL Urine Blood Negative (Negative) Urine Nitrite Negative (Negative) Ur Leukocyte Esterase Negative (Negative) Independent Interpretation I performed an independent interpretation of an: EKG (EKG shows sinus rhythm with rate of 68, no evidence of acute ischemia, no ST elevation, no ectopy. QTC 421. Compared to previous on 04/16/2025 there are no acute morphology changes. ) External Record Review External record reviewed: Outpatient record, Prior outpatient labs and Prior outpatient radiology Medications Administered Discontinued Medications Generic Name Dose Route Start Last Admin Trade Name Freq PRN Reason Stop Dose Admin Acetaminophen 975 mg 04/18/25 18:47 04/18/25 19:17 Acetaminophen 325 Mg Tablet PO 04/18/25 18:48 975 mg ONCE ONE Administration Al Hydroxide/Mg Hydroxide 30 ml 04/18/25 18:47 04/18/25 19:17 Magnesium Hydrox/Alum Hydrox 30 Ml Oral.Susp PO 04/18/25 18:48 30 ml ONCE ONE Administration Diazepam 10 mg 04/18/25 18:47 04/18/25 20:01 Diazepam 10 Mg/2 Ml Cartridge IVPUSH 04/18/25 18:48 10 mg STAT STA Administration Famotidine 20 mg 04/18/25 18:47 04/18/25 19:17 Famotidine 20 Mg Tablet PO 04/18/25 18:48 20 mg ONCE ONE Administration Sodium Chloride 1,000 mls @ 999 mls/hr 04/18/25 19:00 04/18/25 20:56 Ns IV 04/18/25 20:00 Infused .Q1H1M ILDA Infusion Lidocaine HCl 15 ml 04/18/25 18:47 04/18/25 19:17 Lidocaine Hcl Viscous 2 % 15 Ml Solution PO 04/18/25 18:48 15 ml ONCE ONE Administration Ondansetron HCl 4 mg 04/18/25 18:47 04/18/25 19:17 Ondansetron Hcl 4 Mg/2 Ml Vial IVPUSH 04/18/25 18:48 4 mg ONCE ONE Administration Sucralfate 1 gm 04/18/25 18:49 04/18/25 19:17 Sucralfate 1 Gm Tablet PO 04/18/25 18:50 1 gm ONCE ONE Administration Discharge Plan Discharge Clinical Impression: Intractable generalized abdominal pain Patient Disposition: Admitted As Inpatient Print Language: Danish
[2025-04-18 18:11] LABS: Alanine Aminotransferase 22 U/L (0-31); Albumin Level 4.4 g/dL (3.5-5.0); Alkaline Phosphatase 55 U/L (39-117); Anion Gap 13 (12-20); Aspartate Amino Transferase 20 U/L (5-31); Blood Urea Nitrogen 8 mg/dL (9-16); Calcium 9.1 mg/dL (8.4-10.2); Carbon Dioxide 23 mmol/L (22-29); Chloride 110 mmol/L (96-108); Creatinine Clr Calc Pharmacy 95.5; Estimated Glomerular Filt Rate > 60; Lipase 18 U/L (8-78); Magnesium 2.1 mg/dL (1.6-2.6); Potassium 3.5 mmol/L (3.3-5.1); Sodium 142 mmol/L (135-145); Total Protein 6.8 g/dL (6.5-8.0)
[2025-04-18 18:18] LABS: Troponin-I High Sensitivity < 2.7 ng/L (<3.5-17.0)
[2025-04-18 18:26] LABS: Appearance Urine Clear; Glucose Urine UA Negative (Negative); PH 7.5 (5.0-9.0); Specific Gravity - Urine <= 1.005 (1.005-1.025)
[2025-04-18 19:11] VITALS: BP 91/50; PULSE 59; RESP 16; TEMP 36.7; O2SAT 96
[2025-04-18] MEDS: Magnesium Hydrox/Alum Hydrox 30 ML ORAL.SUSP PO (19:17)
[2025-04-18] MEDS: Lidocaine HCl Viscous 2 % 15 ML SOLUTION PO (19:17)
[2025-04-18] MEDS: diazePAM 10 MG/2 ML CARTRIDGE IVPUSH (20:01)
[2025-04-18 20:02] VITALS: BP 97/50; PULSE 62
[2025-04-18 22:34] VITALS: BP 128/71; PULSE 64; RESP 14; TEMP 36.4; O2SAT 96
--- NOTE | 2025-04-19 00:41 | PM.IMHP ---
History of Present Illness Date of Service: 04/18/25 Attending physician on admission: Moo Guerin Chief Complaint: Intractable abdominal pain Patient is a 60-year-old female with a past medical history significant for GERD, hypertension, hyperlipidemia, depression, history bowel resection and cholecystectomy, who presents to the ED again due to intractable abdominal pain. She was seen just 2 days ago with a workup conclusive for possible mild colitis, more suggestive of gastritis. The patient reports that she has not been able to eat for the past 2 days and continues to have nausea and vomiting without any blood. She also has reported diarrhea for the past 2 weeks without any blood in the stool. Diarrhea occurs about 4 times a day usually every time she urinates. She denies any recent antibiotics or travel. Abdominopelvic CT 2 days ago showed possible mild colitis in the descending/sigmoid colon versus underdistention. The patient is reporting 10/10 periumbilical abdominal pain radiating laterally to the left he had right. She denies any fever or chills. No urinary symptoms. Review of Systems Constitutional: Constitutional: Denies body ache(s), Denies chills, Denies fatigue, Denies fever(s) and Denies headache(s) Eyes: Eyes: Denies change in vision ENT: Denies headache(s), Denies nasal congestion and Denies sore throat Cardiovascular: Cardiovascular: Denies chest pain, Denies syncope, Denies rapid heart rate, Denies leg edema and Denies dyspnea Respiratory: Respiratory: Denies chest congestion, Denies cough, Denies dyspnea and Denies wheezing Gastrointestinal: Gastrointestinal: Reports as per HPI Genitourinary: Genitourinary: Denies difficulty voiding and Denies dysuria Musculoskeletal: Musculoskeletal: Denies myalgias Integumentary/Breasts: Skin/Breast: Denies rash Neurologic: Denies confusion, Denies syncope and Denies headache(s) Psychiatric: Psychiatric: Denies confusion Endocrine: Endocrine: Denies fatigue Hematologic/Lymphatic: Hematologic/Lymphatic: Denies easy bleeding and Denies easy bruising Allergic/Immunologic: Allergic/Immunologic: Denies wheezing [facility] Medical History Syncope Shortness of breath on exertion Effusion, left knee Left knee pain GERD (gastroesophageal reflux disease) Hypertension Hyperlipidemia Depression Functional capacity: independent ambulation Family History Father No problems noted. Mother No problems noted. Surgical History Status post cardiac catheterization S/P ACL repair History of hysterectomy (~1999) History of spinal surgery (~12/2013) History of colectomy (~06/01/11) Social History Unable to assess alcohol history related to: Unknown Alcohol intake: current Alcohol intake frequency: holidays/special occasions only Alcohol type: beer Patient Tobacco Use Status: Current everyday Tobacco user Tobacco use type: Cigarette Cigarettes Per Day: 10 Years Smoked: since 10 years old but quit few times in between e-Cigarette/Vaping Use: Never Used Substance Use Type: Crack/Cocaine Current occupational status: employed Current occupation: [employer] Narrative: Smokes 1/2 pack per day, social occasional alcohol, denies drug use however reported crack cocaine to other provider Meds Allergies Allergy/AdvReac Type Severity Reaction Status Date / Time ibuprofen (From Motrin) Allergy Intermediate Shortness Verified 04/18/25 18:06 of Breath lamotrigine (From Lamictal) Allergy Intermediate Rash Verified 04/18/25 18:06 milnacipran (From Savella) Allergy Intermediate Itching Verified 04/18/25 18:06 aspirin (Aspirin) Allergy Mild DYSPNEA Verified 04/18/25 18:06 levofloxacin (From Levaquin) Allergy Mild Rash Verified 04/18/25 18:06 lithium (Peck) Allergy Mild TREMORS Verified 04/18/25 18:06 morphine (MORPHINE) Allergy Mild NAUSEA/VOMI Verified 04/18/25 18:06 TING fluoxetine (From Prozac) Allergy Unknown Unknown Verified 04/18/25 18:06 seafood Allergy Unknown Unknown Verified 04/18/25 18:06 dicyclomine (From Bentyl) Allergy Unknown Verified 04/18/25 18:06 carbamazepine (From Tegretol) AdvReac Intermediate Fatigued Verified 04/18/25 18:06 zolpidem (From Ambien) AdvReac Intermediate Itching Verified 04/18/25 18:06 Active Medications: Current Medications Acetaminophen (Acetaminophen 325 Mg Tablet) 975 mg PO Q6H PRN PRN Reason: Pain, Mild 1-3,fever,headache Calcium Carbonate (Calcium Carbonate 750 Mg Tab.Chew) 750 mg PO Q4H PRN PRN Reason: Heartburn Ceftriaxone Sodium (Ceftriaxone Sodium 1 Gm Vial) 1 gm IVPUSH Q24H [facility] Hydromorphone HCl (Hydromorphone Hcl 0.5 Mg/0.5 Ml Syringe) 0.5 mg IVPUSH Q4H PRN; Protocol PRN Reason: Pain, Severe (Pain Scale 7-10) Sodium Chloride (Ns) 1,000 mls @ 80 mls/hr IVCONT .[id number] [facility] Last Admin: 04/18/25 23:54 Dose: 80 mls/hr Magnesium Hydroxide (Milk Of Magnesia 30 Ml Oral.Susp) 30 ml PO DAILY PRN PRN Reason: Constipation Melatonin (Melatonin 3 Mg Tablet) 6 mg PO BEDTIME PRN PRN Reason: Insomnia Metronidazole (Metronidazole 500 Mg Tablet) 500 mg PO Q8H [facility] Omeprazole (Omeprazole 20 Mg Capsule.Dr) 20 mg PO BID@0630,1630 [facility] Ondansetron HCl (Ondansetron Hcl 4 Mg/2 Ml Vial) 4 mg IVPUSH Q8H PRN PRN Reason: Nausea and Vomiting Oxycodone HCl (Oxycodone Hcl Immed Release 5 Mg Tablet) 5 mg PO Q6H PRN PRN Reason: Pain, Moderate(Pain Scale 4-6) Sodium Chloride (0.9 % Sodium Chloride Flush 3 Ml Syringe) 3 ml IVFLUSH QSHIFT [facility] Last Admin: 04/19/25 00:28 Dose: Not Given Sucralfate (Sucralfate 1 Gm Tablet) 1 gm PO QIDACHS [facility] Home Medications ?Medication ?Instructions ?Recorded ?Confirmed ?Last Taken ?Type lurasidone 80 mg tablet 80 mg PO DAILY 06/16/23 12/26/23 Unknown History sertraline 100 mg tablet 100 mg PO DAILY 06/16/23 12/26/23 Unknown History topiramate 100 mg tablet 100 mg PO BID 06/16/23 12/26/23 Unknown History hydroxyzine HCl 25 mg tablet 25 mg PO QID 07/11/23 12/26/23 Unknown History trazodone 100 mg tablet 200 mg PO BEDTIME 12/26/23 12/26/23 Unknown History hydrochlorothiazide 12.5 mg tablet 12.5 mg PO DAILY 06/05/24 Unknown History Physical Exam Vital Signs and Narrative: Vital Signs: Last Vital Signs Temp 97.5 F 04/18/25 22:34 Pulse 64 04/18/25 22:34 Resp 14 04/18/25 22:34 BP 128/71 04/18/25 22:34 Pulse Ox 96 04/18/25 22:34 O2 Del Method Room Air 04/18/25 22:34 BMI result Body Mass Index 27.1 General: AOx3, no acute distress Resp: CTA bilaterally CVS: S1, S2, RRR GI: +BS, tender throughout, mostly in the periumbilical region, no distention Skin: Warm, dry Neuro: Cranial nerves II-XII grossly intact bilaterally. Motor grossly intact bilaterally Extremities: No LE edema Psych: Appropriate affect Const: General: No confusion Orientation/consciousness: No confusion Neuro: General: No confusion Results Labs 04/18/25 17:48 04/18/25 17:48 Labs: Laboratory Results - last 24 hr 04/18/25 04/18/25 17:48 18:19 MCV 86.3 MCH 28.7 MCHC 33.2 RDW 14.2 Plt Count 316 MPV 9.5 Immature Gran % (Auto) 0.2 Neut % (Auto) 54.9 Lymph % (Auto) 30.2 [place] % (Auto) 8.2 Eos % (Auto) 5.9 H Baso % (Auto) 0.6 Lymph # (Auto) 2.7 [place] # (Auto) 0.7 Eos # (Auto) 0.5 H Baso # (Auto) 0.1 Abs Immat Gran (auto) 0.02 Absolute Neuts (auto) 5.0 Absolute Nucleated RBC 0.000 Nucleated RBC % (auto) 0.0 Anion Gap 13 Estim Creat Clear Calc 95.5 Estimated GFR > 60 Random Glucose 115 Calcium 9.1 Magnesium 2.1 Total Bilirubin 0.2 Direct Bilirubin < 0.2 AST 20 ALT 22 Alkaline Phosphatase 55 Troponin I High Sens < 2.7 Total Protein 6.8 Albumin 4.4 Lipase 18 Urine Color Yellow Urine Appearance Clear Urine pH 7.5 Ur Specific [place] <= 1.005 Urine Protein Negative Urine Glucose (UA) Negative Urine Ketones Negative Urine Blood Negative Urine Nitrite Negative Ur Leukocyte Esterase Negative Assessment and Plan (1) Intractable generalized abdominal pain: Status: Acute (2) Colitis: Status: Acute (3) Tobacco abuse disorder: Status: Acute Plan Patient is a 60-year-old female with a past medical history significant for GERD, hypertension, hyperlipidemia, depression, history bowel resection and cholecystectomy, who presents to the ED again due to intractable abdominal pain. Intractable abdominal pain, colitis - no leukocytosis, vital signs stable, no sepsis - abdominopelvic CT from 2 days ago with possible mild colitis in the descending/sigmoid colon versus underdistention - repeat abdominopelvic CT ordered due to intractable pain and inability to eat - UA negative - recently was discharged home with sucralfate and omeprazole however patient reports that she could not afford sucralfate so we will continue here including omeprazole - start Flagyl and ceftriaxone for colitis on previous CT - GI panel and C diff - GI consult - monitor CBC and BMP HTN - normotensive - continue home meds when appropriate HLD - statin Depression/mood disorder - continue home meds tobacco use disorder - NRT - smoking cessation discussed Med rec pending Full code VTE prophylaxis: Pneumoboots pending GI consultation Patient with intractable abdominal pain with recent CT with colitis, consider peptic ulcer disease, requiring admission for at least 2 midnight stay for pain management and specialist consultation. Quality Stroke Does the patient have a stroke diagnosis?: No VTE Prior VTE?: No VTE Risk Level:: Medical - moderate - high VTE Device Contraindication: N/A - Device Ordered VTE Drug Contraindication: Treatment Not Indicated
[2025-04-19] MEDS: diazePAM 10 MG/2 ML CARTRIDGE 5 MG IVPUSH ×5 (00:45→21:52)
[2025-04-19 00:46] VITALS: BP 96/47; PULSE 57; RESP 12; O2SAT 97
[2025-04-19] MEDS: iohexoL 350 MG/ML 100 ML INFUS..BTL 85 ML IV (01:13)
--- NOTE | 2025-04-19 01:21 | MHC.EDTECH ---
Patient has a necklace with a charm and a black small container. Patient states that inside the container are her mom's ashes and she never takes that necklace off.
[2025-04-19 03:58] LABS: Hematocrit 33.3 % (37.0-47.0); Hemoglobin 11.2 g/dl (12.0-16.0); Mean Corpuscular HGB Conc 33.6 g/dl (31.0-35.0); Mean Corpuscular Hemoglobin 29.2 pg (27.0-33.0); Mean Corpuscular Volume 86.9 fL (80.0-98.0); NRBC Abs Auto 0.000 X10*3/uL (0.0-0.012); NRBC Pct Auto 0.0 /100WBC (0.0-0.2); Platelet Count 290 X10*3/uL (160-400); Red Blood Count 3.83 X10*6/uL (4.20-5.50); White Blood Count 8.0 X10*3/uL (4.8-10.8)
[2025-04-19 04:08] VITALS: BP 97/57; PULSE 53; RESP 12; TEMP 36.4; O2SAT 97
[2025-04-19 04:18] LABS: Anion Gap 11 (12-20); Blood Urea Nitrogen 8 mg/dL (9-16); Calcium 8.6 mg/dL (8.4-10.2); Carbon Dioxide 23 mmol/L (22-29); Chloride 113 mmol/L (96-108); Creatinine Clr Calc Pharmacy 95.5; Estimated Glomerular Filt Rate > 60; Potassium 3.7 mmol/L (3.3-5.1); Sodium 143 mmol/L (135-145)
[2025-04-19] MEDS: Nicotine 14 MG PATCH.TD24 TRANSDERMA (07:49)
--- NOTE | 2025-04-19 08:11 | P.PNIM_ITS ---
Subjective Subjective Date of Service: 04/19/25 Interval History: abd pain, diarrhea Physical Exam 2 Vital Signs: Vital Signs: Last Vital Signs Temp 97.6 F 04/19/25 04:08 Pulse 53 04/19/25 04:08 Resp 12 04/19/25 04:08 BP 97/57 L 04/19/25 04:08 Pulse Ox 97 04/19/25 04:08 O2 Del Method Room Air 04/19/25 04:08 BMI result Body Mass Index 27.1 General: AO X 3, no acute distress Resp: CTA bilateral, no accessory muscles used CVS: S1,S2,RRR GI: soft, tender, non distended Neuro: motor grossly intact, alert Psych: appropriate affect, appropriate insight Objective Data Active Medications Acetaminophen (Acetaminophen 325 Mg Tablet) 975 mg PO Q6H PRN PRN Reason: Pain, Mild 1-3,fever,headache Atorvastatin Calcium (Atorvastatin Calcium 40 Mg Tablet) 40 mg PO BEDTIME ILDA Calcium Carbonate (Calcium Carbonate 750 Mg Tab.Chew) 750 mg PO Q4H PRN PRN Reason: Heartburn Ceftriaxone Sodium (Ceftriaxone Sodium 1 Gm Vial) 1 gm IVPUSH Q24H [facility] Last Admin: 04/19/25 00:45 Dose: 1 gm Documented By: TAMARA Hydromorphone HCl (Hydromorphone Hcl 0.5 Mg/0.5 Ml Syringe) 0.5 mg IVPUSH Q4H PRN; Protocol PRN Reason: Pain, Severe (Pain Scale 7-10) Last Admin: 04/19/25 07:49 Dose: 0.5 mg Documented By: DARIO Hydroxyzine HCl (Hydroxyzine Hcl 50 Mg Tablet) 50 mg PO BID PRN PRN Reason: Anxiety Sodium Chloride (Ns) 1,000 mls @ 80 mls/hr IVCONT .[id number] [facility] Last Admin: 04/18/25 23:54 Dose: 80 mls/hr Documented By: TAMARA Lurasidone HCl (Lurasidone Hcl 80 Mg Tablet) 80 mg PO BEDTIME [facility] Magnesium Hydroxide (Milk Of Magnesia 30 Ml Oral.Susp) 30 ml PO DAILY PRN PRN Reason: Constipation Melatonin (Melatonin 3 Mg Tablet) 6 mg PO BEDTIME PRN PRN Reason: Insomnia Metronidazole (Metronidazole 500 Mg Tablet) 500 mg PO Q8H [facility] Last Admin: 04/19/25 07:48 Dose: 500 mg Documented By: DARIO Nicotine (Nicotine 14 Mg Patch.Td24) 14 mg TRANSDERMA DAILY [facility] Last Admin: 04/19/25 07:49 Dose: 14 mg Documented By: DARIO Omeprazole (Omeprazole 20 Mg Capsule.Dr) 20 mg PO BID@0630,1630 [facility] Last Admin: 04/19/25 06:36 Dose: 20 mg Documented By: TAMARA Ondansetron HCl (Ondansetron Hcl 4 Mg/2 Ml Vial) 4 mg IVPUSH Q8H PRN PRN Reason: Nausea and Vomiting Last Admin: 04/19/25 04:07 Dose: 4 mg Documented By: TAMARA Oxycodone HCl (Oxycodone Hcl Immed Release 5 Mg Tablet) 5 mg PO Q6H PRN PRN Reason: Pain, Moderate(Pain Scale 4-6) Sodium Chloride (0.9 % Sodium Chloride Flush 3 Ml Syringe) 3 ml IVFLUSH QSHIFT [facility] Last Admin: 04/19/25 07:52 Dose: Not Given Documented By: DARIO Non-Admin Reason: IV Running Sucralfate (Sucralfate 1 Gm Tablet) 1 gm PO QIDACHS [facility] Last Admin: 04/19/25 07:48 Dose: 1 gm Documented By: DARIO Topiramate (Topiramate 100 Mg Tablet) 100 mg PO BID [facility] Last Admin: 04/19/25 07:48 Dose: 100 mg Documented By: DARIO Labs 04/19/25 03:43 04/19/25 03:43 Labs: Laboratory Results - last 24 hr 04/18/25 04/18/25 04/19/25 17:48 18:19 03:43 MCV 86.3 86.9 MCH 28.7 29.2 MCHC 33.2 33.6 RDW 14.2 14.4 Plt Count 316 290 MPV 9.5 9.5 Immature Gran % (Auto) 0.2 Neut % (Auto) 54.9 Lymph % (Auto) 30.2 [place] % (Auto) 8.2 Eos % (Auto) 5.9 H Baso % (Auto) 0.6 Lymph # (Auto) 2.7 [place] # (Auto) 0.7 Eos # (Auto) 0.5 H Baso # (Auto) 0.1 Abs Immat Gran (auto) 0.02 Absolute Neuts (auto) 5.0 Absolute Nucleated RBC 0.000 0.000 Nucleated RBC % (auto) 0.0 0.0 Anion Gap 13 11 L Estim Creat Clear Calc 95.5 95.5 Estimated GFR > 60 > 60 Random Glucose 115 90 Calcium 9.1 8.6 Magnesium 2.1 Total Bilirubin 0.2 Direct Bilirubin < 0.2 AST 20 ALT 22 Alkaline Phosphatase 55 Troponin I High Sens < 2.7 Total Protein 6.8 Albumin 4.4 Lipase 18 Urine Color Yellow Urine Appearance Clear Urine pH 7.5 Ur Specific [place] <= 1.005 Urine Protein Negative Urine Glucose (UA) Negative Urine Ketones Negative Urine Blood Negative Urine Nitrite Negative Ur Leukocyte Esterase Negative Assessment and Plan (1) Hypertension: Status: Acute Plan 60F PMH GERD, hypertension, hyperlipidemia, depression, history of bowel resection cholecystectomy presented with intractable abdominal pain Intractable abdominal pain Colitis versus CBD stone Continue ceftriaxone and Flagyl, follow up stool studies, MRCP, GI eval NPO, IV fluids Mood disorder Continue Latuda Hypertension Meds Held for low normal blood pressures Hyperlipidemia Continue statin DVT prophylaxis with Lovenox Full Code reason for continued hospitalization: Not tolerating p.o. Quality Stroke Does the patient have a stroke diagnosis?: No VTE Prior VTE?: No VTE Risk Level:: Medical - moderate - high VTE Device Contraindication: N/A - Device Ordered VTE Drug Contraindication: Treatment Not Indicated
[2025-04-19 08:21] VITALS: BMI 27.1
[2025-04-19 08:41] VITALS: BP 120/63; PULSE 60; RESP 14; TEMP 36; O2SAT 92
--- NOTE | 2025-04-19 09:37 | PM.GICN ---
History of Present Illness Data of Consult Service Date: 04/19/25 Requesting physician: Megan Garber Primary Care Provider: Jaleesa Main PA-C HPI Reason for consult: intractable abd pain 60 YF with GERD, hypertension, hyperlipidemia, depression, history bowel resection and cholecystectomy, seen at [facility] on 04/19/25 with intractable abdominal pain. She was seen just 2 days ago with a workup conclusive for possible mild colitis, more suggestive of gastritis. The patient reports that she has not been able to eat for the past 2 days and continues to have nausea and vomiting without any blood. She also has reported diarrhea for the past 2 weeks without any blood in the stool. Diarrhea occurs about 4 times a day usually every time she urinates. She denies any recent antibiotics or travel. Abdominopelvic CT 2 days ago showed possible mild colitis in the descending/sigmoid colon versus underdistention. The patient is reporting 10/10 periumbilical abdominal pain radiating laterally to the left he had right. She denies any fever or chills. No urinary symptoms. 60 YF with GERD, hypertension, hyperlipidemia, depression, history bowel resection and cholecystectomy, bipolar disorder and PTSD admitted to [facility] on 04/19/25 with abdominal pain, nausea, vomiting and diarrhea with decreased PO intake and wt loss. Abd CT scan showed mild intrahepatic biliary ductal dilation with possible filling defect in the CBD. MRCP showed dilatation of the CBD with mild intrahepatic biliary ductal dilatation. No choledocholithiasis or pancreatic head mass. Pt's symptoms are likely due to infectious colitis or less likely IBD RECOMMENDATIONS: 1. Agree with IV PPI, antibiotics and pain medications. 2. Stool cultures to rule out C Diff/ infectious colitis. 3. If stool cultures are negative, further evaluation with colonoscopy on 04/21/25 Review of Systems Constitutional: Constitutional: Denies body ache(s), Denies chills, Denies fatigue, Denies fever(s) and Denies headache(s) Eyes: Eyes: Denies change in vision ENT: Denies headache(s), Denies nasal congestion and Denies sore throat Cardiovascular: Cardiovascular: Denies chest pain, Denies syncope, Denies rapid heart rate, Denies leg edema and Denies dyspnea Respiratory: Respiratory: Denies chest congestion, Denies cough, Denies dyspnea and Denies wheezing Gastrointestinal: Gastrointestinal: Reports as per HPI Genitourinary: Genitourinary: Denies difficulty voiding and Denies dysuria Musculoskeletal: Musculoskeletal: Denies myalgias Integumentary/Breasts: Skin/Breast: Denies rash Neurologic: Denies confusion, Denies syncope and Denies headache(s) Psychiatric: Psychiatric: Denies confusion Endocrine: Endocrine: Denies fatigue Hematologic/Lymphatic: Hematologic/Lymphatic: Denies easy bleeding and Denies easy bruising Allergic/Immunologic: Allergic/Immunologic: Denies wheezing PMFSH Past Medical History Medical History Syncope Shortness of breath on exertion Effusion, left knee Left knee pain GERD (gastroesophageal reflux disease) Hypertension Hyperlipidemia Depression Family History Family History Father No problems noted. Mother No problems noted. Surgical History Surgical History Status post cardiac catheterization S/P ACL repair History of hysterectomy (~1999) History of spinal surgery (~12/2013) History of colectomy (~06/01/11) Social History Social History Household Members: Family Housing: Apartment Do you presently have visiting nurse or other home services: No Unable to assess alcohol history related to: Unknown Alcohol intake: current Alcohol intake frequency: holidays/special occasions only Alcohol type: beer Patient Tobacco Use Status: Current everyday Tobacco user Tobacco use type: Cigarette Cigarette Packs Per Day: 0.5 Cigarettes Per Day: 10.0 Years Smoked: since 10 years old but quit few times in between e-Cigarette/Vaping Use: Never Used Second Hand Smoke Exposure: Yes Substance Use Type: Crack/Cocaine service: No Current occupational status: employed Current occupation: [employer] Meds Allergies Allergy/AdvReac Type Severity Reaction Status Date / Time ibuprofen (From Motrin) Allergy Intermediate Shortness Verified 04/18/25 18:06 of Breath lamotrigine (From Lamictal) Allergy Intermediate Rash Verified 04/18/25 18:06 milnacipran (From Savella) Allergy Intermediate Itching Verified 04/18/25 18:06 aspirin (Aspirin) Allergy Mild DYSPNEA Verified 04/18/25 18:06 levofloxacin (From Levaquin) Allergy Mild Rash Verified 04/18/25 18:06 lithium (Botines) Allergy Mild TREMORS Verified 04/18/25 18:06 morphine (MORPHINE) Allergy Mild NAUSEA/VOMI Verified 04/18/25 18:06 TING fluoxetine (From Prozac) Allergy Unknown Unknown Verified 04/18/25 18:06 seafood Allergy Unknown Unknown Verified 04/18/25 18:06 dicyclomine (From Bentyl) Allergy Unknown Verified 04/18/25 18:06 carbamazepine (From Tegretol) AdvReac Intermediate Fatigued Verified 04/18/25 18:06 zolpidem (From Ambien) AdvReac Intermediate Itching Verified 04/18/25 18:06 Active Medications: Current Medications Acetaminophen (Acetaminophen 325 Mg Tablet) 975 mg PO Q6H PRN PRN Reason: Pain, Mild 1-3,fever,headache Atorvastatin Calcium (Atorvastatin Calcium 40 Mg Tablet) 40 mg PO BEDTIME ILDA Calcium Carbonate (Calcium Carbonate 750 Mg Tab.Chew) 750 mg PO Q4H PRN PRN Reason: Heartburn Ceftriaxone Sodium (Ceftriaxone Sodium 1 Gm Vial) 1 gm IVPUSH Q24H [facility] Last Admin: 04/19/25 00:45 Dose: 1 gm Enoxaparin Sodium (Enoxaparin Sodium 40 Mg/0.4 Ml Syringe) 40 mg SUBCUT Q24H [facility] Hydromorphone HCl (Hydromorphone Hcl 0.5 Mg/0.5 Ml Syringe) 0.5 mg IVPUSH Q4H PRN; Protocol PRN Reason: Pain, Severe (Pain Scale 7-10) Last Admin: 04/19/25 07:49 Dose: 0.5 mg Hydroxyzine HCl (Hydroxyzine Hcl 50 Mg Tablet) 50 mg PO BID PRN PRN Reason: Anxiety Sodium Chloride (Ns) 1,000 mls @ 80 mls/hr IVCONT .[id number] [facility] Last Admin: 04/18/25 23:54 Dose: 80 mls/hr Lurasidone HCl (Lurasidone Hcl 80 Mg Tablet) 80 mg PO BEDTIME [facility] Magnesium Hydroxide (Milk Of Magnesia 30 Ml Oral.Susp) 30 ml PO DAILY PRN PRN Reason: Constipation Melatonin (Melatonin 3 Mg Tablet) 6 mg PO BEDTIME PRN PRN Reason: Insomnia Metronidazole (Metronidazole 500 Mg Tablet) 500 mg PO Q8H [facility] Last Admin: 04/19/25 07:48 Dose: 500 mg Nicotine (Nicotine 14 Mg Patch.Td24) 14 mg TRANSDERMA DAILY [facility] Last Admin: 04/19/25 07:49 Dose: 14 mg Omeprazole (Omeprazole 20 Mg Capsule.Dr) 20 mg PO BID@0630,1630 [facility] Last Admin: 04/19/25 06:36 Dose: 20 mg Ondansetron HCl (Ondansetron Hcl 4 Mg/2 Ml Vial) 4 mg IVPUSH Q8H PRN PRN Reason: Nausea and Vomiting Last Admin: 04/19/25 04:07 Dose: 4 mg Oxycodone HCl (Oxycodone Hcl Immed Release 5 Mg Tablet) 5 mg PO Q6H PRN PRN Reason: Pain, Moderate(Pain Scale 4-6) Sodium Chloride (0.9 % Sodium Chloride Flush 3 Ml Syringe) 3 ml IVFLUSH QSHIFT [facility] Last Admin: 04/19/25 07:52 Dose: Not Given Sucralfate (Sucralfate 1 Gm Tablet) 1 gm PO QIDACHS [facility] Last Admin: 04/19/25 07:48 Dose: 1 gm Topiramate (Topiramate 100 Mg Tablet) 100 mg PO BID [facility] Last Admin: 04/19/25 07:48 Dose: 100 mg Home Medications ?Medication ?Instructions ?Recorded ?Confirmed ?Last Taken ?Type lurasidone 80 mg tablet 80 mg PO DAILY 06/16/23 04/19/25 Unknown History topiramate 100 mg tablet 100 mg PO BID 06/16/23 04/19/25 Unknown History hydroxyzine HCl 25 mg tablet 25 - 50 mg PO BID PRN Anxiety 07/11/23 04/19/25 Unknown History trazodone 100 mg tablet 200 mg PO BEDTIME 12/26/23 04/19/25 Unknown History cyclobenzaprine 10 mg tablet 10 mg PO BID PRN muscle spasms 04/19/25 04/19/25 Unknown History sertraline 100 mg tablet 200 mg PO DAILY 04/19/25 04/19/25 Unknown History tramadol 50 mg tablet 50 mg PO Q8H PRN pain 04/19/25 04/19/25 Unknown History trazodone 100 mg tablet 100 mg PO BEDTIME PRN Insomnia 04/19/25 04/19/25 Unknown History Physical Exam Vital Signs: Vital Signs: Last Vital Signs Temp 96.8 F 04/19/25 08:41 Pulse 60 04/19/25 08:41 Resp 14 04/19/25 08:41 BP 120/63 04/19/25 08:41 Pulse Ox 92 04/19/25 08:41 O2 Del Method Room Air 04/19/25 08:41 BMI result Body Mass Index 27.1 Const: General: no acute distress; No confusion Nutritional Appearance: overweight Orientation/consciousness: No confusion Limitations: no limitations HEENT: Head: Yes normal to inspection Ears: hearing grossly normal bilaterally Mouth: Normal oral and palatal mucosa present Eyes: Sclerae: sclerae normal Pupils: Equal, round and reactive pupils present Neck: Neck: Yes normal visual inspection Chest: Chest palpation & inspection: normal inspection of the chest Resp: Effort & Inspection: normal respiratory effort Auscultation: clear to auscultation bilaterally Cardio: Palpation: normal PMI Rate: regular rate Rhythm: regular rhythm Heart sounds: S1 normal heart sound present, S2 normal heart sound present and no murmurs GI: Palpation (GI): Soft to palpation, Tenderness to palpation present (GI) (Mild lower abdominal tenderness without rebound) and No hepatosplenomegaly present Auscultation: normal bowel sounds Rectal Exam - Female: deferred Skin: General skin exam: no rashes or lesions noted Neuro: General: No confusion Cranial nerves: Yes Equal, round and reactive pupils present Psych: Appearance: grossly normal Mental Status: mental status grossly normal Results Labs 04/21/25 05:12 04/21/25 05:12 Labs: Short CBC 04/18/25 04/19/25 Range/Units 17:48 03:43 WBC 9.0 8.0 (4.8-10.8) X10*3/uL Hgb 11.7 L 11.2 L (12.0-16.0) g/dl Hct 35.2 L 33.3 L (37.0-47.0) % Plt Count 316 290 (160-400) X10*3/uL BMP 04/18/25 04/19/25 17:48 03:43 Sodium 142 143 Potassium 3.5 3.7 Chloride 110 H 113 H Carbon Dioxide 23 23 BUN 8 L 8 L Creatinine 0.57 0.57 Calcium 9.1 8.6 Liver Function 04/18/25 Range/Units 17:48 Total Bilirubin 0.2 (0.0-1.0) mg/dL Direct Bilirubin < 0.2 (0.0-0.5) mg/dL AST 20 (5-31) U/L ALT 22 (0-31) U/L Alkaline Phosphatase 55 (39-117) U/L Albumin 4.4 (3.5-5.0) g/dL Urine 04/18/25 Range/Units 18:19 Urine Color Yellow Urine Appearance Clear Urine pH 7.5 (5.0-9.0) Ur Specific Keiser <= 1.005 (1.005-1.025) Urine Protein Negative (Neg-Trace) mg/dL Urine Glucose (UA) Negative (Negative) mg/dL Assessment and Plan (1) Intractable generalized abdominal pain: Status: Acute Plan 60 YF with GERD, hypertension, hyperlipidemia, depression, history bowel resection and cholecystectomy, bipolar disorder and PTSD admitted to [facility] on 04/19/25 with abdominal pain, nausea, vomiting and diarrhea with decreased PO intake and wt loss. Abd CT scan showed mild intrahepatic biliary ductal dilation with possible filling defect in the CBD. MRCP showed dilatation of the CBD with mild intrahepatic biliary ductal dilatation. No choledocholithiasis or pancreatic head mass. Pt's symptoms are likely due to infectious colitis or less likely IBD RECOMMENDATIONS: 1. Agree with IV PPI, antibiotics and pain medications. 2. Stool cultures to rule out C Diff/ infectious colitis. 3. If stool cultures are negative, further evaluation with EGD and colonoscopy on 04/21/25 Procedures Date of Service Date of Service: 04/21/25
--- NOTE | 2025-04-19 11:27 | PHA.MEDREC ---
Pharmacy Consult ? Medication Reconciliation Pharmacy has completed the medication reconciliation, tried to speak to pt at bedside, pt was unwilling to participate in answering questions. Called her son who said he does not know any medications as he lives in [place]. Called [facility] to confirmed most recent claims and things the patient has been consistent will. [facility] said she has rx's waiting for her that have no been picked up yet (cyclobenzaprine, hydroxyzine, lurasidone), and two news ones that were left unconfirmed as pt hasn't started them yet (zofran and sucralfate).
[2025-04-19] MEDS: Nicotine 21 MG PATCH.TD24 TRANSDERMA (13:21)
--- NOTE | 2025-04-19 13:43 | PC.NURSE ---
Removed nicotine patch that had been placed in the ED for MRI. Requested MD write for a one time new patch to replace. Noted this in the comments of the second patch.
[2025-04-19 15:10] VITALS: BP 128/66; PULSE 56; RESP 16; TEMP 36.5; O2SAT 94
[2025-04-19 20:00] VITALS: BP 127/56; PULSE 67; RESP 17; TEMP 36.5; O2SAT 98
[2025-04-20] MEDS: diazePAM 10 MG/2 ML CARTRIDGE 5 MG IVPUSH ×5 (03:49→21:54)
[2025-04-20 03:50] VITALS: BP 143/76; PULSE 61; RESP 18; TEMP 36.5; O2SAT 96
[2025-04-20 06:32] LABS: Hematocrit 34.3 % (37.0-47.0); Hemoglobin 11.1 g/dl (12.0-16.0); Mean Corpuscular HGB Conc 32.4 g/dl (31.0-35.0); Mean Corpuscular Hemoglobin 29.0 pg (27.0-33.0); Mean Corpuscular Volume 89.6 fL (80.0-98.0); NRBC Abs Auto 0.000 X10*3/uL (0.0-0.012); NRBC Pct Auto 0.0 /100WBC (0.0-0.2); Platelet Count 282 X10*3/uL (160-400); Red Blood Count 3.83 X10*6/uL (4.20-5.50); White Blood Count 6.9 X10*3/uL (4.8-10.8)
[2025-04-20 06:42] LABS: Alanine Aminotransferase 73 U/L (0-31); Albumin Level 3.8 g/dL (3.5-5.0); Alkaline Phosphatase 61 U/L (39-117); Anion Gap 10 (12-20); Aspartate Amino Transferase 60 U/L (5-31); Blood Urea Nitrogen 6 mg/dL (9-16); Calcium 8.5 mg/dL (8.4-10.2); Carbon Dioxide 22 mmol/L (22-29); Chloride 114 mmol/L (96-108); Creatinine Clr Calc Pharmacy 97.2; Estimated Glomerular Filt Rate > 60; Magnesium 2.2 mg/dL (1.6-2.6); Potassium 3.4 mmol/L (3.3-5.1); Sodium 143 mmol/L (135-145); Total Protein 5.9 g/dL (6.5-8.0)
[2025-04-20 06:46] VITALS: BP 133/75; PULSE 58; RESP 16; TEMP 36.6; O2SAT 96
[2025-04-20] MEDS: Nicotine 14 MG PATCH.TD24 TRANSDERMA (08:32)
--- NOTE | 2025-04-20 14:16 | MHC.CM.PN ---
PT REPORTS HER DAUGHTER LIVES WITH HER SHE IS INDEPENDENT WITH CARE, HAS NO DME AND NO SERVICES HCP ON FILE PCP: CARMITA APONTE DCP: HOME VIA [facility] TRANSP[facility]
[2025-04-20] MEDS: Lidocaine 4 % Patch ADH..PATCH 1 PATCH TRANSDERMA (15:16)
[2025-04-20] MEDS: oxyCODONE HCl Immed Release 5 MG TABLET PO (15:16)
[2025-04-20] MEDS: 0.9 % Sodium Chloride Flush 3 ML SYRINGE IVFLUSH ×2 (15:17→19:43)
[2025-04-20 15:19] VITALS: BP 136/65; PULSE 70; RESP 18; TEMP 36.3; O2SAT 98
[2025-04-20] MEDS: PEG 3350/Na Sulf,Bicarb,Cl/KCL 4,000 ML SOLN.RECON 4000 ML PO (16:43)
[2025-04-20 19:32] VITALS: BP 138/70; PULSE 67; RESP 18; TEMP 37.1; O2SAT 97
[2025-04-20 22:34] LABS: CDiff Gene PCR NEGATIVE (Negative)
[2025-04-21] VITALS (9 sets, daily range): BP systolic 116–150; BP diastolic 58–83; PULSE 67–76; RESP 16–18; TEMP 36.3–36.7; O2SAT 95–100
[2025-04-21] MEDS: oxyCODONE HCl Immed Release 5 MG TABLET PO (00:06)
[2025-04-21] MEDS: diazePAM 10 MG/2 ML CARTRIDGE 5 MG IVPUSH ×3 (05:03→17:47)
[2025-04-21 05:51] LABS: Hematocrit 34.8 % (37.0-47.0); Hemoglobin 11.6 g/dl (12.0-16.0); Mean Corpuscular HGB Conc 33.3 g/dl (31.0-35.0); Mean Corpuscular Hemoglobin 28.7 pg (27.0-33.0); Mean Corpuscular Volume 86.1 fL (80.0-98.0); NRBC Abs Auto 0.000 X10*3/uL (0.0-0.012); NRBC Pct Auto 0.0 /100WBC (0.0-0.2); Platelet Count 320 X10*3/uL (160-400); Red Blood Count 4.04 X10*6/uL (4.20-5.50); White Blood Count 8.6 X10*3/uL (4.8-10.8)
[2025-04-21 06:04] LABS: Alanine Aminotransferase 63 U/L (0-31); Albumin Level 4.3 g/dL (3.5-5.0); Alkaline Phosphatase 67 U/L (39-117); Anion Gap 12 (12-20); Aspartate Amino Transferase 43 U/L (5-31); Blood Urea Nitrogen 4 mg/dL (9-16); Calcium 8.7 mg/dL (8.4-10.2); Carbon Dioxide 24 mmol/L (22-29); Chloride 110 mmol/L (96-108); Creatinine Clr Calc Pharmacy 93.9; Estimated Glomerular Filt Rate > 60; Magnesium 2.1 mg/dL (1.6-2.6); Potassium 3.2 mmol/L (3.3-5.1); Sodium 143 mmol/L (135-145); Total Protein 6.5 g/dL (6.5-8.0)
[2025-04-21] MEDS: Lidocaine 4 % Patch ADH..PATCH 1 PATCH TRANSDERMA (07:45)
[2025-04-21] MEDS: 0.9 % Sodium Chloride Flush 3 ML SYRINGE IVFLUSH ×3 (07:47→21:35)
[2025-04-21 08:34] LABS: E. coli EAEC Not Detected (Not Detect.); E. coli EPEC Not Detected (Not Detect.); E. coli ETEC Not Detected (Not Detect.); E. coli STEC Not Detected (Not Detect.); Shigella sp./EIEC Not Detected (Not Detect.)
--- NOTE | 2025-04-21 09:04 | P.PNIM_ITS ---
Subjective Subjective Date of Service: 04/21/25 Interval History: abd pain no further diarrhea Neurologic Neurologic: Denies confusion Psychiatric Psychiatric: Denies confusion Physical Exam 2 Vital Signs: Vital Signs: Last Vital Signs Temp 98.1 F 04/21/25 06:52 Pulse 70 04/21/25 06:52 Resp 18 04/21/25 07:41 BP 150/81 H 04/21/25 06:52 Pulse Ox 96 04/21/25 06:52 O2 Del Method Room Air 04/21/25 06:52 BMI result Body Mass Index 27.1 Const: General: no acute distress; No confusion Nutritional Appearance: o verweight Orientation/consciousness: No confusion Limitations: no limitations HEENT: Head: Yes normal to inspection Ears: hearing grossly normal bilaterally Mouth: Normal oral and palatal mucosa present Eyes: Sclerae: sclerae normal Pupils: Equal, round and reactive pupils present Neck: Neck: Yes normal visual inspection Chest: Chest palpation & inspection: normal inspection of the chest Resp: Effort & Inspection: normal respiratory effort Auscultation: clear to auscultation bilaterally Cardio: Palpation: normal PMI Rate: regular rate Rhythm: regular rhythm Heart sounds: S1 normal heart sound present, S2 normal heart sound present and no murmurs GI: Palpation (GI): Soft to palpation, Tenderness to palpation present (GI) (Mild lower abdominal tenderness without rebound) and No hepatosplenomegaly present Auscultation: normal bowel sounds Rectal Exam - Female: deferred Skin: General skin exam: no rashes or lesions noted Neuro: General: No confusion Cranial nerves: Yes Equal, round and reactive pupils present Psych: Appearance: grossly normal Mental Status: mental status grossly normal Objective Data Active Medications Acetaminophen (Acetaminophen 325 Mg Tablet) 975 mg PO Q6H PRN PRN Reason: Pain, Mild 1-3,fever,headache Atorvastatin Calcium (Atorvastatin Calcium 40 Mg Tablet) 40 mg PO BEDTIME [facility] Last Admin: 04/20/25 19:43 Dose: 40 mg Documented By: TRAY Calcium Carbonate (Calcium Carbonate 750 Mg Tab.Chew) 750 mg PO Q4H PRN PRN Reason: Heartburn Ceftriaxone Sodium (Ceftriaxone Sodium 1 Gm Vial) 1 gm IVPUSH Q24H [facility] Last Admin: 04/21/25 00:06 Dose: 1 gm Documented By: TRAY Cyclobenzaprine HCl (Cyclobenzaprine Hcl 10 Mg Tablet) 10 mg PO BID PRN PRN Reason: muscle spasms Last Admin: 04/21/25 01:01 Dose: 10 mg Documented By: TRAY Diazepam (Diazepam 10 Mg/2 Ml Cartridge) 5 mg IVPUSH Q4H PRN PRN Reason: Anxiety Last Admin: 04/21/25 05:03 Dose: 5 mg Documented By: TRAY Enoxaparin Sodium (Enoxaparin Sodium 40 Mg/0.4 Ml Syringe) 40 mg SUBCUT Q24H [facility] Last Admin: 04/20/25 08:32 Dose: 40 mg Documented By: BISHOP Hydromorphone HCl (Hydromorphone Hcl 0.5 Mg/0.5 Ml Syringe) 0.5 mg IVPUSH Q4H PRN; Protocol PRN Reason: Pain, Severe (Pain Scale 7-10) Last Admin: 04/21/25 07:41 Dose: 0.5 mg Documented By: JESSICA Hydroxyzine HCl (Hydroxyzine Hcl 50 Mg Tablet) 50 mg PO BID PRN PRN Reason: Anxiety Last Admin: 04/20/25 19:43 Dose: 50 mg Documented By: TRAY Lidocaine (Lidocaine 4 % Patch Adh..Patch) 1 patch TRANSDERMA DAILY [facility]; Protocol Last Admin: 04/21/25 07:45 Dose: 1 patch Documented By: JESSICA Lurasidone HCl (Lurasidone Hcl 80 Mg Tablet) 80 mg PO BEDTIME [facility] Last Admin: 04/20/25 19:43 Dose: 80 mg Documented By: TRAY Magnesium Hydroxide (Milk Of Magnesia 30 Ml Oral.Susp) 30 ml PO DAILY PRN PRN Reason: Constipation Melatonin (Melatonin 3 Mg Tablet) 6 mg PO BEDTIME PRN PRN Reason: Insomnia Metronidazole (Metronidazole 500 Mg Tablet) 500 mg PO Q8H [facility] Last Admin: 04/21/25 07:39 Dose: 500 mg Documented By: JESSICA Nicotine (Nicotine 14 Mg Patch.Td24) 14 mg TRANSDERMA DAILY [facility] Last Admin: 04/21/25 07:45 Dose: Not Given Documented By: JESSICA Non-Admin Reason: Patient Refused Omeprazole (Omeprazole 20 Mg Capsule.) 20 mg PO BID@0630,1630 [facility] Last Admin: 04/21/25 05:51 Dose: 20 mg Documented By: TRAY Ondansetron HCl (Ondansetron Hcl 4 Mg/2 Ml Vial) 4 mg IVPUSH Q8H PRN PRN Reason: Nausea and Vomiting Last Admin: 04/21/25 01:30 Dose: 4 mg Documented By: TRAY Comments: give early per Dr. Guerin Oxycodone HCl (Oxycodone Hcl Immed Release 5 Mg Tablet) 5 mg PO Q6H PRN PRN Reason: Pain, Moderate(Pain Scale 4-6) Last Admin: 04/21/25 00:06 Dose: 5 mg Documented By: TRAY Comments: per pt request Sertraline HCl (Sertraline Hcl 100 Mg Tablet) 200 mg PO DAILY [facility] Last Admin: 04/21/25 07:38 Dose: 200 mg Documented By: JESSICA Sodium Chloride (0.9 % Sodium Chloride Flush 3 Ml Syringe) [facility] Last Admin: 04/21/25 07:47 Dose: 3 ml Documented By: JESSICA Sucralfate (Sucralfate 1 Gm Tablet) 1 gm PO QIDACHS [facility] Last Admin: 04/21/25 07:39 Dose: 1 gm Documented By: JESSICA Topiramate (Topiramate 100 Mg Tablet) 100 mg PO BID [facility] Last Admin: 04/21/25 07:39 Dose: 100 mg Documented By: JESSICA Labs 04/21/25 05:12 04/21/25 05:12 Labs: Laboratory Results - last 24 hr 04/20/25 04/21/25 20:38 05:12 MCV 86.1 MCH 28.7 MCHC 33.3 RDW 14.1 Plt Count 320 MPV 9.7 Absolute Nucleated RBC 0.000 Nucleated RBC % (auto) 0.0 Anion Gap 12 Estim Creat Clear Calc 93.9 Estimated GFR > 60 Random Glucose 103 Calcium 8.7 Magnesium 2.1 Total Bilirubin 0.2 Direct Bilirubin < 0.2 AST 43 H ALT 63 H Alkaline Phosphatase 67 Total Protein 6.5 Albumin 4.3 Stl C. cayetanensis PCR Not Detected Stool Rotavirus A PCR Not Detected Stl Adenov F 40/41 PCR Not Detected Stool Astrovirus (PCR) Not Detected Stool Campylobacter PCR Not Detected Stool Cryptosporidium PCR Not Detected Stl Sh Tox Pr E STEC PCR Not Detected Stool E coli O157 PCR Not applicable Stl Enterotoxigenic E PCR Not Detected Stool EPEC (PCR) Not Detected Stool EAEC (PCR) Not Detected Stl E. histolytica PCR Not Detected Stool Giardia Lamblia PCR Not Detected Stl P. shigelloides PCR Not Detected Stool Salmonella PCR Not Detected Stool Sapovirus (PCR) Not Detected Stl Shigella/EIEC PCR Not Detected St Y.enterocolitica PCR Not Detected Stool Vibrio (PCR) Not Detected Stl Vibrio cholerae PCR Not Detected Stl Norovirus GI/GII PCR Not Detected C. difficile Tox B Gene NEGATIVE Assessment and Plan (1) Hypertension: Status: Acute Plan 60F PMH GERD, hypertension, hyperlipidemia, depression, history of bowel resection cholecystectomy presented with intractable abdominal pain Intractable abdominal pain Continue ceftriaxone and Flagyl, follow up stool studies, MRCP negative for stone plan for EGD today Mood disorder Continue Latuda Hypertension Meds Held for low normal blood pressures Hyperlipidemia Continue statin DVT prophylaxis with Lovenox Full Code reason for continued hospitalization: Not tolerating p.o. Quality Stroke Does the patient have a stroke diagnosis?: No VTE Prior VTE?: No VTE Risk Level:: Medical - moderate - high VTE Device Contraindication: N/A - Device Ordered VTE Drug Contraindication: Treatment Not Indicated
--- NOTE | 2025-04-21 10:27 | MHC.CM.PN ---
Per MD rounds patient not medically cleared for dc. CM will continue to follow.
--- NOTE | 2025-04-21 14:25 | HO.ANESPROP2 ---
Documented by User: Freya Evangelista DO 04/21/25 14:28 HPI - Anesthesia Eval Consult details Narrative: 60 yo F presenting for EGD/colon PMFSH Past Medical History Medical History Syncope Shortness of breath on exertion Effusion, left knee Left knee pain GERD (gastroesophageal reflux disease) Hypertension Hyperlipidemia Depression Family History Family History Father No problems noted. Mother No problems noted. Family history of problems with anesthesia: No Surgical History Surgical History Status post cardiac catheterization S/P ACL repair History of hysterectomy (~1999) History of spinal surgery (~12/2013) History of colectomy (~06/01/11) History of Problems with Anesthesia: No Social History Social History Household Members: Family Housing: Apartment Do you presently have visiting nurse or other home services: No Unable to assess alcohol history related to: Unknown Alcohol intake: current Alcohol intake frequency: holidays/special occasions only Alcohol type: beer Patient Tobacco Use Status: Current everyday Tobacco user Tobacco use type: Cigarette Cigarette Packs Per Day: 0.5 Cigarettes Per Day: 10.0 Years Smoked: since 10 years old but quit few times in between e-Cigarette/Vaping Use: Never Used Second Hand Smoke Exposure: Yes Substance Use Type: Crack/Cocaine service: No Current occupational status: employed Current occupation: [employer] Meds Allergies Allergy/AdvReac Type Severity Reaction Status Date / Time ibuprofen (From Motrin) Allergy Intermediate Shortness Verified 04/18/25 18:06 of Breath lamotrigine (From Lamictal) Allergy Intermediate Rash Verified 04/18/25 18:06 milnacipran (From Savella) Allergy Intermediate Itching Verified 04/18/25 18:06 aspirin (Aspirin) Allergy Mild DYSPNEA Verified 04/18/25 18:06 levofloxacin (From Levaquin) Allergy Mild Rash Verified 04/18/25 18:06 lithium ([place]) Allergy Mild TREMORS Verified 04/18/25 18:06 morphine (MORPHINE) Allergy Mild NAUSEA/VOMI Verified 04/18/25 18:06 TING fluoxetine (From Prozac) Allergy Unknown Unknown Verified 04/18/25 18:06 seafood Allergy Unknown Unknown Verified 04/18/25 18:06 dicyclomine (From Bentyl) Allergy Unknown Verified 04/18/25 18:06 carbamazepine (From Tegretol) AdvReac Intermediate Fatigued Verified 04/18/25 18:06 zolpidem (From Ambien) AdvReac Intermediate Itching Verified 04/18/25 18:06 Home Medications ?Medication ?Instructions ?Recorded ?Confirmed ?Last Taken ?Type lurasidone 80 mg tablet 80 mg PO DAILY 06/16/23 04/19/25 Unknown History topiramate 100 mg tablet 100 mg PO BID 06/16/23 04/19/25 Unknown History hydroxyzine HCl 25 mg tablet 25 - 50 mg PO BID PRN Anxiety 07/11/23 04/19/25 Unknown History trazodone 100 mg tablet 200 mg PO BEDTIME 12/26/23 04/19/25 Unknown History cyclobenzaprine 10 mg tablet 10 mg PO BID PRN muscle spasms 04/19/25 04/19/25 Unknown History sertraline 100 mg tablet 200 mg PO DAILY 04/19/25 04/19/25 Unknown History tramadol 50 mg tablet 50 mg PO Q8H PRN pain 04/19/25 04/19/25 Unknown History trazodone 100 mg tablet 100 mg PO BEDTIME PRN Insomnia 04/19/25 04/19/25 Unknown History Exam Exam Date and Time: 04/21/25 1420 Airway Mallampati Class: II TM Dist: >3cm Neck ROM: Full Loose/Missing/Broken Teeth: No (patient denies any loose or broken teeth) Heart: S1S2 Lungs: CTAB Other: Right nose piercing and right eyebrow piercing - unable to remove Assessment and Plan Assessment Anesthesia Assessment: Anesthesia Plan Discussed and Chart Reviewed Final Anesthetic Review Family History of Problems with Anesthesia: No History of Problems with Anesthesia: No NPO: Yes ASA Class: II Final Preanesthetic Review: No Changes in Pt Med Stat, Meds/Allgs Chart Reviewed, Consent Obtained/Reviewed and Anes Risks/Benef Reviewed Patient Risk: Low Procedure Risk: Low Anesthetic Plan Anesthetic Plan: MAC: and Agree w/ Assess. and Plan Disposition: Standard PACU Documented by User: Norma Salguero MD [facility] Active Problems Active Problems: All Active Problems (Updated 04/19/25 @ 00:53 by Megan Garber PA-C) Tobacco abuse disorder (Acute) Colitis (Acute) Intractable generalized abdominal pain (Acute) Syncope (Acute) Status post cardiac catheterization (Acute) Shortness of breath on exertion (Acute) Low back pain (Acute) Osteoarthritis of left knee (Acute) Hypertension (Acute) Hyperlipidemia (Acute) GERD (gastroesophageal reflux disease) (Acute) Depression (Acute) Cough (Acute) Thoracic back pain (Acute) Return to work evaluation (Acute) Left knee pain (Acute) Difficulty breathing (Acute) Effusion, left knee (Acute) S/P ACL repair (Acute) Left knee pain (Acute) Past Medical History Medical History Syncope Shortness of breath on exertion Effusion, left knee Left knee pain GERD (gastroesophageal reflux disease) Hypertension Hyperlipidemia Depression Functional capacity: independent ambulation Family History Family History Father No problems noted. Mother No problems noted. Family history of problems with anesthesia: No Surgical History Surgical History Status post cardiac catheterization S/P ACL repair History of hysterectomy (~1999) History of spinal surgery (~12/2013) History of colectomy (~06/01/11) History of Problems with Anesthesia: No Social History Social History Household Members: Family Housing: Apartment Do you presently have visiting nurse or other home services: No Unable to assess alcohol history related to: Unknown Alcohol intake: current Alcohol intake frequency: holidays/special occasions only Alcohol type: beer Patient Tobacco Use Status: Current everyday Tobacco user Tobacco use type: Cigarette Cigarette Packs Per Day: 0.5 Cigarettes Per Day: 10.0 Years Smoked: since 10 years old but quit few times in between e-Cigarette/Vaping Use: Never Used Second Hand Smoke Exposure: Yes Substance Use Type: Crack/Cocaine service: No Current occupational status: employed Current occupation: [employer] Meds Allergies Allergy/AdvReac Type Severity Reaction Status Date / Time ibuprofen (From Motrin) Allergy Intermediate Shortness Verified 04/18/25 18:06 of Breath lamotrigine (From Lamictal) Allergy Intermediate Rash Verified 04/18/25 18:06 milnacipran (From [place]ella) Allergy Intermediate Itching Verified 04/18/25 18:06 aspirin (Aspirin) Allergy Mild DYSPNEA Verified 04/18/25 18:06 levofloxacin (From Levaquin) Allergy Mild Rash Verified 04/18/25 18:06 lithium ([place]) Allergy Mild TREMORS Verified 04/18/25 18:06 morphine (MORPHINE) Allergy Mild NAUSEA/VOMI Verified 04/18/25 18:06 TING fluoxetine (From Prozac) Allergy Unknown Unknown Verified 04/18/25 18:06 seafood Allergy Unknown Unknown Verified 04/18/25 18:06 dicyclomine (From Bentyl) Allergy Unknown Verified 04/18/25 18:06 carbamazepine (From Tegretol) AdvReac Intermediate Fatigued Verified 04/18/25 18:06 zolpidem (From Ambien) AdvReac Intermediate Itching Verified 04/18/25 18:06 Active Medications: Current Medications Acetaminophen (Acetaminophen 325 Mg Tablet) 975 mg PO Q6H PRN PRN Reason: Pain, Mild 1-3,fever,headache Atorvastatin Calcium (Atorvastatin Calcium 40 Mg Tablet) 40 mg PO BEDTIME ILDA Last Admin: 04/20/25 19:43 Dose: 40 mg Calcium Carbonate (Calcium Carbonate 750 Mg Tab.Chew) 750 mg PO Q4H PRN PRN Reason: Heartburn Ceftriaxone Sodium (Ceftriaxone Sodium 1 Gm Vial) 1 gm IVPUSH Q24H ILDA Last Admin: 04/21/25 00:06 Dose: 1 gm Cyclobenzaprine HCl (Cyclobenzaprine Hcl 10 Mg Tablet) 10 mg PO BID PRN PRN Reason: muscle spasms Last Admin: 04/21/25 01:01 Dose: 10 mg Diazepam (Diazepam 10 Mg/2 Ml Cartridge) 5 mg IVPUSH Q4H PRN PRN Reason: Anxiety Last Admin: 04/21/25 10:12 Dose: 5 mg Enoxaparin Sodium (Enoxaparin Sodium 40 Mg/0.4 Ml Syringe) 40 mg SUBCUT Q24H [facility] Last Admin: 04/21/25 10:33 Dose: Not Given Hydromorphone HCl (Hydromorphone Hcl 0.5 Mg/0.5 Ml Syringe) 0.5 mg IVPUSH Q4H PRN; Protocol PRN Reason: Pain, Severe (Pain Scale 7-10) Last Admin: 04/21/25 12:02 Dose: 0.5 mg Hydroxyzine HCl (Hydroxyzine Hcl 50 Mg Tablet) 50 mg PO BID PRN PRN Reason: Anxiety Last Admin: 04/20/25 19:43 Dose: 50 mg Lidocaine (Lidocaine 4 % Patch Adh..Patch) 1 patch TRANSDERMA DAILY [facility]; Protocol Last Admin: 04/21/25 07:45 Dose: 1 patch Lurasidone HCl (Lurasidone Hcl 80 Mg Tablet) 80 mg PO BEDTIME [facility] Last Admin: 04/20/25 19:43 Dose: 80 mg Magnesium Hydroxide (Milk Of Magnesia 30 Ml Oral.Susp) 30 ml PO DAILY PRN PRN Reason: Constipation Melatonin (Melatonin 3 Mg Tablet) 6 mg PO BEDTIME PRN PRN Reason: Insomnia Metronidazole (Metronidazole 500 Mg Tablet) 500 mg PO Q8H [facility] Last Admin: 04/21/25 07:39 Dose: 500 mg Nicotine (Nicotine 14 Mg Patch.Td24) 14 mg TRANSDERMA DAILY [facility] Last Admin: 04/21/25 07:45 Dose: Not Given Omeprazole (Omeprazole 20 Mg Capsule.Dr) 20 mg PO BID@0630,1630 [facility] Last Admin: 04/21/25 05:51 Dose: 20 mg Ondansetron HCl (Ondansetron Hcl 4 Mg/2 Ml Vial) 4 mg IVPUSH Q8H PRN PRN Reason: Nausea and Vomiting Last Admin: 04/21/25 12:02 Dose: 4 mg Oxycodone HCl (Oxycodone Hcl Immed Release 5 Mg Tablet) 5 mg PO Q6H PRN PRN Reason: Pain, Moderate(Pain Scale 4-6) Last Admin: 04/21/25 00:06 Dose: 5 mg Sertraline HCl (Sertraline Hcl 100 Mg Tablet) 200 mg PO DAILY [facility] Last Admin: 04/21/25 07:38 Dose: 200 mg Sodium Chloride (0.9 % Sodium Chloride Flush 3 Ml Syringe) 3 ml IVFLUSH QSHIFT [facility] Last Admin: 04/21/25 07:47 Dose: 3 ml Sucralfate (Sucralfate 1 Gm Tablet) 1 gm PO QIDACHS [facility] Last Admin: 04/21/25 11:57 Dose: Not Given Topiramate (Topiramate 100 Mg Tablet) 100 mg PO BID [facility] Last Admin: 04/21/25 07:39 Dose: 100 mg Home Medications ?Medication ?Instructions ?Recorded ?Confirmed ?Last Taken ?Type lurasidone 80 mg tablet 80 mg PO DAILY 06/16/23 04/19/25 Unknown History topiramate 100 mg tablet 100 mg PO BID 06/16/23 04/19/25 Unknown History hydroxyzine HCl 25 mg tablet 25 - 50 mg PO BID PRN Anxiety 07/11/23 04/19/25 Unknown History trazodone 100 mg tablet 200 mg PO BEDTIME 12/26/23 04/19/25 Unknown History cyclobenzaprine 10 mg tablet 10 mg PO BID PRN muscle spasms 04/19/25 04/19/25 Unknown History sertraline 100 mg tablet 200 mg PO DAILY 04/19/25 04/19/25 Unknown History tramadol 50 mg tablet 50 mg PO Q8H PRN pain 04/19/25 04/19/25 Unknown History trazodone 100 mg tablet 100 mg PO BEDTIME PRN Insomnia 04/19/25 04/19/25 Unknown History Exam Height,Weight and Vital Signs: Height 5 ft 2 in Weight 67.3 kg Last Vital Signs Temp 98.0 F 04/21/25 12:43 Pulse 71 04/21/25 12:43 Resp 16 04/21/25 12:43 BP 136/67 04/21/25 12:43 Pulse Ox 95 04/21/25 12:43 O2 Del Method Room Air 04/21/25 12:43 Pertinent Lab Results Pertinent Lab Results: Laboratory Tests 04/18/25 04/18/25 04/19/25 17:48 18:19 03:43 WBC 9.0 8.0 RBC 4.08 L 3.83 L Hgb 11.7 L 11.2 L Hct 35.2 L 33.3 L MCV 86.3 86.9 MCH 28.7 29.2 MCHC 33.2 33.6 RDW 14.2 14.4 Plt Count 316 290 MPV 9.5 9.5 Immature Gran % (Auto) 0.2 Neut % (Auto) 54.9 Lymph % (Auto) 30.2 [place] % (Auto) 8.2 Eos % (Auto) 5.9 H Baso % (Auto) 0.6 Lymph # (Auto) 2.7 [place] # (Auto) 0.7 Eos # (Auto) 0.5 H Baso # (Auto) 0.1 Abs Immat Gran (auto) 0.02 Absolute Neuts (auto) 5.0 Absolute Nucleated RBC 0.000 0.000 Nucleated RBC % (auto) 0.0 0.0 Sodium 142 143 Potassium 3.5 3.7 Chloride 110 H 113 H Carbon Dioxide 23 23 Anion Gap 13 11 L BUN 8 L 8 L Creatinine 0.57 0.57 Estim Creat Clear Calc 95.5 95.5 Estimated GFR > 60 > 60 Random Glucose 115 90 Calcium 9.1 8.6 Magnesium 2.1 Total Bilirubin 0.2 Direct Bilirubin < 0.2 AST 20 ALT 22 Alkaline Phosphatase 55 Troponin I High Sens < 2.7 Total Protein 6.8 Albumin 4.4 Lipase 18 Urine Color Yellow Urine Appearance Clear Urine pH 7.5 Ur Specific [place] <= 1.005 Urine Protein Negative Urine Glucose (UA) Negative Urine Ketones Negative Urine Blood Negative Urine Nitrite Negative Ur Leukocyte Esterase Negative Stl C. cayetanensis PCR Stool Rotavirus A PCR Stl Adenov F 40/41 PCR Stool Astrovirus (PCR) Stool Campylobacter PCR Stool Cryptosporidium PCR Stl Sh Tox Pr E STEC PCR Stool E coli O157 PCR Stl Enterotoxigenic E PCR Stool EPEC (PCR) Stool EAEC (PCR) Stl E. histolytica PCR Stool Giardia Lamblia PCR Stl P. shigelloides PCR Stool Salmonella PCR Stool Sapovirus (PCR) Stl Shigella/EIEC PCR St Y.enterocolitica PCR Stool Vibrio (PCR) Stl Vibrio cholerae PCR Stl Norovirus GI/GII PCR C. difficile Tox B Gene 04/20/25 04/20/25 04/21/25 06:00 20:38 05:12 WBC 6.9 8.6 RBC 3.83 L 4.04 L Hgb 11.1 L 11.6 L Hct 34.3 L 34.8 L MCV 89.6 86.1 MCH 29.0 28.7 MCHC 32.4 33.3 RDW 14.5 14.1 Plt Count 282 320 MPV 9.7 9.7 Immature Gran % (Auto) Neut % (Auto) Lymph % (Auto) [place] % (Auto) Eos % (Auto) Baso % (Auto) Lymph # (Auto) [place] # (Auto) Eos # (Auto) Baso # (Auto) Abs Immat Gran (auto) Absolute Neuts (auto) Absolute Nucleated RBC 0.000 0.000 Nucleated RBC % (auto) 0.0 0.0 Sodium 143 143 Potassium 3.4 3.2 L Chloride 114 H 110 H Carbon Dioxide 22 24 Anion Gap 10 L 12 BUN 6 L 4 L Creatinine 0.56 0.58 Estim Creat Clear Calc 97.2 93.9 Estimated GFR > 60 > 60 Random Glucose 90 103 Calcium 8.5 8.7 Magnesium 2.2 2.1 Total Bilirubin 0.2 0.2 Direct Bilirubin < 0.2 < 0.2 AST 60 H 43 H ALT 73 H 63 H Alkaline Phosphatase 61 67 Troponin I High Sens Total Protein 5.9 L 6.5 Albumin 3.8 4.3 Lipase Urine Color Urine Appearance Urine pH Ur Specific [place] Urine Protein Urine Glucose (UA) Urine Ketones Urine Blood Urine Nitrite Ur Leukocyte Esterase Stl C. cayetanensis PCR Not Detected Stool Rotavirus A PCR Not Detected Stl Adenov F 40/41 PCR Not Detected Stool Astrovirus (PCR) Not Detected Stool Campylobacter PCR Not Detected Stool Cryptosporidium PCR Not Detected Stl Sh Tox Pr E STEC PCR Not Detected Stool E coli O157 PCR Not applicable Stl Enterotoxigenic E PCR Not Detected Stool EPEC (PCR) Not Detected Stool EAEC (PCR) Not Detected Stl E. histolytica PCR Not Detected Stool Giardia [place] PCR Not Detected Stl P. shigelloides PCR Not Detected Stool Salmonella PCR Not Detected Stool Sapovirus (PCR) Not Detected Stl Shigella/EIEC PCR Not Detected St Y.enterocolitica PCR Not Detected Stool Vibrio (PCR) Not Detected Stl Vibrio cholerae PCR Not Detected Stl Norovirus GI/GII PCR Not Detected C. difficile Tox B Gene NEGATIVE Assessment and Plan Final Anesthetic Review Family History of Problems with Anesthesia: No History of Problems with Anesthesia: No
--- NOTE | 2025-04-21 14:27 | P.HPSUR_ITS ---
Pre-Procedural Eval Section A - 24 Hr Update-Section A only Date of Service: 04/21/25 The patient is an INPATIENT: Yes Changes since office visit: Yes New Medical Problems, Yes Changes in Medication and Yes Patient answered all questions; No Cold of Flu in the past 2 weeks The patient has been examined within 24 hours of the surgical procedure. The History & Physical has been completed within 30 days and I have reviewed it.: Yes Section B - Complete if H&P > 30 days Chief Complaint: abd pain Allergies: Allergies Allergy/AdvReac Type Severity Reaction Status Date / Time ibuprofen (From Motrin) Allergy Intermediate Shortness Verified 04/18/25 18:06 of Breath lamotrigine (From Lamictal) Allergy Intermediate Rash Verified 04/18/25 18:06 milnacipran (From [place]) Allergy Intermediate Itching Verified 04/18/25 18:06 aspirin (Aspirin) Allergy Mild DYSPNEA Verified 04/18/25 18:06 levofloxacin (From Levaquin) Allergy Mild Rash Verified 04/18/25 18:06 lithium ([place]) Allergy Mild TREMORS Verified 04/18/25 18:06 morphine (MORPHINE) Allergy Mild NAUSEA/VOMI Verified 04/18/25 18:06 TING fluoxetine (From Prozac) Allergy Unknown Unknown Verified 04/18/25 18:06 seafood Allergy Unknown Unknown Verified 04/18/25 18:06 dicyclomine (From Bentyl) Allergy Unknown Verified 04/18/25 18:06 carbamazepine (From Tegretol) AdvReac Intermediate Fatigued Verified 04/18/25 18:06 zolpidem (From Ambien) AdvReac Intermediate Itching Verified 04/18/25 18:06 Plan Diagnosis/Plan: Unchanged I have reviewed the history and physical and performed a pertinent physical examination on my patient. No changes have occurred unless specified. Time Spent With Patient Time: Total time managing care of this patient today ____ minutes.
--- NOTE | 2025-04-21 14:50 | P.OPN-COLO_ITS ---
Colonoscopy Operative Note Operative Note Date of Service: 04/21/25 Narrative: FLEXIBLE TRANSORAL UPPER GASTROINTESTINAL ENDOSCOPY WITH BIOPSIES AND COLONOSCOPY TILL CECUM WITH BIOPSIES, SNARE POLYPECTOMY AND HEMOCLIP PLACEMENT Pre-op diagnosis: Abdominal pain, diarrhea, nausea and vomiting Post-op diagnosis: Gastritis, gastric polyps Colon Polyps, Diverticulosis, hemorrhoids Endoscopist:? Yosef Iyer MD Anesthesia:?MAC UPPER ENDOSCOPY Consent: Indications for the procedure and potential complications of bleeding, perforation, reaction to medications and missed diagnosis were discussed with the patient and informed consent was obtained. Instrument: Olympus GIF H 190 mid size upper endoscope Monitoring: Vital signs and clinical assessment, continuous EKG monitoring, Pulse oximetry, Carbon Dioxide monitoring and blood pressure monitoring were done throughout the procedure. Procedure: The patient was placed in the left lateral decubitis position and pre-procedure medications were administered and a bite block was placed. The endoscope was inserted into the mouth and advanced under direct vision to the third part of duodenum. A careful inspection was made as the upper endoscope was withdrawn including a retroflexed examination of the proximal stomach; Findings and interventions are described below. Findings: Larynx: Normal Esophagus: GE junction at 36 cms. No esophagitis or Bar's. Stomach: Multiple 5-6 mm benign appearing polyps in the gastric body and fundus - biopsied. Moderate diffuse gastric erythema - biopsies were obtained from the gastric body and antrum. Grade 2 flap valve on retroflexed examination of the cardia. Duodenum: Normal bulb and descending duodenum Biopsies were obtained from descending duodenum to check for celiac sprue Intervention: Biopsies as noted above COLONOSCOPY PROCEDURE NOTE Instrument: Olympus PCF H 190 L variable stiffness pediatric colonoscope Monitoring: Vital signs and clinical assessment, intermittent blood pressure monitoring, continuous EKG monitoring, Pulse oximetry and Carbon Dioxide monitoring were done throughout the procedure. Please see anesthesia flowsheet. Colon withdrawl time was 30 minutes. Procedure: The patient was placed in the left lateral decubitis position and pre-procedure medications were administered. After a digital rectal examination of the ano-rectum, the video colonoscope was inserted into the rectum and advanced through the colon to the proximal TC anastomosis. The colonoscope was slowly withdrawn in a retrograde panoramic fashion and the colon mucosa was carefully examined including a retroflexed view of the rectum. Findings and interventions are described below. Procedure Difficulty: without difficulty Findings: Terminal Ileum: Jonathan-terminal ileum was examined and appeared normal - random biopsies were obtained Cecum: Surgically removed Ascending Colon: Surgically removed Transverse Colon: Normal Descending Colon: Moderate diverticulosis Sigmoid Colon: A 12-15 mm sessile polyp at 20 cms - removed with a hot snare. Polypectomy site was closed with 1 hemoclip. A few 4-5 mm diminutive appearing polyps in the rectosigmoid. Moderate diverticulosis Rectum: Normal Ano-rectum: Moderate internal hemorrhoids Colon preparation: Fair despite copious irrigation. [place] Bowel Preparation Scale Right colon; 2 Transverse colon: 1 Left colon; 1 (0 = Unprepared colon segment with mucosa not seen due to solid stool that cannot be cleared. 1 = Portion of mucosa of the colon segment seen, but other areas of the colon segment not well seen due to staining, residual stool and/or opaque liquid. 2 = Minor amount of residual staining, small fragments of stool and/or opaque liquid, but mucosa of colon segment seen well. 3 = Entire mucosa of colon segment seen well with no residual staining, small fragments of stool or opaque liquid) Impression and Post Procedure Diagnosis: Endoscopy Findings: ESOPHAGUS: Normal STOMACH: Moderate diffuse gastric erythema and benign-appearing gastric polyps DUODENUM: Normal - biopsied to check for celiac sprue Colonoscopy Findings: One medium sized polyp was removed. Random biopsies were obtained from the TI, right and left colon Moderate diverticulosis seen in the left colon Moderate hemorrhoids on retroflexed exam. No etiology found for abdominal pain and diarrhea Plan: Full liquid diet and advance diet as tolerated. If pt has recurrent diarrhea - check stool for calprotectin and pancreatic elastase I will contact the patient with biopsy results. Repeat Colonoscopy in 6 to 12 months due to fair prep. A summary of above findings and relevant handouts were given to the patient.
[2025-04-22] VITALS (8 sets, daily range): BP systolic 100–113; BP diastolic 51–65; PULSE 59–86; RESP 16–18; TEMP 36.4–37.1; O2SAT 91–95
[2025-04-22] MEDS: diazePAM 10 MG/2 ML CARTRIDGE 5 MG IVPUSH ×4 (00:52→20:49)
[2025-04-22] MEDS: oxyCODONE HCl Immed Release 5 MG TABLET PO (05:28)
[2025-04-22 06:20] LABS: Anion Gap 11 (12-20); Blood Urea Nitrogen 4 mg/dL (9-16); Calcium 9.2 mg/dL (8.4-10.2); Carbon Dioxide 26 mmol/L (22-29); Chloride 110 mmol/L (96-108); Creatinine Clr Calc Pharmacy 83.8; Estimated Glomerular Filt Rate > 60; Magnesium 2.0 mg/dL (1.6-2.6); Potassium 3.2 mmol/L (3.3-5.1); Sodium 144 mmol/L (135-145)
[2025-04-22 06:25] LABS: Hematocrit 38.0 % (37.0-47.0); Hemoglobin 12.4 g/dl (12.0-16.0); Mean Corpuscular HGB Conc 32.6 g/dl (31.0-35.0); Mean Corpuscular Hemoglobin 29.1 pg (27.0-33.0); Mean Corpuscular Volume 89.2 fL (80.0-98.0); NRBC Abs Auto 0.000 X10*3/uL (0.0-0.012); NRBC Pct Auto 0.0 /100WBC (0.0-0.2); Platelet Count 321 X10*3/uL (160-400); Red Blood Count 4.26 X10*6/uL (4.20-5.50); White Blood Count 9.5 X10*3/uL (4.8-10.8)
[2025-04-22] MEDS: Lidocaine 4 % Patch ADH..PATCH 1 PATCH TRANSDERMA (06:46)
[2025-04-22] MEDS: Potassium Chloride ER 20 MEQ TAB.ER.PRT 40 MEQ PO (07:47)
[2025-04-22] MEDS: 0.9 % Sodium Chloride Flush 3 ML SYRINGE IVFLUSH ×3 (09:12→23:56)
--- NOTE | 2025-04-22 09:37 | HO.POSTANES ---
Post Anesthesia Evaluation Post Anesthesia Evaluation Date of Service: 04/22/25 Vital Signs: Vital Signs Temp Pulse Resp BP Pulse Ox O2 Del Method 04/22/25 07:39 97.6 F 69 18 113/65 95 Room Air 04/22/25 03:20 98.4 F 59 18 104/51 L 91 L Room Air Anesthesia: Monitored Mental Status: Awake Pain Control: Satisfactory Nausea/Vomiting: None Hydration: Adequate Anesthesia-Related Issues: No Anes. Related Issues
--- NOTE | 2025-04-22 10:11 | P.PNIM_ITS ---
Subjective Subjective Date of Service: 04/22/25 Interval History: Still with minimal appetite, abdominal pain interested in starting small bites of solids Neurologic Neurologic: Denies confusion Psychiatric Psychiatric: Denies confusion Physical Exam 2 Vital Signs: Vital Signs: Last Vital Signs Temp 97.6 F 04/22/25 07:39 Pulse 69 04/22/25 07:39 Resp 18 04/22/25 07:39 BP 113/65 04/22/25 07:39 Pulse Ox 95 04/22/25 07:39 O2 Del Method Room Air 04/22/25 07:39 BMI result Body Mass Index 27.1 Const: General: no acute distress; No confusion Nutritional Appearance: o verweight Orientation/consciousness: No confusion Limitations: no limitations HEENT: Head: Yes normal to inspection Ears: hearing grossly normal bilaterally Mouth: Normal oral and palatal mucosa present Eyes: Sclerae: sclerae normal Pupils: Equal, round and reactive pupils present Neck: Neck: Yes normal visual inspection Chest: Chest palpation & inspection: normal inspection of the chest Resp: Effort & Inspection: normal respiratory effort Auscultation: clear to auscultation bilaterally Cardio: Palpation: normal PMI Rate: regular rate Rhythm: regular rhythm Heart sounds: S1 normal heart sound present, S2 normal heart sound present and no murmurs GI: Palpation (GI): Soft to palpation, Tenderness to palpation present (GI) (Mild lower abdominal tenderness without rebound) and No hepatosplenomegaly present Auscultation: normal bowel sounds Rectal Exam - Female: deferred Skin: General skin exam: no rashes or lesions noted Neuro: General: No confusion Cranial nerves: Yes Equal, round and reactive pupils present Psych: Appearance: grossly normal Mental Status: mental status grossly normal Objective Data Active Medications Acetaminophen (Acetaminophen 325 Mg Tablet) 975 mg PO Q6H PRN PRN Reason: Pain, Mild 1-3,fever,headache Atorvastatin Calcium (Atorvastatin Calcium 40 Mg Tablet) 40 mg PO BEDTIME [facility] Last Admin: 04/21/25 21:34 Dose: 40 mg Documented By: TRAY Calcium Carbonate (Calcium Carbonate 750 Mg Tab.Chew) 750 mg PO Q4H PRN PRN Reason: Heartburn Ceftriaxone Sodium (Ceftriaxone Sodium 1 Gm Vial) 1 gm IVPUSH Q24H [facility] Last Admin: 04/22/25 00:53 Dose: 1 gm Documented By: TRAY Cyclobenzaprine HCl (Cyclobenzaprine Hcl 10 Mg Tablet) 10 mg PO BID PRN PRN Reason: muscle spasms Last Admin: 04/21/25 17:46 Dose: 10 mg Documented By: JESSICA Diazepam (Diazepam 10 Mg/2 Ml Cartridge) 5 mg IVPUSH Q4H PRN PRN Reason: Anxiety Last Admin: 04/22/25 07:49 Dose: 5 mg Documented By: JESSICA Enoxaparin Sodium (Enoxaparin Sodium 40 Mg/0.4 Ml Syringe) 40 mg SUBCUT Q24H [facility] Last Admin: 04/22/25 07:49 Dose: 40 mg Documented By: JESSICA Hydromorphone HCl (Hydromorphone Hcl 0.5 Mg/0.5 Ml Syringe) 0.5 mg IVPUSH Q4H PRN; Protocol PRN Reason: Pain, Severe (Pain Scale 7-10) Last Admin: 04/22/25 06:27 Dose: 0.5 mg Documented By: TRAY Hydroxyzine HCl (Hydroxyzine Hcl 50 Mg Tablet) 50 mg PO BID PRN PRN Reason: Anxiety Last Admin: 04/22/25 07:47 Dose: 50 mg Documented By: JESSICA Hydroxyzine HCl (Hydroxyzine Hcl 25 Mg Tablet) 25 - 50 mg PO BID PRN PRN Reason: Anxiety Lidocaine (Lidocaine 4 % Patch Adh..Patch) 1 patch TRANSDERMA DAILY [facility]; Protocol Last Admin: 04/22/25 09:14 Dose: Not Given Documented By: JESSICA Non-Admin Reason: Patient Refused Lidocaine (Lidocaine 4 % Patch Adh..Patch) 1 patch TRANSDERMA DAILY [facility]; Protocol Last Admin: 04/22/25 06:46 Dose: 1 patch Documented By: RTAY Lurasidone HCl (Lurasidone Hcl 80 Mg Tablet) 80 mg PO BEDTIME [facility] Last Admin: 04/21/25 21:38 Dose: 80 mg Documented By: TRAY Magnesium Hydroxide (Milk Of Magnesia 30 Ml Oral.Susp) 30 ml PO DAILY PRN PRN Reason: Constipation Melatonin (Melatonin 3 Mg Tablet) 6 mg PO BEDTIME PRN PRN Reason: Insomnia Last Admin: 04/21/25 21:34 Dose: 6 mg Documented By: TRAY Metronidazole (Metronidazole 500 Mg Tablet) 500 mg PO Q8H [facility] Last Admin: 04/22/25 07:46 Dose: 500 mg Documented By: JESSICA Nicotine (Nicotine 14 Mg Patch.Td24) 14 mg TRANSDERMA DAILY [facility] Last Admin: 04/22/25 09:14 Dose: Not Given Documented By: JESSICA Non-Admin Reason: Patient Refused Omeprazole (Omeprazole 20 Mg Capsule.Dr) 20 mg PO BID@0630,1630 [facility] Last Admin: 04/22/25 05:28 Dose: 20 mg Documented By: TRAY Ondansetron HCl (Ondansetron Hcl 4 Mg/2 Ml Vial) 4 mg IVPUSH Q8H PRN PRN Reason: Nausea and Vomiting Last Admin: 04/21/25 21:33 Dose: 4 mg Documented By: TRAY Oxycodone HCl (Oxycodone Hcl Immed Release 5 Mg Tablet) 5 mg PO Q6H PRN PRN Reason: Pain, Moderate(Pain Scale 4-6) Last Admin: 04/22/25 05:28 Dose: 5 mg Documented By: TRAY Sertraline HCl (Sertraline Hcl 100 Mg Tablet) 200 mg PO DAILY [facility] Last Admin: 04/22/25 07:47 Dose: 200 mg Documented By: JESSICA Sodium Chloride (0.9 % Sodium Chloride Flush 3 Ml Syringe) 3 ml IVFLUSH QSHIFT [facility] Last Admin: 04/22/25 09:12 Dose: 3 ml Documented By: JESSICA Sucralfate (Sucralfate 1 Gm Tablet) 1 gm PO QIDACHS [facility] Last Admin: 04/22/25 07:47 Dose: 1 gm Documented By: JESSICA Topiramate (Topiramate 100 Mg Tablet) 100 mg PO BID [facility] Last Admin: 04/22/25 07:47 Dose: 100 mg Documented By: JESSICA Tramadol HCl (Tramadol Hcl 50 Mg Tablet) 50 mg PO Q6H PRN PRN Reason: Pain, Severe (Pain Scale 7-10) Last Admin: 04/22/25 00:53 Dose: 50 mg Documented By: TRAY Trazodone HCl (Trazodone Hcl 100 Mg Tablet) 200 mg PO BEDTIME [facility] Last Admin: 04/21/25 21:35 Dose: 200 mg Documented By: TRAY Labs 04/22/25 05:39 04/22/25 05:39 Labs: Laboratory Results - last 24 hr 04/22/25 05:39 MCV 89.2 MCH 29.1 MCHC 32.6 RDW 14.2 Plt Count 321 MPV 9.8 Absolute Nucleated RBC 0.000 Nucleated RBC % (auto) 0.0 Anion Gap 11 L Estim Creat Clear Calc 83.8 Estimated GFR > 60 Random Glucose 95 Calcium 9.2 Magnesium 2.0 Assessment and Plan (1) Hypertension: Status: Acute Plan 60F PMH GERD, hypertension, hyperlipidemia, depression, history of bowel resection cholecystectomy presented with intractable abdominal pain Intractable abdominal pain Continue ceftriaxone and Flagyl, negative stool studies, MRCP negative for stone EGD - gastritis and gastric polyps Colonoscopy-colon polyps diverticulosis, hemorrhoids Follow up biopsy results, for recurrent diarrhea Check calprotectin and pancreatic elastase Mood disorder Continue Latuda Hypertension Meds Held for low normal blood pressures Hyperlipidemia Continue statin DVT prophylaxis with Lovenox Full Code reason for continued hospitalization: Not tolerating p.o. Quality Stroke Does the patient have a stroke diagnosis?: No VTE Prior VTE?: No VTE Risk Level:: Medical - moderate - high VTE Device Contraindication: N/A - Device Ordered VTE Drug Contraindication: Treatment Not Indicated
[2025-04-22] MEDS: Nicotine 14 MG PATCH.TD24 TRANSDERMA (17:55)
--- NOTE | 2025-04-22 18:39 | PC.NURSE ---
Cigarette smell was coming from the bathroom after pt. came out, pt. denies it. Security called a molding press operator and half cigarette was found in the pt. bag, which were confiscated and stored at the Nurse station. Education provided about smoking and Hospital policy.
[2025-04-23] VITALS (10 sets, daily range): BP systolic 97–112; BP diastolic 55–63; PULSE 65–100; RESP 12–20; TEMP 36.2–37.6; O2SAT 92–94
[2025-04-23] MEDS: diazePAM 10 MG/2 ML CARTRIDGE 5 MG IVPUSH ×2 (03:33→14:35)
[2025-04-23 06:47] LABS: Anion Gap 11 (12-20); Blood Urea Nitrogen 5 mg/dL (9-16); Calcium 8.9 mg/dL (8.4-10.2); Carbon Dioxide 22 mmol/L (22-29); Chloride 108 mmol/L (96-108); Creatinine Clr Calc Pharmacy 77.8; Estimated Glomerular Filt Rate > 60; Potassium 3.3 mmol/L (3.3-5.1); Sodium 138 mmol/L (135-145)
[2025-04-23 07:00] LABS: Hematocrit 36.2 % (37.0-47.0); Hemoglobin 12.0 g/dl (12.0-16.0); Mean Corpuscular HGB Conc 33.1 g/dl (31.0-35.0); Mean Corpuscular Hemoglobin 28.7 pg (27.0-33.0); Mean Corpuscular Volume 86.6 fL (80.0-98.0); NRBC Abs Auto 0.000 X10*3/uL (0.0-0.012); NRBC Pct Auto 0.0 /100WBC (0.0-0.2); Platelet Count 294 X10*3/uL (160-400); Red Blood Count 4.18 X10*6/uL (4.20-5.50); White Blood Count 17.2 X10*3/uL (4.8-10.8)
--- NOTE | 2025-04-23 08:00 | PC.NURSE ---
08:00 - At start of shift patient requesting IV Valium for pain . Patient educated regarding that the PRN medication is ordered for anxiety, patient stated that has been helping with my pain . Patient educated regarding concern of medications with BP. Patient denies dizziness, light headedness, patient educated to ring if needed for assistance to bathroom or ambulation. Patient appears to go back to sleep when not interacting with staff.
[2025-04-23] MEDS: Nicotine 14 MG PATCH.TD24 TRANSDERMA (08:30)
[2025-04-23] MEDS: Lidocaine 4 % Patch ADH..PATCH 1 PATCH TRANSDERMA (08:34)
[2025-04-23] MEDS: 0.9 % Sodium Chloride Flush 3 ML SYRINGE IVFLUSH ×3 (08:37→20:22)
--- NOTE | 2025-04-23 08:46 | HO.PM.IMPN ---
Subjective Subjective Date of Service: 04/23/25 Interval History: tired, appetite still not great, still with abd pain Neurologic Neurologic: Denies confusion Psychiatric Psychiatric: Denies confusion Physical Exam Vital Signs: Vital Signs: Last Vital Signs Temp 98.0 F 04/23/25 08:00 Pulse 97 04/23/25 08:00 Resp 17 04/23/25 08:00 BP 98/55 L 04/23/25 08:00 Pulse Ox 92 04/23/25 08:00 O2 Del Method Room Air 04/23/25 08:00 BMI result Body Mass Index 27.1 Const: General: no acute distress; No confusion Nutritional Appearance: overweight Orientation/consciousness: No confusion Limitations: no limitations HEENT: Head: Yes normal to inspection Ears: hearing grossly normal bilaterally Mouth: Normal oral and palatal mucosa present Eyes: Sclerae: sclerae normal Pupils: Equal, round and reactive pupils present Neck: Neck: Yes normal visual inspection Chest: Chest palpation & inspection: normal inspection of the chest Resp: Effort & Inspection: normal respiratory effort Auscultation: clear to auscultation bilaterally Cardio: Palpation: normal PMI Rate: regular rate Rhythm: regular rhythm Heart sounds: S1 normal heart sound present, S2 normal heart sound present and no murmurs GI: Palpation (GI): Soft to palpation, Tenderness to palpation present (GI) (Mild lower abdominal tenderness without rebound) and No hepatosplenomegaly present Auscultation: normal bowel sounds Rectal Exam - Female: deferred Skin: General skin exam: no rashes or lesions noted Neuro: General: No confusion Cranial nerves: Yes Equal, round and reactive pupils present Psych: Appearance: grossly normal Mental Status: mental status grossly normal Objective Data Active Medications Acetaminophen (Acetaminophen 325 Mg Tablet) 975 mg PO Q6H PRN PRN Reason: Pain, Mild 1-3,fever,headache Atorvastatin Calcium (Atorvastatin Calcium 40 Mg Tablet) 40 mg PO BEDTIME [facility] Last Admin: 04/22/25 20:35 Dose: 40 mg Documented By: NIGEL Calcium Carbonate (Calcium Carbonate 750 Mg Tab.Chew) 750 mg PO Q4H PRN PRN Reason: Heartburn Ceftriaxone Sodium (Ceftriaxone Sodium 1 Gm Vial) 1 gm IVPUSH Q24H [facility] Last Admin: 04/22/25 23:56 Dose: 1 gm Documented By: NIGEL Cyclobenzaprine HCl (Cyclobenzaprine Hcl 10 Mg Tablet) 10 mg PO BID PRN PRN Reason: muscle spasms Last Admin: 04/21/25 17:46 Dose: 10 mg Documented By: JESSICA Diazepam (Diazepam 10 Mg/2 Ml Cartridge) 5 mg IVPUSH Q4H PRN PRN Reason: Anxiety Last Admin: 04/23/25 03:33 Dose: 5 mg Documented By: NIGEL Enoxaparin Sodium (Enoxaparin Sodium 40 Mg/0.4 Ml Syringe) 40 mg SUBCUT Q24H [facility] Last Admin: 04/23/25 08:30 Dose: 40 mg Documented By: SATHISH Hydromorphone HCl (Hydromorphone Hcl 0.5 Mg/0.5 Ml Syringe) 0.5 mg IVPUSH Q4H PRN; Protocol PRN Reason: Pain, Severe (Pain Scale 7-10) Last Admin: 04/23/25 05:32 Dose: 0.5 mg Documented By: NIGEL Hydroxyzine HCl (Hydroxyzine Hcl 50 Mg Tablet) 50 mg PO BID PRN PRN Reason: Anxiety Last Admin: 04/22/25 07:47 Dose: 50 mg Documented By: JESSICA Hydroxyzine HCl (Hydroxyzine Hcl 25 Mg Tablet) 25 - 50 mg PO BID PRN PRN Reason: Anxiety Lidocaine (Lidocaine 4 % Patch Adh..Patch) 1 patch TRANSDERMA DAILY [facility]; Protocol Last Admin: 04/23/25 08:34 Dose: 1 patch Documented By: SATHISH Lidocaine (Lidocaine 4 % Patch Adh..Patch) 1 patch TRANSDERMA DAILY [facility]; Protocol Last Admin: 04/23/25 08:43 Dose: Not Given Documented By: SATHISH Non-Admin Reason: Duplicate Order Lurasidone HCl (Lurasidone Hcl 80 Mg Tablet) 80 mg PO BEDTIME [facility] Last Admin: 04/22/25 20:36 Dose: 80 mg Documented By: NIGEL Magnesium Hydroxide (Milk Of Magnesia 30 Ml Oral.Susp) 30 ml PO DAILY PRN PRN Reason: Constipation Melatonin (Melatonin 3 Mg Tablet) 6 mg PO BEDTIME PRN PRN Reason: Insomnia Last Admin: 04/21/25 21:34 Dose: 6 mg Documented By: TRAY Metronidazole (Metronidazole 500 Mg Tablet) 500 mg PO Q8H [facility] Last Admin: 04/23/25 08:30 Dose: 500 mg Documented By: SATHISH Nicotine (Nicotine 14 Mg Patch.Td24) 14 mg TRANSDERMA DAILY [facility] Last Admin: 04/23/25 08:30 Dose: 14 mg Documented By: SATHISH Omeprazole (Omeprazole 20 Mg Capsule.Dr) 20 mg PO BID@0630,1630 [facility] Last Admin: 04/23/25 05:29 Dose: 20 mg Documented By: NIGEL Ondansetron HCl (Ondansetron Hcl 4 Mg/2 Ml Vial) 4 mg IVPUSH Q8H PRN PRN Reason: Nausea and Vomiting Last Admin: 04/23/25 03:30 Dose: 4 mg Documented By: NIGEL Oxycodone HCl (Oxycodone Hcl Immed Release 5 Mg Tablet) 5 mg PO Q6H PRN PRN Reason: Pain, Moderate(Pain Scale 4-6) Last Admin: 04/22/25 05:28 Dose: 5 mg Documented By: TRAY Sertraline HCl (Sertraline Hcl 100 Mg Tablet) 200 mg PO DAILY [facility] Last Admin: 04/23/25 08:30 Dose: 200 mg Documented By: SATHISH Sodium Chloride (0.9 % Sodium Chloride Flush 3 Ml Syringe) 3 ml IVFLUSH [facility] Last Admin: 04/23/25 08:37 Dose: 3 ml Documented By: SATHISH Sucralfate (Sucralfate 1 Gm Tablet) 1 gm PO QIDACHS [facility] Last Admin: 04/23/25 08:30 Dose: 1 gm Documented By: SATHISH Topiramate (Topiramate 100 Mg Tablet) 100 mg PO BID [facility] Last Admin: 04/23/25 08:30 Dose: 100 mg Documented By: SATHISH Tramadol HCl (Tramadol Hcl 50 Mg Tablet) 50 mg PO Q6H PRN PRN Reason: Pain, Severe (Pain Scale 7-10) Last Admin: 04/22/25 00:53 Dose: 50 mg Documented By: TRAY Trazodone HCl (Trazodone Hcl 100 Mg Tablet) 200 mg PO BEDTIME [facility] Last Admin: 04/22/25 20:36 Dose: 200 mg Documented By: NIGEL Labs 04/23/25 06:11 07/09/25 06:11 Labs: Laboratory Results - last 24 hr 04/23/25 06:11 MCV 86.6 MCH 28.7 MCHC 33.1 RDW 14.0 Plt Count 294 MPV 9.7 Absolute Nucleated RBC 0.000 Nucleated RBC % (auto) 0.0 Anion Gap 11 L Estim Creat Clear Calc 77.8 Estimated GFR > 60 Random Glucose 112 Calcium 8.9 Assessment and Plan (1) Hypertension: Status: Acute Plan 60F PMH GERD, hypertension, hyperlipidemia, depression, history of bowel resection cholecystectomy presented with intractable abdominal pain Intractable abdominal pain Continue ceftriaxone and Flagyl, negative stool studies, MRCP negative for stone EGD - gastritis and gastric polyps Colonoscopy-colon polyps diverticulosis, hemorrhoids Follow up biopsy results, for recurrent diarrhea Check calprotectin and pancreatic elastase leukocystosis likely reactive, doubt infection while on abx monitor Mood disorder Continue Latuda Hypertension Meds Held for low normal blood pressures Hyperlipidemia Continue statin DVT prophylaxis with Lovenox Full Code reason for continued hospitalization: Not tolerating p.o. Quality Stroke Does the patient have a stroke diagnosis?: No VTE Prior VTE?: No VTE Risk Level:: Medical - moderate - high VTE Device Contraindication: N/A - Device Ordered VTE Drug Contraindication: Treatment Not Indicated
--- NOTE | 2025-04-23 10:18 | PC.NURSE ---
PCt came to RN stating patient was requesting pain medications. Upon going in room to administer pain medications, patient eyes were closed, unlabored breathing. Medication held at this time due to patient sleeping.
--- NOTE | 2025-04-23 10:23 | P.CDIM_ITS ---
PROVIDER RESPONSE TEXT: To clarify, the appropriate diagnosis supported by the clinical indicators: Other (explain): unspecified, awaiting pathology QUERY TEXT: PHYSICIAN'S DOCUMENTATION REQUEST Date of Query: 04/23/2025 10:06 AM EDT Patient Name: Lori Mendieta Admit Date: 04/19/2025 Dear Lusi Fernando Adames MD, A review of the medical record indicates additional documentation may be needed. Please review below and update the documentation accordingly. Clinical Indicators: GI op note 04/21/25- Post-Op dx: Gastritis, Gastric polyp. Progress note 04/22/25 - Intractable abdominal pain Continue ceftriaxone and Flagyl. EGD - gastritis and gastric polyps. Clarify which of the following accurately represents specifics to the noted diagnosis of Gastritis: Possible options might include: Acute Chronic Spastic Viral Hypertrophic Other specific Other (explain) Clinically unable to determine (explain) Thank you, Cris Grant, CCS, CDIS Use of terms such as suspected, likely, concern for, or probable (associated with a specific diagnosis that is being evaluated, monitored, or treated as if it exists) are acceptable and can be coded in the inpatient setting, when documented at the time of discharge. Please use your independent medical judgment in providing your response. THIS QUERY IS PART OF THE PERMANENT MEDICAL RECORD
--- NOTE | 2025-04-23 15:11 | MHC.CM.PN ---
per physician rounds, patient with elevated white count and poor po intake. no plan for dc today
[2025-04-23] MEDS: oxyCODONE HCl Immed Release 5 MG TABLET PO (20:21)
[2025-04-24 04:00] VITALS: BP 117/69; PULSE 70; RESP 18; TEMP 36.6; O2SAT 93
[2025-04-24 05:54] VITALS: RESP 20
[2025-04-24 06:30] LABS: Hematocrit 35.8 % (37.0-47.0); Hemoglobin 11.9 g/dl (12.0-16.0); Mean Corpuscular HGB Conc 33.2 g/dl (31.0-35.0); Mean Corpuscular Hemoglobin 28.9 pg (27.0-33.0); Mean Corpuscular Volume 86.9 fL (80.0-98.0); NRBC Abs Auto 0.000 X10*3/uL (0.0-0.012); NRBC Pct Auto 0.0 /100WBC (0.0-0.2); Platelet Count 268 X10*3/uL (160-400); Red Blood Count 4.12 X10*6/uL (4.20-5.50); White Blood Count 14.5 X10*3/uL (4.8-10.8)
[2025-04-24 06:44] LABS: Anion Gap 10 (12-20); Blood Urea Nitrogen 5 mg/dL (9-16); Calcium 9.3 mg/dL (8.4-10.2); Carbon Dioxide 25 mmol/L (22-29); Chloride 109 mmol/L (96-108); Creatinine Clr Calc Pharmacy 76.7; Estimated Glomerular Filt Rate > 60; Potassium 3.1 mmol/L (3.3-5.1); Sodium 141 mmol/L (135-145)
--- NOTE | 2025-04-24 07:26 | P.PNIM_ITS ---
Subjective Subjective Date of Service: 04/24/25 Interval History: Seen and examined today Interval history: Still reporting 8/10 pain improving to 6/10 with dialuadid. Reports doesnt like taking a lot of meds so wants 1mg dilaudid so it lastslonger . Requests percocet as well. Discussed this is oxycodone with tylenol. Poor appetite though no vomiting. Incontinent of stool this am. Still with diffuse abd pain Review of Systems Review of Systems: Yes all other systems are reviewed and are negative Physical Exam 2 Vital Signs: Vital Signs: Last Vital Signs Temp 97.9 F 04/24/25 04:00 Pulse 70 04/24/25 04:00 Resp 20 04/24/25 05:54 BP 117/69 04/24/25 04:00 Pulse Ox 93 04/24/25 04:00 O2 Del Method Room Air 04/24/25 04:00 BMI result Body Mass Index 27.1 Constitutional - Awake but appears dazed, No apparent distress Eyes - PERRLA, EOMI Cardiovascular - S1S2, RRR, No edema Respiratory - Normal lung expansion, Normal respiratory effort, No respiratory distress, CTA bilaterally Gastrointestinal - ttp LUQ with guarding. ND; +BS; No rebound Extremities - no calf tenderness bilaterally, no swelling Skin - Warm/Dry Neurological - Alert & oriented x3 Psychological - Appropriate affect Objective Data Active Medications Acetaminophen (Acetaminophen 325 Mg Tablet) 975 mg PO Q6H PRN PRN Reason: Pain, Mild 1-3,fever,headache Last Admin: 04/23/25 20:20 Dose: 975 mg Documented By: MYRON Atorvastatin Calcium (Atorvastatin Calcium 40 Mg Tablet) 40 mg PO BEDTIME [facility] Last Admin: 04/23/25 20:20 Dose: 40 mg Documented By: MYRON Calcium Carbonate (Calcium Carbonate 750 Mg Tab.Chew) 750 mg PO Q4H PRN PRN Reason: Heartburn Ceftriaxone Sodium (Ceftriaxone Sodium 1 Gm Vial) 1 gm IVPUSH Q24H [facility] Last Admin: 04/24/25 00:07 Dose: 1 gm Documented By: MYRON Cyclobenzaprine HCl (Cyclobenzaprine Hcl 10 Mg Tablet) 10 mg PO BID PRN PRN Reason: muscle spasms Last Admin: 04/21/25 17:46 Dose: 10 mg Documented By: JESSICA Diazepam (Diazepam 10 Mg/2 Ml Cartridge) 5 mg IVPUSH Q8H PRN PRN Reason: Anxiety Last Admin: 04/23/25 14:35 Dose: 5 mg Documented By: SATHISH Enoxaparin Sodium (Enoxaparin Sodium 40 Mg/0.4 Ml Syringe) 40 mg SUBCUT Q24H [facility] Last Admin: 04/23/25 08:30 Dose: 40 mg Documented By: SATHISH Hydroxyzine HCl (Hydroxyzine Hcl 50 Mg Tablet) 50 mg PO BID PRN PRN Reason: Anxiety Last Admin: 04/22/25 07:47 Dose: 50 mg Documented By: JESSICA Hydroxyzine HCl (Hydroxyzine Hcl 25 Mg Tablet) 25 - 50 mg PO BID PRN PRN Reason: Anxiety Lidocaine (Lidocaine 4 % Patch Adh..Patch) 1 patch TRANSDERMA DAILY [facility]; Protocol Last Admin: 04/23/25 08:34 Dose: 1 patch Documented By: SATHISH Lidocaine (Lidocaine 4 % Patch Adh..Patch) 1 patch TRANSDERMA DAILY [facility]; Protocol Last Admin: 04/23/25 08:43 Dose: Not Given Documented By: SATHISH Non-Admin Reason: Duplicate Order Loperamide HCl (Loperamide Hcl 2 Mg Capsule) 2 mg PO Q4H PRN PRN Reason: Diarrhea Last Admin: 04/24/25 05:53 Dose: 2 mg Documented By: MYRON Lurasidone HCl (Lurasidone Hcl 80 Mg Tablet) 80 mg PO BEDTIME [facility] Last Admin: 04/23/25 20:20 Dose: 80 mg Documented By: MYRON Magnesium Hydroxide (Milk Of Magnesia 30 Ml Oral.Susp) 30 ml PO DAILY PRN PRN Reason: Constipation Melatonin (Melatonin 3 Mg Tablet) 6 mg PO BEDTIME PRN PRN Reason: Insomnia Last Admin: 04/21/25 21:34 Dose: 6 mg Documented By: TRAY Metronidazole (Metronidazole 500 Mg Tablet) 500 mg PO Q8H [facility] Last Admin: 04/24/25 00:10 Dose: 500 mg Documented By: MYRON Nicotine (Nicotine 14 Mg Patch.Td24) 14 mg TRANSDERMA DAILY [facility] Last Admin: 04/23/25 08:30 Dose: 14 mg Documented By: SATHISH Omeprazole (Omeprazole 20 Mg Capsule.) 20 mg PO BID@0630,1630 [facility] Last Admin: 04/24/25 05:53 Dose: 20 mg Documented By: MYRON Ondansetron HCl (Ondansetron Hcl 4 Mg/2 Ml Vial) 4 mg IVPUSH Q8H PRN PRN Reason: Nausea and Vomiting Last Admin: 04/23/25 12:14 Dose: 4 mg Documented By: SATHISH Sertraline HCl (Sertraline Hcl 100 Mg Tablet) 200 mg PO DAILY [facility] Last Admin: 04/23/25 08:30 Dose: 200 mg Documented By: SATHISH Sodium Chloride (0.9 % Sodium Chloride Flush 3 Ml Syringe) 3 ml IVFLUSH QSHIFT [facility] Last Admin: 04/23/25 20:22 Dose: 3 ml Documented By: MYRON Sucralfate (Sucralfate 1 Gm Tablet) 1 gm PO QIDACHS [facility] Last Admin: 04/23/25 20:20 Dose: 1 gm Documented By: MYRON Topiramate (Topiramate 100 Mg Tablet) 100 mg PO BID [facility] Last Admin: 04/23/25 20:20 Dose: 100 mg Documented By: MYRON Tramadol HCl (Tramadol Hcl 50 Mg Tablet) 50 mg PO Q6H PRN PRN Reason: Pain, Severe (Pain Scale 7-10) Last Admin: 04/22/25 00:53 Dose: 50 mg Documented By: TRAY Trazodone HCl (Trazodone Hcl 100 Mg Tablet) 200 mg PO BEDTIME [facility] Last Admin: 04/23/25 20:20 Dose: 200 mg Documented By: MYRON Labs 04/24/25 05:55 04/24/25 05:54 Labs: Laboratory Results - last 24 hr 04/24/25 04/24/25 05:54 05:55 MCV 86.9 MCH 28.9 MCHC 33.2 RDW 14.1 Plt Count 268 MPV 9.7 Absolute Nucleated RBC 0.000 Nucleated RBC % (auto) 0.0 Anion Gap 10 L Estim Creat Clear Calc 76.7 Estimated GFR > 60 Random Glucose 97 Calcium 9.3 Assessment and Plan (1) Hypertension: Status: Acute Plan 60F PMH GERD, hypertension, hyperlipidemia, depression, history of bowel resection cholecystectomy presented with intractable abdominal pain Intractable abdominal pain Continue ceftriaxone and Flagyl, negative stool studies, MRCP negative for stone WBC trending down EGD - gastritis and gastric polyps Colonoscopy-colon polyps diverticulosis, hemorrhoids Follow up biopsy results, for recurrent diarrhea Check calprotectin and pancreatic elastase- pending Continue pain management prn- question drug sleeping. Asks for meds then falls asleep comfortably before administering leukocystosis likely reactive, doubt infection while on abx monitor Mood disorder Continue Latuda Hypertension Meds Held for low normal blood pressures Hyperlipidemia Continue statin DVT prophylaxis with Lovenox Full Code reason for continued hospitalization: Not tolerating p.o. Quality Stroke Does the patient have a stroke diagnosis?: No VTE Prior VTE?: No VTE Risk Level:: Medical - moderate - high VTE Device Contraindication: N/A - Device Ordered VTE Drug Contraindication: Treatment Not Indicated
[2025-04-24 08:00] VITALS: BP 104/57; PULSE 75; RESP 18; TEMP 36.1; O2SAT 95
[2025-04-24] MEDS: Nicotine 14 MG PATCH.TD24 TRANSDERMA (08:24)
[2025-04-24] MEDS: 0.9 % Sodium Chloride Flush 3 ML SYRINGE IVFLUSH ×3 (08:32→20:40)
[2025-04-24] MEDS: Lidocaine 4 % Patch ADH..PATCH 1 PATCH TRANSDERMA ×2 (08:38→08:39)
[2025-04-24 15:23] VITALS: BP 110/59; PULSE 84; RESP 18; TEMP 37.2; O2SAT 94
[2025-04-24] MEDS: oxyCODONE HCl Immed Release 5 MG TABLET PO (15:46)
[2025-04-24] MEDS: diazePAM 10 MG/2 ML CARTRIDGE 5 MG IVPUSH (15:51)
[2025-04-24 19:37] VITALS: BP 112/52; PULSE 73; RESP 18; TEMP 36.1; O2SAT 93
[2025-04-25 03:02] VITALS: BP 116/58; PULSE 88; RESP 18; TEMP 36.7; O2SAT 94
--- NOTE | 2025-04-25 03:32 | PC.NURSE ---
Patient was woken up by a ROLL SETTER for [facility] and is asking for pain medication. Before ROLL SETTER had a chance to exit the room patient was already sleeping and snoring.
[2025-04-25 05:54] LABS: MANUAL DIFF FLAG NO
[2025-04-25 05:57] LABS: Hematocrit 33.8 % (37.0-47.0); Hemoglobin 11.2 g/dl (12.0-16.0); Imm Gran Abs Auto 0.07 X10*3/uL (0.00-0.03); Imm Gran Pct Auto 0.5 % (0.0-0.4); Lymphocytes Absolute Auto 1.3 X10*3/uL (1.2-4.9); Mean Corpuscular HGB Conc 33.1 g/dl (31.0-35.0); Mean Corpuscular Hemoglobin 28.8 pg (27.0-33.0); Mean Corpuscular Volume 86.9 fL (80.0-98.0); NRBC Abs Auto 0.000 X10*3/uL (0.0-0.012); NRBC Pct Auto 0.0 /100WBC (0.0-0.2); Platelet Count 273 X10*3/uL (160-400); Red Blood Count 3.89 X10*6/uL (4.20-5.50); White Blood Count 15.0 X10*3/uL (4.8-10.8)
[2025-04-25 06:33] LABS: Anion Gap 12 (12-20); Blood Urea Nitrogen 4 mg/dL (9-16); Calcium 8.6 mg/dL (8.4-10.2); Carbon Dioxide 23 mmol/L (22-29); Chloride 105 mmol/L (96-108); Creatinine Clr Calc Pharmacy 90.8; Estimated Glomerular Filt Rate > 60; Potassium 2.9 mmol/L (3.3-5.1); Sodium 137 mmol/L (135-145)
[2025-04-25] MEDS: Potassium Chloride ER 20 MEQ TAB.ER.PRT 40 MEQ PO (07:34)
[2025-04-25 07:38] VITALS: BP 108/56; PULSE 85; RESP 18; TEMP 36.9; O2SAT 92
[2025-04-25] MEDS: 0.9 % Sodium Chloride Flush 3 ML SYRINGE IVFLUSH ×3 (07:42→20:43)
[2025-04-25] MEDS: Lidocaine 4 % Patch ADH..PATCH 1 PATCH TRANSDERMA ×2 (08:43)
[2025-04-25] MEDS: Nicotine 14 MG PATCH.TD24 TRANSDERMA (08:46)
--- NOTE | 2025-04-25 10:59 | P.PNIM_ITS ---
Subjective Subjective Date of Service: 04/25/25 Interval History: Seen and examined today Interval history: Still reporting pain, and has persistent diarrhea, she says she's not able to eat and potassium is 2.9 Physical Exam 2 Vital Signs: Vital Signs: Last Vital Signs Temp 98.4 F 04/25/25 07:38 Pulse 85 04/25/25 07:38 Resp 18 04/25/25 07:38 BP 108/56 L 04/25/25 07:38 Pulse Ox 92 04/25/25 07:38 O2 Del Method Room Air 04/25/25 07:38 BMI result Body Mass Index 27.1 Constitutional - Awake but appears dazed, No apparent distress Eyes - PERRLA, EOMI Cardiovascular - S1S2, RRR, No edema Respiratory - Normal lung expansion, Normal respiratory effort, No respiratory distress, CTA bilaterally Gastrointestinal - ttp LUQ with guarding. ND; +BS; No rebound Extremities - no calf tenderness bilaterally, no swelling Skin - Warm/Dry Neurological - Alert & oriented x3 Psychological - Appropriate affect HEENT: Other: General: AO X 3, no acute distress Resp: CTA bilateral CVS: S1,S2,RRR GI: +BS, NT, no distention Skin: No rash Neuro: motor grossly intact Psych: appropriate affect Objective Data Active Medications Acetaminophen (Acetaminophen 325 Mg Tablet) 975 mg PO Q6H PRN PRN Reason: Pain, Mild 1-3,fever,headache Last Admin: 04/24/25 15:50 Dose: 975 mg Documented By: CATA Atorvastatin Calcium (Atorvastatin Calcium 40 Mg Tablet) 40 mg PO BEDTIME [facility] Last Admin: 04/24/25 20:40 Dose: 40 mg Documented By: SIDDHARTH Calcium Carbonate (Calcium Carbonate 750 Mg Tab.Chew) 750 mg PO Q4H PRN PRN Reason: Heartburn Ceftriaxone Sodium (Ceftriaxone Sodium 1 Gm Vial) 1 gm IVPUSH Q24H [facility] Last Admin: 04/25/25 01:00 Dose: 1 gm Documented By: SIDDHARTH Cyclobenzaprine HCl (Cyclobenzaprine Hcl 10 Mg Tablet) 10 mg PO BID PRN PRN Reason: muscle spasms Last Admin: 04/21/25 17:46 Dose: 10 mg Documented By: JESSICA Diazepam (Diazepam 10 Mg/2 Ml Cartridge) 5 mg IVPUSH Q8H PRN PRN Reason: Anxiety Last Admin: 04/24/25 15:51 Dose: 5 mg Documented By: CATA Enoxaparin Sodium (Enoxaparin Sodium 40 Mg/0.4 Ml Syringe) 40 mg SUBCUT Q24H [facility] Last Admin: 04/25/25 08:49 Dose: 40 mg Documented By: CATA Hydromorphone HCl (Hydromorphone Hcl 0.5 Mg/0.5 Ml Syringe) 0.5 mg IVPUSH Q4H PRN; Protocol PRN Reason: Pain, Severe (Pain Scale 7-10) Last Admin: 04/25/25 09:11 Dose: 0.5 mg Documented By: CATA Hydroxyzine HCl (Hydroxyzine Hcl 50 Mg Tablet) 50 mg PO BID PRN PRN Reason: Anxiety Last Admin: 04/22/25 07:47 Dose: 50 mg Documented By: JESSICA Hydroxyzine HCl (Hydroxyzine Hcl 25 Mg Tablet) 25 - 50 mg PO BID PRN PRN Reason: Anxiety Lidocaine (Lidocaine 4 % Patch Adh..Patch) 1 patch TRANSDERMA DAILY [facility]; Protocol Last Admin: 04/25/25 08:43 Dose: 1 patch Documented By: CATA Lidocaine (Lidocaine 4 % Patch Adh..Patch) 1 patch TRANSDERMA DAILY [facility]; Protocol Last Admin: 04/25/25 08:43 Dose: 1 patch Documented By: CATA Loperamide HCl (Loperamide Hcl 2 Mg Capsule) 2 mg PO Q4H PRN PRN Reason: Diarrhea Last Admin: 04/24/25 05:53 Dose: 2 mg Documented By: MYRON Lurasidone HCl (Lurasidone Hcl 80 Mg Tablet) 80 mg PO BEDTIME [facility] Last Admin: 04/24/25 20:39 Dose: 80 mg Documented By: LYSDavon Magnesium Hydroxide (Milk Of Magnesia 30 Ml Oral.Susp) 30 ml PO DAILY PRN PRN Reason: Constipation Melatonin (Melatonin 3 Mg Tablet) 6 mg PO BEDTIME PRN PRN Reason: Insomnia Last Admin: 04/21/25 21:34 Dose: 6 mg Documented By: TRAY Metronidazole (Metronidazole 500 Mg Tablet) 500 mg PO Q8H [facility] Last Admin: 04/25/25 08:45 Dose: 500 mg Documented By: CATA Nicotine (Nicotine 14 Mg Patch.Td24) 14 mg TRANSDERMA DAILY [facility] Last Admin: 04/25/25 08:46 Dose: 14 mg Documented By: CATA Omeprazole (Omeprazole 20 Mg Capsule.Dr) 20 mg PO BID@0630,1630 [facility] Last Admin: 04/25/25 05:11 Dose: 20 mg Documented By: SIDDHARTH Ondansetron HCl (Ondansetron Hcl 4 Mg/2 Ml Vial) 4 mg IVPUSH Q8H PRN PRN Reason: Nausea and Vomiting Last Admin: 04/25/25 08:43 Dose: 4 mg Documented By: CATA Oxycodone HCl (Oxycodone Hcl Immed Release 5 Mg Tablet) 5 mg PO Q6H PRN PRN Reason: Pain, Moderate(Pain Scale 4-6) Last Admin: 04/24/25 15:46 Dose: 5 mg Documented By: CATA Sertraline HCl (Sertraline Hcl 100 Mg Tablet) 200 mg PO DAILY [facility] Last Admin: 04/25/25 08:45 Dose: 200 mg Documented By: CATA Sodium Chloride (0.9 % Sodium Chloride Flush 3 Ml Syringe) 3 ml IVFLUSH QSHIFT [facility] Last Admin: 04/25/25 07:42 Dose: 3 ml Documented By: CATA Sucralfate (Sucralfate 1 Gm Tablet) 1 gm PO QIDACHS [facility] Last Admin: 04/25/25 07:36 Dose: 1 gm Documented By: CATA Topiramate (Topiramate 100 Mg Tablet) 100 mg PO BID [facility] Last Admin: 04/25/25 08:45 Dose: 100 mg Documented By: CATA Trazodone HCl (Trazodone Hcl 100 Mg Tablet) 200 mg PO BEDTIME [facility] Last Admin: 04/24/25 22:20 Dose: 200 mg Documented By: KARIE Labs 04/25/25 05:39 04/25/25 05:39 Labs: Laboratory Results - last 24 hr 04/25/25 05:39 MCV 86.9 MCH 28.8 MCHC 33.1 RDW 14.0 Plt Count 273 MPV 9.9 Immature Gran % (Auto) 0.5 H Neut % (Auto) 78.5 H Lymph % (Auto) 8.9 L [place] % (Auto) 7.8 Eos % (Auto) 3.9 Baso % (Auto) 0.4 Lymph # (Auto) 1.3 [place] # (Auto) 1.2 Eos # (Auto) 0.6 H Baso # (Auto) 0.1 Abs Immat Gran (auto) 0.07 H Absolute Neuts (auto) 11.8 H Absolute Nucleated RBC 0.000 Nucleated RBC % (auto) 0.0 Anion Gap 12 Estim Creat Clear Calc 90.8 Estimated GFR > 60 Random Glucose 107 Calcium 8.6 D Assessment and Plan (1) Hypertension: Status: Acute Plan 60F PMH GERD, hypertension, hyperlipidemia, depression, history of bowel resection cholecystectomy presented with intractable abdominal pain Intractable abdominal pain Continue ceftriaxone and Flagyl for no more than 7 days, negative stool studies, MRCP negative for stone WBC trending down but still high EGD - gastritis and gastric polyps Colonoscopy-colon polyps diverticulosis, hemorrhoids Follow up biopsy results, for recurrent diarrhea Check calprotectin and pancreatic elastase- pending Continue pain management prn- question drug seeking. Asks for meds then falls asleep comfortably before administering Hypokalemia, 2.9 replacing, follow leukocystosis, 15 from 14, likely reactive monitor Mood disorder Continue Latuda Hypertension Meds Held for low normal blood pressures Hyperlipidemia Continue statin DVT prophylaxis with Lovenox Full Code reason for continued hospitalization: Not tolerating p.o. Quality Stroke Does the patient have a stroke diagnosis?: No VTE Prior VTE?: No VTE Risk Level:: Medical - moderate - high VTE Device Contraindication: N/A - Device Ordered VTE Drug Contraindication: Treatment Not Indicated
[2025-04-25] MEDS: oxyCODONE HCl Immed Release 5 MG TABLET PO (11:45)
[2025-04-25] MEDS: diazePAM 10 MG/2 ML CARTRIDGE 5 MG IVPUSH ×2 (11:47→20:43)
[2025-04-25 15:33] VITALS: BP 103/54; PULSE 80; RESP 17; TEMP 36.6; O2SAT 92
[2025-04-25 19:09] VITALS: BP 105/58; PULSE 81; RESP 17; TEMP 36.3; O2SAT 92
[2025-04-26 03:41] VITALS: BP 112/58; PULSE 72; RESP 16; TEMP 36.1; O2SAT 92
[2025-04-26] MEDS: oxyCODONE HCl Immed Release 5 MG TABLET PO ×3 (03:46→21:55)
[2025-04-26 06:22] LABS: Anion Gap 11 (12-20); Blood Urea Nitrogen 4 mg/dL (9-16); Calcium 8.7 mg/dL (8.4-10.2); Carbon Dioxide 25 mmol/L (22-29); Chloride 105 mmol/L (96-108); Creatinine Clr Calc Pharmacy 90.8; Estimated Glomerular Filt Rate > 60; Potassium 3.0 mmol/L (3.3-5.1); Sodium 138 mmol/L (135-145)
[2025-04-26] MEDS: 0.9 % Sodium Chloride Flush 3 ML SYRINGE IVFLUSH ×2 (07:15→23:57)
[2025-04-26] MEDS: diazePAM 10 MG/2 ML CARTRIDGE 5 MG IVPUSH ×2 (07:19→16:45)
[2025-04-26 07:36] VITALS: BP 112/59; PULSE 73; RESP 16; TEMP 36.1; O2SAT 96
--- NOTE | 2025-04-26 07:44 | P.PNIM_ITS ---
Subjective Subjective Date of Service: 04/26/25 Interval History: Seen and examined this morning Interval history: Reporting 8-9/10 diffuse abd pain and nausea. Improves to a 7/10 with hydromorphone/oxycodone. Sleeping well. No vomiting but still with frequent diarrhea. Continues on abx. K remains low at 3.0. Tolerating full liquids but decreased appetite for solids. Review of Systems Review of Systems: Yes all other systems are reviewed and are negative Physical Exam 2 Vital Signs: Vital Signs: Last Vital Signs Temp 96.9 F 04/26/25 07:36 Pulse 73 04/26/25 07:36 Resp 16 04/26/25 07:36 BP 112/59 L 04/26/25 07:36 Pulse Ox 96 04/26/25 07:36 O2 Del Method Room Air 04/26/25 07:36 BMI result Body Mass Index 27.1 EXAM: Constitutional - Awake and Alert, No apparent distress Eyes - PERRL Cardiovascular - S1S2, RRR, No edema Respiratory - Normal lung expansion, Normal respiratory effort, No respiratory distress, CTA bilaterally GI - BS x4, ND, TTP worst in LUQ with voluntary guarding. No rebound Extremities - no calf tenderness bilaterally, no swelling Skin - Warm/Dry Neurological - Alert & oriented x3 Psychological - Appropriate affect Objective Data Active Medications Acetaminophen (Acetaminophen 325 Mg Tablet) 975 mg PO Q6H PRN PRN Reason: Pain, Mild 1-3,fever,headache Last Admin: 04/26/25 03:45 Dose: 975 mg Documented By: SIDDHARTH Atorvastatin Calcium (Atorvastatin Calcium 40 Mg Tablet) 40 mg PO BEDTIME [facility] Last Admin: 04/25/25 20:42 Dose: 40 mg Documented By: SIDDHARTH Calcium Carbonate (Calcium Carbonate 750 Mg Tab.Chew) 750 mg PO Q4H PRN PRN Reason: Heartburn Ceftriaxone Sodium (Ceftriaxone Sodium 1 Gm Vial) 1 gm IVPUSH Q24H [facility] Last Admin: 04/26/25 00:26 Dose: 1 gm Documented By: SIDDHARTH Cyclobenzaprine HCl (Cyclobenzaprine Hcl 10 Mg Tablet) 10 mg PO BID PRN PRN Reason: muscle spasms Last Admin: 04/21/25 17:46 Dose: 10 mg Documented By: JESSICA Diazepam (Diazepam 10 Mg/2 Ml Cartridge) 5 mg IVPUSH Q8H PRN PRN Reason: Anxiety Last Admin: 04/26/25 07:19 Dose: 5 mg Documented By: CHEYENNE Enoxaparin Sodium (Enoxaparin Sodium 40 Mg/0.4 Ml Syringe) 40 mg SUBCUT Q24H [facility] Last Admin: 04/25/25 08:49 Dose: 40 mg Documented By: CATA Hydromorphone HCl (Hydromorphone Hcl 0.5 Mg/0.5 Ml Syringe) 0.5 mg IVPUSH Q4H PRN; Protocol PRN Reason: Pain, Severe (Pain Scale 7-10) Last Admin: 04/26/25 04:46 Dose: 0.5 mg Documented By: SIDDHARTH Hydroxyzine HCl (Hydroxyzine Hcl 50 Mg Tablet) 50 mg PO BID PRN PRN Reason: Anxiety Last Admin: 04/22/25 07:47 Dose: 50 mg Documented By: JESSICA Hydroxyzine HCl (Hydroxyzine Hcl 25 Mg Tablet) 25 - 50 mg PO BID PRN PRN Reason: Anxiety Lidocaine (Lidocaine 4 % Patch Adh..Patch) 1 patch TRANSDERMA DAILY [facility]; Protocol Last Admin: 04/25/25 08:43 Dose: 1 patch Documented By: CATA Lidocaine (Lidocaine 4 % Patch Adh..Patch) 1 patch TRANSDERMA DAILY [facility]; Protocol Last Admin: 04/25/25 08:43 Dose: 1 patch Documented By: CATA Loperamide HCl (Loperamide Hcl 2 Mg Capsule) 2 mg PO Q4H PRN PRN Reason: Diarrhea Last Admin: 04/26/25 00:29 Dose: 2 mg Documented By: SIDDHARTH Lurasidone HCl (Lurasidone Hcl 80 Mg Tablet) 80 mg PO BEDTIME [facility] Last Admin: 04/25/25 20:42 Dose: 80 mg Documented By: SIDDHARTH Magnesium Hydroxide (Milk Of Magnesia 30 Ml Oral.Susp) 30 ml PO DAILY PRN PRN Reason: Constipation Melatonin (Melatonin 3 Mg Tablet) 6 mg PO BEDTIME PRN PRN Reason: Insomnia Last Admin: 04/21/25 21:34 Dose: 6 mg Documented By: TRAY Metronidazole (Metronidazole 500 Mg Tablet) 500 mg PO Q8H [facility] Last Admin: 04/26/25 00:26 Dose: 500 mg Documented By: SIDDHARTH Nicotine (Nicotine 14 Mg Patch.Td24) 14 mg TRANSDERMA DAILY [facility] Last Admin: 04/25/25 08:46 Dose: 14 mg Documented By: CATA Omeprazole (Omeprazole 20 Mg Capsule.Dr) 20 mg PO BID@0630,1630 [facility] Last Admin: 04/26/25 06:01 Dose: 20 mg Documented By: SIDDHARTH Ondansetron HCl (Ondansetron Hcl 4 Mg/2 Ml Vial) 4 mg IVPUSH Q8H PRN PRN Reason: Nausea and Vomiting Last Admin: 04/26/25 07:14 Dose: 4 mg Documented By: CHEYENNE Oxycodone HCl (Oxycodone Hcl Immed Release 5 Mg Tablet) 5 mg PO Q6H PRN PRN Reason: Pain, Moderate(Pain Scale 4-6) Last Admin: 04/26/25 03:46 Dose: 5 mg Documented By: SIDDHARTH Sertraline HCl (Sertraline Hcl 100 Mg Tablet) 200 mg PO DAILY [facility] Last Admin: 04/25/25 08:45 Dose: 200 mg Documented By: CATA Sodium Chloride (0.9 % Sodium Chloride Flush 3 Ml Syringe) 3 ml IVFLUSH QSHIFT [facility] Last Admin: 04/26/25 07:15 Dose: 3 ml Documented By: CHEYENNE Sucralfate (Sucralfate 1 Gm Tablet) 1 gm PO QIDACHS [facility] Last Admin: 04/26/25 07:14 Dose: 1 gm Documented By: CHEYENNE Topiramate (Topiramate 100 Mg Tablet) 100 mg PO BID [facility] Last Admin: 04/25/25 20:42 Dose: 100 mg Documented By: SIDDHARTH Trazodone HCl (Trazodone Hcl 100 Mg Tablet) 200 mg PO BEDTIME [facility] Last Admin: 04/26/25 00:07 Dose: Not Given Documented By: SIDDHARTH Non-Admin Reason: Patient Refused Labs 04/26/25 12:14 04/26/25 05:38 Labs: Laboratory Results - last 24 hr 04/26/25 05:38 Hold Purple Top SEE NOTE Anion Gap 11 L Estim Creat Clear Calc 90.8 Estimated GFR > 60 Random Glucose 95 Calcium 8.7 Assessment and Plan (1) Hypertension: Status: Acute Plan 60F PMH GERD, hypertension, hyperlipidemia, depression, history of bowel resection cholecystectomy presented with intractable abdominal pain Intractable abdominal pain with diarrhea Completed 7d ctx and doxy 04/26, negative stool studies, MRCP negative for stone WBC remains elevated, but stable EGD - gastritis and gastric polyps Colonoscopy-colon polyps diverticulosis, hemorrhoids Biopsy- no evidence of celiac disease in small bowel with normal duodenal mucosa. Stomach with fundic gland polyp. Mild chronic inactive inflammation. No Helicobacter organisms seen within the stomach. Colonic mucosa within normal limits except for a hyperplastic mucosal polyp of the sigmoid colon Imodium p.r.n. Check calprotectin and pancreatic elastase- pending Continue pain management prn- question drug seeking. Asks for meds then falls asleep comfortably before administering Hypokalemia Secondary to GI losses Continue repletion Follow K leukocystosis 17 --> 14 --> 15 ?reactive Less likely infection monitor Mood disorder Continue Latuda Hypertension Meds Held for low normal blood pressures Hyperlipidemia Continue statin DVT prophylaxis with Lovenox Full Code reason for continued hospitalization: Not tolerating p.o. Quality Stroke Does the patient have a stroke diagnosis?: No VTE Prior VTE?: No VTE Risk Level:: Medical - moderate - high VTE Device Contraindication: N/A - Device Ordered VTE Drug Contraindication: Treatment Not Indicated
[2025-04-26] MEDS: Lidocaine 4 % Patch ADH..PATCH 1 PATCH TRANSDERMA ×2 (08:18→08:19)
[2025-04-26] MEDS: Nicotine 14 MG PATCH.TD24 TRANSDERMA (08:19)
[2025-04-26] MEDS: Potassium Chloride Packet 20 MEQ PACKET 40 MEQ PO (08:22)
[2025-04-26 12:18] LABS: MANUAL DIFF FLAG NO
[2025-04-26 12:21] LABS: Hematocrit 37.7 % (37.0-47.0); Hemoglobin 12.4 g/dl (12.0-16.0); Imm Gran Abs Auto 0.07 X10*3/uL (0.00-0.03); Imm Gran Pct Auto 0.6 % (0.0-0.4); Lymphocytes Absolute Auto 2.4 X10*3/uL (1.2-4.9); Mean Corpuscular HGB Conc 32.9 g/dl (31.0-35.0); Mean Corpuscular Hemoglobin 29.2 pg (27.0-33.0); Mean Corpuscular Volume 88.9 fL (80.0-98.0); NRBC Abs Auto 0.000 X10*3/uL (0.0-0.012); NRBC Pct Auto 0.0 /100WBC (0.0-0.2); Platelet Count 306 X10*3/uL (160-400); Red Blood Count 4.24 X10*6/uL (4.20-5.50); White Blood Count 11.4 X10*3/uL (4.8-10.8)
[2025-04-26] MEDS: Potassium Chloride ER 20 MEQ TAB.ER.PRT PO (12:28)
[2025-04-26 15:15] VITALS: BP 139/73; PULSE 89; RESP 17; TEMP 36.4; O2SAT 94
[2025-04-26 19:02] VITALS: BP 114/60; PULSE 81; RESP 18; TEMP 36.3; O2SAT 94
[2025-04-27 03:31] VITALS: BP 103/64; PULSE 74; RESP 14; TEMP 36.1; O2SAT 94
[2025-04-27 06:09] LABS: MANUAL DIFF FLAG NO
[2025-04-27] MEDS: oxyCODONE HCl Immed Release 5 MG TABLET PO (06:14)
[2025-04-27] MEDS: diazePAM 10 MG/2 ML CARTRIDGE 5 MG IVPUSH (06:28)
[2025-04-27 06:31] LABS: Anion Gap 10 (12-20); Blood Urea Nitrogen 5 mg/dL (9-16); Calcium 9.0 mg/dL (8.4-10.2); Carbon Dioxide 26 mmol/L (22-29); Chloride 110 mmol/L (96-108); Creatinine Clr Calc Pharmacy 86.4; Estimated Glomerular Filt Rate > 60; Magnesium 1.9 mg/dL (1.6-2.6); Potassium 3.4 mmol/L (3.3-5.1); Sodium 143 mmol/L (135-145)
[2025-04-27 06:56] LABS: Hematocrit 32.7 % (37.0-47.0); Hemoglobin 10.9 g/dl (12.0-16.0); Imm Gran Abs Auto 0.04 X10*3/uL (0.00-0.03); Imm Gran Pct Auto 0.5 % (0.0-0.4); Lymphocytes Absolute Auto 2.2 X10*3/uL (1.2-4.9); Mean Corpuscular HGB Conc 33.3 g/dl (31.0-35.0); Mean Corpuscular Hemoglobin 28.8 pg (27.0-33.0); Mean Corpuscular Volume 86.5 fL (80.0-98.0); NRBC Abs Auto 0.000 X10*3/uL (0.0-0.012); NRBC Pct Auto 0.0 /100WBC (0.0-0.2); Platelet Count 366 X10*3/uL (160-400); Red Blood Count 3.78 X10*6/uL (4.20-5.50); White Blood Count 8.8 X10*3/uL (4.8-10.8)
[2025-04-27 07:30] VITALS: BP 113/62; PULSE 69; RESP 18; TEMP 36; O2SAT 94
--- NOTE | 2025-04-27 09:00 | PC.NURSE ---
Pt states she nauseous cant eat without nausea med . Pt medicated with zofran. pt educated to wait til zofan is effective and then try and eat. Pt then requested Dilaudid . educated pt we will see if zofran is effective before administering scheduled and PRN meds . Pt agreeable
--- NOTE | 2025-04-27 09:03 | HO.PM.IMPN ---
Subjective Subjective Date of Service: 04/27/25 Interval History: Seen and examined this morning, with NAVA Ramires present. Patient continues to report singicant pain and taking dilaudid, and oxycodone around the clock, and states she is not eating, no nausea/vomiting reported, record shows she's eating 100% of her meals her potassium level is now normal. Review of Systems Review of Systems: Yes all other systems are reviewed and are negative Physical Exam Vital Signs: Vital Signs: Last Vital Signs Temp 96.8 F 04/27/25 07:30 Pulse 69 04/27/25 07:30 Resp 18 04/27/25 07:30 BP 113/62 04/27/25 07:30 Pulse Ox 94 04/27/25 07:30 O2 Del Method Room Air 04/27/25 07:30 BMI result Body Mass Index 27.1 EXAM: Constitutional - Awake and Alert, No apparent distress Eyes - PERRL Cardiovascular - S1S2, RRR, No edema Respiratory - Normal lung expansion, Normal respiratory effort, No respiratory distress, CTA bilaterally GI - BS x4, ND, TTP worst in LUQ with voluntary guarding. No rebound Extremities - no calf tenderness bilaterally, no swelling Skin - Warm/Dry Neurological - Alert & oriented x3 Psychological - Appropriate affect Const: Other: Decline to be have physical exam Objective Data Active Medications Acetaminophen (Acetaminophen 325 Mg Tablet) 975 mg PO Q6H PRN PRN Reason: Pain, Mild 1-3,fever,headache Last Admin: 04/27/25 06:14 Dose: 975 mg Documented By: CHARISSA Atorvastatin Calcium (Atorvastatin Calcium 40 Mg Tablet) 40 mg PO BEDTIME [facility] Last Admin: 04/26/25 19:45 Dose: 40 mg Documented By: CHARISSA Calcium Carbonate (Calcium Carbonate 750 Mg Tab.Chew) 750 mg PO Q4H PRN PRN Reason: Heartburn Ceftriaxone Sodium (Ceftriaxone Sodium 1 Gm Vial) 1 gm IVPUSH Q24H [facility] Last Admin: 04/26/25 23:58 Dose: 1 gm Documented By: CHARISSA Cyclobenzaprine HCl (Cyclobenzaprine Hcl 10 Mg Tablet) 10 mg PO BID PRN PRN Reason: muscle spasms Last Admin: 04/21/25 17:46 Dose: 10 mg Documented By: JESSICA Diazepam (Diazepam 10 Mg/2 Ml Cartridge) 5 mg IVPUSH Q8H PRN PRN Reason: Anxiety Last Admin: 04/27/25 06:28 Dose: 5 mg Documented By: CHARISSA Enoxaparin Sodium (Enoxaparin Sodium 40 Mg/0.4 Ml Syringe) 40 mg SUBCUT Q24H [facility] Last Admin: 04/26/25 08:20 Dose: 40 mg Documented By: CHEYENNE Hydromorphone HCl (Hydromorphone Hcl 0.5 Mg/0.5 Ml Syringe) 0.5 mg IVPUSH Q4H PRN; Protocol PRN Reason: Pain, Severe (Pain Scale 7-10) Last Admin: 04/27/25 04:13 Dose: 0.5 mg Documented By: CHARISSA Hydroxyzine HCl (Hydroxyzine Hcl 50 Mg Tablet) 50 mg PO BID PRN PRN Reason: Anxiety Last Admin: 04/22/25 07:47 Dose: 50 mg Documented By: JESSICA Hydroxyzine HCl (Hydroxyzine Hcl 25 Mg Tablet) 25 - 50 mg PO BID PRN PRN Reason: Anxiety Lidocaine (Lidocaine 4 % Patch Adh..Patch) 1 patch TRANSDERMA DAILY [facility]; Protocol Last Admin: 04/26/25 08:19 Dose: 1 patch Documented By: CHEYENNE Lidocaine (Lidocaine 4 % Patch Adh..Patch) 1 patch TRANSDERMA DAILY [facility]; Protocol Last Admin: 04/26/25 08:18 Dose: 1 patch Documented By: CHEYENNE Loperamide HCl (Loperamide Hcl 2 Mg Capsule) 2 mg PO Q4H PRN PRN Reason: Diarrhea Last Admin: 04/26/25 12:27 Dose: 2 mg Documented By: CHEYENNE Lurasidone HCl (Lurasidone Hcl 80 Mg Tablet) 80 mg PO BEDTIME [facility] Last Admin: 04/26/25 19:45 Dose: 80 mg Documented By: CHARISSA Magnesium Hydroxide (Milk Of Magnesia 30 Ml Oral.Susp) 30 ml PO DAILY PRN PRN Reason: Constipation Melatonin (Melatonin 3 Mg Tablet) 6 mg PO BEDTIME PRN PRN Reason: Insomnia Last Admin: 04/21/25 21:34 Dose: 6 mg Documented By: TRAY Metronidazole (Metronidazole 500 Mg Tablet) 500 mg PO Q8H [facility] Last Admin: 04/26/25 23:57 Dose: 500 mg Documented By: CHARISSA Nicotine (Nicotine 14 Mg Patch.Td24) 14 mg TRANSDERMA DAILY [facility] Last Admin: 04/26/25 08:19 Dose: 14 mg Documented By: CHEYENNE Omeprazole (Omeprazole 20 Mg Capsule.Dr) 20 mg PO BID@0630,1630 [facility] Last Admin: 04/27/25 06:14 Dose: 20 mg Documented By: CHARISSA Ondansetron HCl (Ondansetron Hcl 4 Mg/2 Ml Vial) 4 mg IVPUSH Q8H PRN PRN Reason: Nausea and Vomiting Last Admin: 04/27/25 08:59 Dose: 4 mg Documented By: CHEYENNE Oxycodone HCl (Oxycodone Hcl Immed Release 5 Mg Tablet) 5 mg PO Q6H PRN PRN Reason: Pain, Moderate(Pain Scale 4-6) Last Admin: 04/27/25 06:14 Dose: 5 mg Documented By: CHRAISSA Potassium Chloride (Potassium Chloride Er 20 Meq Tab.Er.Prt) 20 meq PO DAILY [facility] Last Admin: 04/26/25 12:28 Dose: 20 meq Documented By: CHEYENNE Sertraline HCl (Sertraline Hcl 100 Mg Tablet) 200 mg PO DAILY [facility] Last Admin: 04/26/25 08:21 Dose: 200 mg Documented By: CHEYENNE Sodium Chloride (0.9 % Sodium Chloride Flush 3 Ml Syringe) 3 ml IVFLUSH QSHIFT [facility] Last Admin: 04/26/25 23:57 Dose: 3 ml Documented By: CHARISSA Sucralfate (Sucralfate 1 Gm Tablet) 1 gm PO QIDACHS [facility] Last Admin: 04/26/25 19:45 Dose: 1 gm Documented By: CHARISSA Topiramate (Topiramate 100 Mg Tablet) 100 mg PO BID [facility] Last Admin: 04/26/25 19:45 Dose: 100 mg Documented By: CHARISSA Trazodone HCl (Trazodone Hcl 100 Mg Tablet) 200 mg PO BEDTIME [facility] Last Admin: 04/26/25 23:04 Dose: Not Given Documented By: CHARISSA Non-Admin Reason: Patient Refused Labs 04/27/25 06:03 04/27/25 06:03 Labs: Laboratory Results - last 24 hr 04/26/25 04/27/25 12:14 06:03 MCV 88.9 86.5 MCH 29.2 28.8 MCHC 32.9 33.3 RDW 14.1 14.0 Plt Count 306 366 MPV 9.9 9.5 Immature Gran % (Auto) 0.6 H 0.5 H Neut % (Auto) 62.1 56.4 Lymph % (Auto) 21.0 24.8 [place] % (Auto) 9.7 10.4 Eos % (Auto) 6.0 H 7.0 H Baso % (Auto) 0.6 0.9 Lymph # (Auto) 2.4 2.2 [place] # (Auto) 1.1 0.9 Eos # (Auto) 0.7 H 0.6 H Baso # (Auto) 0.1 0.1 Abs Immat Gran (auto) 0.07 H 0.04 H Absolute Neuts (auto) 7.1 5.0 Absolute Nucleated RBC 0.000 0.000 Nucleated RBC % (auto) 0.0 0.0 Anion Gap 10 L Estim Creat Clear Calc 86.4 Estimated GFR > 60 Random Glucose 95 Calcium 9.0 Magnesium 1.9 Assessment and Plan (1) Hypertension: Status: Acute Plan 60F PMH GERD, hypertension, hyperlipidemia, depression, history of bowel resection cholecystectomy presented with intractable abdominal pain Intractable abdominal pain with diarrhea, GI panel negative Completed 7d ctx and doxy 04/26, negative stool studies MRCP did show dilated CBC but no stone identified WBC initially high is now normal EGD 04/[address] De La Torre- gastritis and bening gastric polyps Colonoscopy 04/[address] Iyer-colon polyps diverticulosis, hemorrhoids Biopsy result- no evidence of celiac disease in small bowel with normal duodenal mucosa. Stomach with fundic gland polyp. Mild chronic inactive inflammation. No Helicobacter organisms seen within the stomach. Colonic mucosa within normal limits except for a hyperplastic mucosal polyp of the sigmoid colon Imodium p.r.n. calprotectin and pancreatic elastase- pending Try deescalate pain meds, concer for possible aberant drug seeking, as appear mostly comfortable and yet request pain meds at all time. GI second opioin Hypokalemia Secondary to GI losses Continue repletion as needed, K is 3.4 today leukocystosis 17 --> 14 --> 15--> 8 ?reactive Less likely infection monitor Mood disorder Continue Latuda Hypertension Meds Held for low normal blood pressures Hyperlipidemia Continue statin DVT prophylaxis with Lovenox Full Code reason for continued hospitalization: Not tolerating p.o. DVT prophylaxis: Lovenox Patient has requested to have another Doctor because she does not agree to treatment plan with deescalating pain medication, and I don't like foreing doctors Quality Stroke Does the patient have a stroke diagnosis?: No VTE Prior VTE?: No VTE Risk Level:: Medical - moderate - high VTE Device Contraindication: N/A - Device Ordered VTE Drug Contraindication: Treatment Not Indicated
[2025-04-27 09:28] LABS: Alanine Aminotransferase 13 U/L (0-31); Albumin Level 3.7 g/dL (3.5-5.0); Alkaline Phosphatase 62 U/L (39-117); Aspartate Amino Transferase 18 U/L (5-31); Lipase 19 U/L (8-78); Total Protein 6.3 g/dL (6.5-8.0)
[2025-04-27] MEDS: Nicotine 14 MG PATCH.TD24 TRANSDERMA (09:37)
[2025-04-27] MEDS: Lidocaine 4 % Patch ADH..PATCH 1 PATCH TRANSDERMA ×2 (09:38→09:39)
[2025-04-27] MEDS: Potassium Chloride ER 20 MEQ TAB.ER.PRT PO (09:40)
[2025-04-27] MEDS: 0.9 % Sodium Chloride Flush 3 ML SYRINGE IVFLUSH ×2 (09:42→16:14)
--- NOTE | 2025-04-27 09:44 | PC.NURSE ---
Pt is Hyperfixiated on PRN medications what she can have and when . Pt educated that Dilaudid order has been changed to Q 6 hours. Pt seemed agreeable to this .
--- NOTE | 2025-04-27 09:47 | PC.NURSE ---
Pt has no difficulty swallowing pills all at once .
--- NOTE | 2025-04-27 13:02 | PC.NURSE ---
Pt had 2 ice creams and 2 coffees for lunch
[2025-04-27 15:23] VITALS: BP 108/60; PULSE 78; RESP 18; TEMP 36.4; O2SAT 94
--- NOTE | 2025-04-27 15:45 | PC.NURSE ---
Pt rang in asking for water and informed the [employer] to inform the RN that its almost time for her Dilaudid
--- NOTE | 2025-04-27 16:22 | PC.NURSE ---
Pt medicated with IV Dilaudid . Pt educated that DR will transition her to PO Dilaudid moving forward .
--- NOTE | 2025-04-27 19:20 | PM.GIPN ---
Subjective Subjective Date of Service: 04/27/25 Interval History: Asked by Dr. Reina to see her in GI coverage due to ongoing issues with abdominal cramps, discomfort, nausea, and diarrhea.I reviewed her extensive workup that has been negative, including imaging studies, GI procedures with biopsies, and labs. Patient has potato chips and cookies at her bedside. She tolerated some dinner without N/V. Denies any signs of bleeding. She reports that Dicyclomine has caused nausea in the past. She wants to go home in the morning and is upset that her pain medication orders have been decreased. Critical Care Time (minutes): 0 Physical Exam Vital Signs: Vital Signs: Last Vital Signs Temp 97.5 F 04/27/25 15:23 Pulse 78 04/27/25 15:23 Resp 18 04/27/25 15:23 BP 108/60 04/27/25 15:23 Pulse Ox 94 04/27/25 15:23 O2 Del Method Room Air 04/27/25 15:23 BMI result Body Mass Index 27.1 Const: General: cooperative, comfortable, no acute distress, well developed, alert and awake GI: Other: Abd-soft, +BS, nondistended, NT, no mass, no rebound, no guarding Objective Data Labs 04/27/25 06:03 04/27/25 06:03 Labs: Laboratory Results - last 24 hr 04/27/25 06:03 WBC 8.8 RBC 3.78 L Hgb 10.9 L Hct 32.7 L MCV 86.5 MCH 28.8 MCHC 33.3 RDW 14.0 Plt Count 366 MPV 9.5 Immature Gran % (Auto) 0.5 H Neut % (Auto) 56.4 Lymph % (Auto) 24.8 Bates % (Auto) 10.4 Eos % (Auto) 7.0 H Baso % (Auto) 0.9 Lymph # (Auto) 2.2 Bates # (Auto) 0.9 Eos # (Auto) 0.6 H Baso # (Auto) 0.1 Abs Immat Gran (auto) 0.04 H Absolute Neuts (auto) 5.0 Absolute Nucleated RBC 0.000 Nucleated RBC % (auto) 0.0 Sodium 143 Potassium 3.4 Chloride 110 H Carbon Dioxide 26 Anion Gap 10 L BUN 5 L Creatinine 0.63 Estim Creat Clear Calc 86.4 Estimated GFR > 60 Random Glucose 95 Calcium 9.0 Magnesium 1.9 Total Bilirubin 0.1 Direct Bilirubin < 0.2 AST 18 ALT 13 Alkaline Phosphatase 62 Total Protein 6.3 L Albumin 3.7 Lipase 19 Procedures Date of Service Date of Service: 04/27/25 Progress Note: A&P Assessment and plan (1) Intractable generalized abdominal pain: Status: Acute (2) Irritable bowel syndrome: Status: Acute Assessment and Plan: Imp/Recs: I did review her course and current extensive w/u with her in detail. I advised her of the diagnosis of IBS and the role of antispasmodics, rather than narcotics. I will order a trial of if available on hospital formulary since she reports intolerance to dicyclomine. I told her to follow up with [facility] after discharge. If she remains an inpatient and GI problems continue then [facility] should be reconsulted. Thanks Time Spent With Patient Time: Total time managing care of this patient today ____ minutes. Quality Stroke Does the patient have a stroke diagnosis?: No VTE Prior VTE?: No VTE Risk Level:: Medical - moderate - high VTE Device Contraindication: N/A - Device Ordered VTE Drug Contraindication: Treatment Not Indicated
[2025-04-27 19:36] VITALS: BP 129/65; PULSE 67; RESP 16; TEMP 36.4; O2SAT 94
[2025-04-28] MEDS: 0.9 % Sodium Chloride Flush 3 ML SYRINGE IVFLUSH (00:43)
[2025-04-28 04:00] VITALS: BP 107/58; PULSE 69; RESP 16; TEMP 36.6; O2SAT 95
[2025-04-28 07:26] VITALS: BP 106/65; PULSE 69; RESP 16; TEMP 36.5; O2SAT 95
--- NOTE | 2025-04-28 09:30 | PM.DS ---
DS: Providers Provider Date of Service: 04/28/25 Date of admission: 04/19/25 00:38 Date of discharge: 04/28/25 Primary care physician: Jaleesa Main PA-C Consults: 04/18/25 23:34 Consult to Gastroenterology Routine Consulting Provider: Yosef Iyer Reason for consultation: intractable abd pain Has provider been notified: No DS: Diagnosis Discharge Diagnosis (1) Intractable generalized abdominal pain: Status: Acute (2) Irritable bowel syndrome: Status: Acute DS: Summary Hospital Course Hospital Course: Chief Complaint: Intractable abdominal pain Patient is a 60-year-old female with a past medical history significant for GERD, hypertension, hyperlipidemia, depression, history bowel resection and cholecystectomy, who presents to the ED again due to intractable abdominal pain. She was seen just 2 days ago with a workup conclusive for possible mild colitis, more suggestive of gastritis. The patient reports that she has not been able to eat for the past 2 days and continues to have nausea and vomiting without any blood. She also has reported diarrhea for the past 2 weeks without any blood in the stool. Diarrhea occurs about 4 times a day usually every time she urinates. She denies any recent antibiotics or travel. Abdominopelvic CT 2 days ago showed possible mild colitis in the descending/sigmoid colon versus underdistention. The patient is reporting 10/10 periumbilical abdominal pain radiating laterally to the left he had right. She denies any fever or chills. No urinary symptoms. Hospital course: 60F PMH GERD, hypertension, hyperlipidemia, depression, history of bowel resection cholecystectomy presented with intractable abdominal pain. During hospitalization, she has testing including negative GI panel for diarrhea, MRCP showed some dilated CBC but no stone. EGD 04/[address] Iyer- gastritis and bening gastric polyps Colonoscopy 04/[address] Iyer-colon polyps diverticulosis, hemorrhoids Biopsy result- no evidence of celiac disease in small bowel with normal duodenal mucosa. Stomach with fundic gland polyp. Mild chronic inactive inflammation. No Helicobacter organisms seen within the stomach. Colonic mucosa within normal limits except for a hyperplastic mucosal polyp of the sigmoid colon Due to elevated WBC, she completed 7d Ceftriaxone and doxy, WBC is now normal. Her pain was treated with dilaudid and oxycydone and has since been weaned of IV pain medication, and her diet has been advanced and is tolerating reasonable amount. Patient's presentation is consistent with IBS, unfortunate she could not be prescribed Donatal or Hyosymine due to contraindication with Latuda. She will need to be reevaluated in the outpatient GI clinic. Hypokalemia, corrected leukocystosis 17 --> 14 --> 15--> 8 ?reactive Less likely infection monitor Mood disorder Continue Latuda Hypertension Meds Held for low normal blood pressures Hyperlipidemia Continue statin Time Attestation Discharge Coordination Time (in mins): 45 Quality: Safe Use of Opioids Does Pt have an Active Cancer Diagnosis on the Problem List?: No Quality: Stroke Does the patient have a stroke diagnosis?: No Physical Exam Vital Signs: Vital Signs: Last Vital Signs Temp 97.7 F 04/28/25 07:26 Pulse 69 04/28/25 07:26 Resp 16 04/28/25 07:26 BP 106/65 04/28/25 07:26 Pulse Ox 95 04/28/25 07:26 O2 Del Method Room Air 04/28/25 07:26 BMI result Body Mass Index 27.1 Const: Other: General: AO X 3, no acute distress Resp: CTA bilateral CVS: S1,S2,RRR GI: +BS, NT, no distention Skin: No rash Neuro: motor grossly intact Psych: appropriate affect DS: Data Data Completed and Pending Completed studies during hospitalization [Text1]: Pending at discharge 04/21/25 14:53 Surgical [PTH] Routine Discharge Plan Discharge Anticipated Discharge Date/Time: 04/28/25 09:55 Patient Disposition: Home, Self-Care Discharge Diagnosis: IBS with abdominal pain Referrals: Jaleesa Main PA-C [Primary Care Provider, Internal Medicine] - 1 Week Discharge Medications: New hyoscyamine sulfate 0.125 mg tablet 0.125 mg PO QID PRN (Reason: abdominal spasm/pain) Qty: 28 0RF Continued topiramate 100 mg tablet 100 mg PO BID lurasidone 80 mg tablet 80 mg PO DAILY trazodone 100 mg tablet 200 mg PO BEDTIME sucralfate [Carafate] 100 mg/mL suspension 10 ml PO BID 10 Days Qty: 200 0RF ondansetron 4 mg tablet,disintegrating 4 mg PO Q8H PRN (Reason: nausea and vomiting) Qty: 20 0RF cyclobenzaprine 10 mg tablet 10 mg PO BID PRN (Reason: muscle spasms) sertraline 100 mg tablet 200 mg PO DAILY trazodone 100 mg tablet 100 mg PO BEDTIME PRN (Reason: Insomnia) tramadol 50 mg tablet 50 mg PO Q8H PRN (Reason: pain) hydroxyzine HCl 25 mg tablet 25 - 50 mg PO BID PRN (Reason: Anxiety) (DME) blood pressure monitor [Blood Pressure Kit] Kit See Rx Instructions .ROUTE .MEDSUPPLY Qty: 1 0RF Rx Instructions: As directed Diet: Advance to usual diet Activity on Discharge: As tolerated Stand Alone Forms: Patient Portal Discharge page Print Language: [place] Island[place] Care Plan Goals: revovery from nausea and vomittinng and abdominal pain related to IBS Health Concerns: IBS with related abdominal pain, nause Plan of Treatment: take Hyoscyamine as directed Assessment: see above
[2025-04-28] MEDS: Potassium Chloride ER 20 MEQ TAB.ER.PRT PO (10:28)
--- NOTE | 2025-04-28 11:23 | MHC.CM.PN ---
Patient medically cleared for dc home self care via lyft. IMM delivered.
[2025-04-28 11:54] VITALS: BP 110/62; PULSE 80; RESP 18; TEMP 36.4; O2SAT 98
[2025-04-29 19:04] LABS: Calprotectin, Fecal 117 mcg/g
--- NOTE | 2025-05-05 07:50 | P.CDIM_ITS ---
PROVIDER RESPONSE TEXT: To clarify, the appropriate diagnosis supported by the clinical indicators: Acute QUERY TEXT: PHYSICIAN'S DOCUMENTATION REQUEST Date of Query: 04/28/2025 08:30 AM EDT Patient Name: Lori Mendieta Admit Date: 04/19/2025 Dear Ramon Bob MD, A review of the medical record indicates additional documentation may be needed. Please review below and update the documentation accordingly. Clinical Indicators: GI operative report dated 04/21/25 EGD - Post-op Dx: Gastritis, Gastric polyp, moderate diffuse gastric erythema. Progress notes from GI 04/27/25 Intractable abdominal pain with diarrhea and IBS. Continue Ceftriaxone and Flagyl Clarify which of the following accurately represents further specificity to the noted Gastritis: Possible options might include: Acute Chronic Viral Spastic Hypertrophic Other specified Other (explain) Clinically unable to determine (explain) Thank you, Cris Grant, CCS, CDIS Use of terms such as suspected, likely, concern for, or probable (associated with a specific diagnosis that is being evaluated, monitored, or treated as if it exists) are acceptable and can be coded in the inpatient setting, when documented at the time of discharge. Please use your independent medical judgment in providing your response. THIS QUERY IS PART OF THE PERMANENT MEDICAL RECORD
== END 2025-04-28 12:16 | disposition home or self-care (01) | DRG 392 ==
LOC: HO.ED 23:25 → HO.EDOVER 04-19 00:44 → HO.S3 04-19 07:44
PROVIDERS: Internal Medicine; Internal Medicine Gastroenterology; Physician Assistant; Physician Assistant Medical; Admitting Provider Physician Assistant; Emergency Provider Internal Medicine; Visit Provider Internal Medicine
PROC: 0DB98ZX Excision of Duodenum, Via Natural or Artificial Opening Endoscopic, Diagnostic (ICD-10-PCS; principal; 2025-04-21 13:30)
DX: K58.0 Irritable bowel syndrome with diarrhea (principal); F17.210 Nicotine dependence, cigarettes, uncomplicated; Z71.6 Tobacco abuse counseling; I10 Essential (primary) hypertension; E78.5 Hyperlipidemia, unspecified; F39 Unspecified mood [affective] disorder; K63.5 Polyp of colon; E87.6 Hypokalemia; K31.7 Polyp of stomach and duodenum; K29.00 Acute gastritis without bleeding; K57.30 Diverticulosis of large intestine without perforation or abscess without bleeding; K64.8 Other hemorrhoids; Z79.899 Other long term (current) drug therapy
CPT/HCPCS: 36415; 74177; 74181; 80048; 80076; 81003; 82656; 83690; 83735; 83993; 84484; 85025; 85027; 87493; 87507; 88305; 88313; 88342; 93005; 99285; J0696; J1171; J1650; J2003; J2250; J2405; J2704; J3360; Q9967

== ENCOUNTER → 2025-04-18 17:27 | Outpatient (BNV) | payer OTHER, SELFPAY | PROVIDERS: Admitting Provider Physician Assistant; Emergency Provider Internal Medicine; Visit Provider Internal Medicine Cardiovascular Disease | DX: R94.31 Abnormal electrocardiogram [ECG] [EKG] (principal); R10.13 Epigastric pain | CPT/HCPCS: 93010 ==

== ENCOUNTER → 2025-04-19 00:08 | Outpatient (BNV) | payer OTHER, SELFPAY | PROVIDERS: Admitting Provider Physician Assistant; Emergency Provider Internal Medicine; Visit Provider Radiology Diagnostic Radiology | DX: R10.84 Generalized abdominal pain (principal) | CPT/HCPCS: 74177; 74181 ==

== ENCOUNTER → 2025-04-19 00:38 | Outpatient (BNV) | payer OTHER, SELFPAY | PROVIDERS: Admitting Provider Physician Assistant; Emergency Provider Internal Medicine; Visit Provider Internal Medicine | DX: R10.84 Generalized abdominal pain (principal); K52.9 Noninfective gastroenteritis and colitis, unspecified; Z72.0 Tobacco use; I10 Essential (primary) hypertension | CPT/HCPCS: 99223; 99232; 99233; 99499 ==

== ENCOUNTER 2025-05-07 20:11 | Emergency (ER) | payer MEDICARE, SELFPAY ==
--- NOTE | ~2025-05-07 | CT_ITS ---
CLINICAL HISTORY: hx colitis, diffuse abd pain CT abdomen and pelvis with contrast Comparison: CT/SR - CT ABDOMEN PELVIS W IV CON - 04/19/25 00:58 EDT Findings: The lung bases are clear. Cholecystectomy. Abdominal solid organs unremarkable. No urolithiasis. No abnormal bowel wall thickening, pneumoperitoneum, or pneumatosis. Partial right colectomy. Mesenteric vessels patent. Ventral hernia repair without recurrence. Mild distal colonic diverticulosis without diverticulitis. Hysterectomy. Ovaries not identified. No acute fracture. IMPRESSION: No acute findings. This document has been electronically signed by: Riky Rod MD on 05/08/2025 02:11:28
--- NOTE | 2025-05-07 20:31 | ED_ITS ---
HPI - General Adult General Chief complaint: Abdominal Pain Stated complaint: abd pain Time Seen by Provider: 05/07/25 23:00 Source: patient Mode of arrival: ambulatory Limitations: no limitations History of Present Illness ED Provider: Dr. Marcela Dennis HPI narrative: Patient comes to the emergency room complaining of abdominal pain. Patient was discharged from the hospital a bit over 1 week ago. Patient was admitted for colitis. Patient states that she was sent home with tramadol which makes her abdominal pain worse. Patient comes in stating that she has lost over 13 lb because she can not eat. Patient states that she feels nauseous, it has occasionally vomited but not recently. Related Data Home Medications ?Medication ?Instructions ?Recorded ?Confirmed lurasidone 80 mg tablet 80 mg PO DAILY 06/16/2303/09 topiramate 100 mg tablet 100 mg PO BID 06/16/2304/19 hydroxyzine HCl 25 mg tablet 25 - 50 mg PO BID PRN Anx iety 07/11/23 04/19/25 trazodone 100 mg tablet 200 mg PO BEDTIME 12/26/23 0 04/19/25 cyclobenzaprine 10 mg tablet 10 mg PO BID PRN muscle s pasms 04/19/25 04/19/25 sertraline 100 mg tablet 200 mg PO DAILY 04/19/2503/09 trazodone 100 mg tablet 100 mg PO BEDTIME PRN Insomn ia 04/19/25 04/19/25 Previous Rx's ?Medication ?Instructions ?Recorded blood pressure monitor (Blood #1 ea 06/05/24 Pressure Kit) sucralfate 100 mg/mL oral 10 ml PO BID 10 days #200 mL 04/17/25 suspension (Carafate) omeprazole 20 mg capsule,delayed 20 mg PO DAILY #90 ca ps 04/28/25 release ondansetron 4 mg disintegrating 4 mg PO Q8H PRN nausea and 04/28/25 tablet vomiting #20 tabs tramadol 50 mg tablet 50 mg PO Q8H PRN pain #20 ta bs 04/28/25 hyoscyamine sulfate 0.125 mg tablet 0.125 mg PO QID MO N dyspepsia #20 05/08/25 tabs ondansetron 4 mg disintegrating 4 mg PO Q6H PRN nausea and 05/08/25 tablet vomiting #14 tabs Allergies Allergy/AdvReac Type Severity Reaction Status Date / Time ibuprofen (From Motrin) Allergy Intermediate Shortness Verified 05/07/25 20:35 of Breath lamotrigine (From Lamictal) Allergy Intermediate Rash Verified 05/07/25 20:35 milnacipran (From Savella) Allergy Intermediate Itching Verified 05/07/25 20:35 aspirin (Aspirin) Allergy Mild DYSPNEA Verified 05/07/25 20:35 levofloxacin (From Levaquin) Allergy Mild Rash Verified 05/07/25 20:35 lithium ([place]) Allergy Mild TREMORS Verified 05/07/25 20:35 morphine (MORPHINE) Allergy Mild NAUSEA/VOMI Verified 05/07/25 20:35 TING fluoxetine (From Prozac) Allergy Unknown Unknown Verified 05/07/25 20:35 seafood Allergy Unknown Unknown Verified 05/07/25 20:35 dicyclomine (From Bentyl) Allergy Unknown Verified 05/07/25 20:35 carbamazepine (From Tegretol) AdvReac Intermediate Fatigued Verified 04/18/25 18:06 zolpidem (From Ambien) AdvReac Intermediate Itching Verified 04/18/25 18:06 Review of Systems 2 Review of Systems: Constitutional : No Weight loss, No Fever, No Chills, No Night Sweats, No Fatigue, No Malaise ENT/Mouth : No Hearing loss, No Ear Pain, No Nasal Congestion, No Sinus Pain, No Hoarseness, No sore throat, No Rhinorrhea, No Swallowing Difficulty Eyes: No Eye Pain, No Swelling, No Redness, No Foreign Body, No Discharge, No Vision Changes Cardiovascular : No Chest Pain, No SOB, No Dyspnea on Exertion, No Orthopnea, No Edema, No Palpitations Respiratory : No Cough, No Sputum, No Wheezing, No Smoke Exposure, No Dyspnea Gastrointestinal : Complaining of nausea with the vomiting, complaining of intermittent diarrhea. Complaining of diffuse abdominal pain states the tramadol makes the pain worse Genitourinary : no irregular bleeding, No Dysuria, No Urinary Frequency, No Hematuria, No Urinary Incontinence, No Urgency, No Flank Pain, No Urinary Flow Changes, No Hesitancy Musculoskeletal : No joint pain, No Myalgias, No Joint Swelling Skin : No Skin Lesions, No rash Neuro : No Weakness, No Numbness, No Paresthesias, No Loss of Consciousness, No Dizziness, No Headache Psych : No Anxiety/Panic, No Depression, No SI/HI/AH/VH, No Social Issues, Heme/Lymph: No Bruising, No Bleeding,No Lymphadenopathy Endocrine : No Polyuria, No Polydipsia, No Temperature Intolerance [facility] Past Medical History Medical History Tobacco abuse disorder Syncope Shortness of breath on exertion Effusion, left knee Left knee pain GERD (gastroesophageal reflux disease) Hypertension Hyperlipidemia Depression Surgical History Status post cardiac catheterization S/P ACL repair History of hysterectomy (~1999) History of spinal surgery (~12/2013) History of colectomy (~06/01/11) Family History Family History Father No problems noted. Mother No problems noted. Social History Social History Household Members: Family Housing: Apartment Do you presently have visiting nurse or other home services: No Unable to assess alcohol history related to: Unknown Alcohol intake: current Alcohol intake frequency: holidays/special occasions only Alcohol type: beer Comment: Pt self ambulates and declines bed alarms at this time. Patient Tobacco Use Status: Current everyday Tobacco user Tobacco use type: Cigarette Cigarette Packs Per Day: 0.5 Cigarettes Per Day: 10.0 Years Smoked: since 10 years old but quit few times in between Smoked in Last 30 Days: Yes e-Cigarette/Vaping Use: Never Used Second Hand Smoke Exposure: Yes Use of substances other than those prescribed or required for medical reasons: Yes Substance Use Type: Crack/Cocaine Advance Directives: No Advance Directives Information Provided: No Patient : No service: No Current occupational status: employed Current occupation: [employer] Physical Exam ED Vital Signs: Vital Signs - 24 hr 05/07/25 20:32 05/07/25 21:54 05/07/25 23:42 Temperature 97.5 F 98.1 F Pulse Rate 79 63 58 Respiratory Rate 18 16 18 Blood Pressure 108/71 132/67 137/72 Pulse Oximetry 100 97 99 Oxygen Delivery Method Room Air Room Air Room Air BMI result Body Mass Index 25.2 Course Course Course Narrative: This is a rapid medical exam performed by Seth Vaca NP: Additional HPI, ROS, PE not included below will be deferred to primary provider. Patient is a 60y/o F with pmhx GERD, hypertension, hyperlipidemia, depression, history bowel resection and cholecystectomy, recently admitted for colitis and discharged on the . States symptoms have been worsening since, has been unable to eat, unsure of fevers. Reports diarrhea, feels lightheaded. Plan: labs, UA Medications Administered Discontinued Medications Generic Name Dose Route Start Last Admin Trade Name Freq PRN Reason Stop Dose Admin Sodium Chloride 1,000 mls @ 999 mls/hr 05/07/25 23:21 05/08/25 01:07 Ns IVCONT 05/08/25 00:21 Infused .Q1H1M ONE Infusion Acetaminophen 1,000 mg in 100 mls @ 400 mls/hr 05/07/25 23:28 05/07/25 23:42 Ofirmev IV 05/07/25 23:42 Infused ONCE ONE Infusion Iohexol 85 ml 05/08/25 00:18 05/08/25 00:19 Iohexol 350 Mg/Ml 100 Ml Infus..Btl IV 05/08/25 00:19 85 ml ONCE ONE Administration Morphine Sulfate 4 mg 05/07/25 23:21 05/07/25 23:37 Morphine Sulfate 4 Mg/Ml Cartridge IVPUSH 05/07/25 23:22 Not Given ONCE ONE Protocol Ondansetron HCl 4 mg 05/07/25 23:21 05/07/25 23:36 Ondansetron Hcl 4 Mg/2 Ml Vial IVPUSH 05/07/25 23:22 4 mg ONCE ONE Administration Medical Decision Making Medical Decision Making [facility] Narrative: My interpretation of labs: No significant abnormality in patient's hematology or chemistry, normal LFTs, normal lipase, urinalysis negative for UTI. Urinalysis is positive for benzodiazepines and cocaine CT scan of the abdomen does not show any acute abnormality. I reviewed patient's medical records. Patient's CT scan on April 16 showed mild colitis. Then, on April [address] scan showed a mild intrahepatic biliary ductal dilation for which patient got an MRCP, which shows dilatation of the common bile duct with mild intrahepatic biliary ductal dilation, no choledocholithiasis or pancreatic head mass. Patient had an endoscopy and colonoscopy: Findings normal esophagus, stomach moderate diffuse erythema, normal duodenum, 1: Medium sized polyp was removed, moderate diverticulosis without diverticulitis. Biopsy result- no evidence of celiac disease in small bowel with normal duodenal mucosa. Stomach with fundic gland polyp. Mild chronic inactive inflammation. No Helicobacter organisms seen within the stomach. Colonic mucosa within normal limits except for a hyperplastic mucosal polyp of the sigmoid colon Per Dr Ricks note of April 27: Asked by Dr. Reina to see her in GI coverage due to ongoing issues with abdominal cramps, discomfort, nausea, and diarrhea. I reviewed her extensive workup that has been negative, including imaging studies, GI procedures with biopsies, and labs. Patient has potato chips and cookies at her bedside. She tolerated some dinner without N/V. Denies any signs of bleeding Patient requesting pain medication. Patient was offered morphine. Ofirmev was ordered Also, per Gastroenterology recommendations, patient may take hyoscyamine I was informed by the patient's nurse that when Ofirmev was started, the patient became very upset, saying that the medication will not work and that we should be prepared to offer Dilaudid. In the Hospitalist progress note from 04/27/2025, it was documented that the patient continuously reported significant pain and taking Dilaudid and oxycodone around the clock, stating that she is not eating, no nausea or vomiting reported per nursing. However, the nursing record shows she was eating 100% of her meals. With all of the above collected information from various physicians, to me it is clear that patient is seeking narcotics. I discussed the results with the patient, patient instructed to follow-up with her primary care physician. Differential Diagnosis Differential Diagnoses: The differential diagnosis associated with the presentation includes (Colitis, SBO, malingering) Admission/Observation Consideration of admission/observation: Escalation of care including admission/observation considered (Given patient's initial presentation, observation was considered) Lab Data MDM Lab Attestation statement: I reviewed the patient's lab results. 05/07/25 20:42 05/07/25 20:42 Labs: Lab Results 05/07/25 05/07/25 Range/Units 20:42 21:53 WBC 10.8 (4.8-10.8) X10*3/uL RBC 4.26 (4.20-5.50) X10*6/uL Hgb 12.3 (12.0-16.0) g/dl Hct 37.1 (37.0-47.0) % MCV 87.1 (80.0-98.0) fL MCH 28.9 (27.0-33.0) pg MCHC 33.2 (31.0-35.0) g/dl RDW 14.7 (11.0-16.0) % Plt Count 483 H D (160-400) X10*3/uL MPV 9.1 L (9.4-12.3) fL Immature Gran % (Auto) 0.3 (0.0-0.4) % Neut % (Auto) 52.7 (45-73) % Lymph % (Auto) 35.6 (20-40) % Sherman % (Auto) 5.1 (2-11) % Eos % (Auto) 5.4 H (0-4) % Baso % (Auto) 0.9 (0-2) % Lymph # (Auto) 3.9 (1.2-4.9) X10*3/uL Sherman # (Auto) 0.6 (0.1-1.2) X10*3/uL Eos # (Auto) 0.6 H (0.0-0.4) X10*3/uL Baso # (Auto) 0.1 (0.0-0.2) X10*3/uL Abs Immat Gran (auto) 0.03 (0.00-0.03) X10*3/uL Absolute Neuts (auto) 5.7 (2.0-8.3) x10*3/uL Absolute Nucleated RBC 0.000 (0.0-0.012) X10*3/uL Nucleated RBC % (auto) 0.0 (0.0-0.2) /100WBC PT 10.3 L (10.9-12.4) SEC INR 0.9 (0.9-1.1) Sodium 140 (135-145) mmol/L Potassium 3.7 (3.3-5.1) mmol/L Chloride 109 H (96-108) mmol/L Carbon Dioxide 23 (22-29) mmol/L Anion Gap 12 (12-20) BUN 8 L (9-16) mg/dL Creatinine 0.58 (0.5-1.4) mg/dL Estim Creat Clear Calc 90.8 Estimated GFR > 60 Random Glucose 93 (60-115) mg/dL Calcium 9.8 D (8.4-10.2) mg/dL Magnesium 2.0 (1.6-2.6) mg/dL Total Bilirubin 0.4 (0.0-1.0) mg/dL AST 20 (5-31) U/L ALT 15 (0-31) U/L Alkaline Phosphatase 52 (39-117) U/L Total Protein 7.2 (6.5-8.0) g/dL Albumin 4.5 (3.5-5.0) g/dL Lipase 21 (8-78) U/L Urine Color Yellow Urine Appearance Clear Urine pH 6.5 (5.0-9.0) Ur Specific [place] <= 1.005 (1.005-1.025) Urine Protein Negative (Neg-Trace) mg/dL Urine Glucose (UA) Negative (Negative) mg/dL Urine Ketones Negative (Negative) mg/dL Urine Blood Negative (Negative) Urine Nitrite Negative (Negative) Ur Leukocyte Esterase Negative (Negative) Urine Opiates Screen Not Detected (Not Detect) Ur Buprenorphine Scrn Not Detected (Not Detect) ng/mL Ur Oxycodone Screen Not Detected (Not Detect) ng/mL Urine Methadone Screen Not Detected (Not Detect) ng/mL Urine Fentanyl Screen Not Detected (Not Detect) Ur Barbiturates Screen Not Detected (Not Detect) Ur Phencyclidine Scrn Not Detected (Not Detect) Ur Amphetamines Screen Not Detected (Not Detect) U Benzodiazepines Scrn POSITIVE H (Not Detect) Urine Cocaine Screen POSITIVE H (Not Detect) U Marijuana (THC) Screen Not Detected (Not Detect) Independent Interpretation I performed an independent interpretation of an: CT Scan Radiology Impression Discussion of test interpretation with radiology: I have reviewed the radiologist's reading. Radiologist Impression: The lung bases are clear. Cholecystectomy. Abdominal solid organs unremarkable. No urolithiasis. No abnormal bowel wall thickening, pneumoperitoneum, or pneumatosis. Partial right colectomy. Mesenteric vessels patent. Ventral hernia repair without recurrence. Mild distal colonic diverticulosis without diverticulitis. Hysterectomy. Ovaries not identified. No acute fracture. IMPRESSION: No acute findings Critical Care Time Critical Care Time Critical Care Time: Yes Total Critical Care Time: 60 Attestation: I have personally provided critical care time. Time includes review of lab data, radiology results, discussion with consultants, and monitoring for potential decompensation. Intervention performed as documented. Discharge Plan Discharge Clinical Impression: Chronic abdominal pain Patient Disposition: Home, Self-Care Instructions: Abdominal Pain (ED) Additional Instructions: Please follow-up with your primary care physician tomorrow. If you have any worsening or new symptoms, please return to the emergency room or call 911 Prescriptions: New hyoscyamine sulfate 0.125 mg tablet 0.125 mg PO QID PRN (Reason: dyspepsia) Qty: 20 0RF ondansetron 4 mg tablet,disintegrating 4 mg PO Q6H PRN (Reason: nausea and vomiting) Qty: 14 0RF No Action topiramate 100 mg tablet 100 mg PO BID lurasidone 80 mg tablet 80 mg PO DAILY trazodone 100 mg tablet 200 mg PO BEDTIME sucralfate [Carafate] 100 mg/mL suspension 10 ml PO BID 10 Days Qty: 200 0RF cyclobenzaprine 10 mg tablet 10 mg PO BID PRN (Reason: muscle spasms) sertraline 100 mg tablet 200 mg PO DAILY trazodone 100 mg tablet 100 mg PO BEDTIME PRN (Reason: Insomnia) tramadol 50 mg tablet 50 mg PO Q8H PRN (Reason: pain) Qty: 20 0RF ondansetron 4 mg tablet,disintegrating 4 mg PO Q8H PRN (Reason: nausea and vomiting) Qty: 20 0RF omeprazole 20 mg Capsule,Delayed Release(Dr/Ec) 20 mg PO DAILY Qty: 90 0RF hydroxyzine HCl 25 mg tablet 25 - 50 mg PO BID PRN (Reason: Anxiety) (DME) blood pressure monitor [Blood Pressure Kit] Kit See Rx Instructions .ROUTE .MEDSUPPLY Qty: 1 0RF Rx Instructions: As directed Print Language: Ukrainian
[2025-05-07 20:32] VITALS: BP 108/71; PULSE 79; RESP 18; TEMP 36.4; O2SAT 100; BMI 25.2
[2025-05-07 20:47] LABS: MANUAL DIFF FLAG NO
--- OUTSIDE RECORDS SUMMARY | 2025-05-07 21:00 | XMS_ITS | Data Portability ---
Author Organization [facility], , [facility] Address [address] [place] [address] Care Team Providers Care Population Health Coach Name Role Phone JACK PONCE Primary Care [...] pain & sciatic a. 2016 017 [email or web address] [facility] (Imaging), [address], [place], [address], 7 10:37:13 orthope dic referra l - 52yof with worseni ng thoraci c back pain. CT showed degener ative changes with anterio r spurrin g. 2016 017 [facility] (Olvin Ybarra), [address], [place], [address], 7 14:15:03 physiat ry referra l - 51yof with chronic low back pain, left hip pain, and fibromy algia. Please evaluat e and treat. 2016 017 [facility], [address], [place], [address], 8 05:00:54 physiat ry referra l - 51yof with chronic low back pain and fibromy algia. 2016 017 [facility], [address] [place], [address], 8 05:00:57 Procedures None recorde d. Surgeries None recorde d. Imaging MAMMO, screeni ng, digital , bilater al 2016 017 [facility] (Imaging), [address], [place], [address], 8 12:35:01 CT, chest, w/o contras t - Please compare to inciden lainey lung nodule seen on thoraci c spine CT on 7. 2016 017 [facility], [address] [place], [address], 0 05:01:58 Medication Orders diclofe nac sodium 75 mg tablet, delayed release 2016 017 pkeough [facility], [address] [place], [address], 7 15:08:58 diazepa m 5 mg tablet 2016 017 INTERFACE [facility], [address] [place], [address], 7 15:17:06 prednis one 20 mg tablet 2016 017 [email or web address] [facility], [address] [place], [address], 7 14:56:59 fenofib rate 54 mg tablet 2016 017 INTERFACE [facility], [address] [place], [address], 7 11:08:21 Chantix Startin g Month Box 0.5 mg (11)-1 mg (42) tablets in dose pack 2016 017 [email or web address] [facility], [address] [place], [address], 7 14:57:15 Chantix Continu ing Month Box 1 mg tablet 2016 017 [email or web address] [facility], [address] [place], [address], 7 14:57:12 hydroco done 5 mg-acet aminoph en 325 mg tablet 2016 017 [email or web address] [facility], [address] [place], [address], 7 10:01:00 diazepa m 5 mg tablet 2016 017 [facility], [address] [place], [address], 7 11:42:44 butalbi lainey 50 mg-acet aminoph en 325 mg-caff eine 40 mg-code ine 30 mg cap 2016 017 [facility], [address] [place], [address], 7 11:42:43 hydroco done 5 mg-acet aminoph en 325 mg tablet 2016 017 [email or web address] [facility], [address] [place], [address], 7 10:01:00 Lyrica 75 mg capsule 2016 017 [email or web address] [facility], [address] [place], [address], 7 11:00:46 ketocon azole 2 % topical cream 2016 017 [email or web address] [facility], [address] [place], [address], 7 10:24:27 cyclobe nzaprin e 10 mg tablet 2016 017 [email or web address] [facility], [address] [facility] [place], [address], 7 14:57:47 Patient TargetsNo targets recorded. Patient Instructions Encounter Date Encounter Id Patient Instructions Last Modified By Organization Details Last Modified Time 06/01/2017 [id number] deciding about using medicines to quit smoking Not available 06/01/2017 11:15:57 Quitting Tobacco : Care Instructions Not available 06/01/2017 11:15:58 Counseling done Goal for follow up visit Health To Do List Not available 06/01/2017 10:27:15 07/18/2017 [id number] deciding about using medicines to quit smoking Not available 07/18/2017 10:34:40 Quitting Tobacco : Care Instructions Not available 07/18/2017 10:34:40 Counseling done Goal for follow up visit Health To Do List Not available 07/18/2017 10:09:42 08/22/2017 [id number] >50% of 25 min appt spent cc/c Counseling pertanined to options for treatment, pros/cons of treatment, and patient taking active role in making decisions about healthcare. pkeough Not available 08/22/2017 15:18:17 Reason for Referral Physiatry Referral for Low b ack pain 51yof with chronic low back pain and fibromyalgia. Referring Physician: [facility], Encounter Date: 02/09/2017 Physiatry Referral for Chron ic low back pain 51yof with chronic low back pain, left hip pain, and fibromyalgia. Please evaluate and treat. Referring Physician: [facility], Encounter Date: 03/30/2017 Orthopedic Referral for Thor acic back pain 52yof with worsening thoracic back pain. CT showed degenerative changes with anterior spurring. Referring Physician: [facility], Encounter Date: 06/01/2017 52yof with chronic low back pain, with acute flare of pain & sciatica. Referring Physician: Nona Butt, Family [facility], Encounter Date: 07/18/2017 Problems Name Problem SNOMED Code Status Onset Date Resolution Date Notes Provider Name and Address Organization Details Recorded Time Mixed hyperlipidemia 266226941 Active 2016 Laurel Alexander RN [facility] [place], [facility] 7 04:50:24 Migraine with aura 6909516 Active 2016 1x/mon th or every other month [place], [address], [facility] 7 10:23:21 Fibromyalgia 045509736 Active 2016 [place], [address], [facility] 7 11:28:08 Generalized anxiety disorder 26174925 Active 2016 IRAIDA [place], [address], [facility] 7 11:28:29 Recurrent major depression 89008939 Active 2016 IRAIDA [place], [address], [facility] 7 11:29:07 Bipolar disorder 63441661 Active 2016 IRAIDA [place], [address], [facility] 7 11:29:17 Insomnia disorder related to another mental disorder 99573567 Active 2016 IRA[place], [address], [facility] 7 11:30:09 Bursitis of hip 45702926 Active 2016 IRA[place], [address], [facility] 7 11:30:12 Essential hypertension 26396123 Active 2016 [facility] [place], [address], [facility] 7 11:30:29 Gastroesophage al reflux disease without esophagitis 519534625 Active 2016 Nona Butt PA-C [address] [place] [address] [place], [address], [facility] 7 11:30:49 Problem Notes None recorded. Procedures Surgical History Date Name Laterality Status Provider Name and Address Organization Details Recorded Time 07/18/20 17 Smoking cessation counseling [place], [address], [facility] 07/18/2017 10:09:42 07/18/20 17 Carbon Monoxide Testing [place], [address], [facility] 07/18/2017 10:09:42 06/01/20 17 Smoking cessation counseling completed Kaye Dent MA [facility] 06/01/2017 10:27:16 06/01/20 17 Carbon Monoxide Testing completed Kaye Dent MA [facility] 06/01/2017 10:29:57 02/10/20 17 Corticosteroid Injection completed Nona Butt PA-C [address] [place] [address], [phone], [facility] 02/09/2017 13:13:01 Imaging Results None recorded. Procedure Notes None recorded. Medical Equipment None Reported. Allergies Allergen ID Allergen Name Allergen Category Reaction Reaction Severity Criticality Documentation Date Start Date Code Code System Note Provider Name and Address Organization Details Recorded Time 19460323 Savella medicatio n rash Not available Not available 11/03/2016 57166 6 RxNorm Nona Butt PA-C [facility] [place], [address], [facility] 7 10:38:10 048277 aspirin medicatio n respirato ry distress Not available Not available 11/03/2016 1191 RxNorm Nona Butt PA-C [address] [place], [place] [address], [address], [facility] 7 10:38:29 804527 Levaquin medicatio n rash Not available Not available 11/03/2016 04140 2 RxNorm Nona Butt PA-C [address] [place] [address] [place], [address], [facility] 7 10:38:52 297191 Motrin medicatio n respirato ry distress Not available Not available 11/03/2016 51570 8 RxNorm Nona Butt PA-C [address] [place] [address] [place], [address], [facility] 7 10:39:12 713048 morphine medicatio n vomiting Not available Not available 11/03/2016 7052 RxNorm Nona Butt PA-C [address] [place], [place] [address], [address], [facility] 7 10:39:23 984538 Prozac medicatio n Not available Not available Not available 11/03/2016 41857 RxNorm crawl ing under skin Nona Butt PA-C [address] [place] [address] [place], [address], [facility] 7 10:39:55 990324 lithium Not available Not available Not available Not available 11/03/2016 6448 RxNorm toxic react ion? low plate lets Nona Butt PA-C [address] [place] [address] [place], [address], [facility] 7 10:40:36 gabapenti n medicatio n itching Not available Not available 08/22/2017 90735 RxNorm Jack Ponce NP [address] [place], [place] [address], [address], [facility] 7 15:10:49 Medications Name Sig Start Date Stop Date Status Note LastModified by Organization Details LastModified Time carisopro dol 350 mg tablet 06/01 completed for spasms Not Available Not Available [...] Date Recorded Body height Heart rate Systolic And Diastolic Provider Name and Address Organization Details Last Updated DateTime 02/09/2017 160.27 cm 78 /min 128/80 mm[Hg] Kailey Senior [facility] 02/09/2017 11:51:42 Date Recorded Body height Body mass index (BMI) Body weight Heart rate Systolic And Diastolic Provider Name and Address Organization Details Last Updated DateTime 03/30/2017 160.27 cm 40.1 kg/m2 464906.4 7 g 80 /min 126/74 mm[Hg] Kailey Senior MA [facility] 03/30/2017 10:25:50 Date Recorded Body height Body mass index (BMI) Body weight Heart rate Systolic And Diastolic Provider Name and Address Organization Details Last Updated DateTime 06/01/2017 160.27 cm 35.7 kg/m2 63616.06 g 72 /min 98/72 mm[Hg] Kaye Dent [facility] 06/01/2017 10:26:32 Date Recorded Body height Body mass index (BMI) Body weight Heart rate Systolic And Diastolic Provider Name and Address Organization Details Last Updated DateTime 07/18/2017 160.27 cm 35.5 kg/m2 94885.07 g 70 /min 118/72 mm[Hg] Kailey Senior [facility] 07/18/2017 10:02:19 Date Recorded Body height Body mass index (BMI) Body weight Heart rate Systolic And Diastolic Provider Name and Address Organization Details Last Updated DateTime 08/22/2017 160.27 cm 36.9 kg/m2 21778.81 g 80 /min 104/68 mm[Hg] Cinthya MitchellALEXIA joyner [facility] 14:59:00 Social History Question Answer Notes LastModified by Organizat ion Details LastModified Time Tobacco Smoking Status Former Smoker quit 4 months. chantix for 3 weeks and no more cravings. 1-1.5 PPD for 35yrs Nona Butt PA-C [address] [place] [address], [address], [facility] 11/03/2016 10:51:51 Do You Wear A Helmet When Biking? [...] not available 11/03/2016 Sex: Unknown Functional Status Question Answer Note LastModified by Organizat ion Details LastModified Time What is your level of alcohol consumption? 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 Family History Nothing [...] quadrivalent, preservative 7 completed Kailey Senior MA [facility] 07/08/2017 14:20:02 Past Encounters Encounter ID Performer Location Encounter Start Date Encounter Closed Date Diagnosis/Indication Diagnosis SNOMED-CT Code Diagnosis ICD10 Code Diagnosis Note [id number] Tani Russell MD , [facility], OFFICE [address] [place] [address] 11/03/2016 09:51:13 11/03/2016 11:18:44 Screening mammography 38206420 Z12.31 Screening for malignant neoplasm of colon 812586672 Z12.11 Bursitis of hip 89995037 M71.559 Pt to schedule f/u on my schedule and Armin agreed to come in and do cortisone injection at that time. Fibromyalgia 240395465 M 79.7 Full workup in ~2012 and Dx with fibro. No relief with gabapentin and allergic reaction to Savella. Would like to try Lyrica. In the past it wasn't covered by insurance, but pt has new insurance now. [id number] Tani Russell MD , [facility], OFFICE [address] [place] [address] 02/09/2017 11:47:17 02/09/2017 14:51:15 Active or passive immunization 385452949 Z23 Tinea corporis 91001741 B35.4 Cream as below. Spasm of back muscles 20 1129238 M62.830 Needs refill. Low back pain 388642947 M54.5 Encourage pt to see PSS. Bursitis of hip 88098490 M71.559 Steroid injection done by [facility] without incident. [id number] Tani Russell MD , [facility], OFFICE [address] [place] [address] 03/30/2017 10:18:04 03/31/2017 08:19:38 Fibromyalgia 193521925 M79.7 Lyrica helpful. Needs refill. Chronic low back pain 27 1073615 M54.5 Hasn't seen PSS yet, needs new referral. 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 Bursitis of hip 28619816 M71.559 Steroid injection improved pain for 2 days, then pain returned. Now having increasing stiffness in hip after sitting for extended periods of time. [id number] Tani Russell MD , [facility], [address]ICE [address] [place] [address] 06/01/2017 10:18:51 06/02/2017 08:14:06 Cigarette smoker 27277259 F17.210 Tobacco user 615649448 Z 72.0 Motivated to quit. Would like to start chantix again which helped in the past. Migraine with aura 37078 06 G43.109 Rare migraine. Needs refill. Mixed hyperlipidemia 267 893224 E78.2 Needs refill. Thoracic back pain 06207 8004 M54.6 PSS never responded to her calls/mess ages to schedule an appt. Would like to see a new specialist . CT revealed anterior spurring and degenerati ve changes in thoracic spine.Will give short course of pain meds for pt to sparingly use until can be seen by ortho for terminal makeup operator pain management . Solitary n odule of lung 080662973 R91.1 Incidental finding on thoracic spine CT. Due to smoking Hx, it is recommende d to repeat CT in 1 year. Obesity 287787458 E66.9 Congratula bhupendra pt on significan t weight loss in past few months! Continue to keep up the great work! [id number] Tani Russell MD , [facility], [address]ICE [address] [place] [address] 07/18/2017 09:56:20 07/19/2017 07:57:31 Cigarette smoker 32011642 F17.210 16 days cigarette free. Congratula bhupendra pt and encouraged her to continue! Tobacco user 430584460 Z 72.0 Low back pain 860400154 M54.5 Acute on chronic with flare of radicular sciatica Sx. Will give prednisone to help with sciatica.F /u with [facility] planned once they review her previous records. [id number] Riya Garcia D.O. , [facility], [address]ICE [address] [place] [address] 08/22/2017 14:53:39 08/23/2017 11:53:05 Screening mammography 85632420 Z12.31 advised to schedule Screening for malignant neoplasm of colon 549907799 Z12.11 did not discuss Sciatica 79738296 M54.31 ongoing lbp with acute sciatica R side.hx of fusion [id number] by [facility] last week- referred back to surgeonwil l d/c tizanidine will restart diazepamal lergic to most meds other than percocet and vicodin; explained i will not prescribe those medication s without consultati on with surgeon` Essential hypertension 79677189 I10 BP well controlled todayat goal of < 140/90c/w meds Health Concerns Section Related Observation LastModified by Organization Detai ls LastModified Time None Recorded Concern Status LastModified by Organization Details LastModified Time None Recorded Advance Directives Directive None Recorded Payers Insurance Date Sequence Insurance Name Policy Number Policy Wright Covered Member ID Wright Member ID Guarantor Name 11/18/2024 2 [place] [employer] ([facility] Lori Mendieta [id number] Lori Mendieta 11/18/2024 1 [place] [employer] Lori Mendieta [id number] Lori Mendieta Notes Date Note Type Note Provider Name and Address Organization Details Recorded Time 02/09/2017 text/html ROS as noted in the HPI R hip has become more painful since initial visit in October. Never had injection in hip. Has had injection in knee which was helpful. Nona Butt PA-C [address] [place], [address], [facility] 02/09/2017 13:14:35 06/01/2017 text/html a/vmg-smoking [id number] by PatientMotivated to quit. Would like to start chantix again which helped in the past.ROS as noted in the HPI Went to ED on 05/21 for worsening thoracic back pain.CT scan done with showed anterior spurring.also showed incidental lung nodule. given percocet & valium which eased pain.still flares, but eases pain. wakes up with pain, goes to bed with itworse in evening after working all day. takes 1 percocet to sleep.lifting/repositi oning (works in long-term) Nona Butt PA-C [address] [place] [address], [address], [facility] 06/01/2017 13:16:02 07/18/2017 text/html a/vmg-smoking [id number] by PatientNo cig in 16 days.ROS as noted in the HPI Pt c/o back pain worsening.Finally got records to [facility]. THey will review them & schedule her in 1-2 week. Worsenign lower back painR leg shooting pain, numbness & tingling x1 week.Pain wakes up in night.walking causes discomfort.muscle relaxor helps some. Out of work since last monday Nona Butt PA-C [address] [place] [address], [address], [facility] 07/18/2017 10:38:27 08/22/2017 text/html a/vmg-smoking [id number] by PatientNo cig in 16 days.ROS as noted in the HPI Pt is here for ongoing back pain.See [...] is vicodin and percocet. Jack Ponce NP [address] [place] [address], [address], [facility] 08/22/2017 15:18:34 OBGyn Episode No OBEpisode recorded.
[2025-05-07 21:01] LABS: Alanine Aminotransferase 15 U/L (0-31); Albumin Level 4.5 g/dL (3.5-5.0); Alkaline Phosphatase 52 U/L (39-117); Anion Gap 12 (12-20); Aspartate Amino Transferase 20 U/L (5-31); Blood Urea Nitrogen 8 mg/dL (9-16); Calcium 9.8 mg/dL (8.4-10.2); Carbon Dioxide 23 mmol/L (22-29); Chloride 109 mmol/L (96-108); Creatinine Clr Calc Pharmacy 90.8; Estimated Glomerular Filt Rate > 60; Lipase 21 U/L (8-78); Magnesium 2.0 mg/dL (1.6-2.6); Potassium 3.7 mmol/L (3.3-5.1); Sodium 140 mmol/L (135-145); Total Protein 7.2 g/dL (6.5-8.0)
[2025-05-07 21:04] LABS: Hematocrit 37.1 % (37.0-47.0); Hemoglobin 12.3 g/dl (12.0-16.0); Imm Gran Abs Auto 0.03 X10*3/uL (0.00-0.03); Imm Gran Pct Auto 0.3 % (0.0-0.4); Lymphocytes Absolute Auto 3.9 X10*3/uL (1.2-4.9); Mean Corpuscular HGB Conc 33.2 g/dl (31.0-35.0); Mean Corpuscular Hemoglobin 28.9 pg (27.0-33.0); Mean Corpuscular Volume 87.1 fL (80.0-98.0); NRBC Abs Auto 0.000 X10*3/uL (0.0-0.012); NRBC Pct Auto 0.0 /100WBC (0.0-0.2); Platelet Count 483 X10*3/uL (160-400); Red Blood Count 4.26 X10*6/uL (4.20-5.50); White Blood Count 10.8 X10*3/uL (4.8-10.8)
[2025-05-07 21:22] LABS: INTERNATIONAL NORM RATIO 0.9 (0.9-1.1); Prothrombin Time 10.3 SEC (10.9-12.4)
[2025-05-07 21:54] VITALS: BP 132/67; PULSE 63; RESP 16; TEMP 36.7; O2SAT 97
[2025-05-07 22:01] LABS: Appearance Urine Clear; Glucose Urine UA Negative (Negative); PH 6.5 (5.0-9.0); Specific Gravity - Urine <= 1.005 (1.005-1.025)
--- NOTE | 2025-05-07 22:10 | PC.NURSE ---
Patient called to request not to be seen by Dr. Copeland
[2025-05-07 23:42] VITALS: BP 137/72; PULSE 58; RESP 18; O2SAT 99
--- NOTE | 2025-05-07 23:42 | PC.NURSE ---
patient removed Tylenol IV tubing without finishing infusion, patient stated its not working and I waited 15 minutes educated patient that medication had no fully infused and she removed it early and that it would not be effective that quickly
[2025-05-08] MEDS: iohexoL 350 MG/ML 100 ML INFUS..BTL 85 ML IV (00:19)
--- NOTE | 2025-05-08 00:28 | PC.NURSE ---
Patient allergic to morphine reporting it causes N/V, attempted to give IV Tylenol, patient became very upset stating that Tylenol does not work for her and she is always given Dilaudid and Valium for her pain. Patient stated she is going to ivy this hospital as we do not give good care. Patient educated on plan to get CT scan and to treat pain with Tylenol and continues to ring call lacey and is hostile with staff when not given Dilaudid
--- NOTE | 2025-05-08 00:51 | PC.NURSE ---
patient walking out of room, pressing call lacey multiple times demanding a new doctor because this doctor does nothing to treat the patient stated she knows what works for her and every other doctor gives her Dilaudid for her pain. educated patient on use of Dilaudid and addictive properties. patient reporting that we are treating her like a baby because we gave her a little bit of Tylenol. Attempted to educate patient on plan of care and patient continues to shake her head stating that she is just going to call her freelance digital project manager tomorrow stated that I should have just went with Dr. Cade even if he is dumb and rude least he gives her the medication she needs'
[2025-05-08 02:32] LABS: Cannabinoid Screen Urine Not Detected (Not Detect)
[2025-05-08 02:49] VITALS: BP 140/62; PULSE 60; RESP 16; TEMP 36.5; O2SAT 98
[2025-05-08 02:58] VITALS: BP 140/62; PULSE 60; RESP 16; TEMP 36.5; O2SAT 98
--- NOTE | 2025-05-08 02:58 | PC.NURSE ---
patient able to tolerate 2 puddings and water prior to discharge
== END 2025-05-08 02:59 | disposition home or self-care (01) ==
PROVIDERS: Registered Nurse Emergency; Emergency Provider Emergency Medicine; PCP Nurse Practitioner
DX: K52.9 Noninfective gastroenteritis and colitis, unspecified (principal); R10.9 Unspecified abdominal pain; R11.2 Nausea with vomiting, unspecified; F17.210 Nicotine dependence, cigarettes, uncomplicated; R42 Dizziness and giddiness; Z79.899 Other long term (current) drug therapy; Z51.81 Encounter for therapeutic drug level monitoring
CPT/HCPCS: 36415; 74177; 80053; 80307; 81003; 83690; 83735; 85025; 85610; 96361; 96374; 96376; 99284; J0131; J2405; Q9967

== ENCOUNTER → 2025-05-08 | Outpatient (BNV) | payer MEDICARE, SELFPAY | PROVIDERS: Emergency Provider Emergency Medicine; PCP Nurse Practitioner; Visit Provider Radiology Diagnostic Radiology | DX: R10.9 Unspecified abdominal pain (principal) | CPT/HCPCS: 74177 ==

== ENCOUNTER 2025-06-11 10:43 | Outpatient (AMB) | payer OTHER, SELFPAY ==
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
[2025-06-11 10:47] VITALS: BP 120/60; PULSE 81; O2SAT 97; BMI 26.6
--- OUTSIDE RECORDS SUMMARY | 2025-06-11 11:39 | XMS_ITS | Clinical Summary ---
Author Organization [employer] Address [address] [place] [address] Care Team Providers Care Computer Network Support Specialist Name Role Phone Unavailable Primary Care Provider Unavailabl e Encounters Date Type Department Care Team Description 06/10/2025 Telephone [facility] [address] [place], [place] [phone] Randy Alanis MD 05/12/2025 Telephone [facility] [address] [place], [place] [phone] Randy Alanis MD [facility] - New Patient Assistance from Last 3 Months Social History Tobacco Use Types Packs/Day Years Used Date Smoking Tobacco: Never Assessed Sex and Gender Information Value Date Recorded Sex Assigned at Not on file Legal Sex Male 12:57 PM EDT Gender Identity Not on file Sexual Orientation Not on file Plan of Treatment Health Maintenance Due Date Last Done Comments CT Colonography 1966 Colonoscopy 1966 Colorectal Cancer Screening 1966 Depression Screening 1966 FIT DNA/Cologuard 1966 FIT 1966 FOBT 1966 HIV Screening 1966 Lipid Panel 1966 SDOH Screening 1966 Sigmoidoscopy 1966 Disability Screening 1966 Alcohol/Substance Use Screening 1978 Tobacco Screening 1978 Hepatitis C Screening 1984 DTaP/Tdap/Td Vaccines (1 - Tdap) 1985 Hepatitis B Vaccines (1 of 3 - 19+ 3-dose series) 1985 Pneumococcal Vaccine: 50+ Ye ars (1 of 1 - PCV) 2016 Zoster Vaccines (1 of 2) 2016 COVID-19 Vaccine ( - 2023-2 5 season) 2024 Influenza Vaccine (#1) 2025 RSV Patients and Pa tients Aged 60 years or older (1 - 1-dose 75+ series) 2041 HIB Vaccines Aged Out No longer eligi ble based on patient's age to complete this topic HPV Vaccines Aged Out No longer eligi ble based on patient's age to complete this topic Hepatitis A Vaccines Aged Out No long er eligible based on patient's age to complete this topic IPV Vaccines Aged Out No longer eligi ble based on patient's age to complete this topic Meningococcal B Vaccine Aged Out No l onger eligible based on patient's age to complete this topic Meningococcal Vaccine Aged Out No maco pascual eligible based on patient's age to complete this topic RSV under 20 months Aged Out No longe r eligible based on patient's age to complete this topic Rotavirus Vaccines Aged Out No longer eligible based on patient's age to complete this topic Insurance [facility]
--- OUTSIDE RECORDS SUMMARY | 2025-06-11 11:39 | XMS_ITS | Clinical Summary ---
Author Organization [facility] Address [address] [place] [address] Phone Care Team Providers Care Grab Jack Worker Name Role Phone Physician, Pcp Unknown Primary Care Provider Jenniffer vailable Allergies Active Allergy Reactions Criticality Noted Date Comments Morphine Nausea And Vomiting,Rash Medium 05/24/2025 Nsaids (Non-Steroidal Anti-Inflammatory Drug) Shortness of breath High 05/24/2025 Chest tightness Medications naloxone (NARCAN) 4 mg/0.1 mL nasal spray Administer 1 each (4 mg total) into affected nostril(s) if needed for opioid reversal. Give 4 mg (1 spray) into one nostril. May repeat every 2-3 minutes if needed, alternating nostrils, until medical assistance becomes available. 2 each 05/24/20 25 026 Active omeprazole (PriLOSEC) [address] capsule Take 1 capsule (20 mg total) by mouth 1 (one) time each day. Do not crush or chew. 30 each 05/24/20 25 025 Active oxyCODONE-acetamin ophen (PERCOCET) 5-325 mg per tablet Take 1 tablet by mouth every 6 (six) hours if needed for severe pain for up to 3 days. Max Daily Amount: 4 tablets 12 tablet 05/24/20 25 025 ondansetron ODT (ZOFRAN-ODT) 4 mg disintegrating tablet Let 1 tablet dissolve under the tongue three times daily as needed for nausea or vomiting. 10 tablet 05/24/20 25 025 oxyCODONE-acetamin ophen (PERCOCET) 5-325 mg per tablet Take 1 tablet by mouth every 6 (six) hours if needed for severe pain for up to 3 days. Max Daily Amount: 4 tablets 12 tablet 05/25/20 25 025 Encounters Date Type Department Care Team Description 05/25/2025 5:56 PM EDT - 05/25/2025 10:29 PM EDT Emergency [facility] Emergency [address] [place] [phone] Dejon Shelton MD Left sided abdominal pain (Primary Dx) Discharge Disposition: Home or Self Care 05/23/2025 10:20 PM EDT - 05/24/2025 4:50 AM EDT Emergency [facility] Emergency [address] [place] [phone] Lani De Los Santos MD Gastroenteritis (Primary Dx); Duodenitis Discharge Disposition: Home or Self Care from Last 3 Months Surgical History Surgery Date Site/Laterality Comments HYSTERECTOMY 1999 PROCEDURE: HISTORICAL HYSTERECTOMY; COMMENT: for period problems Medical History Medical History Date Comments Unspecified asthma(493.90) 11/02/2005 DX:Un specified asthma(493.90) Anxiety state, unspecified DX:An xiety state, unspecified Family History Relation Name Status Comments Father Alive colon cancer Maternal Grandfather CVA Maternal Grandmother Alive htn, Hy perlipidemia Mother Alive cva x2 Paternal Grandfather Cancer, uncertain as to type Paternal Grandmother Stomach cancer Social History Tobacco Use Types Packs/Day Years Used Date Smoking Tobacco: Every Day Cigarettes Alcohol Use Standard Drinks/Week Comments No 0 (1 standard drink = 0.6 oz pur e alcohol) Comments Unknown Sex and Gender Information Value Date Recorded Sex Assigned at Not on file Legal Sex Female 2:31 AM EST Gender Identity Not on file Sexual Orientation Not on file Obstetrics History Last Filed Vital Signs Vital Sign Reading Time Taken Comments Blood Pressure 110/62 05/25/2025 10:26 PM EDT Pulse 72 05/25/2025 10:26 PM EDT Temperature 36.8 C (98.2 F) 05/25/2025 10:26 PM EDT Respiratory Rate 16 05/25/2025 10:26 PM EDT Oxygen Saturation 98% 05/25/2025 10:26 PM EDT Inhaled Oxygen Concentration - - Weight 61.2 kg (135 lb) 05/25/2025 5:32 PM EDT Height 157.5 cm (5' 2 ) 05/25/2025 5:32 PM EDT Body Mass Index 24.69 05/25/2025 5:32 PM EDT Plan of Treatment Upcoming Encounters Date Type Department Care Team (Late st Contact Info) Description 09/03/2025 11:20 AM EST Consult Gastroenterology - [address] [address] [place] [address] Geneva Hurley, [address] [place] [address] Health Maintenance Due Date Last Done Comments Breast Cancer Screening 1966 Hepatitis A Vaccines (1 of 2 - Risk 2-dose series) 1985 Hepatitis B Vaccines (1 of 3 - 19+ 3-dose series) 1985 Cervical Cancer Screening: Pap Smear 1987 Pneumococcal Vaccine: 50+ Years (2 of 2 - PCV) 01/04/2013 01/05/2012, 03/21/2007 Zoster Vaccines (1 of 2) 2016 DTaP,Tdap,and Td Vaccines (2 - Td or Tdap) 05/02/2023 05/02/2013 Cholesterol Screening (Lipid Panel) 11/14/2023 Colorectal Cancer Screening: Colonoscopy 11/14/2023 HIV Screening 11/14/2023 Hepatitis C Screening 11/14/2023 Medicare Annual Wellness Visit 11/14/2023 Social Influencers of Health Screening 11/14/2023 COVID-19 Vaccine ( season) 2024 03/30/2021, 03/02/2021 Depression Screening 10/16/2024 Influenza Vaccine (#1) 2025 5, 07/16/2014, 10/25/2012, Additional history exists RSV Immunization Adult Patients (1 - 1-dose 75+ series) 2041 HIB Vaccines Aged Out No longer eligi ble based on patient's age to complete this topic HPV Vaccines Aged Out No longer eligi ble based on patient's age to complete this topic IPV Vaccines Aged Out No longer eligi ble based on patient's age to complete this topic MMR Vaccines Aged Out No longer eligi ble based on patient's age to complete this topic Meningococcal ACWY Vaccine Aged Out N o longer eligible based on patient's age to complete this topic Meningococcal B Vaccine Aged Out No l onger eligible based on patient's age to complete this topic RSV Immunization Patients Under 20 months Aged Out No longer eligible based on patient's age to complete this topic Varicella Vaccines Aged Out No longer eligible based on patient's age to complete this topic Procedures Procedure Name Priority Date/Time Associated Diagnosis Comments ECG ANNOTATED 05/26/2025 URINALYSIS WITH REFLEX MICROSCOPIC STAT 05/25/2025 7:32 PM EDT DRUG ABUSE SCREEN 8A PANEL, URINE STAT 05/25/2025 7:32 PM EDT URINALYSIS WITH REFLEX MICROSCOPIC STAT 05/25/2025 7:32 PM EDT CBC WITH AUTO DIFFERENTIAL STAT 05/25/2025 6:57 PM EDT CBC AND DIFFERENTIAL STAT 05/25/2025 6:57 PM EDT COMPREHENSIVE METABOLIC PANEL STAT 05/25/2025 6:57 PM EDT LACTATE, WITH REFLEX STAT 05/25/2025 6:57 PM EDT LIPASE STAT 05/25/2025 6:57 PM EDT ECG 12-LEAD STAT 05/25/2025 6:41 PM EDT [place] URINE CULTURE TUBE Routine 05/25/2025 12:00 AM EDT EXTRA TUBES Routine 05/25/2025 12:[address] ABDOMEN PELVIS W CONTRAST STAT 05/24/2025 12:44 AM EDT POC , URINE DIAGNOSTIC STAT 05/24/2025 12:12 AM EDT [place] URINE CULTURE TUBE STAT 05/23/2025 11:58 PM EDT URINALYSIS WITH REFLEX MICROSCOPIC AND CULTURE STAT 05/23/2025 11:58 PM EDT URINALYSIS WITH REFLEX MICROSCOPIC AND CULTURE STAT 05/23/2025 11:58 PM EDT CBC WITH AUTO DIFFERENTIAL STAT 05/23/2025 8:07 PM EDT LIPASE STAT 05/23/2025 8:07 PM EDT COMPREHENSIVE METABOLIC PANEL STAT 05/23/2025 8:07 PM EDT CBC AND DIFFERENTIAL STAT 05/23/2025 8:07 PM EDT from Last 3 Months Results * ECG-Annotated (05/26/2025) us Provider Onbase ECG ORDERABLES Final Result * (ABNORMAL) Urinalysis with reflex microscopic (05/25/2025 7:32 PM EDT) Specific [place] Urine 1.008 1.003 - 1.030 LAB URINALYSIS - AUTOMATED METHOD 05/25/2025 8:00 PM [facility] pH, Urine 7.0 5.0 - 8.0 pH LAB URINALYSIS - AUTOMATED METHOD 05/25/2025 8:00 PM [facility] Leukocytes, Urine Trace(A) Negative LAB URINALYSIS - AUTOMATED METHOD 05/25/2025 8:00 PM [facility] Nitrite, Urine Negative Negative LAB URINALYSIS - AUTOMATED METHOD 05/25/2025 8:00 PM [facility] Protein, Urine Negative <=Trace mg/dL LAB URINALYSIS - AUTOMATED METHOD 05/25/2025 8:00 PM [facility] Glucose, Urine Negative Negative mg/dL LAB URINALYSIS - AUTOMATED METHOD 05/25/2025 8:00 PM [facility] Ketones, Urine Negative Negative mg/dL LAB URINALYSIS - AUTOMATED METHOD 05/25/2025 8:00 PM [facility] Urobilinogen, Urine 0.2 0.2 - 1.0 mg/dL LAB URINALYSIS - AUTOMATED METHOD 05/25/2025 8:00 PM [facility] Bilirubin, Urine Negative Negative LAB URINALYSIS - AUTOMATED METHOD 05/25/2025 8:00 PM [facility] Blood, Urine Negative Negative LAB URINALYSIS - AUTOMATED METHOD 05/25/2025 8:00 PM [facility] RBC, Urine 2.3 0 - 4 /HPF LAB URINALYSIS - AUTOMATED METHOD 05/25/2025 8:00 PM [facility] WBC, Urine 2.0 0 - 4 /HPF LAB URINALYSIS - AUTOMATED METHOD 05/25/2025 8:00 PM [facility] Squamous Epithelial, Urine 31 0 - 60 /LPF LAB URINALYSIS - AUTOMATED METHOD 05/25/2025 8:00 PM [facility] Bacteria, Urine Negative Negative /HPF LAB URINALYSIS - AUTOMATED METHOD 05/25/2025 8:00 PM [facility] Hyaline Casts, Urine 0.8 0 - 3 /LPF LAB URINALYSIS - AUTOMATED METHOD 05/25/2025 8:00 PM [facility] Urine Urine specimen obtained by clean catch procedure / Unknown Non-blood Collection / Unknown 05/25/2025 7:32 PM EDT 05/25/2025 7:39 PM EDT us Dejon Shelton MD LAB URINE ORDERABLES Final R esult [facility] [address] [place] [address], * Drug abuse screen 8a panel, urine (05/25/2025 7:32 PM EDT) Amphetamine Screen, Ur Negative Negative LAB CHEMISTRY METHOD 05/25/2025 8:03 PM [facility] Comment:Certain OTC medicati ons containing ephedrine, phenylephrine, pseudoephedrine and phenylpropanolamine can cause false positive results. Barbiturate Screen, Ur Negative Negative LAB CHEMISTRY METHOD 05/25/2025 8:[facility] Benzodiazepine Screen, Ur Negative Negative LAB CHEMISTRY METHOD 05/25/2025 8:03 PM [facility] Cocaine Screen, Ur Negative Negative LAB CHEMISTRY METHOD 05/25/2025 8:03 PM [facility] Opiate Screen, Ur Negative Negative LAB CHEMISTRY METHOD 05/25/2025 8:03 PM [facility] Cannabinoid (THC) Screen, Ur Negative Negative LAB CHEMISTRY METHOD 05/25/2025 8:03 PM [facility] Comment:Specimens from patie nts taking pantoprazole sodium (Protonix) have been shown to produce false positive results. Oxycodone Screen, Ur Negative Negative LAB CHEMISTRY METHOD 05/25/2025 8:03 PM [facility] Fentanyl, Ur Negative Negative LAB CHEMISTRY METHOD 05/25/2025 8:03 PM [facility] Urine Urine specimen obtained by clean catch procedure / Unknown Non-blood Collection / Unknown 05/25/2025 7:32 PM EDT 05/25/2025 7:39 PM EDT [facility] - 05/25/2025 8:03 PM EDT Assay cutoffs: Amphetamines 1000 ng/mL Barbiturates 200 ng/mL Benzodiazepines 200 ng/mL Cocaine 300 ng/mL Fentanyl 1 ng/mL Opiates 300 ng/mL Oxycodone 100 ng/mL THC 50 ng/mL Semi-quantitative assay for screening purposes only. Unconfirmed screening result should not be used for non-medical purposes. *ALTERNATE METHOD CONFIRMATION DONE UPON REQUEST ONLY* Dejon Shelton MD LAB URINE ORDERABLES Final R [facility] Performing Organization Address [facility]/ZIP Co de Phone Number [facility] [address] [place] [address], [place] [phone] * Lactate, with Reflex (05/25/2025 6:57 PM EDT) [facility] LACTIC ACID 0.8 0.4 - 2.0 mmol/L LAB CHEMISTRY METHOD 05/25/2025 8:07 PM EDT [facility] Blood Venous blood specimen / Unknown Venipuncture / Unknown 05/25/2025 6:57 PM EDT 05/25/2025 7:38 PM EDT Dejon Shelton MD LAB BLOOD ORDERABLES Final R esult Performing Organization Address [facility]/ZIP Co de Phone Number [facility] [address] [place] [address], [place] [phone] * (ABNORMAL) CBC auto differential (05/25/2025 6:57 PM EDT) Only the most recent of2 resultswithin the time period is included. [facility] WBC 8.9 4.8 - 10.8 K/mcL LAB HEMETOLOGY METHOD 05/25/2025 7:45 PM EDT [facility] RBC 4.50 3.80 - 4.80 M/mcL LAB HEMETOLOGY METHOD 05/25/2025 7:45 PM EDT [facility] Hemoglobin 12.6 11.5 - 16.0 g/dL LAB HEMETOLOGY METHOD 05/25/2025 7:45 PM EDT [facility] Hematocrit 39.7 35.0 - 47.0 % LAB HEMETOLOGY METHOD 05/25/2025 7:45 PM EDT [facility] MCV 88.8 79.0 - 98.0 FL LAB HEMETOLOGY METHOD 05/25/2025 7:45 PM EDT [facility] MCH 28.2 27.0 - 32.0 pcg LAB HEMETOLOGY METHOD 05/25/2025 7:45 PM EDT [facility] MCHC 31.7(L) 32.0 - 37.0 g/dL LAB HEMETOLOGY METHOD 05/25/2025 7:45 PM EDT [facility] RDW 14.3 11.0 - 15.0 % LAB HEMETOLOGY METHOD 05/25/2025 7:45 PM EDT [facility] Platelets 327 130 - 400 K/mcL LAB HEMETOLOGY METHOD 05/25/2025 7:45 PM [facility] MPV 9.9 7.0 - 11.0 FL LAB HEMETOLOGY METHOD 05/25/2025 7:45 PM [facility] NRBC 0.0 <1.0 % LAB HEMETOLOGY METHOD 05/25/2025 7:45 PM [facility] NRBC Absolute 0.00 <0.10 K/mcL LAB HEMETOLOGY METHOD 05/25/2025 7:45 PM [facility] Neutrophils Relative 51.8 % LAB HEMETOLOGY METHOD 05/25/2025 7:45 PM [facility] Lymphocytes Relative 32.5 % LAB HEMETOLOGY METHOD 05/25/2025 7:45 PM EDT [facility] Monocytes Relative 8.2 % LAB HEMETOLOGY METHOD 05/25/2025 7:45 PM EDT [facility] Eosinophils Relative 6.7 % LAB HEMETOLOGY METHOD 05/25/2025 7:45 PM [facility] Basophils Relative 0.6 % LAB HEMETOLOGY METHOD 05/25/2025 7:45 PM [facility] Immature Granulocytes Relative 0.2 % LAB HEMETOLOGY METHOD 05/25/2025 7:45 PM EDT [facility] Neutrophils Absolute 4.61 1.50 - 7.00 K/mcL LAB HEMETOLOGY METHOD 05/25/2025 7:45 PM EDT [facility] Lymphocytes Absolute 2.90 1.00 - 5.00 K/mcL LAB HEMETOLOGY METHOD 05/25/2025 7:45 PM EDT [facility] Monocytes Absolute 0.73 0.20 - 1.00 K/mcL LAB HEMETOLOGY METHOD 05/25/2025 7:45 PM EDT [facility] Eosinophils Absolute 0.60(H) 0.00 - 0.50 K/mcL LAB HEMETOLOGY METHOD 05/25/2025 7:45 PM EDT [facility] Basophils Absolute 0.05 0.00 - 0.20 K/mcL LAB HEMETOLOGY METHOD 05/25/2025 7:45 PM EDT [facility] Immature Granulocytes Absolute 0.02 0.00 - 0.03 K/mcL LAB HEMETOLOGY METHOD 05/25/2025 7:45 PM EDT [facility] Blood Venous blood specimen / Unknown Venipuncture / Unknown 05/25/2025 6:57 PM EDT 05/25/2025 7:38 PM EDT us Dejon Shelton MD LAB BLOOD ORDERABLES Final R esult [facility] [address] [place] [address], * Lipase (05/25/2025 6:57 PM EDT) Only the most recent of2 resultswithin the time period is included. Lipase 31 13 - 75 unit/L LAB CHEMISTRY METHOD 05/25/2025 8:09 PM EDT [facility] Blood Venous blood specimen / Unknown Venipuncture / Unknown 05/25/2025 6:57 PM EDT 05/25/2025 7:38 PM EDT us Dejon Shelton MD LAB BLOOD ORDERABLES Final R esult [facility] [address] [place] [address], * Comprehensive Metabolic Panel (CMP) (05/25/2025 6:57 PM EDT) Only the most recent of2 resultswithin the time period is included. Sodium 140 133 - 145 mmol/L LAB CHEMISTRY METHOD 05/25/2025 8:09 PM [facility] Potassium 3.8 3.5 - 5.5 mmol/L LAB CHEMISTRY METHOD 05/25/2025 8:09 PM [facility] Comment:Hemolysis present Chloride 109 96 - 110 mmol/L LAB CHEMISTRY METHOD 05/25/2025 8:09 PM [facility] CO2 24 21 - 32 mmol/L LAB CHEMISTRY METHOD 05/25/2025 8:09 PM [facility] Anion Gap 7 3 - 11 LAB CHEMISTRY METHOD 05/25/2025 8:09 PM [facility] Glucose 95 70 - 100 mg/dL LAB CHEMISTRY METHOD 05/25/2025 8:09 PM [facility] BUN 9 5 - 25 mg/dL LAB CHEMISTRY METHOD 05/25/2025 8:09 PM [facility] Creatinine 0.57 0.50 - 1.10 mg/dL LAB CHEMISTRY METHOD 05/25/2025 8:09 PM [facility] eGFR 105 >=60 mL/min/1. 73m2 LAB CHEMISTRY METHOD 05/25/2025 8:09 PM [facility] Comment:Calculation based on the Chronic Kidney Disease Epidemiology Collaboration (CKD-EPI) equation refit without adjustment for race. BUN/Creatinine Ratio 15.8 LAB CHEMISTRY METHOD 05/25/2025 8:09 PM [facility] Calcium 9.3 8.5 - 10.5 mg/dL LAB CHEMISTRY METHOD 05/25/2025 8:09 PM [facility] AST (SGOT) 14 10 - 42 unit/L LAB CHEMISTRY METHOD 05/25/2025 8:09 PM [facility] ALT (SGPT) 18 10 - 60 unit/L LAB CHEMISTRY METHOD 05/25/2025 8:09 PM [facility] Alkaline Phosphatase 58 42 - 121 unit/L LAB CHEMISTRY METHOD 05/25/2025 8:09 PM [facility] Total Protein 6.9 6.0 - 8.0 g/dL LAB CHEMISTRY METHOD 05/25/2025 8:09 PM [facility] Albumin 3.8 3.2 - 5.0 g/dL LAB CHEMISTRY METHOD 05/25/2025 8:09 PM [facility] Total Bilirubin 0.1 0.0 - 1.4 mg/dL LAB CHEMISTRY METHOD 05/25/2025 8:09 PM [facility] Blood Venous blood specimen / Unknown Venipuncture / Unknown 05/25/2025 6:57 PM EDT 05/25/2025 7:38 PM EDT us Dejon Shelton MD LAB BLOOD ORDERABLES Final R esult [facility] [address] [place] [address], * 12-Lead ECG (05/25/2025 6:41 PM EDT) Ventricular Rate ECG 81 BPM GEMUSE Atrial Rate 81 BPM GEMUSE P-R Interval 140 ms GEMUSE QRS Duration 86 ms GEMUSE Q-T Interval 390 ms GEMUSE QTc 453 ms GEMUSE P Wave [place] 49 degrees GEMUSE R [place] 52 degrees GEMUSE T [place] 51 degrees GEMUSE ECG Interpretation Normal sinus rhythm Possible Left atrial enlargement When compared with ECG of 29-JUN-2023 20:26, No significant change was found Confirmed by BALBINA ALONSO ([id number]) on 05/26/2025 12:57:56 AM GEMUSE 05/25/2025 6:41 PM EDT 05/26/2025 12:57 AM EDT us Dejon Shelton MD ECG ORDERABLES Final Result GEMUSE * [place] urine culture tube (05/25/2025 12:00 AM EDT) Only the most recent of2 resultswithin the time period is included. Extra Tube Hold for add-ons. 05/25/2025 9:01 PM EDT [facility] Comment:Auto resulted. Urine Urine specimen obtained by clean catch procedure / Unknown 05/25/2025 05/25/2025 7:39 PM EDT Dejon Shelton MD LAB URINE ORDERABLES Final R esult Performing Organization Address City/[facility]/ZIP Co de Phone Number [facility] [address] [place] [address], [place] [phone] * CT Abdomen Pelvis w Contrast (05/24/2025 12:44 AM EDT) Anatomical Region Laterality Modality Body Computed Tomogra phy 05/24/2025 1:17 AM EDT Impressions 05/24/2025 1:17 AM EDT Status post right-sided colonic resection and appendectomy. Sigmoid and descending colon diverticulosis without evidence of diverticulitis. This document has been electronically signed by: Kojo Martinez MD on 05/24/2025 01:17:25 Narrative 05/24/2025 1:17 AM EDT INDICATION: Diverticulitis suspected CT abdomen and pelvis with contrast Comparison: None provided Findings: The lung bases are clear. Solid organs are unremarkable. Status post cholecystectomy with postsurgical intrahepatic and common bile duct dilation. Status post right-sided colonic resection and appendectomy. Sigmoid diverticulosis and descending colon diverticulosis without evidence of diverticulitis. No bowel obstruction, pneumoperitoneum, or pneumatosis. Urinary bladder prior grossly unremarkable. Status post TAHBSO. L4-5 and L5-S1 lumbar discectomy and fusion. Procedure Note Kojo Martinez MD - 05/24/2025 INDICATION: Diverticulitis suspected CT abdomen and pelvis with contrast Comparison: None provided Findings: The lung bases are clear. Solid organs are unremarkable. Status post cholecystectomy with postsurgical intrahepatic and commonbile duct dilation. Status post right-sided colonic resection and appendectomy. Sigmoid diverticulosis and descending colon diverticulosis without evidence of diverticulitis. No bowel obstruction, pneumoperitoneum, or pneumatosis. Urinary bladder prior grossly unremarkable. Status post TAHBSO. L4-5 and L5-S1 lumbar discectomy and fusion. IMPRESSION: Status post right-sided colonic resection and appendectomy. Sigmoid and descending colon diverticulosis without evidence of diverticulitis. This document has been electronically signed by: Kojo Martinez MD on 05/24/2025 01:17:25 Lani De Los Santos MD IMG CT PROCEDURES Final Result * POC , urine manually resulted (05/24/2025 12:12 AM EDT) HCG, Ur POC Negative Negative POC hCG Int QC Pass? Yes Yes Urine Urine specimen obtained by clean catch procedure / Unknown 05/24/2025 12:12 AM EDT us Lani De Los Santos MD POINT OF CARE TEST ENTER/EDIT ORDERABLES Final Result * Urinalysis with reflex microscopic and culture (05/23/2025 11:58 PM EDT) Specific [place] Urine 1.010 1.003 - 1.030 LAB URINALYSIS - AUTOMATED METHOD 05/24/2025 12:17 AM EDT [facility] pH, Urine 7.5 5.0 - 8.0 pH LAB URINALYSIS - AUTOMATED METHOD 05/24/2025 12:17 AM [facility] Leukocytes, Urine Negative Negative LAB URINALYSIS - AUTOMATED METHOD 05/24/2025 12:17 AM [facility] Nitrite, Urine Negative Negative LAB URINALYSIS - AUTOMATED METHOD 05/24/2025 12:17 AM [facility] Protein, Urine Negative <=Trace mg/dL LAB URINALYSIS - AUTOMATED METHOD 05/24/2025 12:17 AM [facility] Glucose, Urine Negative Negative mg/dL LAB URINALYSIS - AUTOMATED METHOD 05/24/2025 12:17 AM [facility] Ketones, Urine Negative Negative mg/dL LAB URINALYSIS - AUTOMATED METHOD 05/24/2025 12:17 AM [facility] Urobilinogen, Urine 0.2 0.2 - 1.0 mg/dL LAB URINALYSIS - AUTOMATED METHOD 05/24/2025 12:17 AM [facility] Bilirubin, Urine Negative Negative LAB URINALYSIS - AUTOMATED METHOD 05/24/2025 12:17 AM [facility] Blood, Urine Negative Negative LAB URINALYSIS - AUTOMATED METHOD 05/24/2025 12:17 AM [facility] Urine Urine specimen obtained by clean catch procedure / Unknown Non-blood Collection / Unknown 05/23/2025 11:58 PM EDT 05/24/2025 12:10 AM EDT us Kaye Cadet MD LAB URINE ORDERABLES Final Resul t [facility] [address] [place] [address], [place] [phone] from Last 3 Months Additional Health Concerns Infection Onset Date Last Indicated C. difficile Rule-Out 05/24/2025 05/24/2025 Insurance [employer] MED[employer]ARE Care Teams Grab Jack Worker Relationship Specialty Start Date End Date Physician, Pcp Unknown PCP - General 05/23/25
--- OUTSIDE RECORDS SUMMARY | 2025-06-11 11:39 | XMS_ITS | Encounter Summary ---
Author Organization [employer] Address [address] [place] [address] Care Team Providers Care Soda Dispenser Name Role Phone Unavailable Primary Care Provider Unavailabl e Encounter Details Date Type Department Care Team (Late st Contact Info) Description 06/10/2025 Telephone [facility] [address] [place] [address] Randy Alanis MD [address] [place] [address] Social History Tobacco Use Types Packs/Day Years Used Date Smoking Tobacco: Never Assessed Sex and Gender Information Value Date Recorded Sex Assigned at Not on file Legal Sex Male 12:57 PM EDT Gender Identity Not on file Sexual Orientation Not on file documented as of this encounter Miscellaneous Notes * Telephone Encounter - Vanesa Le - 06/10/2025 1:47 PM EDT Outgoing call to pt to book REGULATORY CONSULTANT appt. No answer. Left message. documented in this encounter Plan of Treatment Not on file documented as of this encounter Visit Diagnoses Not on filedocumented in this encounter
== END 2025-06-11 11:51 | disposition home or self-care (01) ==
LOC: HO.HMCH 10:44
DX: F32.9 Major depressive disorder, single episode, unspecified (principal); Z98.890 Other specified postprocedural states; E78.5 Hyperlipidemia, unspecified; K21.9 Gastro-esophageal reflux disease without esophagitis; K58.9 Irritable bowel syndrome, unspecified; M54.6 Pain in thoracic spine; R10.9 Unspecified abdominal pain; F17.200 Nicotine dependence, unspecified, uncomplicated

== ENCOUNTER → 2025-06-11 10:43 | Outpatient (BNVA) | payer OTHER, SELFPAY | DX: K21.9 Gastro-esophageal reflux disease without esophagitis (principal); E78.5 Hyperlipidemia, unspecified; K58.9 Irritable bowel syndrome, unspecified; F41.9 Anxiety disorder, unspecified; F32.9 Major depressive disorder, single episode, unspecified; M54.9 Dorsalgia, unspecified; R10.9 Unspecified abdominal pain; F17.210 Nicotine dependence, cigarettes, uncomplicated; Z98.890 Other specified postprocedural states | CPT/HCPCS: 96127 ==

== ENCOUNTER 2025-09-17 21:53 | Emergency (ER) | payer OTHER, SELFPAY ==
[2025-09-17 21:56] VITALS: BP 114/53; BP 137/74; PULSE 75; PULSE 87; RESP 16; TEMP 36.7; O2SAT 97; BMI 27.4
[2025-09-17 22:56] LABS: MANUAL DIFF FLAG NO
[2025-09-17 23:05] LABS: Hematocrit 39.3 % (37.0-47.0); Hemoglobin 12.5 g/dl (12.0-16.0); Imm Gran Abs Auto 0.02 X10*3/uL (0.00-0.03); Imm Gran Pct Auto 0.2 % (0.0-0.4); Lymphocytes Absolute Auto 3.5 X10*3/uL (1.2-4.9); Mean Corpuscular HGB Conc 31.8 g/dl (31.0-35.0); Mean Corpuscular Hemoglobin 27.8 pg (27.0-33.0); Mean Corpuscular Volume 87.3 fL (80.0-98.0); NRBC Abs Auto 0.000 X10*3/uL (0.0-0.012); NRBC Pct Auto 0.0 /100WBC (0.0-0.2); Platelet Count 388 X10*3/uL (160-400); Red Blood Count 4.50 X10*6/uL (4.20-5.50); White Blood Count 11.5 X10*3/uL (4.8-10.8)
[2025-09-17 23:12] LABS: Alanine Aminotransferase 13 U/L (0-31); Albumin Level 4.5 g/dL (3.5-5.0); Alkaline Phosphatase 57 U/L (39-117); Anion Gap 12 (12-20); Aspartate Amino Transferase 21 U/L (5-31); Blood Urea Nitrogen 9 mg/dL (9-16); Calcium 9.4 mg/dL (8.4-10.2); Carbon Dioxide 27 mmol/L (22-29); Chloride 105 mmol/L (96-108); Creatinine Clr Calc Pharmacy 86.9; Estimated Glomerular Filt Rate > 60; Lipase 32 U/L (8-78); Potassium 3.6 mmol/L (3.3-5.1); Sodium 140 mmol/L (135-145); Total Protein 7.2 g/dL (6.5-8.0)
--- OUTSIDE RECORDS SUMMARY | 2025-09-17 23:13 | XMS_ITS | Clinical Summary ---
Author Organization [facility] Address [address] [place] [address] Phone Care Team Providers Care Therapeutic Recreation Assistant Name Role Phone Physician, Pcp Unknown Primary [...] until medical assistance becomes available. 2 each 5 05/24/20 26 Active ondansetron (ZOFRAN) 4 mg tablet Take 1 tablet (4 mg total) by mouth every 8 (eight) hours if needed for nausea or vomiting for up to 7 days. 20 tablet 5 09/17/20 25 Active albuterol HFA (PROAIR HFA ; PROVENTIL HFA ; VENTOLIN HFA) 90 mcg/actuation inhaler Inhale 2 puffs by mouth every 4 (four) hours if needed for wheezing or shortness of breath for up to 5 days. 8 g 5 Active aluminum-magne sium hydroxide-james thicone (MAALOX) 200-200-20 mg/5 mL suspension Take 15 mL by mouth 4 (four) times a day (before meals and nightly). 354 mL 5 Active dicyclomine (BENTYL) 20 mg tablet Take 1 tablet (20 mg total) by mouth 2 (two) times a day for 10 days. 20 tablet 5 09/20/20 25 Active methylPREDNISo lone (MEDROL DOSPAK) 4 mg tablet Follow schedule on package instructions 21 tablet 5 09/16/20 25 Active Problems Problem Noted Date Diagnosed Date Alcohol dependence ([facility] V24, [facility] V28) Bipolar II disorder ([facility] V24, [facility] V28) 1 11/02/2024 Hip pain, right 09/02/2025 History of colectomy 09/02/2025 Overview (09/02/2025): s/p complicated colonoscopy in 2010 resulting in perforation/bowel resection surgery and abscess formation around drain site - operated at [facility] - surgeons : Dr. Bolton and Dr. 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 Pt did not keep 3 sched appts. Letter sent to the referring source and to the pt. Rectal bleeding 07/14/2008 Lumbar disc disease 01/09/2008 Tobacco use disorder 01/09/2008 Diverticulitis of colon 01/03/2007 Pure hypercholesterolemia 01/03/2007 Adjustment disorder with depressed mood 02/10/20 06 Asthma 11/02/2005 Encounters Date Type Department Care Team Description 09/10/2025 12:40 AM EST - 09/10/2025 3:07 AM EST Emergency [facility] Emergency [address] [place] [id number] Viral syndrome (Primary Dx) Discharge Disposition: Home or Self Care from [...] Information Value Date Recorded Sex Assigned at Female 09/10/2025 10:21 AM EST Legal Sex Female 2:31 AM EST Gender Identity Female 09/10/2025 10:21 AM EST Sexual Orientation Not on file Obstetrics History Last Filed Vital Signs Vital Sign Reading Time Taken Comments Blood Pressure 130/67 09/09/2025 11:10 PM EST Pulse 82 09/09/2025 11:10 PM EST Temperature 36.8 C (98.2 F) 09/09/2025 11:10 PM EST Respiratory Rate 20 09/09/2025 11:10 PM EST Oxygen Saturation 97% 09/09/2025 11:10 PM EST Inhaled Oxygen Concentration - - Weight 61.2 kg (135 lb) 05/25/2025 5:32 PM EDT Height 157.5 cm (5' 2 ) 09/09/2025 6:40 PM EST Body Mass Index 24.69 05/25/2025 5:32 PM EDT Plan of Treatment Upcoming Encounters Date Type Department Care Team (Late st Contact Info) Description 05/04/2026 10:40 AM EDT Consult Gastroenterology - [address] [id number] [place], HEIDI [address] [address] Health Maintenance Due Date Last Done Comments Breast Cancer Screening 1966 Colorectal Cancer Screening: Colonoscopy 1966 Hepatitis A Vaccines (1 of 2 - Risk 2-dose series) 1985 Hepatitis B Vaccines (1 of 3 - 19+ 3-dose series) 1985 Cervical Cancer Screening: Pap Smear 1987 Pneumococcal Vaccine: 50+ Years (2 of 2 - PCV) 01/04/2013 01/05/2012, 03/21/2007 RSV Immunization Adult Patients (1 - Risk 50-74 years 1-dose series) 2016 Zoster Vaccines (1 of 2) 2016 DTaP,Tdap,and Td Vaccines (2 - Td or Tdap) 05/02/2023 05/02/2013 Cholesterol Screening (Lipid Panel) 11/14/2023 HIV Screening 11/14/2023 Hepatitis C Screening 11/14/2023 Medicare Annual Wellness Visit 11/14/2023 Social Influencers of Health Screening 11/14/2023 Depression Screening 10/16/2024 COVID-19 Vaccine (3 - season) 2025 03/30/2021, 03/02/2021 Influenza Vaccine (#1) 2025 5, 07/16/2014, 10/25/2012, Additional history exists HIB Vaccines Aged Out No longer eligi [...] Procedure Name Priority Date/Time Associated Diagnosis Comments RESPIRATORY VIRUS PANEL MOLECULAR STUDY STAT 09/10/2025 12:51 AM EST CBC WITH AUTO DIFFERENTIAL STAT 09/09/2025 7:05 PM EST LIPASE STAT 09/09/2025 7:05 PM EST COMPREHENSIVE METABOLIC PANEL STAT 09/09/2025 7:05 PM EST CBC AND DIFFERENTIAL STAT 09/09/2025 7:05 PM EST from Last 3 Months Results * (ABNORMAL) Respiratory virus panel molecular study (09/10/2025 12:51 AM EST) Pathologist [facility] Adenovirus Detection by PCR Not Detected Not Detected LAB MICROBIOLOGY METHOD 09/10/2025 2:09 AM [facility] Influenza A PCR Not Detected Not Detected LAB MICROBIOLOGY METHOD 09/10/2025 2:09 AM [facility] Influenza B PCR Not Detected Not Detected LAB MICROBIOLOGY METHOD 09/10/2025 2:09 AM [facility] Coronavirus 229E Not Detected Not Detected LAB MICROBIOLOGY METHOD 09/10/2025 2:09 AM [facility] Coronavirus HKU1 Not Detected Not Detected LAB MICROBIOLOGY METHOD 09/10/2025 2:09 AM [facility] Coronavirus OC43 Not Detected Not Detected LAB MICROBIOLOGY METHOD 09/10/2025 2:09 AM [facility] Coronavirus NL63 Not Detected Not Detected LAB MICROBIOLOGY METHOD 09/10/2025 2:09 AM [facility] Parainfluenza Virus 1 Not Detected Not Detected LAB MICROBIOLOGY METHOD 09/10/2025 2:09 AM [facility] Parainfluenza Virus 2 Not Detected Not Detected LAB MICROBIOLOGY METHOD 09/10/2025 2:09 AM [facility] Parainfluenza Virus 3 Not Detected Not Detected LAB MICROBIOLOGY METHOD 09/10/2025 2:09 AM [facility] Parainfluenza Virus 4 Not Detected Not Detected LAB MICROBIOLOGY METHOD 09/10/2025 2:09 AM [facility] RSV PCR Not Detected Not Detected LAB MICROBIOLOGY METHOD 09/10/2025 2:09 AM [facility] Human Metapneumovirus A and B Not Detected Not Detected LAB MICROBIOLOGY METHOD 09/10/2025 2:09 AM [facility] Rhinovirus/Entero virus Detected(A ) Not Detected LAB MICROBIOLOGY METHOD 09/10/2025 2:09 AM [facility] Bordetella pertussis Not Detected Not Detected LAB MICROBIOLOGY METHOD 09/10/2025 2:09 AM [facility] Bordetella parapertussis Not Detected Not Detected LAB MICROBIOLOGY METHOD 09/10/2025 2:09 AM [facility] Mycoplasma pneumo by PCR Not Detected Not Detected LAB MICROBIOLOGY METHOD 09/10/2025 2:09 AM [facility] Chlamydia pneumoniae Not Detected Not Detected LAB MICROBIOLOGY METHOD 09/10/2025 2:09 AM [facility] SARS COV-2 Not Detected Not Detected LAB MICROBIOLOGY METHOD 09/10/2025 2:09 AM [facility] Swab Nasopharyngeal structure / Unknown Non-blood Collection / Unknown 09/10/2025 12:51 AM EST 09/10/2025 1:16 AM [facility] - 09/10/2025 2:09 AM EST Testing was performed using the [employer] Respiratory Pathogen PCR Assay. All results must be correlated with the clinical findings. Results should not be used as the sole basis for diagnosis. False Negative results may occur from the presence of sequence variants in the region targeted by the assay or the presence of inhibitors. Results may be affected by concurrent antiviral/antimicrobial therapy or levels of organisms that are below the limit of detection. us Marek AVENDAÑO LAB MICROBIOLOGY - GENERAL ORDERABLES Final Result [facility] [address] [place] [address], [place] [phone] * (ABNORMAL) CBC auto differential (09/09/2025 7:05 PM EST) [facility] WBC 8.6 4.8 - 10.8 K/mcL LAB HEMETOLOGY METHOD 09/09/2025 7:17 PM [facility] RBC 4.50 3.80 - 4.80 M/mcL LAB HEMETOLOGY METHOD 09/09/2025 7:17 PM [facility] Hemoglobin 12.7 11.5 - 16.0 g/dL LAB HEMETOLOGY METHOD 09/09/2025 7:17 PM [facility] Hematocrit 39.4 35.0 - 47.0 % LAB HEMETOLOGY METHOD 09/09/2025 7:17 PM [facility] MCV 86.8 79.0 - 98.0 FL LAB HEMETOLOGY METHOD 09/09/2025 7:17 PM [facility] MCH 28.0 27.0 - 32.0 pcg LAB HEMETOLOGY METHOD 09/09/2025 7:17 PM [facility] MCHC 32.2 32.0 - 37.0 g/dL LAB HEMETOLOGY METHOD 09/09/2025 7:17 PM [facility] RDW 13.4 11.0 - 15.0 % LAB HEMETOLOGY METHOD 09/09/2025 7:17 PM [facility] Platelets 336 130 - 400 K/mcL LAB HEMETOLOGY METHOD 09/09/2025 7:17 PM [facility] MPV 8.9 7.0 - 11.0 FL LAB HEMETOLOGY METHOD 09/09/2025 7:17 PM [facility] NRBC 0.0 <1.0 % LAB HEMETOLOGY METHOD 09/09/2025 7:17 PM [facility] NRBC Absolute 0.00 <0.10 K/mcL LAB HEMETOLOGY METHOD 09/09/2025 7:17 PM [facility] Neutrophils Relative 51.9 % LAB HEMETOLOGY METHOD 09/09/2025 7:17 PM [facility] Lymphocytes Relative 34.6 % LAB HEMETOLOGY METHOD 09/09/2025 7:17 PM [facility] Monocytes Relative 6.6 % LAB HEMETOLOGY METHOD 09/09/2025 7:17 PM [facility] Eosinophils Relative 6.0 % LAB HEMETOLOGY METHOD 09/09/2025 7:17 PM [facility] Basophils Relative 0.6 % LAB HEMETOLOGY METHOD 09/09/2025 7:17 PM [facility] Immature Granulocytes Relative 0.3 % LAB HEMETOLOGY METHOD 09/09/2025 7:17 PM [facility] Neutrophils Absolute 4.48 1.50 - 7.00 K/mcL LAB HEMETOLOGY METHOD 09/09/2025 7:17 PM [facility] Lymphocytes Absolute 2.99 1.00 - 5.00 K/mcL LAB HEMETOLOGY METHOD 09/09/2025 7:17 PM [facility] Monocytes Absolute 0.57 0.20 - 1.00 K/mcL LAB HEMETOLOGY METHOD 09/09/2025 7:17 PM [facility] Eosinophils Absolute 0.52(H) 0.00 - 0.50 K/mcL LAB HEMETOLOGY METHOD 09/09/2025 7:17 PM [facility] Basophils Absolute 0.05 0.00 - 0.20 K/mcL LAB HEMETOLOGY METHOD 09/09/2025 7:17 PM [facility] Immature Granulocytes Absolute 0.03 0.00 - 0.03 K/mcL LAB HEMETOLOGY METHOD 09/09/2025 7:17 PM [facility] Blood Venous blood specimen / Unknown Venipuncture / Unknown 09/09/2025 7:05 PM EST 09/09/2025 7:09 PM EST Armin Mcbride MD LAB BLOOD ORDERABLES Final Result Performing Organization Address [facility]/ZIP Co de Phone Number [facility] [address] [place] [address], [place] [phone] * Lipase (09/09/2025 7:05 PM EST) Lipase 25 12 - 53 unit/L 09/09/2025 7:37 PM [facility] Blood Venous blood specimen / Unknown Venipuncture / Unknown 09/09/2025 7:05 PM EST 09/09/2025 7:09 PM EST Armin Mcbride MD LAB BLOOD ORDERABLES Final Result Performing Organization Address City/[facility]/ZIP Co de Phone Number [facility] [address] [place] [address], [place] [phone] * Comprehensive metabolic panel (09/09/2025 7:05 PM EST) [facility] Sodium 140 133 - 145 mmol/L 09/09/2025 7:37 PM [facility] Potassium 3.7 3.5 - 5.5 mmol/L 09/09/2025 7:37 PM [facility] Chloride 104 96 - 110 mmol/L 09/09/2025 7:37 PM [facility] CO2 29 21 - 32 mmol/L 09/09/2025 7:37 PM [facility] Anion Gap 7 3 - 11 09/09/2025 7:37 PM [facility] Glucose 80 70 - 100 mg/dL 09/09/2025 7:37 PM [facility] BUN 9 5 - 25 mg/dL 09/09/2025 7:37 PM [facility] Creatinine 0.79 0.50 - 1.10 mg/dL 09/09/2025 7:37 PM [facility] eGFR 86 >=60 mL/min/1. 73m2 09/09/2025 7:37 PM [facility] Comment:Calculation based on the Chronic Kidney Disease Epidemiology Collaboration (CKD-EPI) equation refit without adjustment for race. BUN/Creatinine Ratio 11.4 09/09/2025 7:37 PM [facility] Calcium 8.6 8.5 - 10.5 mg/dL 09/09/2025 7:37 PM [facility] AST (SGOT) 24 10 - 42 unit/L 09/09/2025 7:37 PM [facility] ALT (SGPT) 20 10 - 60 unit/L 09/09/2025 7:37 PM [facility] Alkaline Phosphatase 65 42 - 121 unit/L 09/09/2025 7:37 PM [facility] Total Protein 7.1 6.0 - 8.0 g/dL 09/09/2025 7:37 PM [facility] Albumin 4.0 3.2 - 5.0 g/dL 09/09/2025 7:37 PM [facility] Total Bilirubin 0.2 0.0 - 1.4 mg/dL 09/09/2025 7:37 PM [facility] Blood Venous blood specimen / Unknown Venipuncture / Unknown 09/09/2025 7:05 PM EST 09/09/2025 7:09 PM EST us Armin Mcbride MD LAB BLOOD ORDERABLES Final Result [facility] [address] [place] [address], from Last 3 Months Additional Health Concerns Infection Onset Date Last Indicated Enterovirus 09/10/2025 09/10/2025 Rhinovirus 09/10/2025 09/10/2025 Insurance [employer] MEDICARE MEDICAID - [place] Care Teams Therapeutic Recreation Assistant Relationship Specialty Start Date End Date Physician, Pcp Unknown PCP - General 05/23/25
--- NOTE | 2025-09-18 00:13 | PC.NURSE ---
Assumed care of pt. c/o left side abdominal pain thats non-radiating x1 week, pt stated pain is a constant dull and sharp, pt endorses x1 episode of diarrhea while in the waiting room, and nausea/vomiting, [id number],
--- NOTE | 2025-09-18 00:24 | ED.GENADULT ---
HPI - General Adult General Chief complaint: Abdominal Pain Stated complaint: N/V/D X2 weeks, palpitations [id number] Time Seen by Provider: 09/17/25 23:55 Source: patient, RN notes reviewed and old records reviewed Mode of arrival: ambulatory Limitations: no limitations History of Present Illness ED Provider: Nuha HPI narrative: Patient is a 60 year old female with a past medical history of diverticulosis, IBS, HLD, GERD, chronic low back pain, chronic abdominal pain and depression presenting today with a 2 week history of abdominal pain, n/v and watery diarrhea. Pt denies any sick contacts. Endorses a fever, chills, and cough. Has taken Tylenol with no relief of pain, took Zofran yesterday that has helped with the nausea. Pt denies blood in vomit or diarrhea. Pt states that suddenly today she developed palpitations, no hx of afib. The feeling has since resolved. Related Data Home Medications ?Medication ?Instructions ?Recorded ?Confirmed lurasidone 80 mg tablet 80 mg PO DAILY 06/16/23 06/11/25 topiramate 100 mg tablet 100 mg PO BID 06/16/23 06/11/25 trazodone 100 mg tablet 200 mg PO BEDTIME 12/26/23 06/11/25 sertraline 100 mg tablet 200 mg PO DAILY 04/19/25 06/11/25 Previous Rx's ?Medication ?Instructions ?Recorded blood pressure monitor (Blood #1 ea 06/05/24 Pressure Kit) hydroxyzine HCl 25 mg tablet 25 - 50 mg (1 - 2 x 25 mg) PO BID 06/11/25 PRN Anxiety #90 tabs nicotine 14 mg/24 hr daily 1 patch transdermal DAILY #28 ea 06/11/25 transdermal patch pregabalin 25 mg capsule 25 mg PO DAILY #30 caps 06/11/25 xbivvcygxe-[id number]-vttcygnz 1 cap PO Q8H PRN pain #5 caps 08/11/25 50 mg-300 mg-40 mg capsule (Fioricet) hyoscyamine sulfate 0.125 mg tablet 0.125 mg PO QID PRN dyspepsia #30 08/25/25 tabs cyclobenzaprine 10 mg tablet 10 mg PO BID PRN muscle spasms #30 08/29/25 tabs omeprazole 40 mg capsule,delayed 40 mg PO DAILY #90 caps 08/29/25 release Allergies Allergy/AdvReac Type Severity Reaction Status Date / Time ibuprofen (From Motrin) Allergy Intermediate Shortness Verified 09/17/25 22:02 of Breath lamotrigine (From Lamictal) Allergy Intermediate Rash Verified 09/17/25 22:02 milnacipran (From [place]) Allergy Intermediate Itching Verified 09/17/25 22:02 aspirin (Aspirin) Allergy Mild DYSPNEA Verified 09/17/25 22:02 levofloxacin (From Levaquin) Allergy Mild Rash Verified 09/17/25 22:02 lithium ([place]) Allergy Mild TREMORS Verified 09/17/25 22:02 morphine (MORPHINE) Allergy Mild NAUSEA/VOMI Verified 09/17/25 22:02 TING fluoxetine (From Prozac) Allergy Unknown Unknown Verified 09/17/25 22:02 seafood Allergy Unknown Unknown Verified 09/17/25 22:02 dicyclomine (From Bentyl) Allergy Unknown Verified 09/17/25 22:02 carbamazepine (From Tegretol) AdvReac Intermediate Fatigued Verified 09/17/25 22:02 gabapentin AdvReac Intermediate Nausea Verified 09/17/25 22:02 zolpidem (From Ambien) AdvReac Intermediate Itching Verified 09/17/25 22:02 Review of Systems Constitutional: Constitutional: Reports as per HPI, Denies fatigue and Denies headache(s) ENT: Denies headache(s) Cardiovascular: Cardiovascular: Denies chest pain and Denies dyspnea Respiratory: Respiratory: Denies dyspnea Gastrointestinal: Gastrointestinal: Reports abdominal pain, Denies constipation, Reports nausea and Reports vomiting Genitourinary: Genitourinary: Denies dysuria Neurologic: Denies headache(s) and Denies focal weakness Endocrine: Endocrine: Denies fatigue [facility] Past Medical History Medical History Tobacco abuse disorder Syncope Shortness of breath on exertion Effusion, left knee Left knee pain GERD (gastroesophageal reflux disease) Hypertension Hyperlipidemia Depression Surgical History Status post cardiac catheterization S/P ACL repair History of hysterectomy (~1999) History of spinal surgery (~12/2013) History of colectomy (~06/01/11) Family History Family History Father No problems noted. Mother No problems noted. Social History Social History Household Members: Family Housing: Apartment Do you presently have visiting nurse or other home services: No Alcohol intake: current Alcohol intake frequency: holidays/special occasions only Alcohol type: beer Comment: Pt self ambulates and declines bed alarms at this time. Patient Tobacco Use Status: Current everyday Tobacco user Tobacco use type: Cigarette Cigarette Packs Per Day: 0.5 Cigarettes Per Day: 10.0 Years Smoked: since 10 years old but quit few times in between Smoked in Last 30 Days: No e-Cigarette/Vaping Use: Never Used Second Hand Smoke Exposure: Yes Use of substances other than those prescribed or required for medical reasons: No Substance Use Type: Crack/Cocaine Advance Directives: No Advance Directives Information Provided: Yes Do you have a plan to hurt others: No Plan Patient : No service: No Current occupational status: employed Current occupation: [employer] Cognitive needs: No Hearing needs: No Vision needs: No Physical Exam ED Vital Signs: Vital Signs - 24 hr 09/17/25 21:56 09/18/25 00:52 Temperature 98.0 F 98.0 F Pulse Rate 75 66 Respiratory Rate 16 20 Blood Pressure 114/53 L 124/72 Pulse Oximetry 97 95 Oxygen Delivery Method Room Air Room Air BMI result Body Mass Index 27.4 Const General: healthy appearing, comfortable, no acute distress, alert and awake Nutritional Appearance: well nourished Orientation/consciousness: patient oriented x3 HENMT Head: Yes normocephalic and Yes atraumatic Eyes Eyelids: Yes eyelids normal Conjunctivae: conjunctivae normal Sclerae: sclerae normal Corneas: corneas normal Neck Neck: Yes full ROM Resp Effort & Inspection: normal respiratory effort, able to speak in complete sentences, no audible wheezes and not labored Auscultation: clear to auscultation bilaterally Cardio Rate: regular rate Rhythm: regular rhythm GI Inspection: No distended Palpation (GI): Soft to palpation, not firm, Tenderness to palpation present (GI) in the LLQ, no guarding and not rigid Auscultation: normoactive bowel sounds Skin General skin exam: no rashes or lesions noted and elasticity normal Neuro General: patient oriented x3 Cognition (Neuro): normal cognition Extrem Other: Moving all extremities well without any obvious deformities Course Reevaluation(s) Reevaluation #1: I Alison Cast PA-C have personally accepted care of the patient at signed out pending urinalysis and likely discharge home Labs: Urine not infected Medications Administered Discontinued Medications Generic Name Dose Route Start Last Admin Trade Name Emily PRN Reason Stop Dose Admin Hydromorphone HCl 1 mg 09/18/25 01:55 09/18/25 02:05 Hydromorphone Hcl 1 Mg/Ml Syringe IVPUSH 09/18/25 01:56 1 mg ONCE ONE Administration Protocol Lactated Ringer's 1,000 mls @ 999 mls/hr 09/18/25 00:45 09/18/25 02:38 Lr IV 09/18/25 01:45 Infused .Q1H1M ILDA Infusion Acetaminophen 1,000 mg in 100 mls @ 400 mls/hr 09/18/25 00:45 09/18/25 01:37 Ofirmev IV 09/18/25 00:59 Infused ONCE ONE Infusion Ondansetron HCl 4 mg 09/18/25 00:45 09/18/25 01:13 Ondansetron Hcl 4 Mg/2 Ml Vial IVPUSH 09/18/25 00:46 4 mg ONCE ONE Administration Medical Decision Making Medical Decision Making MDM Narrative: 60-year-old female with a past medical history as above presents for evaluation of continued abdominal pain. Has a history of chronic abdominal pain. Her pain has been present for 2 weeks. She reports having diarrhea. This makes obstruction less likely as she is having bowel movements. Denies any black or bloody stool. No risk factors for C diff. she reports 1 episode of vomiting, nonbloody. She has a mild leukocytosis to 11.5 which may be reactive. There was no significant left shift. Chemistries are within normal limits. No electrolyte abnormalities. Renal functions are normal limits. LFTs within normal limits. Lipase within normal limits. Vital signs are stable. I do not see any indication to pursue emergent imaging of this patient at this time. I have a low suspicion for infectious, or surgical pathology. We will treat her pain symptomatically Differential Diagnosis Differential Diagnoses: The differential diagnosis associated with the presentation includes Chronic abdominal pain Colitis Diverticulitis Dehydration KATHY Bowel obstruction Constipation Admission/Observation Consideration of admission/observation: Escalation of care including admission/observation considered Lab Data MDM Lab Attestation statement: I reviewed the patient's lab results. As discussed above 09/17/25 22:49 09/17/25 22:49 Labs: Lab Results 09/17/25 09/18/25 09/18/25 Range/Units 22:49 01:04 02:08 WBC 11.5 H (4.8-10.8) X10*3/uL RBC 4.50 (4.20-5.50) X10*6/uL Hgb 12.5 (12.0-16.0) g/dl Hct 39.3 (37.0-47.0) % MCV 87.3 (80.0-98.0) fL MCH 27.8 (27.0-33.0) pg MCHC 31.8 (31.0-35.0) g/dl RDW 13.6 (11.0-16.0) % Plt Count 388 (160-400) X10*3/uL MPV 9.3 L (9.4-12.3) fL Immature Gran % (Auto) 0.2 (0.0-0.4) % Neut % (Auto) 55.6 (45-73) % Lymph % (Auto) 30.5 (20-40) % [place] % (Auto) 7.6 (2-11) % Eos % (Auto) 5.3 H (0-4) % Baso % (Auto) 0.8 (0-2) % Lymph # (Auto) 3.5 (1.2-4.9) X10*3/uL [place] # (Auto) 0.9 (0.1-1.2) X10*3/uL Eos # (Auto) 0.6 H (0.0-0.4) X10*3/uL Baso # (Auto) 0.1 (0.0-0.2) X10*3/uL Abs Immat Gran (auto) 0.02 (0.00-0.03) X10*3/uL Absolute Neuts (auto) 6.4 (2.0-8.3) x10*3/uL Absolute Nucleated RBC 0.000 (0.0-0.012) X10*3/uL Nucleated RBC % (auto) 0.0 (0.0-0.2) /100WBC Sodium 140 (135-145) mmol/L Potassium 3.6 (3.3-5.1) mmol/L Chloride 105 (96-108) mmol/L Carbon Dioxide 27 (22-29) mmol/L Anion Gap 12 (12-20) BUN 9 (9-16) mg/dL Creatinine 0.63 (0.5-1.4) mg/dL Estim Creat Clear Calc 86.9 Estimated GFR > 60 Random Glucose 76 (60-115) mg/dL Calcium 9.4 (8.4-10.2) mg/dL Total Bilirubin 0.2 (0.0-1.0) mg/dL AST 21 (5-31) U/L ALT 13 (0-31) U/L Alkaline Phosphatase 57 (39-117) U/L Total Protein 7.2 (6.5-8.0) g/dL Albumin 4.5 (3.5-5.0) g/dL Lipase 32 (8-78) U/L Urine Color Yellow Urine Appearance Clear Urine pH 6.5 (5.0-9.0) Ur Specific [place] <= 1.005 (1.005-1.025) Urine Protein Negative (Neg-Trace) mg/dL Urine Glucose (UA) Negative (Negative) mg/dL Urine Ketones Negative (Negative) mg/dL Urine Blood Negative (Negative) Urine Nitrite Negative (Negative) Ur Leukocyte Esterase Negative (Negative) Influenza Type A (PCR) NEGATIVE (Negative) Influenza Type B (PCR) NEGATIVE (Negative) RSV RNA Qual (PCR) NEGATIVE (Negative) SARS-CoV-2 RNA (RT-PCR) NEGATIVE (Negative) Independent Interpretation I performed an independent interpretation of an: EKG Interpretation: Normal sinus rhythm with a rate of [address] segment elevation or depressions. No ectopy Tests considered The following testing was considered but not selected: Consider CT scan of the abdomen pelvis Discharge Plan Discharge Clinical Impression: Chronic abdominal pain Patient Disposition: Home, Self-Care Instructions: Abdominal Pain (ED) Additional Instructions: You were treated today for abdominal pain. Your workup in the ER was reassuring pain This includes your labs, EKG. Follow up with your GI doctor. Take all of your home medications as prescribed Prescriptions: No Action tynwpyogzt-eeopftfrizsgr-[id number] [Fioricet] 50-300-40 mg capsule 1 cap PO Q8H PRN (Reason: pain) Qty: 5 0RF hyoscyamine sulfate 0.125 mg tablet 0.125 mg PO QID PRN (Reason: dyspepsia) Qty: 30 0RF cyclobenzaprine 10 mg tablet 10 mg PO BID PRN (Reason: muscle spasms) Qty: 30 0RF omeprazole 40 mg capsule,delayed release(DR/EC) 40 mg PO DAILY Qty: 90 0RF topiramate 100 mg tablet 100 mg PO BID lurasidone 80 mg tablet 80 mg PO DAILY trazodone 100 mg tablet 200 mg PO BEDTIME sertraline 100 mg tablet 200 mg PO DAILY (DME) blood pressure monitor [Blood Pressure Kit] Kit See Rx Instructions .ROUTE .MEDSUPPLY Qty: 1 0RF Rx Instructions: As directed hydroxyzine HCl 25 mg tablet 25 - 50 mg PO BID PRN (Reason: Anxiety) Qty: 90 0RF pregabalin 25 mg capsule 25 mg PO DAILY Qty: 30 0RF nicotine 14 mg/24 hr patch 24 hour 1 patch transdermal DAILY Qty: 28 0RF Print Language: Welsh
--- NOTE | 2025-09-18 00:35 | ECG_ITS ---
Test Reason : PALPITATION Blood Pressure : */* mmHG Vent. Rate : 62 BPM Atrial Rate : 62 BPM P-R Int : 142 ms QRS Dur : 84 ms QT Int : 426 ms P-R-T Axes : 68 61 57 degrees QTcB Int : 432 ms Normal sinus rhythm Normal ECG When compared with ECG of 18-Apr-2025 17:35, No significant changes seen Referred By: Fareed Breen Electronically Signed By: CAYDEN SOLIMAN
[2025-09-18 00:52] VITALS: BP 124/72; PULSE 66; RESP 20; TEMP 36.7; O2SAT 95
[2025-09-18] MEDS: Lactated Ringers 1,000 ML 999 ML IV (01:12)
[2025-09-18 01:51] LABS: Resp Syncy Virus RNA Qual PCR NEGATIVE (Negative); SARS COV2 PCR INHOUSE NEGATIVE (Negative)
[2025-09-18 02:15] LABS: Appearance Urine Clear; Glucose Urine UA Negative (Negative); PH 6.5 (5.0-9.0); Specific Gravity - Urine <= 1.005 (1.005-1.025)
[2025-09-18 03:36] VITALS: BP 124/72; PULSE 66; RESP 20; TEMP 36.7; O2SAT 95
== END 2025-09-18 03:39 | disposition home or self-care (01) ==
PROVIDERS: Physician Assistant; Emergency Provider Emergency Medicine
DX: R10.9 Unspecified abdominal pain (principal); G89.29 Other chronic pain; R11.2 Nausea with vomiting, unspecified; R19.7 Diarrhea, unspecified; R00.2 Palpitations; Z03.818 Encounter for observation for suspected exposure to other biological agents ruled out; I10 Essential (primary) hypertension; E78.5 Hyperlipidemia, unspecified; F17.200 Nicotine dependence, unspecified, uncomplicated; Z71.6 Tobacco abuse counseling
CPT/HCPCS: 36415; 80053; 81003; 83690; 85025; 87637; 93005; 96361; 96365; 96375; 99284; 99285; J0131; J1171; J2405; J7120

== ENCOUNTER → 2025-09-18 00:35 | Outpatient (BNV) | payer OTHER, SELFPAY | PROVIDERS: Emergency Provider Emergency Medicine; Visit Provider Internal Medicine | DX: R00.2 Palpitations (principal) | CPT/HCPCS: 93010 ==

== ENCOUNTER 2025-09-19 19:28 | Emergency (ER) | payer OTHER, SELFPAY ==
--- NOTE | ~2025-09-19 | XR_ITS ---
CLINICAL HISTORY: weakness --- Additional Notes or Special Instructions: No answer @ 2012 2 view chest x-ray Comparison: CT/SR - CT ABDOMEN PELVIS W IV CON - 05/08/25 00:13 EDT Findings: Lung inflation is normal. Cardiac and mediastinal silhouettes are normal. No consolidation No pneumothorax or or effusion. Normal size heart. No acute fracture. Multilevel thoracic degenerative disc disease. Patient is status post cervical anterior cervical discectomy and fusion IMPRESSION: 1. No acute cardiopulmonary process. This document has been electronically signed by: Adis Acevedo III, MD PHD on 09/19/2025 21:10:12
[2025-09-19 19:45] VITALS: BP 106/56; BP 111/75; PULSE 80; PULSE 83; RESP 16; TEMP 36.4; O2SAT 96; O2SAT 98; BMI 27.4
--- NOTE | 2025-09-19 19:47 | ED.GENADULT ---
HPI - General Adult General Chief complaint: Abdominal Pain Stated complaint: RLQ ab pain n/v/d worseafter eating Time Seen by Provider: 09/19/25 23:15 Source: patient, RN notes reviewed and old records reviewed Mode of arrival: EMS Limitations: no limitations History of Present Illness ED Provider: Nuha HPI narrative: 60-year-old female with a past medical history significant for chronic abdominal pain, diverticulosis, IBS, hyperlipidemia, GERD, chronic back pain for evaluation of abdominal pain. The patient reports that her pain returned yesterday after she ate mac and cheese for lunch nausea, she has having diarrhea but denies any blood in his stool. She reports that he called her primary doctor and was referred to GI but has not seen them she states her pain in his 07/25. Denies any fevers or chills. The patient is status post cholecystectomy and appendectomy. He states that her pain is still mostly left-sided Related Data Home Medications ?Medication ?Instructions ?Recorded ?Confirmed lurasidone 80 mg tablet 80 mg PO DAILY 06/16/23 06/11/25 topiramate 100 mg tablet 100 mg PO BID 06/16/23 06/11/25 trazodone 100 mg tablet 200 mg PO BEDTIME 12/26/23 06/11/25 sertraline 100 mg tablet 200 mg PO DAILY 04/19/25 06/11/25 Previous Rx's ?Medication ?Instructions ?Recorded blood pressure monitor (Blood #1 ea 06/05/24 Pressure Kit) hydroxyzine HCl 25 mg tablet 25 - 50 mg (1 - 2 x 25 mg) PO BID 06/11/25 PRN Anxiety #90 tabs nicotine 14 mg/24 hr daily 1 patch transdermal DAILY #28 ea 06/11/25 transdermal patch pregabalin 25 mg capsule 25 mg PO DAILY #30 caps 06/11/25 wzephwbfjm-ubqeuoluhkyrw-hjkzwitk 1 cap PO Q8H PRN pain #5 caps 08/11/25 50 mg-300 mg-40 mg capsule (Fioricet) hyoscyamine sulfate 0.125 mg tablet 0.125 mg PO QID PRN dyspepsia #30 08/25/25 tabs cyclobenzaprine 10 mg tablet 10 mg PO BID PRN muscle spasms #30 08/29/25 tabs omeprazole 40 mg capsule,delayed 40 mg PO DAILY #90 caps 08/29/25 release amoxicillin 875 mg-potassium 1 tab PO Q12H #14 tabs 09/20/25 clavulanate 125 mg tablet Allergies Allergy/AdvReac Type Severity Reaction Status Date / Time ibuprofen (From Motrin) Allergy Intermediate Shortness Verified 09/19/25 19:50 of Breath lamotrigine (From Lamictal) Allergy Intermediate Rash Verified 09/19/25 19:50 milnacipran (From Savella) Allergy Intermediate Itching Verified 09/19/25 19:50 aspirin (Aspirin) Allergy Mild DYSPNEA Verified 09/19/25 19:50 levofloxacin (From Levaquin) Allergy Mild Rash Verified 09/19/25 19:50 lithium ([place]) Allergy Mild TREMORS Verified 09/19/25 19:50 morphine (MORPHINE) Allergy Mild NAUSEA/VOMI Verified 09/19/25 19:50 TING fluoxetine (From Prozac) Allergy Unknown Unknown Verified 09/19/25 19:50 seafood Allergy Unknown Unknown Verified 09/19/25 19:50 dicyclomine (From Bentyl) Allergy Unknown Verified 09/19/25 19:50 carbamazepine (From Tegretol) AdvReac Intermediate Fatigued Verified 09/19/25 19:50 gabapentin AdvReac Intermediate Nausea Verified 09/19/25 19:50 zolpidem (From Ambien) AdvReac Intermediate Itching Verified 09/19/25 19:50 Review of Systems Constitutional: Constitutional: Denies body ache(s), Denies chills, Denies fever(s) and Denies headache(s) Eyes: Eyes: Denies blurry vision ENT: Denies vertigo, Denies dizziness, Denies dry mouth and Denies headache(s) Cardiovascular: Cardiovascular: Denies chest pain and Denies dyspnea on exertion Respiratory: Respiratory: Denies cough and Denies dyspnea on exertion Gastrointestinal: Gastrointestinal: Reports abdominal pain, Denies melena, Denies bloating, Denies hematochezia, Reports nausea and Denies vomiting Musculoskeletal: Musculoskeletal: Denies back pain Integumentary/Breasts: Skin/Breast: Denies rash Neurologic: Denies vertigo, Denies dizziness and Denies headache(s) Psychiatric: Psychiatric: Denies anxiety PMFSH Past Medical History Medical History Tobacco abuse disorder Syncope Shortness of breath on exertion Effusion, left knee Left knee pain GERD (gastroesophageal reflux disease) Hypertension Hyperlipidemia Depression Surgical History Status post cardiac catheterization S/P ACL repair History of hysterectomy (~1999) History of spinal surgery (~12/2013) History of colectomy (~06/01/11) Family History Family History Father No problems noted. Mother No problems noted. Social History Social History Household Members: Family Housing: Apartment Do you presently have visiting nurse or other home services: No Alcohol intake: current Alcohol intake frequency: holidays/special occasions only Alcohol type: beer Comment: Pt self ambulates and declines bed alarms at this time. Patient Tobacco Use Status: Current everyday Tobacco user Tobacco use type: Cigarette Cigarette Packs Per Day: 0.5 Cigarettes Per Day: 10.0 Years Smoked: since 10 years old but quit few times in between Smoked in Last 30 Days: Yes e-Cigarette/Vaping Use: Never Used Second Hand Smoke Exposure: Yes Use of substances other than those prescribed or required for medical reasons: No Substance Use Type: Crack/Cocaine Advance Directives: No Advance Directives Information Provided: No Do you have a plan to hurt others: No Plan Patient : No service: No Current occupational status: employed Current occupation: [employer] Cognitive needs: No Hearing needs: No Vision needs: No Physical Exam ED Vital Signs: Vital Signs - 24 hr 09/19/25 19:45 09/19/25 22:17 09/20/25 00:41 Temperature 97.5 F 98.0 F 97.8 F Pulse Rate 83 70 64 Respiratory Rate 16 12 18 Blood Pressure 106/56 L 122/65 132/57 L Pulse Oximetry 96 96 95 Oxygen Delivery Method Room Air Room Air Room Air 09/20/25 01:19 09/20/25 01:46 Temperature 97.8 F Pulse Rate 62 Respiratory Rate 12 18 Blood Pressure 123/72 Pulse Oximetry 97 Oxygen Delivery Method Room Air BMI result Body Mass Index 27.4 Const General: healthy appearing, comfortable, no acute distress, alert and awake Nutritional Appearance: well nourished Orientation/consciousness: patient oriented x3 HENMT Head: Yes normocephalic and Yes atraumatic Eyes Eyelids: Yes eyelids normal Conjunctivae: conjunctivae normal Sclerae: sclerae normal Corneas: corneas normal Pupils: Equal, round and reactive pupils present EOM: EOMs intact bilaterally Neck Neck: Yes full ROM Resp Effort & Inspection: normal respiratory effort, able to speak in complete sentences and not labored Cardio Rate: regular rate Rhythm: regular rhythm GI Inspection: No distended Palpation (GI): Soft to palpation, not firm, Tenderness to palpation present (GI) (without guarding) in the LLQ, no guarding and not rigid Auscultation: normoactive bowel sounds Skin General skin exam: elasticity normal Neuro General: patient oriented x3 Cranial nerves: Yes Equal, round and reactive pupils present and Yes Bilaterally intact EOM present Cognition (Neuro): normal cognition Extrem Other: Moving all extremities well without any obvious deformities Course Course Course Narrative: Rapid medical examination performed in triage by Santa Lerner PA-C: Patient is a 60 year old assigned female at presenting to the emergency department with abdominal pain and palpitations. Detailed physical exam and review of systems are deferred to the business intelligence administrator. EKG, labs, imaging, swabs ordered. Patient placed back in the waiting room pending room availability and results. Medications Administered Discontinued Medications Generic Name Dose Route Start Last Admin Trade Name Freq PRN Reason Stop Dose Admin Al Hydroxide/Mg Hydroxide 30 ml 09/20/25 00:12 09/20/25 00:20 Magnesium Hydrox/Alum Hydrox 30 Ml Oral.Susp PO 09/20/25 00:13 30 ml ONCE ONE Administration Lactated Ringer's 1,000 mls @ 999 mls/hr 09/20/25 00:15 09/20/25 01:46 Lr IV 09/20/25 01:15 Infused .Q1H1M ILDA Infusion Lidocaine HCl 15 ml 09/20/25 00:12 09/20/25 00:19 Lidocaine Hcl Viscous 2 % 15 Ml Solution MUCOUS MEM 09/20/25 00:13 15 ml ONCE ONE Administration Prochlorperazine Edisylate 10 mg 09/20/25 00:12 09/20/25 00:19 Prochlorperazine Edisylate 10 Mg/2 Ml Vial IVPUSH 09/20/25 00:13 10 mg ONCE ONE Administration Medical Decision Making Medical Decision Making [facility] Narrative: 60-year-old female with a past medical history as above, namely chronic abdominal pain and IBS presents for evaluation of continued abdominal pain. She has already had 4 CT scans of the abdomen pelvis this year. I saw her 2 days ago with a fairly reassuring workup and the patient is requesting Dilaudid for pain due to Tylenol not working in allergies to morphine and ibuprofen. She is requesting Dilaudid again which I do not feel is appropriate as her workup is reassuring, I do not suspect surgical pathology, I do not suspect infectious pathology. Her pain is subjective, she has no white count or left shift. Urinalysis has 1+ bacteria but she denies any urinary symptoms. She is concerned that she may have colitis. However she has IBS, chronic abdominal pain, denies any black or bloody stool and no evidence of bacterial colitis. Given the bacteria in the urine and possible colitis I do feel it may be appropriate to treat with a 1 week course of Augmentin that would cover both colitis and UTI symptoms. I also encouraged symptomatic treatment. the patient is vital signs are all within normal limits, I again do not feel there was any indication for emergent imaging of the Differential Diagnosis Differential Diagnoses: The differential diagnosis associated with the presentation includes chronic abdominal pain IBS Cystitis Diverticulitis Colitis Admission/Observation Consideration of admission/observation: Escalation of care including admission/observation considered Lab Data [facility] Lab Attestation statement: I reviewed the patient's lab results. no leukocytosis or anemia. No significant electrolyte abnormalities warranting intervention 09/19/25 20:20 09/19/25 20:20 Labs: Lab Results 09/19/25 09/19/25 Range/Units 20:20 22:25 WBC 10.1 (4.8-10.8) X10*3/uL RBC 4.69 (4.20-5.50) X10*6/uL Hgb 13.1 (12.0-16.0) g/dl Hct 40.7 (37.0-47.0) % MCV 86.8 (80.0-98.0) fL MCH 27.9 (27.0-33.0) pg MCHC 32.2 (31.0-35.0) g/dl RDW 13.4 (11.0-16.0) % Plt Count 402 H (160-400) X10*3/uL MPV 9.2 L (9.4-12.3) fL Immature Gran % (Auto) 0.3 (0.0-0.4) % Neut % (Auto) 56.9 (45-73) % Lymph % (Auto) 28.5 (20-40) % [place] % (Auto) 6.4 (2-11) % Eos % (Auto) 7.1 H (0-4) % Baso % (Auto) 0.8 (0-2) % Lymph # (Auto) 2.9 (1.2-4.9) X10*3/uL [place] # (Auto) 0.7 (0.1-1.2) X10*3/uL Eos # (Auto) 0.7 H (0.0-0.4) X10*3/uL Baso # (Auto) 0.1 (0.0-0.2) X10*3/uL Abs Immat Gran (auto) 0.03 (0.00-0.03) X10*3/uL Absolute Neuts (auto) 5.8 (2.0-8.3) x10*3/uL Absolute Nucleated RBC 0.000 (0.0-0.012) X10*3/uL Nucleated RBC % (auto) 0.0 (0.0-0.2) /100WBC PT 10.8 L (11.2-13.5) SEC INR 0.9 (0.9-1.1) Sodium 142 (135-145) mmol/L Potassium 3.7 (3.3-5.1) mmol/L Chloride 108 (96-108) mmol/L Carbon Dioxide 27 (22-29) mmol/L Anion Gap 11 L (12-20) BUN 13 (9-16) mg/dL Creatinine 0.65 (0.5-1.4) mg/dL Estim Creat Clear Calc 84.2 Estimated GFR > 60 Random Glucose 94 (60-115) mg/dL Calcium 9.5 (8.4-10.2) mg/dL Magnesium 2.0 (1.6-2.6) mg/dL Total Bilirubin 0.1 (0.0-1.0) mg/dL AST 18 (5-31) U/L ALT 22 (0-31) U/L Alkaline Phosphatase 67 (39-117) U/L Troponin I High Sens < 2.7 (<3.5-17.0) ng/L Total Protein 7.3 (6.5-8.0) g/dL Albumin 4.4 (3.5-5.0) g/dL Urine Color Yellow Urine Appearance Turbid Urine pH 7.5 (5.0-9.0) Ur Specific [place] 1.020 (1.005-1.025) Urine Protein Negative (Neg-Trace) mg/dL Urine Glucose (UA) Negative (Negative) mg/dL Urine Ketones Negative (Negative) mg/dL Urine Blood Negative (Negative) Urine Nitrite Negative (Negative) Ur Leukocyte Esterase Trace H (Negative) Urine RBC 0-2 (0-2) /HPF Urine WBC 0-5 (0-5) /HPF Ur Squamous Epith Cells 3-5 (0-2) /HPF Urine Bacteria 1+ (None Seen) Hyaline Casts 0-2 (0-2) /LPF Influenza Type A (PCR) NEGATIVE (Negative) Influenza Type B (PCR) NEGATIVE (Negative) RSV RNA Qual (PCR) NEGATIVE (Negative) SARS-CoV-2 RNA (RT-PCR) NEGATIVE (Negative) Discharge Plan Discharge Clinical Impression: Chronic abdominal pain Patient Disposition: Home, Self-Care Instructions: Chronic Abdominal Pain (DC) Additional Instructions: your today was reassuring again. You were treated with IV fluids, Compazine and Zofran. In his important to follow up with your primary doctor you should return to the ER if you develop fevers Prescriptions: New amoxicillin-pot clavulanate 875-125 mg tablet 1 tab PO Q12H Qty: 14 0RF No Action afxsvheasi-mohykiqyknugb-jqil [Fioricet] 50-300-40 mg capsule 1 cap PO Q8H PRN (Reason: pain) Qty: 5 0RF hyoscyamine sulfate 0.125 mg tablet 0.125 mg PO QID PRN (Reason: dyspepsia) Qty: 30 0RF cyclobenzaprine 10 mg tablet 10 mg PO BID PRN (Reason: muscle spasms) Qty: 30 0RF omeprazole 40 mg capsule,delayed release(DR/EC) 40 mg PO DAILY Qty: 90 0RF topiramate 100 mg tablet 100 mg PO BID lurasidone 80 mg tablet 80 mg PO DAILY trazodone 100 mg tablet 200 mg PO BEDTIME sertraline 100 mg tablet 200 mg PO DAILY (DME) blood pressure monitor [Blood Pressure Kit] Kit See Rx Instructions .ROUTE .MEDSUPPLY Qty: 1 0RF Rx Instructions: As directed hydroxyzine HCl 25 mg tablet 25 - 50 mg PO BID PRN (Reason: Anxiety) Qty: 90 0RF pregabalin 25 mg capsule 25 mg PO DAILY Qty: 30 0RF nicotine 14 mg/24 hr patch 24 hour 1 patch transdermal DAILY Qty: 28 0RF Print Language: Turkmen
--- NOTE | 2025-09-19 19:48 | ECG_ITS ---
Test Reason : palpitations Blood Pressure : */* mmHG Vent. Rate : 78 BPM Atrial Rate : 78 BPM P-R Int : 128 ms QRS Dur : 84 ms QT Int : 394 ms P-R-T Axes : 43 70 57 degrees QTcB Int : 449 ms Normal sinus rhythm Normal ECG When compared with ECG of 18-Sep-2025 00:52, No significant change was found Referred By: Santa Lerner Electronically Signed By: CAYDEN SOLIMAN
[2025-09-19 20:27] LABS: MANUAL DIFF FLAG NO
[2025-09-19 20:30] LABS: Hematocrit 40.7 % (37.0-47.0); Hemoglobin 13.1 g/dl (12.0-16.0); Imm Gran Abs Auto 0.03 X10*3/uL (0.00-0.03); Imm Gran Pct Auto 0.3 % (0.0-0.4); Lymphocytes Absolute Auto 2.9 X10*3/uL (1.2-4.9); Mean Corpuscular HGB Conc 32.2 g/dl (31.0-35.0); Mean Corpuscular Hemoglobin 27.9 pg (27.0-33.0); Mean Corpuscular Volume 86.8 fL (80.0-98.0); NRBC Abs Auto 0.000 X10*3/uL (0.0-0.012); NRBC Pct Auto 0.0 /100WBC (0.0-0.2); Platelet Count 402 X10*3/uL (160-400); Red Blood Count 4.69 X10*6/uL (4.20-5.50); White Blood Count 10.1 X10*3/uL (4.8-10.8)
[2025-09-19 20:35] LABS: INTERNATIONAL NORM RATIO 0.9 (0.9-1.1); Prothrombin Time 10.8 SEC (11.2-13.5)
[2025-09-19 20:49] LABS: Alanine Aminotransferase 22 U/L (0-31); Albumin Level 4.4 g/dL (3.5-5.0); Alkaline Phosphatase 67 U/L (39-117); Anion Gap 11 (12-20); Aspartate Amino Transferase 18 U/L (5-31); Blood Urea Nitrogen 13 mg/dL (9-16); Calcium 9.5 mg/dL (8.4-10.2); Carbon Dioxide 27 mmol/L (22-29); Chloride 108 mmol/L (96-108); Creatinine Clr Calc Pharmacy 84.2; Estimated Glomerular Filt Rate > 60; Magnesium 2.0 mg/dL (1.6-2.6); Potassium 3.7 mmol/L (3.3-5.1); Sodium 142 mmol/L (135-145); Total Protein 7.3 g/dL (6.5-8.0)
[2025-09-19 20:58] LABS: Troponin-I High Sensitivity < 2.7 ng/L (<3.5-17.0)
[2025-09-19 21:20] LABS: Resp Syncy Virus RNA Qual PCR NEGATIVE (Negative); SARS COV2 PCR INHOUSE NEGATIVE (Negative)
[2025-09-19 22:17] VITALS: BP 122/65; PULSE 70; RESP 12; TEMP 36.7; O2SAT 96
[2025-09-19 22:46] LABS: Appearance Urine Turbid; Glucose Urine UA Negative (Negative); PH 7.5 (5.0-9.0); Specific Gravity - Urine 1.020 (1.005-1.025); UMIC TRIGGER UACC YES
--- OUTSIDE RECORDS SUMMARY | 2025-09-19 22:46 | XMS_ITS | Clinical Summary ---
Author Organization [facility] Address [address] [place] [address] Phone Care Team Providers Care Marionette Performer Name Role Phone Physician, Pcp Unknown Primary [...] available. 2 each 5 05/24/20 26 Active albuterol HFA (PROAIR HFA ; PROVENTIL [...] package instructions 21 tablet 5 09/16/20 25 ondansetron (ZOFRAN) 4 mg tablet Take 1 tablet (4 mg total) by mouth every 8 (eight) hours if needed for nausea or vomiting for up to 7 days. 20 tablet 5 09/17/20 25 Active Problems Problem Noted Date Diagnosed Date Alcohol dependence ([facility] V24, [facility] V28) Bipolar II disorder ([facility] V24, [facility] V28) 1 11/02/2024 Hip pain, right 09/02/2025 History of colectomy 09/02/2025 Overview (09/02/2025): s/p complicated colonoscopy in 2010 resulting in perforation/bowel resection surgery and abscess formation around drain site - operated at [facility] - surgeons : Dr. Bolton and Dr. 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) ([facility] V28) 09/02/2025 Spasm of back muscles 09/02/2025 [...] AM EST - 09/10/2025 3:07 AM EST [facility] Emergency [address] [place] [id number] Viral syndrome (Primary Dx) Discharge Disposition: Home [...] EDT Consult Gastroenterology - [address] [id number] [place] Hurley, HEIDI [address] [address] (work) Health Maintenance Due Date Last Done Comments [...] Screening 11/14/2023 Depression Screening 10/16/2024 COVID-19 Vaccine ( - season) 2025 03/30/2021, 03/02/2021 Influenza Vaccine [...] molecular study (09/10/2025 12:51 AM EST) Pathologist [facility] Adenovirus Detection by PCR Not Detected Not Detected LAB MICROBIOLOGY METHOD 09/10/2025 2:09 AM [facility] Influenza A PCR Not Detected Not Detected LAB MICROBIOLOGY METHOD 09/10/2025 2:09 AM [facility] Influenza B PCR Not Detected Not Detected LAB MICROBIOLOGY METHOD 09/10/2025 2:09 AM [facility] Coronavirus 229E Not Detected Not Detected LAB MICROBIOLOGY METHOD 09/10/2025 2:09 AM [facility] Coronavirus HKU1 Not Detected Not Detected LAB MICROBIOLOGY METHOD 09/10/2025 2:09 AM [facility] Coronavirus OC43 Not Detected Not Detected LAB MICROBIOLOGY METHOD 09/10/2025 2:09 AM [facility] Coronavirus NL63 Not Detected Not Detected LAB MICROBIOLOGY METHOD 09/10/2025 2:09 AM [facility] Parainfluenza Virus 1 Not Detected Not Detected LAB MICROBIOLOGY METHOD 09/10/2025 2:09 AM [facility] Parainfluenza Virus 2 Not Detected Not Detected LAB MICROBIOLOGY METHOD 09/10/2025 2:09 AM [facility] Parainfluenza Virus 3 Not Detected Not Detected LAB MICROBIOLOGY METHOD 09/10/2025 2:09 AM [facility] Parainfluenza Virus 4 Not Detected Not Detected LAB MICROBIOLOGY METHOD 09/10/2025 2:09 AM [facility] RSV PCR Not Detected Not Detected LAB MICROBIOLOGY METHOD 09/10/2025 2:09 AM [facility] Human Metapneumovirus A and B Not Detected Not Detected LAB MICROBIOLOGY METHOD 09/10/2025 2:09 AM [facility] Rhinovirus/Entero virus Detected(A ) Not Detected LAB MICROBIOLOGY METHOD 09/10/2025 2:09 AM [facility] Bordetella pertussis Not Detected Not Detected LAB MICROBIOLOGY METHOD 09/10/2025 2:09 AM [facility] Bordetella parapertussis Not Detected Not Detected LAB MICROBIOLOGY METHOD 09/10/2025 2:09 AM [facility] Mycoplasma pneumo by PCR Not Detected Not Detected LAB MICROBIOLOGY METHOD 09/10/2025 2:09 AM [facility] Chlamydia pneumoniae Not Detected Not Detected LAB MICROBIOLOGY METHOD 09/10/2025 2:09 AM [facility] SARS COV-2 Not Detected Not Detected LAB MICROBIOLOGY METHOD 09/10/2025 2:09 AM [facility] Swab Nasopharyngeal structure / Unknown Non-blood Collection / Unknown 09/10/2025 12:51 AM EST 09/10/2025 1:16 AM [facility] - 09/10/2025 2:09 AM EST Testing was performed using the [employer] Respiratory Pathogen PCR Assay. All results must [...] LAB MICROBIOLOGY - GENERAL ORDERABLES Final Result [facility] [address] [place] [address], [place] [phone] * (ABNORMAL) CBC auto differential (09/09/2025 7:05 PM EST) [facility] WBC 8.6 4.8 - 10.8 K/mcL LAB HEMETOLOGY METHOD 09/09/2025 7:17 PM [facility] RBC 4.50 3.80 - 4.80 M/mcL LAB HEMETOLOGY METHOD 09/09/2025 7:17 PM [facility] Hemoglobin 12.7 11.5 - 16.0 g/dL LAB HEMETOLOGY METHOD 09/09/2025 7:17 PM [facility] Hematocrit 39.4 35.0 - 47.0 % LAB HEMETOLOGY METHOD 09/09/2025 7:17 PM [facility] MCV 86.8 79.0 - 98.0 FL LAB HEMETOLOGY METHOD 09/09/2025 7:17 PM [facility] MCH 28.0 27.0 - 32.0 pcg LAB HEMETOLOGY METHOD 09/09/2025 7:17 PM [facility] MCHC 32.2 32.0 - 37.0 g/dL LAB HEMETOLOGY METHOD 09/09/2025 7:17 PM [facility] RDW 13.4 11.0 - 15.0 % LAB HEMETOLOGY METHOD 09/09/2025 7:17 PM [facility] Platelets 336 130 - 400 K/mcL LAB HEMETOLOGY METHOD 09/09/2025 7:17 PM [facility] MPV 8.9 7.0 - 11.0 FL LAB HEMETOLOGY METHOD 09/09/2025 7:17 PM [facility] NRBC 0.0 <1.0 % LAB HEMETOLOGY METHOD 09/09/2025 7:17 PM [facility] NRBC Absolute 0.00 <0.10 K/mcL LAB HEMETOLOGY METHOD 09/09/2025 7:17 PM [facility] Neutrophils Relative 51.9 % LAB HEMETOLOGY METHOD 09/09/2025 7:17 PM [facility] Lymphocytes Relative 34.6 % LAB HEMETOLOGY METHOD 09/09/2025 7:17 PM [facility] Monocytes Relative 6.6 % LAB HEMETOLOGY METHOD 09/09/2025 7:17 PM [facility] Eosinophils Relative 6.0 % LAB HEMETOLOGY METHOD 09/09/2025 7:17 PM [facility] Basophils Relative 0.6 % LAB HEMETOLOGY METHOD 09/09/2025 7:17 PM [facility] Immature Granulocytes Relative 0.3 % LAB HEMETOLOGY METHOD 09/09/2025 7:17 PM [facility] Neutrophils Absolute 4.48 1.50 - 7.00 K/mcL LAB HEMETOLOGY METHOD 09/09/2025 7:17 PM [facility] Lymphocytes Absolute 2.99 1.00 - 5.00 K/mcL LAB HEMETOLOGY METHOD 09/09/2025 7:17 PM [facility] Monocytes Absolute 0.57 0.20 - 1.00 K/mcL LAB HEMETOLOGY METHOD 09/09/2025 7:17 PM [facility] Eosinophils Absolute 0.52(H) 0.00 - 0.50 K/mcL LAB HEMETOLOGY METHOD 09/09/2025 7:17 PM [facility] Basophils Absolute 0.05 0.00 - 0.20 K/mcL LAB HEMETOLOGY METHOD 09/09/2025 7:17 PM [facility] Immature Granulocytes Absolute 0.03 0.00 - 0.03 K/mcL LAB HEMETOLOGY METHOD 09/09/2025 7:17 PM [facility] Blood Venous blood specimen / Unknown Venipuncture / Unknown 09/09/2025 7:05 PM EST 09/09/2025 7:09 PM EST Armin Mcbride MD LAB BLOOD ORDERABLES Final Result Performing Organization Address [facility]/ZIP Co de Phone Number [facility] [address] [place] [address], [place] [phone] * Lipase (09/09/2025 7:05 PM EST) Lipase 25 12 - 53 unit/L 09/09/2025 7:37 PM [facility] Blood Venous blood specimen / Unknown Venipuncture / Unknown 09/09/2025 7:05 PM EST 09/09/2025 7:09 PM EST Armin Mcbride MD LAB BLOOD ORDERABLES Final Result Performing Organization Address City/[facility]/ZIP Co de Phone Number [facility] [address] [place] [address], [place] [phone] * Comprehensive metabolic panel (09/09/2025 7:05 PM EST) Pathologist [facility] Sodium 140 133 - 145 mmol/L 09/09/2025 7:37 PM [facility] Potassium 3.7 3.5 - 5.5 mmol/L 09/09/2025 7:37 PM [facility] Chloride 104 96 - 110 mmol/L 09/09/2025 7:37 PM [facility] CO2 29 21 - 32 mmol/L 09/09/2025 7:37 PM [facility] Anion Gap 7 3 - 11 09/09/2025 7:37 PM [facility] Glucose 80 70 - 100 mg/dL 09/09/2025 7:37 PM [facility] BUN 9 5 - 25 mg/dL 09/09/2025 7:37 PM [facility] Creatinine 0.79 0.50 - 1.10 mg/dL 09/09/2025 7:37 PM [facility] eGFR 86 >=60 mL/min/1. 73m2 09/09/2025 7:37 PM [facility] Comment:Calculation based on the Chronic Kidney Disease Epidemiology Collaboration (CKD-EPI) equation refit without adjustment for race. BUN/Creatinine Ratio 11.4 09/09/2025 7:37 PM [facility] Calcium 8.6 8.5 - 10.5 mg/dL 09/09/2025 7:37 PM [facility] AST (SGOT) 24 10 - 42 unit/L 09/09/2025 7:37 PM [facility] ALT (SGPT) 20 10 - 60 unit/L 09/09/2025 7:37 PM [facility] Alkaline Phosphatase 65 42 - 121 unit/L 09/09/2025 7:37 PM [facility] Total Protein 7.1 6.0 - 8.0 g/dL 09/09/2025 7:37 PM [facility] Albumin 4.0 3.2 - 5.0 g/dL 09/09/2025 7:37 PM [facility] Total Bilirubin 0.2 0.0 - 1.4 mg/dL 09/09/2025 7:37 PM [facility] Blood Venous blood specimen / Unknown Venipuncture / Unknown 09/09/2025 7:05 PM EST 09/09/2025 7:09 PM EST us Armin Mcbride MD LAB BLOOD ORDERABLES Final Result [facility] [address] [place] [address], [place] [phone] from Last 3 Months Additional Health Concerns Infection Onset Date Last Indicated Enterovirus 09/10/2025 09/10/2025 Rhinovirus 09/10/2025 09/10/2025 Insurance [employer] MEDICARE MEDICAID - [place] Care Teams [place] Performer Relationship Specialty Start Date End Date Physician, Pcp Unknown PCP - General 05/23/25
--- OUTSIDE RECORDS SUMMARY | 2025-09-19 22:47 | XMS_ITS | Clinical Summary ---
Author Organization [employer] Address [address] [place] [address] Care Team Providers Care Dye House Wheel Operator Name Role Phone Unavailable Primary Care Provider Unavailabl e Social History Tobacco Use Types Packs/Day Years [...] of 2) 2016 COVID-19 Vaccine ( - 2024-2 6 season) 2025 Influenza Vaccine (#1) 2025 RSV Patients and [...] patient's age to complete this topic Insurance [facility] [place] [id number]
[2025-09-20] MEDS: Lidocaine HCl Viscous 2 % 15 ML SOLUTION MUCOUS MEM (00:19)
[2025-09-20] MEDS: Magnesium Hydrox/Alum Hydrox 30 ML ORAL.SUSP PO (00:20)
[2025-09-20] MEDS: Lactated Ringers 1,000 ML 999 ML IV (00:20)
[2025-09-20 00:41] VITALS: BP 132/57; PULSE 64; RESP 18; TEMP 36.6; O2SAT 95
[2025-09-20 01:19] VITALS: RESP 12
[2025-09-20 01:46] VITALS: BP 123/72; PULSE 62; RESP 18; TEMP 36.6; O2SAT 97
[2025-09-20 01:51] VITALS: BP 123/72; PULSE 62; RESP 18; TEMP 36.6; O2SAT 97
== END 2025-09-20 01:53 | disposition home or self-care (01) ==
PROVIDERS: Physician Assistant Medical; Emergency Provider Emergency Medicine
DX: R10.31 Right lower quadrant pain (principal); R00.2 Palpitations; F17.210 Nicotine dependence, cigarettes, uncomplicated; Z03.818 Encounter for observation for suspected exposure to other biological agents ruled out; Z79.899 Other long term (current) drug therapy
CPT/HCPCS: 71046; 80053; 81001; 83735; 84484; 85025; 85610; 87637; 93005; 96365; 96367; 96375; 99285; J0737; J7120

== ENCOUNTER → 2025-09-19 19:48 | Outpatient (BNV) | payer OTHER, SELFPAY | PROVIDERS: Emergency Provider Emergency Medicine; Visit Provider Internal Medicine | DX: R00.2 Palpitations (principal) | CPT/HCPCS: 93010 ==

== ENCOUNTER → 2025-09-19 19:48 | Outpatient (BNV) | payer OTHER, SELFPAY | PROVIDERS: Visit Provider Radiology Diagnostic Radiology | DX: R53.1 Weakness (principal) | CPT/HCPCS: 71046 ==